=== PATIENT | male | born 1940 | race Caucasian/White ===

== ENCOUNTER 2017-11-28 07:30 | Inpatient (IN) | payer OTHER ==
--- NOTE | 2017-11-28 08:03 | ER ---
Nurse's Notes [facility] Name: Amado Benitez Age: 77 yrs Sex: Male : 1940 Arrival Date: 11/28/2017 Time: 07:33 Bed 13 [facility] MD: Micky Russo C Diagnosis: Other chest pain;Dyspnea;End stage renal disease;Unspecified combined systolic (congestive) and diastolic (congestive) heart failure;Hyperkalemia Presentation: 11/28 07:36 Presenting complaint: Patient states: Sudden severe chest pain 04/26 and SOB that hb started during HD, relieved by nitro x 1. Transition of care: patient was not received from another setting of care. Onset of symptoms was November 28, 2017. Initial Sepsis Screen: Does the patient meet any 2 criteria? No. Patient's initial sepsis screen is negative. Does the patient have a suspected source of infection? No. Patient's initial sepsis screen is negative. Care prior to arrival: None. 07:36 Method Of Arrival: Wheelchair hb 07:36 Acuity: KIMMY 3 hb Historical: - Allergies: 07:37 No Known Allergies; hb - Home Meds: 07:37 Aleve 220 mg Oral tab 1 tab every 12 hours [Active]; amlodipine 10 mg tab 1 tab once hb daily [Active]; aspirin 81 mg Oral TbEC 1 tab once daily [Active]; CALCIUM ACETATE 667 MG 2 tab daily [Active]; metoprolol tartrate 25 mg Oral tab 1 tab once daily [Active]; prednisone 5 mg Oral tab once daily [Active]; - PMHx: 07:38 COPD; Dialysis; ESRD; Hypertension; TIA; hb - PSHx: 07:38 Cholecystectomy; dialysis shunt; Hernia repair; hb - Immunization history:: Adult Immunizations up to date. - Social history:: Smoking status: Patient/guardian denies using tobacco. - Family history:: not pertinent. Screenin:43 Abuse screen: Denies threats or abuse. Denies injuries from another. Nutritional ph screening: No deficits noted. Tuberculosis screening: No symptoms or risk factors identified. Fall Risk No fall in past 12 months (0 pts). No secondary diagnosis (0 pts). IV access (20 points). Ambulatory Aid- None/Bed Rest/Nurse Assist (0 pts). Gait- Weak (10 pts.). Mental Status- Oriented to own ability (0 pts). Total Srivastava Fall Scale indicates Low Risk Score (25-44 pts). Fall prevention measures have been instituted. Side Rails Up X 2 Placed close to Nursing Station Family Present and informed to notify staff if they need to leave bedside As available Patient and Family Educated on Fall Prevention Program and strategies. Assessment: 08:09 General: Appears in no apparent distress. comfortable, slender, well groomed, Behavior ph is calm, cooperative, appropriate for age. Pain: Denies pain. Complains of pain in chest reports that pain radiated to vikram thigh area, denies pain at this time Pain began suddenly. Neuro: Level of Consciousness is awake, alert, obeys commands, Oriented to person, place, time, situation. Cardiovascular: Reports chest pain, shortness of breath, Denies nausea, palpitations, Capillary refill < 3 seconds Patient's skin is warm and dry. Dialysis shunt: in the dorsal aspect of left forearm, with palpable thrill, with auscultated bruit, with no erythema, with no edema, no bleeding noted. Respiratory: Airway is patent Respiratory effort is even, unlabored, Respiratory pattern is regular, symmetrical. GI: No signs and/or symptoms were reported involving the gastrointestinal system. Derm: Skin is intact, is fragile, is thin, Skin is pink, warm \T\ dry. Musculoskeletal: Circulation, motion, and sensation intact. Range of motion: intact in all extremities. 09:00 Reassessment: Patient appears in no apparent distress at this time. Patient and/or ph family updated on plan of care and expected duration. Pain level reassessed. Patient is alert, oriented x 3, equal unlabored respirations, skin warm/dry/pink. Pt c/o SOB and nausea, Spo2 98% RA, placed on 2L NC for comfort and ERP notifed, see SEP. 10:00 Reassessment: Patient appears in no apparent distress at this time. Patient and/or ph family updated on plan of care and expected duration. Pain level reassessed. Patient is alert, oriented x 3, equal unlabored respirations, skin warm/dry/pink. Pt reports that nausea and SOB have improved, VSS, awaiting lab results. 11:10 Reassessment: Patient appears in no apparent distress at this time. Patient and/or ph family updated on plan of care and expected duration. Pain level reassessed. Patient is alert, oriented x 3, equal unlabored respirations, skin warm/dry/pink. Pt resting quietly, denies pain, SOB, or nausea at this time, VSS, awaiting room assignment, SO at bedside. 12:30 Reassessment: Patient appears in no apparent distress at this time. Patient and/or ph family updated on plan of care and expected duration. Pain level reassessed. Patient is alert, oriented x 3, equal unlabored respirations, skin warm/dry/pink. Patient denies pain at this time. 13:30 Reassessment: Patient appears in no apparent distress at this time. No changes from ph previously documented assessment. Patient and/or family updated on plan of care and expected duration. Pain level reassessed. Patient is alert, oriented x 3, equal unlabored respirations, skin warm/dry/pink. Pt resting quietly, waiting to be taken ti=o ICU. Vital Signs: 07:38 BP 189 / 70; Pulse 49; Resp 16; Temp 98; Pulse Ox 96% on R/A; Pain 0/10; hb 08:13 BP 178 / 66; Pulse 44; Resp 18; Pulse Ox 97% on R/A; ph 09:30 BP 163 / 68; Pulse 45; Resp 18; Pulse Ox 99% on R/A; ph 10:30 BP 142 / 52; Pulse 54; Resp 18; Pulse Ox 99% on R/A; ph 11:16 BP 147 / 57; Pulse 68; Resp 18; Pulse Ox 99% on R/A; ph 12:18 BP 138 / 58; Pulse 54; Resp 18; Temp 97.8; Pulse Ox 98% on R/A; Pain 0/10; ph 13:30 BP 137 / 52; Pulse 52; Resp 18; Temp 97.8; Pulse Ox 99% on R/A; Pain 0/10; ph ED Course: 07:33 Patient arrived in ED. mr 07:33 Micky Russo MD is Private Physician. mr 07:37 Triage completed. hb 07:38 Arm band placed on right wrist. hb 07:41 Florence Ospina, JOVANI is Primary Nurse. ph 07:44 Patient has correct armband on for positive identification. Placed in gown. Bed in low ph position. Call light in reach. Side rails up X 1. youth nutritional monitor on. Pulse ox on. NIBP on. 07:45 Patient maintains SpO2 saturation greater than 95% on room air. ph 07:46 Nitin Hoyos MD is Attending Physician. [facility] 08:00 Initial lab(s) drawn, by me, sent to lab. Inserted saline lock: 20 gauge in right ph forearm, using aseptic technique. Blood collected. 08:02 Micky Russo MD is Hospitalizing Provider. [facility] 08:18 X-ray completed. Portable x-ray completed in exam room. Patient tolerated procedure jb2 well. 08:19 XRAY Chest (1 view) In Process Unspecified. EDND 13:55 No provider procedures requiring assistance completed. Patient admitted, IV remains in ph place. Administered Medications: 08:45 Drug: Nitro-Bid Ointment 2 % 1 inches Route: Transdermal; Site: anterior chest wall; ph 08:45 Drug: Aspirin 162 mg Route: PO; ph 08:46 Drug: Zofran 4 mg Route: IVP; Site: right forearm; ph 10:21 Drug: Calcium Gluconate 1 grams Route: IVPB; Infused Over: 20 mins; Site: right forearm;ph 10:21 Drug: Lovenox 40 mg Route: Sub-Q; Site: right lower abdomen; ph 10:21 Drug: Sodium Bicarbonate 0.5 amp Route: IVP; Site: right forearm; ph 10:24 Drug: Albuterol - atroVENT (3:1) (2.5 mg - 0.5 mg) 3 ml Route: Nebulizer; ph 10:24 Drug: Lasix 100 mg Route: IVP; Site: right forearm; ph Outcome: 08:02 Decision to Hospitalize by Provider. [facility] 13:55 Patient left the ED. aa5 13:55 Admitted to ICU accompanied by nurse, family with patient, via wheelchair, room 8, on ph monitor, with chart, Report called to JOVANI Dove 13:55 Condition: stable 13:55 Instructed on the need for admit. Signatures: Dispatcher [employer] EDND Nitin Hoyos MD MD cha Rivera, Maria Morgilbert Jaime jb2 Kerrie Cao RN RN aa5 Florence Ospina RN RN Carley Petersen RN RN
--- NOTE | 2017-11-28 08:03 | EDPHYS ---
Physician Documentation [facility] Name: Amado Benitez Age: 77 yrs Sex: Male : 1940 Arrival Date: 11/28/2017 Time: 07:33 Bed 13 Private MD: Micky Russo C ED Physician Nitin Hoyos HPI: 11/28 07:57 This 77 yrs old Male presents to ER via Wheelchair with complaints of Chest lyndsey Pain. 07:57 The patient or guardian reports chest pain that is located primarily in the substernal lyndsey area. Onset: just prior to arrival. The pain does not radiate. Associated signs and symptoms: Pertinent positives: shortness of breath. The chest pain is described as a pressure, sharp. Modifying factors: The symptoms are alleviated by nothing. the symptoms are aggravated by nothing. Severity of pain: At its worst the pain was moderate in the emergency department the pain is unchanged. Historical: - Allergies: 07:37 No Known Allergies; hb - Home Meds: 07:37 Aleve 220 mg Oral tab 1 tab every 12 hours [Active]; amlodipine 10 mg tab 1 tab once hb daily [Active]; aspirin 81 mg Oral TbEC 1 tab once daily [Active]; CALCIUM ACETATE 667 MG 2 tab daily [Active]; metoprolol tartrate 25 mg Oral tab 1 tab once daily [Active]; prednisone 5 mg Oral tab once daily [Active]; - PMHx: 07:38 COPD; Dialysis; ESRD; Hypertension; TIA; hb - PSHx: 07:38 Cholecystectomy; dialysis shunt; Hernia repair; hb - Immunization history:: Adult Immunizations up to date. - Social history:: Smoking status: Patient/guardian denies using tobacco. - Family history:: not pertinent. ROS: 07:57 Constitutional: Negative for fever, chills, and weight loss, Eyes: Negative for injury, lyndsey pain, redness, and discharge, ENT: Negative for injury, pain, and discharge, Neck: Negative for injury, pain, and swelling, Respiratory: Negative for shortness of breath, cough, wheezing, and pleuritic chest pain, Abdomen/GI: Negative for abdominal pain, nausea, vomiting, diarrhea, and constipation, Back: Negative for injury and pain, : Negative for injury, bleeding, discharge, and swelling, MS/Extremity: Negative for injury and deformity, Skin: Negative for injury, rash, and discoloration, Neuro: Negative for headache, weakness, numbness, tingling, and seizure, Psych: Negative for depression, anxiety, suicide ideation, homicidal ideation, and hallucinations, Allergy/Immunology: Negative for hives, rash, and allergies, Endocrine: Negative for neck swelling, polydipsia, polyuria, polyphagia, and marked weight changes. 07:57 Cardiovascular: Positive for chest pain. Exam: 07:57 Constitutional: This is a well developed, well nourished patient who is awake, alert, lyndsey and in no acute distress. Head/Face: Normocephalic, atraumatic. Eyes: Pupils equal round and reactive to light, extra-ocular motions intact. Lids and lashes normal. Conjunctiva and sclera are non-icteric and not injected. Cornea within normal limits. Periorbital areas with no swelling, redness, or edema. ENT: Nares patent. No nasal discharge, no septal abnormalities noted. Tympanic membranes are normal and external auditory canals are clear. Oropharynx with no redness, swelling, or masses, exudates, or evidence of obstruction, uvula midline. Mucous membranes moist. Neck: Trachea midline, no thyromegaly or masses palpated, and no cervical lymphadenopathy. Supple, full range of motion without nuchal rigidity, or vertebral point tenderness. No Meningismus. Chest/axilla: Normal chest wall appearance and motion. Nontender with no deformity. No lesions are appreciated. Respiratory: Lungs have equal breath sounds bilaterally, clear to auscultation and percussion. No rales, rhonchi or wheezes noted. No increased work of breathing, no retractions or nasal flaring. Abdomen/GI: Soft, non-tender, with normal bowel sounds. No distension or tympany. No guarding or rebound. No evidence of tenderness throughout. Back: No spinal tenderness. No costovertebral tenderness. Full range of motion. Male : Normal genitalia with no discharge or lesions. Skin: Warm, dry with normal turgor. Normal color with no rashes, no lesions, and no evidence of cellulitis. MS/ Extremity: Pulses equal, no cyanosis. Neurovascular intact. Full, normal range of motion. Neuro: Awake and alert, GCS 15, oriented to person, place, time, and situation. Cranial nerves II-XII grossly intact. Motor strength 5/5 in all extremities. Sensory grossly intact. Cerebellar exam normal. Normal gait. Psych: Awake, alert, with orientation to person, place and time. Behavior, mood, and affect are within normal limits. 07:57 Cardiovascular: Rate: normal, Rhythm: regular, Heart sounds: normal, Edema: is not appreciated, JVD: is not appreciated. 08:01 Musculoskeletal/extremity: DVT Exam: No signs of deep vein thrombosis. no pain, no lyndsey swelling, no tenderness, negative Homans' sign noted on exam, no appreciated bluish discoloration, no erythema, no increased warmth. Vital Signs: 07:38 BP 189 / 70; Pulse 49; Resp 16; Temp 98; Pulse Ox 96% on R/A; Pain 0/10; hb 08:13 BP 178 / 66; Pulse 44; Resp 18; Pulse Ox 97% on R/A; ph 09:30 BP 163 / 68; Pulse 45; Resp 18; Pulse Ox 99% on R/A; ph 10:30 BP 142 / 52; Pulse 54; Resp 18; Pulse Ox 99% on R/A; ph 11:16 BP 147 / 57; Pulse 68; Resp 18; Pulse Ox 99% on R/A; ph 12:18 BP 138 / 58; Pulse 54; Resp 18; Temp 97.8; Pulse Ox 98% on R/A; Pain 0/10; ph 13:30 BP 137 / 52; Pulse 52; Resp 18; Temp 97.8; Pulse Ox 99% on R/A; Pain 0/10; ph MDM: 07:46 Patient medically screened. [facility] 07:57 Data reviewed: vital signs, nurses notes, lab test result(s), EKG, radiologic studies, lyndsey plain films. 11/28 07:57 Order name: Basic Metabolic Panel; Complete Time: 09:27 [facility] 11/28 07:57 Order name: BNP; Complete Time: 09:27 [facility] 11/28 07:57 Order name: CBC with Diff; Complete Time: 09:27 [facility] 11/28 07:57 Order name: Ckmb; Complete Time: 09:27 [facility] 11/28 07:57 Order name: CPK; Complete Time: 09:27 [facility] 11/28 07:57 Order name: LFT's; Complete Time: 09:27 [facility] 11/28 07:57 Order name: Magnesium; Complete Time: 09:27 [facility] 11/28 07:57 Order name: PT-INR; Complete Time: 08:55 [facility] 11/28 07:57 Order name: Ptt, Activated; Complete Time: 08:55 [facility] 11/28 07:57 Order name: Troponin (emerg Dept Use Only); Complete Time: 09:27 [facility] 11/28 07:57 Order name: Lipase; Complete Time: 09:27 [facility] 11/28 08:15 Order name: Troponin I EDMS 11/28 08:15 Order name: Troponin I EDMS 11/28 09:11 Order name: CBC Smear Scan; Complete Time: 09:27 EDMS 11/28 07:57 Order name: XRAY Chest (1 view); Complete Time: 11:04 [facility] 11/28 07:57 Order name: EKG; Complete Time: 07:57 [facility] 11/28 08:15 Order name: CONS Physician Consult EDMS 11/28 08:15 Order name: CONS Physician Consult EDMS 11/28 08:15 Order name: CONS Physician Consult EDMS 11/28 08:15 Order name: Consistent Carb (ADA) [address] EDMS 11/28 08:15 Order name: EKG Electrocardiogram EDMS 11/28 08:15 Order name: EKG Electrocardiogram EDMS 11/28 07:57 Order name: Cardiac monitoring; Complete Time: 08:08 [facility] 11/28 07:57 Order name: EKG - Nurse/Tech; Complete Time: 08:19 [facility] 11/28 07:57 Order name: IV Saline Lock; Complete Time: 08:08 [facility] 11/28 07:57 Order name: Labs collected and sent; Complete Time: 08:08 [facility] 11/28 07:57 Order name: O2 Per Protocol; Complete Time: 08:08 [facility] 11/28 07:57 Order name: O2 Sat Monitoring; Complete Time: 08:08 [facility] 11/28 08:15 Order name: EKG Electrocardiogram EDMS 11/28 08:15 Order name: EKG Electrocardiogram EDMS Administered Medications: 08:45 Drug: Nitro-Bid Ointment 2 % 1 inches Route: Transdermal; Site: anterior chest wall; ph 08:45 Drug: Aspirin 162 mg Route: PO; ph 08:46 Drug: Zofran 4 mg Route: IVP; Site: right forearm; ph 10:21 Drug: Calcium Gluconate 1 grams Route: IVPB; Infused Over: 20 mins; Site: right forearm;ph 10:21 Drug: Lovenox 40 mg Route: Sub-Q; Site: right lower abdomen; ph 10:21 Drug: Sodium Bicarbonate 0.5 amp Route: IVP; Site: right forearm; ph 10:24 Drug: Albuterol - atroVENT (3:1) (2.5 mg - 0.5 mg) 3 ml Route: Nebulizer; ph 10:24 Drug: Lasix 100 mg Route: IVP; Site: right forearm; ph Disposition: 11/28/17 08:02 Hospitalization ordered by Micky Russo for Inpatient Admission. Preliminary diagnosis are Other chest pain, Dyspnea, End stage renal disease, Unspecified combined systolic (congestive) and diastolic (congestive) heart failure, Hyperkalemia. - Bed requested for Intensive Care Unit. - Status is Inpatient Admission. aa5 - Condition is Stable. - Problem is new. - Symptoms have improved. UTI on Admission? No Signatures: Dispatcher [employer] EDMS Caitlin Sun Corey, MD MD cha Calderon, Audri, RN RN aa5 Florence Ospina RN RN Carley Petersen RN RN Corrections: (The following items were deleted from the chart) 09:42 08:02 Hospitalization Ordered by A Karan COHEN for Observation. Preliminary diagnosis is lyndsey Other chest pain; Dyspnea; End stage renal disease. Bed requested for Telemetry/MedSurg (observation). Status is Observation. Condition is Stable. Problem is new. Symptoms have improved. UTI on Admission? No. lyndsey 11:05 09:42 11/28/2017 08:02 Hospitalization Ordered by A Karan COHEN for Inpatient Admission. lyndsey Preliminary diagnosis is Other chest pain; Dyspnea; End stage renal disease; Unspecified combined systolic (congestive) and diastolic (congestive) heart failure; Hyperkalemia. Bed requested for Telemetry/MedSurg (Inpatient). Status is Inpatient Admission. Condition is Stable. Problem is new. Symptoms have improved. UTI on Admission? No. lyndsey 12:17 11:05 11/28/2017 08:02 Hospitalization Ordered by A Karan COHEN for Inpatient Admission. lencho Preliminary diagnosis is Other chest pain; Dyspnea; End stage renal disease; Unspecified combined systolic (congestive) and diastolic (congestive) heart failure; Hyperkalemia. Bed requested for Intensive Care Unit. Status is Inpatient Admission. Condition is Stable. Problem is new. Symptoms have improved. UTI on Admission? No. lyndsey 13:55 12:17 11/28/2017 08:02 Hospitalization Ordered by A Karan COHEN for Inpatient Admission. aa5 Preliminary diagnosis is Other chest pain; Dyspnea; End stage renal disease; Unspecified combined systolic (congestive) and diastolic (congestive) heart failure; Hyperkalemia. Bed requested for Intensive Care Unit. Status is Inpatient Admission. Condition is Stable. Problem is new. Symptoms have improved. UTI on Admission? No.
[2017-11-28] MEDS ORDERED: Morphine 2 MG/2 ML SYR IV PRN (08:11)
[2017-11-28] MEDS ORDERED: ACETAMINOPHEN 500 MG TAB PO PRN (08:11)
[2017-11-28] MEDS ORDERED: ONDANSETRON 4 MG/2 ML VIAL IV PRN (08:11)
[2017-11-28 08:17] LABS: Absolute Lymphocytes (CBC) 0.9 K/uL (0.7-4.9); Absolute Monocytes 0.7 K/uL (0.1-1.3); Absolute Neutrophil 13.9 K/uL (1.8-8.0); Basophils % 0.4 % (0-1.3); Eosinophils % 1.5 % (0-4.4); Hematocrit 34.9 % (39.6-49.0); Lymphocytes % 5.4 % (15.3-44.8); MCH 29.9 pg (27.0-35.0); MCV 94.1 fL (80-100); MPV 8.3 fL (7.6-11.3); Monocytes % 4.4 % (3.3-12.3); RBC Red Blood Cell Count 3.71 M/uL (4.33-5.43)
[2017-11-28 08:27] LABS: Protime INR 1.06
[2017-11-28] MEDS ORDERED: ASPIRIN 81 MG CHEWABLE TABLET ONE (08:27)
[2017-11-28] MEDS ORDERED: ONDANSETRON 4 MG/2 ML VIAL ONE (08:36)
[2017-11-28 08:49] LABS: CKMB Creatine Kinase MB 3.8 ng/ml (0.3-4.0)
[2017-11-28 08:59] LABS: Albumin 3.2 g/dL (3.2-5.5); Bilirubin Direct 0.1 mg/dL (0-0.2); Bilirubin Total 1.2 mg/dL (0.3-1.2); Magnesium 2.2 mg/dL (1.8-2.5); Protein, Total 7.1 g/dL (6.0-8.3)
[2017-11-28] MEDS ORDERED: predniSONE 5 MG TAB PO SCH (09:00)
[2017-11-28] MEDS: ASPIRIN EC 81 MG TAB PO SCH (09:00)
[2017-11-28] MEDS: AMLODIPINE 10 MG TAB PO SCH (09:00)
[2017-11-28] MEDS: FAMOTIDINE 20 MG TAB PO SCH (09:00)
[2017-11-28 09:11] LABS: Blood Morphology Comment NOT SEEN (NOT SEEN); Platelet Estimate ADEQ; Urine White Blood Cell Casts OK
[2017-11-28 09:12] LABS: Potassium 6.6 mEq/L (3.6-5.0)
--- NOTE | 2017-11-28 09:33 | RAD REPORT ---
EXAM DESCRIPTION: RAD - Chest Single View - 11/28/2017 8:18 am CLINICAL HISTORY: Chest pain, shortness of breath. COMPARISON: 09/07/2017 FINDINGS: Portable technique limits examination quality. 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 No focal infiltrate is identified. Heart is mildl y enlarged in size. No displaced fractures.
[2017-11-28] MEDS ORDERED: FUROSEMIDE 100 MG/10 ML VIAL IV ONE (09:38)
[2017-11-28] MEDS ORDERED: ENOXAPARIN 40 MG/0.4 ML SQ ONE (09:39)
[2017-11-28] MEDS ORDERED: IPRATROPIUM BROM 0.5MG/2.5ML ONE (09:58)
[2017-11-28] MEDS ORDERED: ALBUTEROL 2.5 MG/3 ML NEB SOL ONE (09:58)
[2017-11-28] MEDS ORDERED: CALCIUM GLUCONATE 1gm/100 ML NS (4.65 mEq/100mL) IV ONE ×2 (10:00)
[2017-11-28] MEDS ORDERED: NITROGLYCERIN 1 GM PKT TD SCH (12:00)
[2017-11-28] MEDS ORDERED: SOD POLYSTYREN SUL 15 GM/60 ML UCUP PO ONE ×2 (12:10→15:00)
--- NOTE | 2017-11-28 14:43 | EKG ---
Test Date: 2017-11-28 Test Time: 08:16:07 French Binding Folder: PRAVIN MEASUREMENT RESULTS: Intervals: Rate: 45 VT: 248 QRSD: 122 QT: 496 QTc: 429 [place]: P: 34 VT: 248 QRS: -28 T: 40 INTERPRETIVE STATEMENTS: Sinus bradycardia with 1st degree AV block Left ventricular hypertrophy with QRS widening Abnormal ECG Compared to ECG 09/07/2017 06:29:26 no significant change from previous ECG Electronically Signed On 11-28-17 14:43:19 CDT by Estevan Sewell
[2017-11-28 14:55] LABS: Potassium 7.1 mEq/L (3.6-5.0)
[2017-11-28] MEDS ORDERED: SOD POLYSTYREN SUL 15 GM/60 ML UCUP ONE (14:55)
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
[2017-11-28] MEDS: METOPROLOL TAR 25 MG TAB PO SCH (18:08)
[2017-11-28] MEDS ORDERED: POLYETHYLENE GLYCOL PO PRN (18:56)
[2017-11-28 20:05] LABS: Potassium 4.3 mEq/L (3.6-5.0)
[2017-11-28] MEDS ORDERED: DIFLUPREDNATE OPHTHALMIC 5 ML BOT LEFT EYE SCH (21:00)
[2017-11-28] MEDS: AMIODARONE HCL 200 MG TAB PO SCH (21:00)
[2017-11-28] MEDS ORDERED: BRIMONIDINE TARTRATE 0.15% 5 ML OPTH SCH (21:00)
[2017-11-28] MEDS: NEPAFENAC LEFT EYE SCH (21:00)
[2017-11-28] MEDS: HEPARIN 5000 UNIT/ML 1 ML VIAL SQ SCH (21:28)
--- NOTE | 2017-11-29 02:01 | CON ---
Date of Consultation: 11/28/2017 Chief Complaint: End-stage renal disease. History Of Present Illness: The patient presented to the hospital and was referred from [facility] because of severe chest pain, substernal associated with shortness of breath. The patient was found to have severe hyperkalemia, is admitted to ICU, was treated with IV calcium gluconate, and received Kayexalate as well as urgent dialysis was scheduled to control hyperkalemia and provide metabolic clearance and ultrafiltration. The patient was found to have fluid overload and was short of breath. The BNP was elevated. The patient has history of hypertensive heart disease and history of atrial fibrillation. Previously, he was admitted to the hospital for paroxysmal atrial fibrillation. The patient was getting dialysis in outpatient center when he developed substernal chest pain. Dialysis was stopped, and the patient was referred to emergency room , EMS was called and he was given nitroglycerin. Subsequently, in the emergency room, troponin level was 0.09, but potassium was up to 6.6, and creatinine was 7.1. The patient is scheduled to have dialysis for metabolic clearance. Review of Systems: Constitutional: Denies fever or chills. Eyes: Denies vision changes. Ears, Nose, Mouth, and Throat: Denies sore throat or earache. Respiratory: Has some dyspnea. Cardiovascular: Had chest pain. Denies syncope. Gastrointestinal: Denies nausea or vomiting. Genitourinary: Denies dysuria or hematuria. Musculoskeletal: Denies muscle aches or joint swelling. All other systems reviewed and all are negative. Past Medical History: Hypertensive heart and kidney disease, atrial fibrillation, history of Mycobacterium avium, history of hypertension, peripheral vascular disease, end-stage renal disease, anemia, CKD, renal osteodystrophy, and lower extremity wound. Social History: Denies tobacco, alcohol, or illicit drugs. Family History: No kidney disease in the family. Physical Examination: General: Not in acute distress Eyes: Anicteric sclerae. EOMI. Ears, Nose, Mouth, and Throat: Oral mucosa is moist. No pallor. Neck: Supple. No JVD. No bruits. Lungs: Crackles bilaterally present, no wheezing Heart: S1, S2. No pericardial friction rub. Abdomen: Soft, benign, nontender. Extremities: Some edema present in both legs. Neurological: Moving extremities. Cranial nerves intact. Psychiatric: Alert and oriented x3. Normal affect. Chest x-ray showed fibro-emphysematous changes bilaterally. No focal infiltrate. Heart is mildly enlarged. Laboratory Work: Sodium 148, potassium 6.6, chloride 102, CO2 of 25, BUN 62, creatinine 7.96, calcium 9.1, and magnesium 2.2. Troponin 0.09. BNP 4514. Impression And Plan: 1. End-stage renal disease, fluid overload, and severe hyperkalemia. The patient was medicated with Kayexalate, received calcium gluconate, and emergent dialysis will be done in ICU for metabolic clearance to treat hyperkalemia and to provide ultrafiltration to treat fluid overload and to control congestive heart failure. Dialysis parameters adjusted to treat severe hyperkalemia. Re- evaluate potassium level after dialysis . 2. Hypertension. Continue blood pressure medication. 3. Hypertensive heart disease and dyspnea with fluid overload, ultrafiltration will be done with dialysis to control dyspnea, patient will be admitted to ICU to control atrial fibrillation. Monitor the patient in ICU. Cardiology consultation was obtained for elevated troponin to rule out acute myocardial infarction. 4. Anemia and chronic kidney disease. Monitor hemoglobin level and adjust JANI. 5. Renal osteodystrophy. Continue renal diet and binders. EB/MODL Voice ID: [id number] Report ID: [id number] RUPESH
[2017-11-29 05:07] LABS: Absolute Lymphocytes (CBC) 0.7 K/uL (0.7-4.9); Absolute Monocytes 0.5 K/uL (0.1-1.3); Absolute Neutrophil 6.6 K/uL (1.8-8.0); Basophils % 0.6 % (0-1.3); Eosinophils % 2.3 % (0-4.4); Hematocrit 31.8 % (39.6-49.0); Lymphocytes % 8.9 % (15.3-44.8); MCH 30.9 pg (27.0-35.0); MCV 92.1 fL (80-100); Monocytes % 6.1 % (3.3-12.3); RBC Red Blood Cell Count 3.46 M/uL (4.33-5.43)
[2017-11-29 05:41] LABS: Potassium 5.1 mEq/L (3.6-5.0)
[2017-11-29] MEDS: METOPROLOL TAR 25 MG TAB PO SCH ×2 (06:00→18:40)
--- NOTE | 2017-11-29 06:22 | HP ---
Date of Admission: 11/28/2017 Chief Complaint: Chest pain and shortness of breath. History Of Present Illness: This is a 77-year-old male patient, who has end-stage renal disease, on hemodialysis, went to dialysis clinic for his dialysis session today and within few minutes after his dialysis was started he started to have severe chest pain in the center of his chest associated with shortness of breath. He was sent to emergency room. After he was evaluated in the ER, he was admit danny to the hospital to intensive care unit. The patient was given nitroglycerin 1 tablet and that ac tually did help to resolve his pain. Denies any fever or chills. No expectoration. When I saw him in ICU, he was getting his dialysis and Cardiology evaluation was done by linter saw sharpener prior to my ar rival. The patient has growth on the right lateral distal wrist area and he informs me that over a p eriod of time this is increasing in size. Denies any pain in or around this growth and no tingling n umbness of the right hand. Allergies: NO KNOWN ALLERGIES. Medications: List reviewed. Review of Systems: Cardiovascular: As mentioned above. Musculoskeletal: As mentioned above. All other systems reviewed and negative. Social History: Prior history of smoking, not at present time. Use of alcohol, negative. Family History: Coronary artery disease, breast cancer. Past Surgical History: Cholecystectomy, hernia repair. 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 Physical Examination: Vital Signs: When he first came into the emergency room, temperature 98, pulse 49, respiratory rate 16, blood pressure 189/70, oxygen saturation 96%. Height 6 feet. Weight 164 pounds. General: Awake, alert, oriented, not in distress. HEENT: Head atraumatic, normocephalic. Conjunctivae nonerythematous. Sclerae white. Mouth, no thr ush or edema noted. Ears/Nose, no mass, lesion, discharge noted. Neck: Supple. No JVD, lymph nodes, bruit, thyromegaly noted. Lungs: Bilateral good equal air entry. Clear to auscultation. No rhonchi. No rales. Heart: Normal heart sounds, no murmur or gallop. Abdomen: Soft, bowel sounds normal. No guarding, rigidity, tenderness, mass, hepatosplenomegaly, dis tention, or bruit noted. Extremities: No leg edema. No calf tenderness. The patient has dressing present over the right heel and left leg due to his chronic wound which mey ent's reports that his wounds are actually improving very well with wound care management. His right upper extremity right wrist area shows approximately 2 cm firm mass which moves with the palpat ing finger and it is superficial to the tendon and does not move along with the movement of the finge r or thumb. It is nontender. Skin: No rash, ulcer, cellulitis. Lymphatics: No lymph node enlargement in neck, supraclavicular, infraclavicular region. Neuro: No focal neurological deficit. Chest: Unremarkable. External Genitalia: Deferred. Rectal: Deferred. Laboratory Data: White count 15.8, hemoglobin 11.1, platelets 258. Initial sodium 138, potassium 6. 6, chloride 102, bicarb 25, BUN 62, creatinine 7.96, glucose 113. Liver function tests unremarkable. Troponin 0.09 on the first set, second set 0.07. BNP 4514. Lipase 34. Repeat sodium 160, potassi um 7.1, chloride 113, bicarb 30, BUN 69, creatinine 9. Chest x-ray; fibroemphysematous changes bilat erally, no focal infiltrate. EKG; sinus bradycardia with first-degree AV block, left ventricular hyp ertrophy. Impression: 1.Chest pain. 2.Hyperkalemia. 3.End-stage renal disease, on hemodialysis. 4.Anemia, due to chronic kidney disease. 5.Hypertension. 6.Right upper extremity mass, rule out lipoma. 7.Chronic steroid therapy. 8.Paroxysmal atrial fibrillation. 9.Hypertension. 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 Plan: Admit the patient to hospital for further evaluation and management of this problem. The [facility] ent is appropriate for inpatient and is expected to spend 2 midnights in the hospital. We will go ah ead and continue his home medications per order. Lead Informatica Developer has been consulted and the patient michelle l have further testing done tomorrow which will be stress test, and depending on stress test results we will decide further plan of intervention for him. DVT prophylaxis will be given using Lovenox. W e will continue aspirin, antihypertensive medication, and his steroid therapy per order. Consult nep hrologist and dialysis support will be provided per pulp mill operator. PAULA/WILFREDO Voice ID: [id number]
[2017-11-29] MEDS ORDERED: POLYETHYL GLY 3350 17 GM/DOSE PO PRN (07:03)
--- NOTE | 2017-11-29 07:03 | RAD REPORT ---
EXAM DESCRIPTION: RAD - Chest Single View - 11/29/2017 6:32 am CLINICAL HISTORY: Chest pain COMPARISON: November 28, September 07 TECHNIQUE: AP portable chest image was obtained 0614 hours . FINDINGS: Lung volumes are similar to comparison. Extensive fibro emphysematous lung changes are aga in noted. Slightly less opacification seen in the left midlung field. Overall there has been mild imp rovement to the lung parenchyma. Mild cardiomegaly is present similar to comparison. Vasculature is similar or slightly less pronounc ed. No measurable pleural effusion and no pneumothorax. No gross bony abnormality seen. No acute aort ic findings suspected. IMPRESSION: Extensive fibro emphysematous change with slight decrease in the prominence of the inter stitial markings. No new or progressive finding.
[2017-11-29] MEDS: OFLOXACIN LEFT EYE SCH (07:21)
[2017-11-29] MEDS: CA ACETATE 667 MG CAP PO SCH ×3 (07:30→16:30)
[2017-11-29] MEDS ORDERED: REGADENOSON 0.4 MG/5 ML SYR IV ONE (07:33)
[2017-11-29] MEDS: predniSONE 10 MG TAB PO SCH (08:13)
[2017-11-29] MEDS: AMLODIPINE 10 MG TAB PO SCH (08:13)
[2017-11-29] MEDS: COLLAGENASE 30 GM OINTMENT TOP SCH (08:47)
[2017-11-29] MEDS: ASPIRIN EC 81 MG TAB PO SCH (09:00)
[2017-11-29] MEDS: HEPARIN 5000 UNIT/ML 1 ML VIAL SQ SCH ×2 (10:57→21:12)
[2017-11-29] MEDS: FAMOTIDINE 20 MG TAB PO SCH (11:04)
--- NOTE | 2017-11-29 13:41 | RAD REPORT ---
EXAM DESCRIPTION: NM - Rest Stress Cardiac Imaging - 11/29/2017 1:33 pm CLINICAL HISTORY: Chest pain. COMPARISON: None. TECHNIQUE: The patient was administered approximately 10mCi of Tc 99m Sestamibi prior to resting SPE CT imaging of the heart. The patient was then administered approximately 30 mCi of Tc 99m Sestamibi f ollowing exercise or pharmacologic stress. Multiplanar SPECT images were reviewed. FINDINGS: No stress induced ischemic defect is seen to suggest stress induced ischemia. Diminished r adiopharmaceutical accumulation along the inferior wall appears less prominent with stress. The end diastolic volume is 194 ml, the end systolic volume is 120 ml, and the ejection fraction is 3 8 %. IMPRESSION: No stress induced ischemia.
[2017-11-29] MEDS ORDERED: HYDRALAZINE HCL 20 MG/ML VIAL IV ONE (14:00)
--- NOTE | 2017-11-29 15:32 | TREADPHA ---
DX: CHEST PAIN Date of Study: 11/29/17 Ht: 6 0 Wt: 164 lb 1 oz Consulting Physician: LUIS M MEDICATIONS: TYLENOL, CORDARONE, NOVASC, ASPIRIN, PHOSLO, HEPARIN HISTORY: 77 YEAR OLD MALE WITH ATYPICAL CHEST PAIN, HYPERTENSION AND ATRIAL FIBRILLATION PHYSICIAL EXAMINATION: RESTING B.P.: 218/82 RESTING H.R.: 47 RESTING EKG: SINUS BRADYCARDIA, PREMATURE ATRIAL COMLEXES, INTRA VENTRICULAR CONDUCTION DELAY. PROTOCOL: LEXISCAN EXERCISE TIME: 3:30 B.P. AT PEAK STRESS: 179/78 IMPRESSION: LEXISCAN STRESS TEST PERFORMED. CARDIOLITE INJECTED PER PROTOCOL. NO SUPRA VENTRICULAR TACHYCARDIA OR VENTRICULAR TACHYCARDIA NOTED. LOW BLOOD PRESSURE NOTED TO NORMAL LIMITS FOR PATIENT. SEE NUCLEAR MEDICINE REPORT.
[2017-11-29] MEDS ORDERED: DIPHENHYDRAMINE 50 MG/ML VIAL IV ONE (17:00)
[2017-11-29 18:20] VITALS: O2SAT 99
[2017-11-29] MEDS: AMIODARONE HCL 200 MG TAB PO SCH (21:00)
[2017-11-29] MEDS: NEPAFENAC LEFT EYE SCH (21:00)
--- NOTE | 2017-11-29 23:37 | PN ---
Date of Progress Note: 11/29/2017 Subjective: Mr. Benitez was admitted with acute renal failure, hyperkalemia, elevated BNP of 4514, an d troponin of 0.07. Lexiscan was ordered by Dr. Sewell for today. The Lexiscan was normal without a n evidence ischemia. NB/MODL Voice ID: [id number] Report ID: [id number]
--- NOTE | 2017-11-30 00:58 | PN ---
Date of Progress Note: 11/29/2017 Subjective: The patient was seen this morning for followup. He was lying in bed, not in distress. His was present with him at bedside. He had dialysis done yesterday evening. No chest pain overnight. No shortness of breath. Physical Examination: Vital Signs: Reviewed. HEENT: Examination unremarkable. Lungs: Clear to auscultation. Heart: Heart sounds normal. Abdomen: Soft, bowel sounds normal. No guarding, rigidity, tenderness, or distention. Extremities: No leg edema. Laboratory Data: White count 8, hemoglobin 10.7, platelets 203. Sodium 141, potassium 5.1, chloride 99, bicarb 32, BUN 33, creatinine 5.53, glucose 93. Stress test was reported as negative for any stress-induced ischemia. Impression: 1. Hyperkalemia. 2. End-stage renal disease, on hemodialysis. 3. Hypertension. 4. Chest pain. 5. Anemia due to chronic kidney disease. 6. Lipoma, right wrist. Plan: The patient went down for a Lexiscan stress test and after Lexiscan was injected, he actually had some problem where he had shortness of breath plus he was brought back to ICU. Blood pressure was elevated initially and patient got Hydralazine as per order from Dr. Smith and I did order Benadryl 25 mg IV x1 dose. We will continue antihypertensive medication per order. Continue to follow with crop puller and furnace attendant. MRI of the right wrist was ordered without contrast, but it was not done today because of this problem he had after stress test, so we will try to do that MRI tomorrow. I will see him tomorrow for followup. PAULA/MODL Voice ID: [id number] Report ID: [id number] RUPESH
--- NOTE | 2017-11-30 04:14 | PN ---
Subjective: The patient still has some shortness of breath, but better than yesterday. Blood pressu re still fluctuating. Physical Examination: Vital Signs: When I saw the patient, blood pressure of 134/58, pulse of 68. Chest: Crackles bilateral base. Heart: S1, S2. Systolic murmur. Abdomen: Soft, nontender. Extremities: No edema. Laboratory Data: WBC 8. H and H 10.7/31.8. Platelet 203. Sodium 141, potassium 5.1, bicarb 32, BU N 33, creatinine 5.5, calcium 8.1. Medications: Current medications the patient is on include, 1.vitamin. 2.Aspirin. 3.Heparin. 4.Amiodarone. 5.Norvasc. 6.Metoprolol 25 b.i.d. 7.PhosLo. 8.Pepcid. Assessment And Plan: 1.End-stage renal disease. Currently better volume control. I am going to arrange for dialysis dionte orrow and we will follow up the patient. 2.Hypertension, controlled. We will add losartan and we will follow up. 3.Hyperkalemia. Going to be dialyzed on low K bath. 4.Hypertension. I am going to go ahead and add losartan. We will give single dose of hydralazine. 5.Coronary artery disease. Acute coronary syndrome has been ruled out. TOSIN Voice ID: [id number] Report ID: [id number]
[2017-11-30] MEDS: predniSONE 10 MG TAB PO SCH (09:00)
[2017-11-30] MEDS: COLLAGENASE 30 GM OINTMENT TOP SCH (09:00)
[2017-11-30] MEDS ORDERED: HYDRALAZINE HCL 10 MG TABLET PO SCH (09:00)
[2017-11-30] MEDS: OFLOXACIN LEFT EYE SCH (09:00)
[2017-11-30] MEDS: ASPIRIN EC 81 MG TAB PO SCH (09:00)
[2017-11-30] MEDS ORDERED: LOSARTAN POTASSIUM 50 MG TABLET PO SCH (09:00)
[2017-11-30] MEDS: AMLODIPINE 10 MG TAB PO SCH (09:00)
[2017-11-30] MEDS: METOPROLOL TAR 25 MG TAB PO SCH (09:50)
[2017-11-30] MEDS: FAMOTIDINE 20 MG TAB PO SCH (09:51)
[2017-11-30] MEDS: CA ACETATE 667 MG CAP PO SCH ×2 (09:51→12:54)
[2017-11-30] MEDS: HEPARIN 5000 UNIT/ML 1 ML VIAL SQ SCH (09:52)
[2017-11-30 10:08] VITALS: BMI 22.3
--- NOTE | 2017-11-30 10:50 | RAD REPORT ---
EXAM DESCRIPTION: MRI - Wrist Right Wo Cont - 11/30/2017 9:14 am CLINICAL HISTORY: Wrist pain, wrist mass COMPARISON: None. TECHNIQUE: Multiplanar imaging of the right wrist performed using T1 weighted, T2 medic, T2 fat satu ration and T2 stir sequencing. FINDINGS: No occult fracture, bone bruise or marrow replacing process. Patient has advanced degenera tive changes involving the articular surface of the radius with the scaphoid. The joint space is narr owed and the articular margins are irregular. Edema signal is present in the scaphoid and there are s ome arthritic erosive changes along the articular surface of the radial styloid and distal scaphoid. Edematous soft tissue is seen in the joint space. Overall radiocarpal space is narrowed. Numerous degenerative cystic changes are present in the second carpal row and triquetrum. No patholog ic bone process. In the lateral margin of the wrist near the radial styloid there is a 3 cm mass comp lizett. This is seen as a dominant 18 millimeter mass with several adjacent smaller masses showing simil ar characteristics. These clustered masses are hypointense on T1 and very hyperintense on T2 sequenci ng. No significant or defined abnormality in the tendons passing through the carpal tunnel. Median nerve is not abnormal weight hyperintense in signal. No tendon thickening or signal abnormality. There is f luid in the tendon sheath of the flexor carpi radialis. IMPRESSION: Cluster of multiple ganglion cysts, collectively 3 cm in size, along the lateral and tierra tral margin of the radius. This is the correlate for the clinically palpable mass. Very advanced degenerative changes involving the scaphoid radius articulation. Less extensive degener ative change elsewhere in the carpal bones.
[2017-11-30 14:04] LABS: HBsAG Nonreactive (Nonreactive)
--- NOTE | 2017-11-30 14:11 | PN ---
Mr. Benitez has gone through 2 dialysis treatments now without a recurrence of the chest pain. I am n ot sure what causes chest pain. I do not think it was unstable angina or an infarction and I think, he is ready to be discharged at this point, but I would have to be curious and raise the possibility it could have been some contamination involved with dialysis, its timing of starting 10 minutes after dialysis, stopping once dialysis was stopped. We have to entertain that possibility, but at this po int, I do not think we have any way of finding out what it might have been. KALANI/WILFREDO Voice ID: [id number] Report ID: [id number]
[2017-11-30 15:12] VITALS: BP 150/67; TEMP 97.8
--- NOTE | 2017-12-01 10:47 | DS ---
Date of Discharge: 11/30/2017 Disposition: Discharged to go home. Physical Examination: HEENT: Unremarkable. Lungs: Clear to auscultation. Heart: Sounds normal. Abdomen: Soft, bowel sounds normal. No guarding, rigidity, tenderness, or distention. Extremities: No leg edema. Laboratory Data: Initial white count when he came in was 15.8, hemoglobin 11.1 , platelets 258. Yesterday, white count was 8, hemoglobin 10.7, platelets 203. His highest potassium was 7.1 with sodium of 160 when he came in. Yesterday, last potassium was 5.1, sodium 141, BUN 33, creatinine of 5.53. Troponin 0.07. Liver function tests unremarkable. Stress test came back negative for stress-induced ischemia. MRI of the right wrist shows cluster of multiple ganglion cysts collectively 3 cm in size along lateral and ventral margin of the radius, advanced degenerative changes present. Hospital Course: This 77-year-old male patient with hypertension, end-stage renal disease, on hemodialysis, came into emergency room with complaints of chest pain and shortness of breath. Please see dictated H and P for more information. The patient takes his medications regularly. says that his blood pressure at home is usually around 160 and it does go high during dialysis lot of times. Today, he came into the hospital, emergency room. He actually went for his dialysis, within few minutes after he started dialysis he started to complain of chest pain and shortness of breath. With that, nitroglycerin tablet was given, dialysis was discontinued and he was sent to emergency room. After he arrived into emergency room he was admitted to intensive care unit. His potassium was elevated. The patient had hemodialysis on the day of admission. Waiter/Waitress Room Service was consulted. We also consulted furnace combustion analyst. Troponin remained flat at 0.07. Stress test was done yesterday which came back unremarkable. After Lexiscan stress test was done his face was flushed feeling and blood pressure had gone up. The patient received a dose of hydralazine and 1 dose of Benadryl was ordered. This morning, he was feeling fine, back to his normal self and MRI of the wrist was done which shows cluster of ganglion cyst and we will discuss on the outpatient basis what to do for the ganglion cyst at appropriate time. Waiter/Waitress Room Service had started losartan 25 mg daily as of yesterday, but in view of his severe hyperkalemia problem I do not feel comfortable him continuing on outpatient basis. We will make adjustment on his antihypertensive medication as per discharge order on outpatient basis. We will continue to monitor and make further adjustment as it becomes necessary. Today, he was feeling fine, had no complaints. Physical Examination: HEENT: Unremarkable. Lungs: Clear to auscultation. Heart: Sounds normal. Abdomen: Soft, bowel sounds normal. No guarding, rigidity, tenderness, or distention. Extremities: No leg edema. Final Diagnoses: 1. Hyperkalemia. 2. End-stage renal disease, on hemodialysis. 3. Chest pain. 4. Hypertension, uncontrolled. 5. Ganglion cyst, right wrist. 6. Anemia due to chronic kidney disease. 7. Chronic steroid therapy. 8. Paroxysmal atrial fibrillation. 9. ANCA positive vasculitis. Discharge Medications And Instruction: 1. Continue all prior home medication. 2. Take amlodipine 10 mg p.o. daily and hydralazine 10 mg p.o. b.i.d. 3. Follow up at my office in 2-3 weeks. PAULA/WILFREDO Voice ID: [id number] Report ID: [id number] RUPESH
== END 2017-11-30 14:25 | disposition home or self-care (01) | DRG 640 ==
LOC: ER 07:30 → ERHOLD 08:04 → 3RD-ICU 13:35 → OBSVTOIN 16:57
PROVIDERS: ADMIT Internal Medicine; ATTEND Internal Medicine
PROC: 5A1D70Z Performance of Urinary Filtration, Intermittent, Less than 6 Hours Per Day (ICD-10-PCS; principal; 2017-11-28)
PROC: 5A1D70Z Performance of Urinary Filtration, Intermittent, Less than 6 Hours Per Day (ICD-10-PCS; 2017-11-30)
DX: E87.5 Hyperkalemia (principal); N18.6 End stage renal disease; I12.0 Hypertensive chronic kidney disease with stage 5 chronic kidney disease or end stage renal disease; R07.9 Chest pain, unspecified; D63.1 Anemia in chronic kidney disease; Z79.52 Long term (current) use of systemic steroids; I48.0 Paroxysmal atrial fibrillation; I77.6 Arteritis, unspecified; M67.431 Ganglion, right wrist; I25.10 Atherosclerotic heart disease of native coronary artery without angina pectoris
CPT/HCPCS: 36415; 71045; 78452; 80048; 80076; 82550; 82553; 83690; 83735; 83880; 84484; 85025; 85610; 85730; 86704; 86706; 86803; 87340; 90935; 93005; 93017; 94640; 96372; 96374; 96375; 99285; A9500; J0360; J0610; J1644; J1650; J2405; J2785; J7512

== ENCOUNTER 2018-03-14 10:02 | Emergency (ER) | payer OTHER ==
[2018-03-14 10:58] LABS: Absolute Lymphocytes (CBC) 1.7 K/uL (0.7-4.9); Absolute Monocytes 0.8 K/uL (0.1-1.3); Absolute Neutrophil 5.9 K/uL (1.8-8.0); Basophils % 0.6 % (0-1.3); Eosinophils % 3.1 % (0-4.4); Hematocrit 36.6 % (39.6-49.0); MCH 31.8 pg (27.0-35.0); MCV 96.3 fL (80-100); MPV 8.5 fL (7.6-11.3); Monocytes % 9.2 % (3.3-12.3)
[2018-03-14 11:01] LABS: Protime INR 0.97
--- NOTE | 2018-03-14 11:28 | RAD REPORT ---
EXAM DESCRIPTION: RAD - Chest Single View - 03/14/2018 11:21 am CLINICAL HISTORY: surgical Chest pain. COMPARISON: Chest Single View dated 11/29/2017; Chest Single View dated 11/28/2017; Chest Single View dated 09/07/2017; Chest Pa And Lat (2 Views) dated 07/05/2017 FINDINGS: Portable technique limits examination quality. Mild interstitial pulmonary edema suspected. The heart is moderately enlarged in size. No displaced f ractures. IMPRESSION: Mild CHF versus volume overload pattern.
--- NOTE | 2018-03-14 11:29 | RAD REPORT ---
EXAM DESCRIPTION: RAD - Tib Fib Left - 03/14/2018 11:21 am CLINICAL HISTORY: PAIN COMPARISON: Tib Fib Left dated 07/30/2017 FINDINGS: Prominent soft tissue wound is seen the pretibial soft tissues of the left leg inferiorly. No gas is seen in the subcutaneous tissues. Vascular calcifications are noted. No underlying osteomy elitis seen.
[2018-03-14 11:51] LABS: Albumin 3.3 g/dL (3.4-5.0); Bilirubin Direct 0.1 mg/dL (0-0.2); Bilirubin Total 0.6 mg/dL (0.2-1.0); CKMB Creatine Kinase MB 2.6 ng/mL (0.3-3.6); Magnesium 2.3 mg/dL (1.8-2.4); Potassium 4.7 mmol/L (3.5-5.1); Protein, Total 7.9 g/dL (6.4-8.2)
--- NOTE | 2018-03-14 12:25 | EKG ---
Test Date: 2018-03-14 Test Time: 10:48:08 Music Researcher: JACQUIE MEASUREMENT RESULTS: Intervals: Rate: 49 RI: 216 QRSD: 130 QT: 494 QTc: 446 [place]: P: 58 RI: 216 QRS: -25 T: 42 INTERPRETIVE STATEMENTS: Marked sinus bradycardia with 1st degree AV block Left ventricular hypertrophy with QRS widening Abnormal ECG Compared to ECG 11/28/2017 08:16:07 No significant changes Electronically Signed On 03-14-18 12:24:11 CDT by Leonardo Dooley
--- NOTE | 2018-03-14 12:27 | EDPHYS ---
Physician Documentation [facility] Name: Amado Benitez Age: 78 yrs Sex: Male : 1940 Arrival Date: 03/14/2018 Time: 10:05 Bed 26 Private MD: Micky Russo C ED Physician Nitin Hoyos HPI: 03/14 11:16 This 78 yrs old Male presents to ER via Wheelchair with complaints of Wound lyndsey Infection. Historical: - Allergies: 10:14 No Known Allergies; ch - Home Meds: 10:14 acetaminophen-codeine 300-30 mg Oral tab 1 tab as needed [Active]; amiodarone 200 mg ch Oral tab 1 tab 2 times per day [Active]; amlodipine 10 mg tab 1 tab once daily [Active]; calazimine skin protectant daily [Active]; Combigan 0.2-0.5 % ophthalmic drop 1 drop every 12 hours [Active]; Epogen 3,000 unit/mL injection soln 3 times per wk for dialysis [Active]; hydralazine 10 mg Oral tab 1 tab 2 times per day [Active]; metoprolol tartrate 12.5mg Oral tab 1 tab 2 times per day [Active]; muprocin [Active]; aspirin 81 mg Oral chew 1 tab once daily [Active]; losartan 50 mg oral tab 2 times per day [Active]; prednisone 10 mg Oral tab once daily [Active]; Aleve 500 mg Oral tab 1 tab every 8 hours [Active]; Centrum Silver 400-250 mcg oral chew [Active]; Ibuprofen Oral as needed [Active]; Santyl 250 unit/gram Topical oint once daily [Active]; - PMHx: 10:14 COPD; Dialysis; ESRD; Hypertension; TIA; OPEN WOUND LL LEG; Atrial Fib; HYPERKALEMIA; ch CHRONIC PAIN; Glaucoma; - PSHx: 10:14 Cholecystectomy; dialysis shunt; Hernia repair; ch - Immunization history:: Adult Immunizations up to date, Pneumococcal vaccine is up to date, Flu vaccine is up to date. - Social history:: Smoking status: Patient/guardian denies using tobacco, Patient/guardian denies using alcohol, street drugs. - Ebola Screening: : Patient negative for fever greater than or equal to 101.5 degrees Fahrenheit, and additional compatible Ebola Virus Disease symptoms Patient denies exposure to infectious person Patient denies travel to an Ebola-affected area in the 21 days before illness onset No symptoms or risks identified at this time. ROS: 11:18 Constitutional: Negative for fever, chills, and weight loss, Eyes: Negative for injury, lyndsey pain, redness, and discharge, ENT: Negative for injury, pain, and discharge, Neck: Negative for injury, pain, and swelling, Cardiovascular: Negative for chest pain, palpitations, and edema, Respiratory: Negative for shortness of breath, cough, wheezing, and pleuritic chest pain, Abdomen/GI: Negative for abdominal pain, nausea, vomiting, diarrhea, and constipation, Back: Negative for injury and pain, : Negative for injury, bleeding, discharge, and swelling, MS/Extremity: Negative for injury and deformity, Neuro: Negative for headache, weakness, numbness, tingling, and seizure, Psych: Negative for depression, anxiety, suicide ideation, homicidal ideation, and hallucinations, Allergy/Immunology: Negative for hives, rash, and allergies, Endocrine: Negative for neck swelling, polydipsia, polyuria, polyphagia, and marked weight changes, Hematologic/Lymphatic: Negative for swollen nodes, abnormal bleeding, and unusual bruising. 11:18 Skin: Positive for erythema, swelling, of the left prakash. Exam: 11:18 Constitutional: This is a well developed, well nourished patient who is awake, alert, lyndsey and in no acute distress. Head/Face: Normocephalic, atraumatic. Eyes: Pupils equal round and reactive to light, extra-ocular motions intact. Lids and lashes normal. Conjunctiva and sclera are non-icteric and not injected. Cornea within normal limits. Periorbital areas with no swelling, redness, or edema. ENT: Nares patent. No nasal discharge, no septal abnormalities noted. Tympanic membranes are normal and external auditory canals are clear. Oropharynx with no redness, swelling, or masses, exudates, or evidence of obstruction, uvula midline. Mucous membranes moist. Neck: Trachea midline, no thyromegaly or masses palpated, and no cervical lymphadenopathy. Supple, full range of motion without nuchal rigidity, or vertebral point tenderness. No Meningismus. Chest/axilla: Normal chest wall appearance and motion. Nontender with no deformity. No lesions are appreciated. Cardiovascular: Regular rate and rhythm with a normal S1 and S2. No gallops, murmurs, or rubs. Normal PMI, no JVD. No pulse deficits. Respiratory: Lungs have equal breath sounds bilaterally, clear to auscultation and percussion. No rales, rhonchi or wheezes noted. No increased work of breathing, no retractions or nasal flaring. Abdomen/GI: Soft, non-tender, with normal bowel sounds. No distension or tympany. No guarding or rebound. No evidence of tenderness throughout. Back: No spinal tenderness. No costovertebral tenderness. Full range of motion. Male : Normal genitalia with no discharge or lesions. Skin: Warm, dry with normal turgor. Normal color with no rashes, no lesions, and no evidence of cellulitis. Neuro: Awake and alert, GCS 15, oriented to person, place, time, and situation. Cranial nerves II-XII grossly intact. Motor strength 5/5 in all extremities. Sensory grossly intact. Cerebellar exam normal. Normal gait. Psych: Awake, alert, with orientation to person, place and time. Behavior, mood, and affect are within normal limits. 11:18 Musculoskeletal/extremity: Extremities: erythema, pain, swelling, tenderness, exposed tendon, DVT Exam: no pain, no swelling, negative Homans' sign noted on exam, no appreciated bluish discoloration, no increased warmth, tenderness, erythema, that is mild, of the left leg, of the left prakash. Vital Signs: 10:14 BP 159 / 57; Pulse 49; Resp 18; Temp 98.2; Pulse Ox 98% on R/A; Pain 3/10; ch 11:14 BP 170 / 74; Pulse 57; Resp 16; Pulse Ox 99% on R/A; aj 11:32 BP 166 / 69; Pulse 50; Resp 17; Pulse Ox 100% on R/A; aj 13:41 BP 176 / 69; Pulse 58; Resp 16; Pulse Ox 100% on R/A; aj 14:20 BP 161 / 79; Pulse 57; Resp 16; Pulse Ox 98% on R/A; aj MDM: 10:19 Patient medically screened. [facility] 11:19 Data reviewed: vital signs, nurses notes, lab test result(s), EKG, radiologic studies, lyndsey plain films. 03/14 10:41 Order name: Basic Metabolic Panel; Complete Time: 12:08 aj 03/14 10:41 Order name: CBC with Diff; Complete Time: 12: 03/14 10:41 Order name: Ckmb; Complete Time: 12: 03/14 10:41 Order name: CPK; Complete Time: 12: 03/14 10:41 Order name: LFT's; Complete Time: 12: 03/14 10:41 Order name: Magnesium; Complete Time: 12: 03/14 10:41 Order name: NT PRO-BNP; Complete Time: 12: 03/14 10:41 Order name: PT-INR; Complete Time: 12: 03/14 10:41 Order name: Ptt, Activated; Complete Time: 12: 03/14 10:41 Order name: Troponin (emerg Dept Use Only); Complete Time: 12: 03/14 10:41 Order name: XRAY Chest (1 view); Complete Time: 12: 03/14 10:42 Order name: Sed Rate; Complete Time: 12: 03/14 10:43 Order name: Tib Fib Left XRAY; Complete Time: 12:08 [facility] 03/14 10:41 Order name: EKG; Complete Time: 10:41 03/14 10:41 Order name: Cardiac monitoring; Complete Time: 11: 03/14 10:41 Order name: EKG - Nurse/Tech; Complete Time: 11: 03/14 10:41 Order name: IV Saline Lock; Complete Time: 11: 03/14 10:41 Order name: Labs collected and sent; Complete Time: 11: 03/14 10:41 Order name: O2 Per Protocol; Complete Time: 11: 03/14 10:41 Order name: O2 Sat Monitoring; Complete Time: 11: 03/14 10:43 Order name: Wound dressing; Complete Time: 13:10 [facility] 03/14 13:10 Order name: Diet Renal; Complete Time: 13:11 Administered Medications: 10:43 CANCELLED (Duplicate Order): NS 0.9% 1000 ml IV at 125 ml/hr continuous lyndsey 12:55 Drug: Tetanus-Diphtheria Toxoid Adult 0.5 ml {Marketing Automation Manager: [employer]. Exp: aj 04/06/2019. Lot #: [id number]. } Route: IM; Site: right deltoid; 13:42 Follow up: Response: No adverse reaction aj 13:09 Drug: Zosyn 2.25 grams Route: IVPB; Infused Over: 60 mins; Site: right forearm; aj 13:42 Follow up: Response: No adverse reaction; IV Status: Completed infusion; IV Intake: aj 100ml 15:54 Drug: Santyl 250 unit/g 1 application {Note: left leg.} Route: Topical; Site: affected mg2 area; Disposition: 03/14/18 15:20 Patient has left against medical advice. - Patients states they are going to Home. - Condition is Fair. Follow up: Micky Russo MD; When: Upon discharge from the Emergency Department; Reason: Recheck today's complaints, Continuance of care, Re-evaluation by your physician. Follow up: Bernardo Davis MD; When: Upon discharge from the Emergency Department; Reason: Recheck today's complaints, Continuance of care, Re-evaluation by your physician. Follow up: Alyson Smith MD; When: Upon discharge from the Emergency Department; Reason: Recheck today's complaints, Continuance of care, Re-evaluation by your physician. - Problem is an ongoing problem. - Symptoms are unchanged. Signatures: Dispatcher [employer] EDMS Meri Mtz RN RN ch Myers, Amanda, RN RN aj Anderson, Corey, MD MD cha Williams, Irene, RN RN iw Gardose, Michele, RN RN mg2 Corrections: (The following items were deleted from the chart) 10:43 10:43 NS 0.9% 1000 ml IV at 125 ml/hr continuous ordered. [facility] 14:55 12:26 03/14/2018 12:26 Transfer ordered to [facility]. Diagnosis is aj Cellulitis and acute lymphangitis of other parts of limb - with tendon exposure; Unspecified combined systolic (congestive) and diastolic (congestive) heart failure - volume overload , mild; End stage renal disease. Reason for transfer: Higher level of care. Accepting physician is to [facility], plastics needed. Condition is Stable. Problem is new. Symptoms have improved. lyndsey 15:19 14:55 03/14/2018 12:26 Transfer ordered to [facility]. Diagnosis is lyndsey Cellulitis and acute lymphangitis of other parts of limb - with tendon exposure; Unspecified combined systolic (congestive) and diastolic (congestive) heart failure - volume overload , mild; End stage renal disease. Reason for transfer: Higher level of care. Accepting physician is to [facility], plastics needed. Condition is Stable. Problem is new. Symptoms have improved. aj 16:12 15:20 03/14/2018 15:20 Patients has left against medical advice. Patient states they iw are going to Home. Condition is Fair. Follow up: Micky Russo; When: Upon discharge from the Emergency Department; Reason: Recheck today's complaints, Continuance of care, Re-evaluation by your physician. Follow up: Bernardo Davis; When: Upon discharge from the Emergency Department; Reason: Recheck today's complaints, Continuance of care, Re-evaluation by your physician. Follow up: Alyson Smith; When: Upon discharge from the Emergency Department; Reason: Recheck today's complaints, Continuance of care, Re-evaluation by your physician. Problem is an ongoing problem. Symptoms are unchanged. lyndsey
--- NOTE | 2018-03-14 12:27 | ER ---
Nurse's Notes [facility] Name: Amado Benitez Age: 78 yrs Sex: Male : 1940 Arrival Date: 03/14/2018 Time: 10:05 Bed 26 Private MD: Micky Russo C Diagnosis: Presentation: 03/14 10:08 Note Home Health patient seen in wound healing today and sent over by Dr. Colbert to iw be admitted and seen by Dr. Leonard. Spoke with Laura from home health who will be faxing over their information to go in the chart and includes information on wound measurements. 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 DR. COLBERT IS WOUND CARE DOC, AND MARI IS PCP. Transition of care: patient was not received from another setting of care. Onset of symptoms was March 03, 2018. Risk Assessment: Do you want to hurt yourself or someone else? Patient reports no desire to harm self or others. Initial Sepsis Screen: Does the patient meet any 2 criteria? No. Patient's initial sepsis screen is negative. Does the patient have a suspected source of infection? No. Patient's initial sepsis screen is negative. Care prior to arrival: None. 10:15 Method Of Arrival: Wheelchair ch 10:15 Acuity: KIMMY 3 ch 10:26 Note pt has wallet in his possession. I offered to have security secure the wallet and dm5 the patient refused. He states that he would feel better holding the wallet himself. Pt is trying to get in touch with his at this time. Triage Assessment: 10:14 General: Appears in no apparent distress. comfortable, Behavior is calm, cooperative, ch appropriate for age. Pain: Complains of pain in left leg. Historical: - Allergies: 10:14 No Known Allergies; ch - Home Meds: 10:14 acetaminophen-codeine 300-30 mg Oral tab 1 tab as needed [Active]; amiodarone 200 mg ch Oral tab 1 tab 2 times per day [Active]; amlodipine 10 mg tab 1 tab once daily [Active]; calazimine skin protectant daily [Active]; Combigan 0.2-0.5 % ophthalmic drop 1 drop every 12 hours [Active]; Epogen 3,000 unit/mL injection soln 3 times per wk for dialysis [Active]; hydralazine 10 mg Oral tab 1 tab 2 times per day [Active]; metoprolol tartrate 12.5mg Oral tab 1 tab 2 times per day [Active]; muprocin [Active]; aspirin 81 mg Oral chew 1 tab once daily [Active]; losartan 50 mg oral tab 2 times per day [Active]; prednisone 10 mg Oral tab once daily [Active]; Aleve 500 mg Oral tab 1 tab every 8 hours [Active]; Centrum Silver 400-250 mcg oral chew [Active]; Ibuprofen Oral as needed [Active]; Santyl 250 unit/gram Topical oint once daily [Active]; - PMHx: 10:14 COPD; Dialysis; ESRD; Hypertension; TIA; OPEN WOUND LL LEG; Atrial Fib; HYPERKALEMIA; ch CHRONIC PAIN; Glaucoma; - PSHx: 10:14 Cholecystectomy; dialysis shunt; Hernia repair; ch - Immunization history:: Adult Immunizations up to date, Pneumococcal vaccine is up to date, Flu vaccine is up to date. - Social history:: Smoking status: Patient/guardian denies using tobacco, Patient/guardian denies using alcohol, street drugs. - Ebola Screening: : Patient negative for fever greater than or equal to 101.5 degrees Fahrenheit, and additional compatible Ebola Virus Disease symptoms Patient denies exposure to infectious person Patient denies travel to an Ebola-affected area in the 21 days before illness onset No symptoms or risks identified at this time. Screenin:37 Abuse screen: Denies threats or abuse. Denies injuries from another. Nutritional aj screening: No deficits noted. Tuberculosis screening: No symptoms or risk factors identified. Fall Risk None identified. Assessment: 10:36 General: Appears in no apparent distress. comfortable, Behavior is calm, cooperative, aj appropriate for age. Pain: Complains of pain in left leg. Neuro: Level of Consciousness is awake, alert, obeys commands, Oriented to person, place, time, situation, Appropriate for age. Respiratory: Airway is patent Respiratory effort is even, unlabored, Respiratory pattern is regular, symmetrical. Derm: Skin is intact, is thin, Skin is pink, warm \T\ dry. normal, Wound noted left prakash Wound is Full thickness with tendon exposure. No odor noted. 13:41 Reassessment: Provided patient with lunch tray. Waiting on provider to inform patient aj of transfer. 16:12 Reassessment: patient refused to be transferred and admission in this hospital ama form mg2 signed by him. dressing done to the left lower leg. Vital Signs: 10:14 BP 159 / 57; Pulse 49; Resp 18; Temp 98.2; Pulse Ox 98% on R/A; Pain 3/10; ch 11:14 BP 170 / 74; Pulse 57; Resp 16; Pulse Ox 99% on R/A; aj 11:32 BP 166 / 69; Pulse 50; Resp 17; Pulse Ox 100% on R/A; aj 13:41 BP 176 / 69; Pulse 58; Resp 16; Pulse Ox 100% on R/A; aj 14:20 BP 161 / 79; Pulse 57; Resp 16; Pulse Ox 98% on R/A; aj ED Course: 10:05 Patient arrived in ED. mr 10:05 Micky Russo MD is Private Physician. mr 10:14 Arm band placed on right wrist. Patient placed in an exam room, on a stretcher. ch 10:16 Triage completed. ch 10:19 Nitin Hoyos MD is Attending Physician. lyndsey 10:36 Alicja Choi, RN is Primary Nurse. aj 10:37 Patient has correct armband on for positive identification. Placed in gown. Bed in low aj position. Call light in reach. Side rails up X 1. Pulse ox on. NIBP on. 10:37 Inserted saline lock: 20 gauge in right forearm, using aseptic technique. Blood aj collected. 10:57 EKG done, by certified composites technician. reviewed by Nitin Hoyos MD. at1 11:21 XRAY Chest (1 view) In Process Unspecified. EDMS 11:21 Tib Fib Left XRAY In Process Unspecified. EDMS 14:30 Report given to Beni HAHN. aj 14:30 No provider procedures requiring assistance completed. aj 14:54 Patient transferred, IV remains in place. intact. aj 14:59 Primary Nurse role handed off by Alicja Choi, RN aj 14:59 Alicja Choi, RN is Primary Nurse. aj 15:19 Laci Vasquez, RN is Primary Nurse. mg2 15:19 Micky Russo MD is Referral Physician. lyndsey 15:19 Bernardo Colbert MD is Referral Physician. lyndsey 15:19 Alyson Smith MD is Referral Physician. lyndsey Administered Medications: 10:43 CANCELLED (Duplicate Order): NS 0.9% 1000 ml IV at 125 ml/hr continuous lyndsey 12:55 Drug: Tetanus-Diphtheria Toxoid Adult 0.5 ml {Pre Planning Advisor: [employer]. Exp: aj 04/06/2019. Lot #: [id number]. } Route: IM; Site: right deltoid; 13:42 Follow up: Response: No adverse reaction aj 13:09 Drug: Zosyn 2.25 grams Route: IVPB; Infused Over: 60 mins; Site: right forearm; aj 13:42 Follow up: Response: No adverse reaction; IV Status: Completed infusion; IV Intake: aj 100ml 15:54 Drug: Santyl 250 unit/g 1 application {Note: left leg.} Route: Topical; Site: affected mg2 area; Intake: 13:42 IV: 100ml; Total: 100ml. Outcome: 12:26 ER care complete, transfer ordered by . [facility] 14:54 Condition: good aj 16:12 Patient left the ED. 16:12 AMA AMA form signed mg2 16:12 Discharge instructions given to patient, Instructed on discharge instructions, Demonstrated understanding of instructions. Signatures: Dispatcher [employer] EDMS Meri Mtz, RN Irma Burrell ch, RN RN Alicja Mcghee, RN Nitin Celis MD MD cha Rivera, Maria mr Williams, Irene, RN Alicja Tam, service station attendant EKG Tat1 Laci Vasquez RN RN mg2 Corrections: (The following items were deleted from the chart) 16:49 14:54 Transferred by ground EMS to [facility], Transfer form mg2 completed. X-rays sent w/ patient. aj 16:49 14:54 Instructed on the need for transfer, aj mg2 16:49 14:55 Patient left the ED. aj mg2
[2018-03-14] MEDS ORDERED: TETANUS & DIPHTHERIA TOX,ADULT 0.5 ML VIAL ONE (12:44)
[2018-03-14] MEDS ORDERED: PIPER/TAZO/NS 2.25gm 2.25 GM/50 ML BAG IVPB ONE (12:45)
[2018-03-14 15:00] VITALS: TEMP 98.2
[2018-03-14 15:05] VITALS: BP 161/79; O2SAT 98
[2018-03-14] MEDS ORDERED: COLLAGENASE 30 GM OINTMENT TOP ONE (15:45)
== END 2018-03-14 16:12 | disposition left against medical advice (07) ==
LOC: ER 10:02
DX: S81.802A Unspecified open wound, left lower leg, initial encounter (principal); I12.0 Hypertensive chronic kidney disease with stage 5 chronic kidney disease or end stage renal disease; N18.6 End stage renal disease; Z99.2 Dependence on renal dialysis; Z79.82 Long term (current) use of aspirin; Z23 Encounter for immunization; I48.91 Unspecified atrial fibrillation; E87.5 Hyperkalemia; J44.9 Chronic obstructive pulmonary disease, unspecified
CPT/HCPCS: 36415; 71045; 80048; 80076; 82550; 82553; 83735; 83880; 84484; 85025; 85610; 85652; 85730; 90714; 93005; 96365; 99284; J3590

== ENCOUNTER 2018-05-19 23:52 | Inpatient (IN) | payer OTHER ==
--- OUTSIDE RECORDS SUMMARY | 2018-05-19 23:54 | XMS REPORT | Clinical Summary ---
:1940 Author Organization [facility] Address [address] [place] [address] Care Team Providers Name Role Phone Jose Carlos Russo MD Primary Care Provider Allergies Not on File Medications Not on file Active Problems Not on file Social History Tobacco Use Types Packs/Day Years Used Date Never Assessed Sex Assigned at Date Recorded Not on file Job Start Date Occupation Industry Not on file Not on file Not on file Travel History Travel Start Travel End No recent travel history available. Last Filed Vital Signs Not on file Plan of Treatment Not on file Results Not on fileafter 05/18/2017 Insurance Payer Benefit Plan / Subscriber ID Type Phone Address Group MEDICARE MEDICARE A B xxxxxxxxxx Medicare UNITED HEALTHCARE - UHC MCR SECURE xxxxxxxxxx Maps Contracted MEDICARE MGD CARE [employer]
[2018-05-20] MEDS ORDERED: SILVER NITRATE 1 APPL TOP ONE (00:27)
[2018-05-20 01:19] LABS: Absolute Monocytes 0.6 K/uL (0.1-1.3); Absolute Neutrophil 11.8 K/uL (1.8-8.0); Basophils % 0.5 % (0-1.3); Eosinophils % 1.7 % (0-4.4); Lymphocytes % 7.2 % (15.3-44.8); MCH 32.5 pg (27.0-35.0); MCV 98.3 fL (80-100); MPV 8.6 fL (7.6-11.3); Monocytes % 4.6 % (3.3-12.3); RBC Red Blood Cell Count 3.05 M/uL (4.33-5.43)
[2018-05-20 01:34] LABS: Albumin 2.8 g/dL (3.4-5.0); Bilirubin Direct 0.2 mg/dL (0-0.2); Bilirubin Total 0.6 mg/dL (0.2-1.0); Magnesium 2.3 mg/dL (1.8-2.4); Potassium 5.4 mmol/L (3.5-5.1); Protein, Total 6.8 g/dL (6.4-8.2); Troponin (Emerg Dept Use Only) 0.02 ng/mL (0.0-0.045)
[2018-05-20 01:35] LABS: Protime INR 1.07
--- NOTE | 2018-05-20 02:01 | EDPHYS ---
Physician Documentation [facility] Name: Amado Benitez Age: 78 yrs Sex: Male : 1940 Arrival Date: 05/19/2018 Time: 23:53 Bed 26 Private MD: ED Physician Michael Woodall HPI: 05/20 00:35 This 78 yrs old Male presents to ER via EMS with unknown complaint. pkl 00:35 Details of fall: The patient fell from an upright position, getting out of truck. pkl Onset: The symptoms/episode began/occurred 2 day(s) ago. Associated injuries: The patient sustained left elbow, abrasion, bleeding, left wrist and hand, painful injury, left hip, painful injury. was changing dressing to abrasion left wrist tonight, wound left wrist started bleeding actively. Historical: - Allergies: 00:10 No Known Allergies; wh - Home Meds: 00:28 acetaminophen-codeine 300-30 mg Oral tab 1 tab as needed [Active]; Aleve 500 mg Oral wh tab 1 tab every 8 hours [Active]; amiodarone 200 mg Oral tab 1 tab 2 times per day [Active]; amlodipine 10 mg tab 1 tab once daily [Active]; aspirin 81 mg Oral chew 1 tab once daily [Active]; calazimine skin protectant daily [Active]; Centrum Silver 400-250 mcg Oral chew [Active]; Combigan 0.2-0.5 % ophthalmic drop 1 drop every 12 hours [Active]; Epogen 3,000 unit/mL injection soln 3 times per wk for Dialysis [Active]; hydralazine 10 mg Oral tab 1 tab 2 times per day [Active]; Ibuprofen Oral as needed [Active]; losartan 50 mg Oral tab 2 times per day [Active]; metoprolol tartrate 12.5MG Oral tab 1 tab 2 times per day [Active]; muprocin [Active]; prednisone 10 mg Oral tab once daily [Active]; Santyl 250 unit/gram Topical oint once daily [Active]; - PMHx: 00:10 Atrial Fib; Chronic pain; COPD; Dialysis; ESRD; Glaucoma; hyperkalemia; Hypertension; wh OPEN WOUND LL LEG; TIA; - Immunization history:: Last tetanus immunization: up to date Flu vaccine is up to date. - Social history:: Smoking status: Patient/guardian denies using tobacco, Patient/guardian denies using alcohol, street drugs, IV drugs. - Immunization history: Last tetanus immunization: - up to date. - Ebola Screening: : No symptoms or risks identified at this time. ROS: 00:35 Eyes: Negative for injury, pain, redness, and discharge, ENT: Negative for injury, pkl pain, and discharge, Neck: Negative for injury, pain, and swelling, Cardiovascular: Negative for chest pain, palpitations, and edema, Respiratory: Negative for shortness of breath, cough, wheezing, and pleuritic chest pain, Abdomen/GI: Negative for abdominal pain, nausea, vomiting, diarrhea, and constipation, Back: Negative for injury and pain, : Negative for injury, bleeding, discharge, and swelling, Neuro: Negative for headache, weakness, numbness, tingling, and seizure. 00:35 MS/extremity: Positive for of the wound left elbow bleeding actively. Exam: 00:35 Head/Face: Normocephalic, atraumatic. Eyes: Pupils equal round and reactive to light, pkl extra-ocular motions intact. Lids and lashes normal. Conjunctiva and sclera are non-icteric and not injected. Cornea within normal limits. Periorbital areas with no swelling, redness, or edema. ENT: Nares patent. No nasal discharge, no septal abnormalities noted. Tympanic membranes are normal and external auditory canals are clear. Oropharynx with no redness, swelling, or masses, exudates, or evidence of obstruction, uvula midline. Mucous membranes moist. Neck: Trachea midline, no thyromegaly or masses palpated, and no cervical lymphadenopathy. Supple, full range of motion without nuchal rigidity, or vertebral point tenderness. No Meningismus. Chest/axilla: Normal chest wall appearance and motion. Nontender with no deformity. No lesions are appreciated. Cardiovascular: Regular rate and rhythm with a normal S1 and S2. No gallops, murmurs, or rubs. Normal PMI, no JVD. No pulse deficits. Respiratory: Lungs have equal breath sounds bilaterally, clear to auscultation and percussion. No rales, rhonchi or wheezes noted. No increased work of breathing, no retractions or nasal flaring. Abdomen/GI: Soft, non-tender, with normal bowel sounds. No distension or tympany. No guarding or rebound. No evidence of tenderness throughout. Back: No spinal tenderness. No costovertebral tenderness. Full range of motion. 00:35 Musculoskeletal/extremity: Extremities: grossly normal except: noted in the left hand and wrist: pain, swelling, tenderness, noted in the left hip: pain. 00:35 Skin: wound left elbow bleeding actively. 00:35 Neuro: Orientation: appropriate for stated age, Mentation: appropriate for stated age, Cranial nerves: grossly normal, Motor: is normal. Vital Signs: 00:10 BP 126 / 56; Pulse 52; Resp 18; Temp 98; Pulse Ox 94% on R/A; Weight 73.5 kg; Height 6 wh ft. 0 in. (182.88 cm); Pain 5/10; 01:06 BP 148 / 56; Pulse 53; Resp 18; Pulse Ox 92% on R/A; mg2 02:04 BP 140 / 58; Pulse 53; Resp 18; Pulse Ox 93% on R/A; mg2 00:10 Body Mass Index 21.98 (73.50 kg, 182.88 cm) wh 01:06 patient is sleeping mg2 02:04 patient sleeping mg2 [place] Coma Score: 00:36 Eye Response: spontaneous(4). Verbal Response: oriented(5). Motor Response: obeys mg2 commands(6). Total: 15. Trauma Score (Adult): 00:36 Eye Response: spontaneous(1); Verbal Response: oriented(1); Motor Response: obeys mg2 commands(2); Systolic BP: > 89 mm Hg(4); Respiratory Rate: 10 to 29 per min(4); [place] Score: 15; Trauma Score: 12 Procedures: 02:00 Bleeding from wound left elbow stopped with silver nitrate sticks and surgicel. pkl MDM: 05/19 23:53 Patient medically screened. pkl 05/20 01:52 Data reviewed: vital signs, nurses notes, lab test result(s), EKG, radiologic studies, pkl plain films. ED course: Left message in Dr. Sarkar answering machine regarding admisssion for observation. Attempt to reach Dr. Schultz or Dr. Gómez for dialysis consult in the morning unsucessful.. 05/20 00:10 Order name: Basic Metabolic Panel; Complete Time: 03:09 pkl 05/20 00:10 Order name: CBC with Diff; Complete Time: 03:09 pkl 05/20 00:10 Order name: LFT's; Complete Time: 03:09 pkl 05/20 00:10 Order name: Magnesium; Complete Time: 03:09 pkl 05/20 00:10 Order name: NT PRO-BNP; Complete Time: 03:09 pkl 05/20 00:10 Order name: PT-INR; Complete Time: 01:36 pkl 05/20 00:10 Order name: Troponin (emerg Dept Use Only); Complete Time: 03:09 pkl 05/20 00:10 Order name: XRAY Chest (1 view); Complete Time: 19:42 pkl 05/20 00:58 Order name: Elbow Left 3 View; Complete Time: 19:42 EDMS 05/20 01:21 Order name: Manual Differential; Complete Time: 03:09 EDMS 05/20 00:10 Order name: EKG; Complete Time: 00:11 pkl 05/20 00:10 Order name: Cardiac monitoring; Complete Time: 00:29 pkl 05/20 00:10 Order name: EKG - Nurse/Tech; Complete Time: 00:29 pkl 05/20 00:10 Order name: IV Saline Lock; Complete Time: 00:15 pkl 05/20 00:10 Order name: Labs collected and sent; Complete Time: 00:15 pkl 05/20 00:10 Order name: O2 Per Protocol; Complete Time: 00:15 pkl 05/20 00:10 Order name: O2 Sat Monitoring; Complete Time: 00:15 pkl 05/20 00:58 Order name: Hand Left 3 View; Complete Time: 19:42 EDMS 05/20 00:59 Order name: Hip Left 2 View; Complete Time: 19:42 EDMS 05/20 01:17 Order name: Wrist Left 3 View; Complete Time: 19:42 EDMS Administered Medications: No medications were administered Disposition: 05/20/18 02:00 Hospitalization ordered by Micky Russo for Observation. Preliminary diagnosis is Contosions left elbow, wrist and hand, left hip. S/P Fall. Unable to ambulate. Bleeding from wound left elbow. Chronic renal disease. Missed dialysis today. - Bed requested for Telemetry/MedSurg (observation). - Status is Observation. wh - Condition is Stable. - Problem is new. - Symptoms are unchanged. UTI on Admission? No Signatures: Dispatcher [employer] [facility] Eunice Jordan RN RN kl Lam, Pin, MD MD pkl [place]alo, Winsy Laci Vasquez RN RN mg2 Corrections: (The following items were deleted from the chart) 00:58 00:11 Elbow Right 3 View+RAD.RAD.BRZ ordered. EDCT EDMS 00:58 00:13 Hand Right 3 View+RAD.RAD.BRZ ordered. EDCT EDCT 00:59 00:12 Hip Right 2 View+RAD.RAD.BRZ ordered. EDCT EDMS 01:17 00:13 Wrist Right 3 View+RAD.RAD.BRZ ordered. [facility] EDCT 02:16 02:00 Hospitalization Ordered by A Karan COHEN for Observation. Preliminary diagnosis is kl Contosions left elbow, wrist and hand, left hip. S/P Fall. Unable to ambulate. Bleeding from wound left elbow. Chronic renal disease. Missed dialysis today. Bed requested for Telemetry/MedSurg (observation). Status is Observation. Condition is Stable. Problem is new. Symptoms are unchanged. UTI on Admission? No. pkl 03:03 02:16 05/20/2018 02:00 Hospitalization Ordered by A Karan COHEN for Observation. Preliminary diagnosis is Contosions left elbow, wrist and hand, left hip. S/P Fall. Unable to ambulate. Bleeding from wound left elbow. Chronic renal disease. Missed dialysis today. Bed requested for Telemetry/MedSurg (observation). Status is Observation. Condition is Stable. Problem is new. Symptoms are unchanged. UTI on Admission? No. kl
--- NOTE | 2018-05-20 02:01 | ER ---
Nurse's Notes [facility] Name: Amado Benitez Age: 78 yrs Sex: Male : 1940 Arrival Date: 05/19/2018 Time: 23:53 Bed 26 Private MD: Diagnosis: Contosions left elbow, wrist and hand, left hip. S/P Fall. Unable to ambulate. Bleeding from wound left elbow. Chronic renal disease. Missed dialysis today Presentation: 05/20 00:06 Presenting complaint: EMS states: he fell last Tuesday while getting out of the truck from his dialysis session. sustained injury to his left elbow and left hip. denies any head trauma. came in today because of left hip pain and profuse bleeding to his left elbow after the did the dressing. Transition of care: patient was not received from another setting of care. Onset of symptoms was May 19, 2018. Risk Assessment: Do you want to hurt yourself or someone else? Patient reports no desire to harm self or others. Initial Sepsis Screen: Does the patient meet any 2 criteria? No. Patient's initial sepsis screen is negative. Does the patient have a suspected source of infection? No. Patient's initial sepsis screen is negative. Care prior to arrival: Medication(s) given: fentanyl 50 mcg \T\ 2340 and NS 500 ml. 00:06 Method Of Arrival: EMS 00:06 Acuity: KIMMY 3 00:36 Mechanism of Injury: Fall car into the ground. Trauma event details: Injury occurred in [address], Injury occurred: at home. Injury occurred: May 17, 2018. Trauma Activation: Alert Physician: ED Physician; Name: dr shay; Notified At: ; Arrived At: Physician: General Surgeon; Name: ; Notified At: ; Arrived At: Physician: Radiology; Name: ; Notified At: ; Arrived At: Physician: Respiratory; Name: ; Notified At: ; Arrived At: Physician: Lab; Name: ; Notified At: ; Arrived At: Historical: - Allergies: 00:10 No Known Allergies; wh - Home Meds: 00:28 acetaminophen-codeine 300-30 mg Oral tab 1 tab as needed [Active]; Aleve 500 mg Oral wh tab 1 tab every 8 hours [Active]; amiodarone 200 mg Oral tab 1 tab 2 times per day [Active]; amlodipine 10 mg tab 1 tab once daily [Active]; aspirin 81 mg Oral chew 1 tab once daily [Active]; calazimine skin protectant daily [Active]; Centrum Silver 400-250 mcg Oral chew [Active]; Combigan 0.2-0.5 % ophthalmic drop 1 drop every 12 hours [Active]; Epogen 3,000 unit/mL injection soln 3 times per wk for Dialysis [Active]; hydralazine 10 mg Oral tab 1 tab 2 times per day [Active]; Ibuprofen Oral as needed [Active]; losartan 50 mg Oral tab 2 times per day [Active]; metoprolol tartrate 12.5MG Oral tab 1 tab 2 times per day [Active]; muprocin [Active]; prednisone 10 mg Oral tab once daily [Active]; Santyl 250 unit/gram Topical oint once daily [Active]; - PMHx: 00:10 Atrial Fib; Chronic pain; COPD; Dialysis; ESRD; Glaucoma; hyperkalemia; Hypertension; wh OPEN WOUND LL LEG; TIA; - Immunization history:: Last tetanus immunization: up to date Flu vaccine is up to date. - Social history:: Smoking status: Patient/guardian denies using tobacco, Patient/guardian denies using alcohol, street drugs, IV drugs. - Immunization history: Last tetanus immunization: - up to date. - Ebola Screening: : No symptoms or risks identified at this time. Screenin:11 Abuse screen: Denies threats or abuse. Denies injuries from another. Nutritional wh screening: No deficits noted. Tuberculosis screening: No symptoms or risk factors identified. Fall Risk Fall in past 12 months (25 points). IV access (20 points). Primary Survey: 00:32 A: Airway: patent. Breathing/Chest: Respiratory pattern: regular, Respiratory effort: mg2 spontaneous, unlabored. Circulation: Skin color: pink. Disability Alert. 00:39 Reassessment Breathing/Chest. mg2 Secondary Survey: 00:33 HEENT: No deficits noted. Gastrointestinal: No deficits noted. : No deficits noted. mg2 Musculoskeletal: Circulation, motion, and sensation intact. Capillary refill < 3 seconds. Injury Description: Skin tears sustained to left elbow. Assessment: 00:13 General: Appears in no apparent distress. comfortable, Behavior is calm, cooperative. wh Pain: Complains of pain in left hip Pain does not radiate. Pain currently is 5 out of 10 on a pain scale. Quality of pain is described as aching, Pain began gradually, 2-3 days ago. Is intermittent. Neuro: Level of Consciousness is awake, alert, obeys commands, Oriented to person, place, time, situation. Cardiovascular: Capillary refill < 3 seconds Patient's skin is warm and dry. Respiratory: Airway is patent Respiratory effort is even, unlabored, Respiratory pattern is regular, symmetrical. GI: No signs and/or symptoms were reported involving the gastrointestinal system. : No signs and/or symptoms were reported regarding the genitourinary system. EENT: No signs and/or symptoms were reported regarding the EENT system. Derm: Skin is intact, is healthy with good turgor, Skin is pink, warm \T\ dry. normal, Wound noted left elbow and left lower leg Wound is left elbow is bleeding, and left lower leg is dressed. Musculoskeletal: Circulation, motion, and sensation intact. Capillary refill < 3 seconds. Injury Description: skin tear in the left elbow. 02:05 Reassessment: Patient appears in no apparent distress at this time. Patient and/or mg2 family updated on plan of care and expected duration. Pain level reassessed. Patient is alert, oriented x 3, equal unlabored respirations, skin warm/dry/pink. Vital Signs: 00:10 BP 126 / 56; Pulse 52; Resp 18; Temp 98; Pulse Ox 94% on R/A; Weight 73.5 kg; Height 6 wh ft. 0 in. (182.88 cm); Pain 5/10; 01:06 BP 148 / 56; Pulse 53; Resp 18; Pulse Ox 92% on R/A; mg2 02:04 BP 140 / 58; Pulse 53; Resp 18; Pulse Ox 93% on R/A; mg2 00:10 Body Mass Index 21.98 (73.50 kg, 182.88 cm) wh 01:06 patient is sleeping mg2 02:04 patient sleeping mg2 [place] Coma Score: 00:36 Eye Response: spontaneous(4). Verbal Response: oriented(5). Motor Response: obeys mg2 commands(6). Total: 15. Trauma Score (Adult): 00:36 Eye Response: spontaneous(1); Verbal Response: oriented(1); Motor Response: obeys mg2 commands(2); Systolic BP: > 89 mm Hg(4); Respiratory Rate: 10 to 29 per min(4); [place] Score: 15; Trauma Score: 12 ED Course: 05/19 23:53 Patient arrived in ED. al2 23:53 Michael Shay MD is Attending Physician. pk 05/20 00:05 Carter Jackson is Primary Nurse. 00:09 Triage completed. 00:11 Arm band placed on. 00:12 No provider procedures requiring assistance completed. Maintain EMS IV. Dressing wh intact. Good blood return noted. Site clean \T\ dry. Gauge \T\ site: 20 \T\ RAC. IV. Wound care: to abrasion, located on leftr arm was cleaned with with peroxide, irrigated with dressed with 4X4s, Patient tolerated. 00:38 Patient has correct armband on for positive identification. Pulse ox on. NIBP on. Door mg2 closed. Warm blanket given. 00:38 Patient maintains SpO2 saturation greater than 95% on room air. Thermoregulation: warm mg2 blanket given to patient. 01:17 XRAY Chest (1 view) In Process Unspecified. EDMS 01:17 Elbow Left 3 View In Process Unspecified. EDMS 01:17 Hand Left 3 View In Process Unspecified. EDMS 01:17 Hip Left 2 View In Process Unspecified. EDMS 01:17 Wrist Left 3 View In Process Unspecified. EDMS 01:56 Micky Russo MD is Hospitalizing Provider. pkl 02:34 Patient admitted, IV remains in place. Administered Medications: No medications were administered Intake: 00:36 PO: 0ml; Total: 0ml. mg2 Outcome: 02:00 Decision to Hospitalize by Provider. pkl 02:33 Admitted to Med/surg accompanied by arleth, via stretcher, room 211, with chart, Report called to JOVANI Miranda 02:33 Condition: stable 02:33 Patient's length of stay in the Emergency Department was greater than 2 hours. waiting for bed in the floor. Patient's length of stay extended due to 03:03 Patient left the ED. Signatures: Dispatcher [employer] EDMS Michael Shay MD MD pkCarter Cunningham Jessica Deborah al2 Laci Vasquez RN RN mg2
[2018-05-20 02:19] LABS: Blood Morphology Comment NOT SEEN (NOT SEEN); Platelet Estimate ADEQ
--- NOTE | 2018-05-20 08:25 | EKG ---
Test Date: 2018-05-20 Test Time: 00:57:31 [employer]: SABRINA MEASUREMENT RESULTS: Intervals: Rate: 53 SC: 228 QRSD: 126 QT: 488 QTc: 457 [place]: P: 77 SC: 228 QRS: -20 T: 43 INTERPRETIVE STATEMENTS: Sinus bradycardia with 1st degree AV block Nonspecific intraventricular block Abnormal ECG Compared to ECG 03/14/2018 10:48:08 Left ventricular hypertrophy no longer present Electronically Signed On 05-20-18 08:24:36 CDT by Estevan Sewell
--- NOTE | 2018-05-20 08:56 | RAD REPORT ---
EXAM DESCRIPTION: RAD - Elbow Left 3 View - 05/20/2018 1:17 am CLINICAL HISTORY: Left elbow pain status post trauma FINDINGS: No fracture or dislocation is seen. A 7 millimeter radiopaque foreign body is present with in the anterior soft tissues of the upper elbow
--- NOTE | 2018-05-20 08:57 | RAD REPORT ---
EXAM DESCRIPTION: RAD - Wrist Left 3 View - 05/20/2018 1:17 am CLINICAL HISTORY: Left wrist pain status post injury FINDINGS: No fracture or dislocation is seen. The bones are osteoporotic If the patient continues to have symptoms to suggest an occult fracture then a followup plain film se candace in 7 days would be recommended
--- NOTE | 2018-05-20 08:58 | RAD REPORT ---
EXAM DESCRIPTION: RAD -Hand Left 3 View - 05/20/2018 1:17 am CLINICAL HISTORY: Left hand pain status post injury FINDINGS: No fracture or dislocation is seen. The bones are osteoporotic
--- NOTE | 2018-05-20 09:08 | RAD REPORT ---
EXAM DESCRIPTION: RAD - Hip Left 2 View - 05/20/2018 1:17 am CLINICAL HISTORY: Left hip pain status post injury FINDINGS: There is an equivocal subcapital left femoral fracture. No dislocation is seen. The bones are osteoporotic. If the patient has clinical symptoms to suggest this then a CT scan would be recommended for further evaluation
--- NOTE | 2018-05-20 09:08 | RAD REPORT ---
EXAM DESCRIPTION: Karissa Single View05/20/2018 1:17 am CLINICAL HISTORY: Chest pain COMPARISON: February 2018 FINDINGS: Mild bilateral pulmonary opacities are seen. The heart is mildly enlarged IMPRESSION: Mild interstitial pulmonary edema
[2018-05-20] MEDS ORDERED: POLYETHYLENE GLYCOL PO PRN (10:27)
[2018-05-20] MEDS ORDERED: POLYETHYL GLY 3350 17 GM/DOSE PO PRN (11:01)
--- NOTE | 2018-05-20 11:52 | RAD REPORT ---
EXAM DESCRIPTION: CT - Hip Left Wo Con - 05/20/2018 11:15 am CLINICAL HISTORY: Left hip pain COMPARISON: May 20, 2018 x-ray TECHNIQUE: Computed axial tomography of the left hip was obtained with coronal and sagittal reconstr uction All CT scans are performed using dose optimization technique as appropriate and may include automated exposure control or mA/KV adjustment according to patient size. FINDINGS: An impacted mildly to moderately displaced subcapital fracture involves the left femur. Fr acture extends into the femoral neck. No dislocation is seen IMPRESSION: Impacted mildly to moderately displaced subcapital fracture involving the left femur
[2018-05-20] MEDS ORDERED: CEFEPIME 1 GM/VIAL IV SCH (13:00)
[2018-05-20] MEDS: CA ACETATE 667 MG CAP PO SCH ×2 (14:00→20:23)
[2018-05-20] MEDS: MORPHINE 2 MG/ML SYR IV PRN (15:02)
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
[2018-05-20] MEDS: CEFEPIME 0.5 GM in NA CHLORIDE 0.9% 50 ML IV SCH (16:25)
[2018-05-20] MEDS: VANCOMYCIN 500 MG in NA CHLORIDE 0.9% 100 ML IVPB SCH (16:25)
[2018-05-20] MEDS: ACETAMINOPHEN 500 MG TAB PO PRN (20:18)
[2018-05-20] MEDS: Vit C/E/Zn/Coppr/Lutein/Zeaxan [Preservision Areds 2 Softgel] PO SCH (20:23)
[2018-05-20] MEDS: TIMOLOL EACH EYE SCH (20:24)
[2018-05-20] MEDS: HYDRALAZINE HCL 10 MG TABLET PO SCH (20:24)
[2018-05-20] MEDS: BRIMONIDINE EACH EYE SCH (20:24)
[2018-05-20] MEDS ORDERED: METOPROLOL XL 50 MG TAB PO SCH (21:00)
[2018-05-20] MEDS ORDERED: predniSONE 5 MG TAB PO SCH (21:00)
[2018-05-20] MEDS ORDERED: AMIODARONE HCL 200 MG TAB PO SCH (21:00)
--- NOTE | 2018-05-21 02:23 | CON ---
Date of Consultation: 05/20/2018 Reason For Consultation: Elevated BUN and creatinine, hyperkalemia, end-stage renal disease. History Of Present Illness: This is a pleasant 78-year-old male with significant past medical histor y of COPD, mycobacterium infection, hyperlipidemia, end-stage renal disease, on hemodialysis, Tuesday, Tuesday, Tuesday through left arm AV fistula at [facility]. Apparently, the patien t was in his regular state of health, fell Tuesday on his right side, hit his arm and apparently fr actured his hip. Since then, complaining of pain, difficulty ambulating. For that reason, missed di alysis yesterday, came to the hospital, found to have cellulitis on his left arm and hip fracture. T he patient is scheduled for hip surgery, Tuesday. The patient's lab showed hyperkalemia. For that re ason, we have been consulted. We took the patient to dialysis. We dialyzed him on low potassium bat h. The patient denied any nausea, any vomiting. Past Medical History: 1.COPD. 2.Mycobacterium infection. 3.End-stage renal disease, on hemodialysis Tuesday, Tuesday, Tuesday through left arm AV fistula at [facility]. 4.Hyperlipidemia. Allergies: NO KNOWN DRUG ALLERGIES. Past Surgical History: AV fistula creation, cholecystectomy, hernia repair. Social History: Denies smoking. Denies drinking. Denies drugs abuse. Family History: Positive for hypertension and coronary artery disease. Review of Systems: Head and Neck: No red eye. No ear pain. GI: No nausea. No vomiting. : No polyuria. No dysuria. No hematuria. SUPERINTENDENT LAUNDRY: Not applicable. Respiratory: Has shortness breath. Cardiovascular: Has leg swelling. Endocrine: No polydipsia. Skin: No rash. Neuro: Has a recurrent fall. Musculoskeletal: Has arm pain. Physical Examination: Vital Signs: When I saw the patient, blood pressure of 143/65, pulse of 65, afebrile. Chest: Faint crackles bilateral base. Heart: S1, S2. Systolic murmur. Abdomen: Soft, nontender. Extremities: Erythema with multiple pus collection on the left hand and arm dressing on the left elb ow. Neuro: Alert and oriented. Nonfocal. Laboratory Data: WBC 13.7, H and H 9.9/30.9, platelets of 258. Sodium 134, potassium 5.4, bicarb 22 , BUN 68, creatinine 8.3, calcium 8.2, magnesium 2.3. Medications: The patient's current medications in the hospital include: 1.Tylenol. 2.Amiodarone. 3.Norvasc. 4.Cefepime. 5.PhosLo. 6.Metoprolol 50 b.i.d. 7.Hydralazine 10 b.i.d. 8.Prednisone. 9.Vancomycin. Home medications include prednisone, amlodipine, amiodarone, and PhosLo. Assessment And Plan: 1.End-stage renal disease with hyperkalemia. We will arrange for dialysis today with low potassium bath, and we will follow up. We will challenge the patient as the patient misses dialysis yesterday. 2.Congestive heart failure, over volume. We will challenge the patient today. 3.Hypertension, controlled, optimal. Continue current medication. 4.Hyperkalemia secondary to renal failure. The patient is going to be dialyzed on low-potassium bat h. 5.Chronic obstructive pulmonary disease, stable. 6.Cellulitis of the arm. Continue current antibiotic. 7.Hip fracture. Plan for surgery Tuesday. We will dialyze the patient before dialysis, and we will follow up. Thank you Dr. Russo for allowing us to participate in the care of your patient. TOSIN Voice ID: [id number] Report ID: [id number]
[2018-05-21] MEDS: MORPHINE 2 MG/ML SYR IV PRN ×2 (04:26→13:12)
[2018-05-21 05:03] LABS: MCH 33.3 pg (27.0-35.0); MCV 97.7 fL (80-100); RBC Red Blood Cell Count 3.18 M/uL (4.33-5.43)
[2018-05-21 05:04] LABS: Absolute Monocytes 0.5 K/uL (0.1-1.3); Absolute Neutrophil 7.5 K/uL (1.8-8.0); Basophils % 0.3 % (0-1.3); Eosinophils % 1.7 % (0-4.4); Lymphocytes % 10.6 % (15.3-44.8); MPV 8.7 fL (7.6-11.3); Monocytes % 5.2 % (3.3-12.3)
[2018-05-21 05:36] LABS: Potassium 4.6 mmol/L (3.5-5.1)
[2018-05-21] MEDS: CA ACETATE 667 MG CAP PO SCH ×2 (08:19→11:44)
[2018-05-21] MEDS: CEFEPIME 0.5 GM in NA CHLORIDE 0.9% 50 ML IV SCH (08:19)
[2018-05-21] MEDS: BRIMONIDINE EACH EYE SCH ×2 (08:31→20:52)
[2018-05-21] MEDS: TIMOLOL EACH EYE SCH ×2 (08:31→20:52)
[2018-05-21] MEDS: Vit C/E/Zn/Coppr/Lutein/Zeaxan [Preservision Areds 2 Softgel] PO SCH ×2 (08:31→20:54)
[2018-05-21] MEDS ORDERED: AMLODIPINE 10 MG TAB PO SCH (09:00)
[2018-05-21] MEDS: HYDRALAZINE HCL 10 MG TABLET PO SCH (09:02)
[2018-05-21] MEDS: HEPARIN 5000 UNIT/ML 1 ML VIAL SQ SCH ×2 (09:31→20:52)
--- NOTE | 2018-05-21 14:52 | PN ---
Date of Progress Note: 05/21/2018 Subjective: The patient was seen this morning for followup. No new complaints or problems reported by patient. Lying in bed, not in distress. Overall, his pain is under good control today. His left wrist and forearm swelling and pain has improved significantly. There is no swelling noted today an d his range of motion is much better today as noted. Objective: Vital Signs: Reviewed. HEENT: Unremarkable. Lungs: Clear to auscultation. Heart: Sounds normal. Abdomen: Soft. Bowel sounds normal. No guarding, rigidity, tenderness, distention. Extremities: No leg edema. Left forearm and wrist area of cellulitis looks better today than yester day. Two areas of pustules remains unchanged from yesterday. There is no swelling of the wrist or f orearm. Laboratory Data: White count 9.2, hemoglobin 10.6, platelets 243. Sodium 135, potassium 4.6, chlori de 100, bicarb 26, BUN 42, creatinine 6.2, glucose 77. Impression: 1.Left hip subcapital fracture. 2.End-stage renal disease, on hemodialysis. 3.Anemia due to chronic kidney disease. 4.Hypertension. 5.Paroxysmal atrial fibrillation. 6.Cellulitis, left upper extremity. Plan: We will go ahead and continue current medications. We will continue current antibiotics. I d id discuss details with Dr. Mullins yesterday. He is planning to do surgery tomorrow sometime around no on time and in the morning prior to the surgery, patient should have his hemodialysis. We will ayanna nue current antibiotics. The patient's family is requesting to use his home medication supply and order was written for that and I will see him tomorrow for followup. PAULA/MODL Voice ID: [id number] Report ID: [id number]
--- NOTE | 2018-05-21 16:59 | CON ---
Reason For Consult: Assess his cardiac condition before he goes through hip surgery. History Of Present Illness: The patient fell. He has a left hip fracture. Apparently, the fall was several days before coming in. He has a history of chronic atrial fibrillation, history of mycobact erium avium intracellulare, end-stage renal disease on dialysis, and a history of hypertension. Abou t 5 months ago, he did a stress test because of atypical chest pain and was found not to have ischemi c heart disease. The patient denies shortness of breath or chest pain. Physical Examination: Vital Signs: 6 feet tall, 154 pounds. HEENT: Normal. Lungs: No crackles. Heart: Regular rate and rhythm. S4 gallop. Abdomen: Soft. Extremities: Unremarkable. He has some ulcerated lesions on his shins that look like venous stasis ulcers. They appear to be slowly healing. It is the same prakash that he needs surgery on the hip, muc h higher up. There were no wounds close to the proposed operative site. His left arm has a lot of l acerations, excoriations and appear to possibly be infected, but superficially he has being treated w [facility] triple antibiotic ointment for that. His electrocardiogram shows sinus Mario Alberto, first-degree AV block, nonspecific IVCD. His pharmacologic stress test was from November 29, 2017. Recommendation: I recommend we do an echo. I consider him a low-risk patient for going through the surgery. The echocardiogram, I am not doing it to possibly change my opinion. I think he is a low-r isk candidate, but it could potentially offer helpful information for us managing his condition in the postop period. Again, I consider him a low-risk patient for undergoing hip nailing procedure. YULIANA Voice ID: [id number] Report ID: [id number]
[2018-05-21] MEDS: SUCCINATE PO SCH (20:53)
[2018-05-21] MEDS: HYDRALAZINE 10 MG TABLET PO SCH (20:53)
[2018-05-21] MEDS: METOPROLOL PO SCH (20:53)
[2018-05-21] MEDS ORDERED: AMIODARONE HCL 200 MG TAB PO SCH (21:00)
--- NOTE | 2018-05-21 21:11 | PN ---
Date of Progress Note: 05/21/2018 Subjective: The patient doing well. No nausea. No vomiting. The patient is status post dialysis y , tolerated dialysis very well. Physical Examination: Vital Signs: Blood pressure 167/72, pulse of 88, afebrile. Chest: Clear to auscultation. Heart: S1, S2. Systolic murmur. Abdomen: Soft, nontender. Extremity: No edema. Laboratory Data: H and H are 10.6/31. Sodium 135, potassium 4.6, bicarb 26, BUN 42, creatinine 6.2, calcium 8.7. Current Medications: Include; 1.Amiodarone. 2.Norvasc. 3.Heparin. 4.Cefepime. 5.Zofran. 6.Vancomycin. Assessment And Plan: 1.End-stage renal disease. Normal volume. We will continue the patient on dialysis. We will arran ge for dialysis tomorrow; Tuesday, Tuesday, and Tuesday. 2.Secondary hyperparathyroid, stable. 3.Anemia of chronic kidney disease. Continue JANI. 4.Right arm cellulitis. Continue current antibiotic. 5.Fall with hip fracture. Plan for surgery tomorrow. The patient cleared from the renal standpoint for surgery as per blood pressure systolic below 165. Diastolic be low 90. RAKAN/WILFREDO Voice ID: [id number] Report ID: [id number]
[2018-05-22] MEDS: MORPHINE 2 MG/ML SYR IV PRN ×3 (04:45→20:56)
[2018-05-22] MEDS: CA ACETATE 667 MG CAP PO SCH ×3 (08:00→17:00)
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
[2018-05-22] MEDS: Vit C/E/Zn/Coppr/Lutein/Zeaxan [Preservision Areds 2 Softgel] PO SCH ×2 (09:00→20:25)
[2018-05-22] MEDS ORDERED: AMLODIPINE 10 MG TAB PO SCH (09:00)
[2018-05-22] MEDS: AMIODARONE 200 MG PO SCH ×2 (09:00→17:07)
[2018-05-22] MEDS ORDERED: predniSONE 10 MG TAB PO SCH (09:00)
[2018-05-22] MEDS: HYDRALAZINE 10 MG TABLET PO SCH ×2 (09:00→20:23)
[2018-05-22] MEDS: CEFEPIME 0.5 GM in NA CHLORIDE 0.9% 50 ML IV SCH (10:30)
[2018-05-22] MEDS ORDERED: NA CHLORIDE 0.9% 50 ML ONE (10:33)
[2018-05-22] MEDS: BRIMONIDINE EACH EYE SCH ×2 (10:34→20:22)
[2018-05-22] MEDS: TIMOLOL EACH EYE SCH ×2 (10:34→20:22)
[2018-05-22] MEDS ORDERED: NA CHLORIDE 0.9% 1,000 ML ONE (11:27)
[2018-05-22] MEDS: VANCOMYCIN 500 MG in NA CHLORIDE 0.9% 100 ML IVPB SCH (11:56)
[2018-05-22] MEDS ORDERED: LIDOCAINE 1% MPF 5 ML VIAL ONE (11:57)
[2018-05-22] MEDS ORDERED: PROPOFOL 200 MG/20 ML VIAL IV ONE (11:57)
[2018-05-22] MEDS ORDERED: ROCURONIUM 50 MG/5 ML VIAL IV ONE (11:57)
[2018-05-22] MEDS ORDERED: FENTANYL CITR 250 MCG/5 ML ONE (11:57)
[2018-05-22] MEDS ORDERED: Phenylephrine HCl 10 MG/ML 1 ML VIAL ONE (12:21)
[2018-05-22] MEDS ORDERED: TRANEXAMIC ACID 1,000 MG in NA CHLORIDE 0.9% 50 ML IV SCH (12:30)
[2018-05-22] MEDS ORDERED: GLYCOPYRROLATE 0.2 MG/ML SYR ONE (14:10)
[2018-05-22] MEDS ORDERED: NEOSTIGMINE 1 MG/ML -5 ML SYRINGE ONE (14:10)
[2018-05-22] MEDS ORDERED: ONDANSETRON HCL 40 MG/20 ML VIAL ONE (14:11)
--- NOTE | 2018-05-22 14:38 | P.BOP ---
Preoperative diagnosis: left femoral neck fracture Postoperative diagnosis: same Primary procedure: left hip hemiarthroplasty Secondary procedure: none Plastic Sewer: NONE,NONE Estimated blood loss: 75 cc Specimen: left femoral head Findings: see dictation Anesthesia: General Complications: None Implants: 14 mm Biomet pressfit stem, 54 bipolar shell, 28mm + 6 head Fluids & blood products: per anesthesia record Transferred to: Recovery Room Condition: Good
[2018-05-22] MEDS: MEPERIDINE HCL 50 MG/ML AMP ONE ×2 (14:41→14:46)
[2018-05-22] MEDS: HYDROMORPHONE HCL 1 MG/ML INJ ONE ×2 (15:02→15:12)
[2018-05-22] MEDS ORDERED: ALBUTEROL 2.5 MG/3 ML NEB SOL ONE (15:28)
[2018-05-22 15:43] LABS: Hematocrit 28.2 % (39.6-49.0)
--- NOTE | 2018-05-22 15:53 | RAD REPORT ---
EXAM DESCRIPTION: RAD - Pelvis - 05/22/2018 3:47 pm CLINICAL HISTORY: post op Hip fracture COMPARISON: Hip Left 2 View dated 05/22/2018; Hip Left Wo Con dated 05/20/2018; Hip Left 2 View dated 05/20/2018 FINDINGS: AP pelvis and left hip-multiple projections are submitted Left total hip arthroplasty is present. Hardware is in expected position and alignment. Skin larry are noted laterally. The bones are diffusely osteopenic. No unexpected finding.
--- NOTE | 2018-05-22 16:02 | ECHO ---
HEIGHT: 6 ft 0 in WEIGHT: 155 lb 11.2 oz DATE OF STUDY: 05/22/[address]: Estevan Sewell MD 2-DIMENSIONAL: YES M.MODE: YES DOPPLER: YES COLOR FLOW: YES TDS: NO PORTABLE: NO DEFINITY: NO BUBBLE STUDY: NO DIAGNOSIS: PRE OP CARDIAC HISTORY: CATHERIZATION: NO SURGERY: NO PROSTHETIC VALVE: NO PACEMAKER: NO MEASUREMENTS (cm) DIASTOLIC (NORMALS) SYSTOLIC (NORMALS) IVSd 1.3 (0.6-1.2) LA Diam 4.5 (1.9-4.0) LVEF 57% LVIDd 4.8 (3.5-5.7) LVIDs 3.3 (2.0-3.5) %FS 30% LVPWd 1.4 (0.6-1.2) Ao Diam 3.6 (2.0-3.7) 2 DIMENSIONAL ASSESSMENT: RIGHT ATRIUM: NORMAL LEFT ATRIUM: DILATED RIGHT VENTRICLE: NORMAL LEFT VENTRICLE: LEFT VENTRICULAR HYPERTROPHY TRICUSPID VALVE: NORMAL MITRAL VALVE: MITRAL ANNULAR CALCIFICATION PULMONIC VALVE: NORMAL AORTIC VALVE: STENOSIS PERICARDIAL EFFUSION: NONE AORTIC ROOT: NORMAL LEFT VENTRICULAR WALL MOTION: NORMAL. DOPPLER/COLOR FLOW: MILD AORTIC, MITRAL AND TRICUSPID REGURGITATION. ESTIMATED RIGHT VENTRICULAR SYSOTLIC PRESSURE 40mmHg (MILD PULMONARY HYPERTENSION). MILD AORTIC STENOSIS PEAK/MEAN GRADIENT 35/18, ESTIMATED AORTIC VALVE AREA 1.8 CENTIMETERS SQUARED. COMMENTS: NORMAL LEFT VENTRICULAR EJECTION FRACTION. LEFT VENTRICULAR HYPERTROPHY. DILATED LEFT ATRIUM. MITRAL ANNULAR CALCIFICATION. MILD AORTIC STENOSIS. MILD AORTIC, MITRAL AND TRICUSPID REGURGITATION. MILD PULMONARY HYPERTENSION. TECHNOLOGIST: SUE [facility]
[2018-05-22 16:47] LABS: Absolute Lymphocytes (CBC) 1.4 K/uL (0.7-4.9); Absolute Monocytes 0.9 K/uL (0.1-1.3); Absolute Neutrophil 8.2 K/uL (1.8-8.0); Basophils % 0.7 % (0-1.3); Eosinophils % 4.2 % (0-4.4); Hematocrit 30.8 % (39.6-49.0); Lymphocytes % 12.8 % (15.3-44.8); MCH 32.4 pg (27.0-35.0); MCV 98.4 fL (80-100); MPV 8.2 fL (7.6-11.3); Monocytes % 7.9 % (3.3-12.3); RBC Red Blood Cell Count 3.13 M/uL (4.33-5.43)
[2018-05-22 16:52] LABS: Albumin 2.7 g/dL (3.4-5.0); Bilirubin Total 0.5 mg/dL (0.2-1.0); Potassium 3.9 mmol/L (3.5-5.1)
[2018-05-22] MEDS: HYDROCODONE/APAP 7.5/325 MG TAB PO PRN (18:54)
[2018-05-22] MEDS: METOPROLOL PO SCH (20:24)
[2018-05-22] MEDS: SUCCINATE PO SCH (20:24)
--- NOTE | 2018-05-22 21:51 | PN ---
Date of Progress Note: 05/22/2018 Subjective: The patient was seen this morning for followup. No new complaints or problems reported by him. He was getting dialysis when I saw him. His pain is well controlled. Objective: Vital Signs: Reviewed. HEENT: Unremarkable. Lungs: Clear to auscultation. Heart: Sounds normal. Abdomen: Soft. Bowel sounds normal. No guarding, rigidity, tenderness, distention. Extremities: No leg edema. Left forearm, 2 area of pustules unchanged from yesterday. Area of cell ulitis has significantly improved. There is no swelling or tenderness of the left wrist or forearm a penelope. Impression: 1.Left hip subcapital fracture. 2.Cellulitis, left arm. 3.End-stage renal disease, on hemodialysis. 4.Paroxysmal atrial fibrillation. 5.Anemia due to chronic kidney disease. Plan: Continue current medications, antibiotics per order. The patient will have surgery today with Dr. Mullins. I have discontinued his heparin that he was getting for DVT prophylaxis as of this kathya g, and we will restart it tomorrow, and we will continue current antibiotics. Continue to follow [facility] for dialysis needs. PAULA/MODL Voice ID: [id number] Report ID: [id number]
[2018-05-23] MEDS: HYDROCODONE/APAP 7.5/325 MG TAB PO PRN (01:14)
--- NOTE | 2018-05-23 02:04 | OP ---
Date of Procedure: 05/22/2018 Surgeon: Javier Mullins MD Preoperative Diagnosis: Left femoral neck fracture. Postoperative Diagnosis: Left femoral neck fracture. Procedure Performed: Left hip hemiarthroplasty. Anesthesia: General endotracheal. Fluids: Per Anesthesia record. Estimated Blood Loss: 75 cc. Complication: None. Implants: 1. A size 14 Biomet press-fit stem. 2. A 52 bipolar shell. 3. A 28 mm +6 head. Indication For Procedure: Amado is an 78-year-old male who presented to the ER with left hip pain and inability to bear weight after a fall on his left side. X-rays and CAT scan demonstrated a displaced left femoral neck fracture. I discussed with the patient and his at length risks, benefits associated with operative and nonoperative treatment. He expressed understanding and elected to proceed with operative treatment. The patient also was undergoing treatment for a wound on his left tibia. I discussed with the patient and his the increased risk for infection given his ongoing wounds and wound care. They expressed understanding. Description Of Procedure: After informed consent was obtained, the patient was identified in the preoperative holding area. The left lower extremity was marked. The patient was then brought back to the operative room and transferred to the operating table in a supine fashion and placed under general endotracheal anesthesia. He was then placed in the right lateral decubitus position with axillary roll placed and his extremities well-padded. The left lower extremity was then prepped and draped in usual sterile fashion. After the lower extremity was draped, the wound over the left tibia was then wrapped and his hip was then again prepped with ChloraPrep. A time-out was then initiated. Correct patient and procedure were confirmed and identified. The patient did receive his preoperative prophylactic antibiotics. He has been getting vancomycin while on the floor. Approximately a 15 cm curvilinear incision was centered over the greater trochanter in posterior approach to the hip. Dissection was taken down to the tensor fascia meño which was divided and preserved. Charnley retractor was then placed. The blunt dissection was taken down the short external rotators, which were tagged with a #5 Ethibond and released off the greater trochanter. A T-shaped capsulotomy was then performed. The capsule edges were then tagged with a #5 Ethibond. The fractured hematoma was then evacuated and a corkscrew was then used to remove the femoral head. Size 54 femoral head was selected. It was then trialed. There was good overall fit. The trial was in the acetabulum. Next, attention was taken to the proximal femur. Cookie cutter was placed followed by canal finder and a lateralizer. The proximal femur was then reamed sequentially in 1 mm increments from a size 7 mm reamer up to a size 14 mm reamer followed by broaching the proximal femur from a size 7 mm broach to size 14 mm broach. The calcar planer was then used to clean up the fracture site as well as using rongeurs. The trials were then used and a 54 mm shell and a +6 head were selected with overall good stability of the left hip and good leg length. Trialed implants were then removed. The wound was then irrigated thoroughly with normal saline using pulse lavage. Size 40 mm 4 stem was then placed with good overall fit. It was then again trialed and a +6 mm head with a 54 mm shell was selected and there were good overall leg length and stability. Final implants were then placed using a 54 mm shell and a 28 mm +6 head. The final implant was then reduced. There was good overall stability of the left hip and good overall leg length. The wound was then irrigated thoroughly with normal saline using pulse lavage. The capsule was then approximated using a #5 Ethibond. External rotators were then tagged back to the greater trochanter using drill and suture passer and tensor fascia meño was approximated using a 0 Vicryl. Subcutaneous tissue was approximated using 2-0 Vicryl. Skin was approximated using larry. Sterile dressings were applied. The patient's left lower extremity wound was then dressed with a wet-to-dry dressing as per Dr. Davis's orders. He was awakened and transferred to PACU in stable condition. Postoperative Plan: He will be weightbearing as tolerated. He will be in the ICU overnight. Dr. Russo will continue to manage the patient medically and Physical Therapy will be consulted to aid in mobilization. WILLIAM/WILFREDO Voice ID: [id number] Report ID: [id number] RUPESH
[2018-05-23 03:27] LABS: HBsAG Nonreactive (Nonreactive)
[2018-05-23 04:49] LABS: Absolute Lymphocytes (CBC) 1.5 K/uL (0.7-4.9); Absolute Neutrophil 6.6 K/uL (1.8-8.0); Basophils % 0.9 % (0-1.3); Eosinophils % 4.8 % (0-4.4); Lymphocytes % 15.3 % (15.3-44.8); MCH 33.2 pg (27.0-35.0); MCV 98.7 fL (80-100); MPV 8.4 fL (7.6-11.3); Monocytes % 10.2 % (3.3-12.3); RBC Red Blood Cell Count 2.94 M/uL (4.33-5.43)
[2018-05-23 05:20] LABS: Potassium 4.1 mmol/L (3.5-5.1)
[2018-05-23] MEDS: MORPHINE 2 MG/ML SYR IV PRN (06:00)
[2018-05-23] MEDS: ONDANSETRON 4 MG/2 ML VIAL IV PRN ×2 (06:12→14:03)
[2018-05-23] MEDS ORDERED: D50W 25 GM/50 ML SYRINGE IV ONE ×2 (07:28→07:35)
[2018-05-23] MEDS: CA ACETATE 667 MG CAP PO SCH ×3 (08:00→16:19)
[2018-05-23] MEDS: HYDRALAZINE 10 MG TABLET PO SCH ×2 (08:02→20:54)
[2018-05-23] MEDS: Vit C/E/Zn/Coppr/Lutein/Zeaxan [Preservision Areds 2 Softgel] PO SCH ×2 (08:14→20:59)
[2018-05-23] MEDS: TIMOLOL EACH EYE SCH ×2 (08:25→20:54)
[2018-05-23] MEDS: BRIMONIDINE EACH EYE SCH ×2 (08:25→20:54)
--- NOTE | 2018-05-23 08:37 | RAD REPORT ---
EXAM DESCRIPTION: RAD - Hip Left 2 View - 05/22/2018 3:46 pm CLINICAL HISTORY: Post op Hip fracture COMPARISON: Hip Left 2 View dated 05/22/2018; Hip Left Wo Con dated 05/20/2018; Hip Left 2 View dated 05/20/2018 FINDINGS: AP pelvis and left hip-multiple projections are submitted Left total hip arthroplasty is present. Hardware is in expected position and alignment. Skin larry are noted laterally. The bones are diffusely osteopenic. No unexpected finding.
[2018-05-23] MEDS ORDERED: NA CHLORIDE 0.9% 250 ML IV ONE (09:10)
[2018-05-23] MEDS ORDERED: NA CHLORIDE 0.9% 250 ML ONE (09:15)
[2018-05-23] MEDS ORDERED: GLUCAGON 1 MG/VIAL IV STA (10:16)
[2018-05-23] MEDS: HEPARIN 5000 UNIT/ML 1 ML VIAL SQ SCH ×2 (10:25→20:54)
[2018-05-23] MEDS ORDERED: NA CHLORIDE 0.9% IV ONE (10:45)
[2018-05-23] MEDS ORDERED: GLUCAGON IV ONE (10:45)
--- NOTE | 2018-05-23 12:43 | PN ---
Date of Progress Note: 05/23/2018 History: The patient underwent hip replacement. Tolerated well. Apparently, the patient had low bl ood pressure today. The patient received beta-alex yesterday, extended release. Also patient had low blood sugar. Physical Examination: Vital Signs: Blood pressure 110/47, pulse of 62, dropped down to 89/40, pulse of 59. Chest: Clear to auscultation. Heart: S1, S2. Systolic murmur. Abdomen: Soft. Nontender. Extremity: Trace edema. Dressing on the left arm. Laboratory Data: Sodium 139, potassium 4.1, bicarb 27, BUN 37, creatinine 5.9, glucose down to 45, c alcium 8.4. Medications: Current medications the patient on its include: 1.Cefepime. 2.Vancomycin. 3.Zofran. 4.The patient received 250 of normal saline bolus. Assessment And Plan: 1.End-stage renal disease. Normal volume. I am going to go ahead and arrange for dialysis tomorrow . The patient is going to be dialyzed on low-potassium bath. I am going to use sodium module to est ablish better blood pressure control given the low blood pressure, and we will monitor. The patient will avoid using heparin given that the patient just underwent surgery. 2.Hypertension, possible secondary to anesthesia/beta-alex. I am going to start the patient on a glucagon drip. The patient is going to get the dialysis tomorrow, it is going to be hopefully washo dc. We will monitor. 3.Cellulitis. Continue vancomycin and cefepime for the time being. 4.Hyperkalemia, resolved. 5.Secondary hyperparathyroidism, stable. 6.Anemia of chronic kidney disease. Continue Epogen. 7.Fall with hip fracture. Continue PT/OT. The patient may need an inpatient rehab. Will follow up with primary. RAKAN/WILFREDO Voice ID: [id number] Report ID: [id number]
--- NOTE | 2018-05-23 13:06 | P.PN ---
Subjective Date of Service: 05/23/18 Chief Complaint: s/p left hip von some hypotension and hypoglycemia this AM; Physical Examination - Vital Signs Temperature: 99.9 F Blood Pressure: 89/40 Pulse: 59 Respirations: 13 Pulse Ox (%): 100 - Physical Exam General: Alert, In no apparent distress Musculoskeletal: Other (LLE: dressing c/d/i; +EHL/FHL/GSC/TA; sensation grossly intact distally) Assessment And Plan - Plan Amado is an 78 yo male s/p L hip hemiarthroplasty POD#1 -H/H stable -will continue to be monitored in ICU with hypotension and hypoglycemia -PT to mobilize when stable -heparin for DVT prophylaxis
--- NOTE | 2018-05-23 13:16 | PN ---
Date of Progress Note: 05/23/2018 Mr. Benitez was admitted on 05/20/[address] Russo's service, was seen by Dr. Sewell on 05/21/2018 for hypertension, end-stage renal disease, chronic atrial fibrillation. The patient is in sinus rhythm now on amiodarone. Echocardiogram showed mild aortic stenosis. Left ventricular hypertrophy with mi ld pulmonary hypertension. Ejection fraction of 57%. The patient just underwent hip surgery after c ardiac clearance and has done well. Remains in sinus rhythm. We will continue his present regimen. He should probably eventually be on Eliquis for anticoagulation. I will leave that up to Dr. Russo. ZOHRA/WILFREDO Voice ID: [id number] Report ID: [id number]
[2018-05-23] MEDS ORDERED: DEXTROSE 10%-WATER 500 ML IV SCH (15:45)
[2018-05-23] MEDS ORDERED: MIDODRINE HCL 5 MG TABLET PO ONE (16:00)
[2018-05-23] MEDS: AMLODIPINE 10 MG TAB PO SCH (16:19)
[2018-05-23] MEDS ORDERED: HYDROCORTISONE SUC 100 MG INJ ONE (16:47)
[2018-05-23] MEDS ORDERED: HYDROCORTISONE SUC 100 MG INJ IV SCH (17:00)
[2018-05-23] MEDS ORDERED: predniSONE 10 MG TAB PO SCH (17:00)
[2018-05-23] MEDS: HYDROCORTISONE SUC 100 MG INJ IV SCH (17:18)
[2018-05-23] MEDS: NOREPINEPHRINE 4 MG in D5W 250 ML IV PRN (18:43)
[2018-05-23 18:44] LABS: Blood Gas Oxyhemoglobin 95.1 % (94-97); Blood O2 Saturation 96.4 % (92-98.5)
[2018-05-23] MEDS: AMIODARONE 200 MG PO SCH (18:46)
[2018-05-23 19:03] LABS: Absolute Monocytes 0.6 K/uL (0.1-1.3); Absolute Neutrophil 7.9 K/uL (1.8-8.0); Basophils % 0.7 % (0-1.3); Eosinophils % 2.5 % (0-4.4); Hematocrit 25.3 % (39.6-49.0); Lymphocytes % 10.1 % (15.3-44.8); MCH 32.9 pg (27.0-35.0); MCV 100.2 fL (80-100); MPV 8.8 fL (7.6-11.3); Monocytes % 6.6 % (3.3-12.3); RBC Red Blood Cell Count 2.53 M/uL (4.33-5.43)
[2018-05-23 20:01] LABS: CKMB Creatine Kinase MB 1.9 ng/mL (0.3-3.6); Troponin I 0.07 ng/mL (0.0-0.045)
[2018-05-23] MEDS: METOPROLOL PO SCH (20:54)
[2018-05-23] MEDS: SUCCINATE PO SCH (20:54)
[2018-05-23] MEDS: DEXTROSE 10%-WATER 500 ML IV SCH (21:00)
--- NOTE | 2018-05-23 21:54 | EKG ---
Test Date: 2018-05-23 Test Time: 18:36:24 Hot Dip Plater: NICHELLE MEASUREMENT RESULTS: Intervals: Rate: 54 MD: 228 QRSD: 122 QT: 478 QTc: 453 [place]: P: 43 MD: 228 QRS: -26 T: 18 INTERPRETIVE STATEMENTS: Sinus bradycardia with 1st degree AV block Left ventricular hypertrophy with QRS widening Abnormal ECG Compared to ECG 05/20/2018 00:57:31 Left ventricular hypertrophy now present Electronically Signed On 05-23-18 21:53:33 MARRIAGE AND FAMILY COUNSELOR by Estevan Sewell
--- NOTE | 2018-05-23 23:13 | PN ---
Date of Progress Note: 05/23/2018 Subjective: The patient was seen this morning for followup. He was in ICU, not in distress. His bl ood sugar was low this morning when I saw him and no other problems or complaints reported by nursing staff throughout the course of day today. He also had low blood pressure along with low blood sugar . IV D50 was given this morning, and then IV fluid with D10W was started and the patient was given I V steroid, Solu-Cortef 100 mg every 6 hours. This morning when his blood pressure was low, he was gi tierra 1 dose of IV fluid bolus, and this evening, he was started on Levophed drip per fire extinguisher repairer inspector. He denies any complaints of any pain anywhere except his left arm pain. I saw him this morning as well as this evening. He appears weaker than normal, but when I saw him, he had his eyes closed, and ope rosalind his eyes, able to recognize me and answer questions. was at bedside. Objective: HEENT: Examination unremarkable. Lungs: Clear to auscultation. Heart: Sounds normal. Abdomen: Soft. Bowel sounds normal. No guarding, rigidity, tenderness, or distention. Extremities: No leg edema. Laboratory Data: Labs reviewed. Impression: 1.Left hip fracture, subcapital, status post surgery. 2.Left arm cellulitis. 3.End-stage renal disease, on hemodialysis. 4.Chronic steroid therapy. Plan: We will continue current medication and IV steroid per order. The patient may have related ad renal insufficiency problem and IV steroid should help. We will continue IV fluid with IV D10W. Ugo p him in ICU. I will see him tomorrow morning for followup. He has some nausea problem off and on t hroughout the day. Nausea medication is being given per order and I will see him tomorrow for follow up. I am expecting his condition to be stabilized and better by tomorrow. I did talk to him and his t his evening. PAULA/MODL Voice ID: [id number] Report ID: [id number]
[2018-05-24] MEDS: HYDROCORTISONE SUC 100 MG INJ IV SCH ×5 (00:13→23:41)
[2018-05-24 04:33] LABS: Absolute Lymphocytes (CBC) 0.8 K/uL (0.7-4.9); Absolute Monocytes 0.3 K/uL (0.1-1.3); Absolute Neutrophil 11.1 K/uL (1.8-8.0); Basophils % 0.2 % (0-1.3); Hematocrit 26.9 % (39.6-49.0); Lymphocytes % 6.7 % (15.3-44.8); MCH 33.2 pg (27.0-35.0); MPV 8.4 fL (7.6-11.3); Monocytes % 2.1 % (3.3-12.3); RBC Red Blood Cell Count 2.74 M/uL (4.33-5.43)
[2018-05-24] MEDS: NOREPINEPHRINE 4 MG in D5W 250 ML IV PRN (04:44)
[2018-05-24 05:03] LABS: Albumin 2.3 g/dL (3.4-5.0); CKMB Creatine Kinase MB 1.8 ng/mL (0.3-3.6); Phosphorus 8.4 mg/dL (2.5-4.9); Potassium 5.1 mmol/L (3.5-5.1); Troponin I 0.05 ng/mL (0.0-0.045)
[2018-05-24 05:29] LABS: Blood Morphology Comment NOTED (NOT SEEN); Ovalocytes 2+; Platelet Estimate ADEQ
[2018-05-24] MEDS: ONDANSETRON 4 MG/2 ML VIAL IV PRN ×3 (05:38→16:17)
[2018-05-24] MEDS: DEXTROSE 10%-WATER 500 ML IV SCH ×2 (05:55→19:00)
[2018-05-24] MEDS ORDERED: METHYLPREDNISOLONE 125 MG INJ IV ONE (07:22)
--- NOTE | 2018-05-24 07:31 | P.PN ---
Subjective Date of Service: 05/24/18 Chief Complaint: s/p left hip von Subjective: Working w/ PT BP stabilized; on levophed now; Physical Examination - Vital Signs Temperature: 98.4 F Blood Pressure: 107/46 Pulse: 60 Respirations: 12 Pulse Ox (%): 96 - Physical Exam General: Alert, In no apparent distress Musculoskeletal: Other (LLE: dressing c/d/i; ttp over hip and thigh; +EHL/FHL/ GSC/TA; NVI distally) Assessment And Plan - Plan Amado is an 78 yo male s/p L hip hemiarthroplasty POD#2 -H/H stable -will continue to be monitored in ICU with hypotension and hypoglycemia -PT to mobilize when stable -heparin for DVT prophylaxis
[2018-05-24] MEDS: CA ACETATE 667 MG CAP PO SCH ×3 (07:43→16:15)
[2018-05-24] MEDS: Vit C/E/Zn/Coppr/Lutein/Zeaxan [Preservision Areds 2 Softgel] PO SCH ×2 (07:44→20:19)
[2018-05-24] MEDS: HYDRALAZINE 10 MG TABLET PO SCH ×2 (07:44→20:17)
[2018-05-24] MEDS ORDERED: NOREPINEPHRINE 4 MG in D5W 250 ML IV PRN (09:14)
[2018-05-24] MEDS: HEPARIN 5000 UNIT/ML 1 ML VIAL SQ SCH ×2 (09:52→20:16)
[2018-05-24] MEDS: TIMOLOL EACH EYE SCH ×2 (09:54→20:17)
[2018-05-24] MEDS: BRIMONIDINE EACH EYE SCH ×2 (09:54→20:17)
[2018-05-24 10:15] LABS: CKMB Creatine Kinase MB 1.7 ng/mL (0.3-3.6); Troponin I 0.04 ng/mL (0.0-0.045)
[2018-05-24] MEDS ORDERED: DEXTROSE 10%-WATER 500 ML IV SCH (12:00)
[2018-05-24] MEDS: EPOETIN ALFA 10,000 UNIT/ML VIAL IV SCH (13:10)
[2018-05-24] MEDS: CEFEPIME 0.5 GM in NA CHLORIDE 0.9% 50 ML IV SCH (14:56)
[2018-05-24] MEDS: VANCOMYCIN 500 MG in NA CHLORIDE 0.9% 100 ML IVPB SCH (14:57)
[2018-05-24] MEDS: AMLODIPINE 10 MG TAB PO SCH (16:15)
--- NOTE | 2018-05-24 16:26 | PN ---
Date of Progress Note: 05/24/2018 Subjective: The patient undergoes hip replacement. Yesterday, the patient developed hypotension, na usea and vomiting with hypoglycemia. Over the night, the patient received couple of boluses. His bl ood pressure is still low. For that reason patient was started on Levophed, nausea and vomiting pers ists. Physical Examination: Vital Signs: When I saw the patient blood pressure of 98/77, pulse of 57. The patient on dialysis. Chest: Clear to auscultation. Heart: S1 and S2. Regular. Abdomen: Soft, nontender. Extremities: No edema. Has a dressing on the right arm. Laboratory Data: WBC 12.2, H and H 9.1/25.6, platelet 264. Sodium 135, potassium 5.1, bicarb 21, BU N 53, creatinine 7.6, calcium 8.5, phosphorus 8.4. Cortisol level was elevated. Cardiac enzyme 2 se t was negative. EKG, no major changes. Current Medications: The patient on cefepime, vancomycin. The patient on Levophed, Epogen, Zofran, and Solu-Medrol with D10 at 40 per hour. Assessment And Plan: 1.End-stage renal disease, looked to me normal volume. We will decreased blood flow to 250. We michelle l stop ultrafiltration. The patient is going to continue on low temperature and sodium module and we will follow up the patient. 2.Hypertension, currently hypotension on Levophed. Cardiac insult has been ruled out. The patient has cellulitis in the arm. I am going to go ahead and order for a procalcitonin. We will follow up the patient. 3.Secondary hyperparathyroidism. The patient has poor intake. I am not going to start the patient on any binder for the time being. 4.Hypoglycemia, starting improve. We will decrease D10 to 30, and we will continue to monitor the p atient till stabilize. 5.Anemia of chronic kidney disease. Continue Epogen. 6.Hip fracture, fall. We will follow up with Ortho and primary. RAKAN/WILFREDO Voice ID: [id number] Report ID: [id number]
[2018-05-24] MEDS ORDERED: PANTOPRAZOLE 40 MG INJ IVP ONE (17:06)
[2018-05-24] MEDS: SODIUM CHLORIDE 0.9% 10ML INJ IV PRN ×2 (17:26→23:41)
[2018-05-24] MEDS: PROMETHAZINE 25 MG/ML VIAL IV PRN (17:27)
[2018-05-24] MEDS: AMIODARONE 200 MG PO SCH ×2 (17:38→20:04)
[2018-05-24] MEDS: METOPROLOL PO SCH (20:17)
[2018-05-24] MEDS: SUCCINATE PO SCH (20:17)
[2018-05-24] MEDS: ACETAMINOPHEN 500 MG TAB PO PRN (22:39)
--- NOTE | 2018-05-24 23:01 | PN ---
Date of Progress Note: 05/24/2018 Subjective: The patient was seen this morning for followup. He was lying in bed, not in distress, w altagracia was at bedside. He was on Levophed drip, and his systolic blood pressure when I saw him this mor ursula was 109. Vital signs reviewed. He still continues to have nausea, has very poor appetite becau se of this nausea. No abdominal pain. No shortness of breath. Objective: Vital Signs: Reviewed. HEENT: Unremarkable. Lungs: Clear to auscultation. No rhonchi or rales. Heart: Sounds normal. Abdomen: Soft. Bowel sounds normal. No guarding, rigidity, tenderness, or distention. Extremities: No leg edema. Laboratory Data: White count 12.2, hemoglobin 9.1, platelets 264. Sodium 135, potassium 5.1, chlori de 100, bicarb 21, BUN 53, creatinine 7.60, glucose 161, procalcitonin 46. Troponin 0.05. Fingersti ck blood sugar readings reviewed. Impression: 1.Cellulitis, left upper extremity. 2.Left hip fracture, status post surgery. 3.End-stage renal disease, on hemodialysis. 4.Chronic steroid therapy. 5.Hypoglycemia. 6.Hypotension. Plan: The patient's blood pressure was stable this morning. Fingerstick blood sugar was stable. I did inform nursing staff to reduce the IV fluid D10W he was on at 40 cc/hour, and I advised to drop i t down to 30 cc/hour this morning and then every 4 hours reduce rate by 5 cc/hour as long as his fing erstick blood sugar remains higher than 100. One dose of 60 mg Solu-Medrol IV x1 dose was ordered th morning. He continues to remain on Solu-Cortef and IV cefepime and vancomycin. We will continue to follow up with tobacco classer for dialysis need and continue to follow with Dr. Mullins. As of this ev ening, I have added promethazine for nausea as he continues to have nausea in spite of using Zofran. He has not required any pain medication throughout today. He also will be given Protonix IV per ord er. His IV fluid rate D10W was at 20 cc/hour this evening, and I have advised the nurse not to reduc e dose anymore because the patient really has not had anything to eat or drink today, so we will cont inue IV fluid D10W at 20 cc/hour. Continue fingerstick blood sugar hourly check and continue DVT pro phylaxis and antibiotics per order. His blood pressure is much better. I will continue current medi cations. I will see him tomorrow for followup. The patient will continue to require his ICU stay at this point because he is not stable for transfer. PAULA/MODL Voice ID: [id number] Report ID: [id number]
[2018-05-25] MEDS: DEXTROSE 10%-WATER 500 ML IV SCH (03:43)
[2018-05-25 05:19] LABS: Albumin 2.1 g/dL (3.4-5.0); Phosphorus 5.8 mg/dL (2.5-4.9); Potassium 3.8 mmol/L (3.5-5.1)
[2018-05-25] MEDS: HYDROCORTISONE SUC 100 MG INJ IV SCH ×4 (06:17→23:05)
[2018-05-25] MEDS: ACETAMINOPHEN 500 MG TAB PO PRN (07:53)
[2018-05-25] MEDS: CA ACETATE 667 MG CAP PO SCH ×3 (08:00→19:05)
[2018-05-25] MEDS: BRIMONIDINE EACH EYE SCH ×2 (08:52→20:54)
[2018-05-25] MEDS: HEPARIN 5000 UNIT/ML 1 ML VIAL SQ SCH ×2 (08:52→20:54)
[2018-05-25] MEDS: TIMOLOL EACH EYE SCH ×2 (08:52→20:54)
[2018-05-25] MEDS: PROMETHAZINE 25 MG/ML VIAL IV PRN (08:52)
[2018-05-25] MEDS: HYDRALAZINE 10 MG TABLET PO SCH ×2 (08:53→20:54)
[2018-05-25] MEDS: Vit C/E/Zn/Coppr/Lutein/Zeaxan [Preservision Areds 2 Softgel] PO SCH ×2 (08:53→20:55)
[2018-05-25] MEDS: PANTOPRAZOLE 40 MG INJ IVP SCH (08:56)
[2018-05-25] MEDS: CEFEPIME 0.5 GM in NA CHLORIDE 0.9% 50 ML IV SCH (09:52)
[2018-05-25] MEDS: ACETAMINOPHEN 160 MG/5 ML UCUP PO PRN (15:05)
[2018-05-25 16:25] LABS: Absolute Lymphocytes (CBC) 0.4 K/uL (0.7-4.9); Absolute Monocytes 0.5 K/uL (0.1-1.3); Absolute Neutrophil 3.9 K/uL (1.8-8.0); Basophils % 0.1 % (0-1.3); Hematocrit 23.5 % (39.6-49.0); Lymphocytes % 7.8 % (15.3-44.8); MCH 32.2 pg (27.0-35.0); MCV 96.8 fL (80-100); MPV 8.8 fL (7.6-11.3); Monocytes % 9.7 % (3.3-12.3); RBC Red Blood Cell Count 2.42 M/uL (4.33-5.43)
[2018-05-25] MEDS: AMLODIPINE 10 MG TAB PO SCH (17:00)
[2018-05-25] MEDS: VANCOMYCIN ORAL SOLN 250 MG/5 ML OSYR PO SCH (18:55)
[2018-05-25] MEDS: WATER FOR INJ,STERILE 10 ML IV SCH ×2 (18:55→23:05)
[2018-05-25] MEDS: AMIODARONE 200 MG PO SCH (19:05)
[2018-05-25] MEDS: SUCCINATE PO SCH (20:55)
[2018-05-25] MEDS: METOPROLOL PO SCH (20:55)
--- NOTE | 2018-05-25 23:21 | PN ---
Date of Progress Note: 05/25/2018 Subjective: The patient was seen this morning for followup. No new complaints or problems reported by the patient. Lying in bed, not in distress. His nausea is better with Phenergan. This morning, he feels better. He feels like he might be able to eat something as his appetite is coming back. No vomiting overnight. He is no longer on Levophed drip. Overall, the patient is doing much better. Objective: Vital Signs: Reviewed. Systolic blood pressure is in the range of 140. HEENT: Unremarkable. Lungs: Clear to auscultation. Heart: Sounds normal. Abdomen: Soft. Bowel sounds normal. No guarding, rigidity, tenderness, or distention. Extremities: No leg edema. Laboratory Data: Sodium 137, potassium 3.8, chloride 101, bicarb 24, BUN 43, creatinine 4.80, and gl ucose 168. The patient had a diarrhea today after I saw him and his stool C. diff came positive. Impression: 1.Left hip fracture. 2.Left arm cellulitis, resolved. 3.Clostridium difficile colitis. 4.Chronic steroid therapy. 5.End-stage renal disease, on hemodialysis. 6.Anemia due to acute blood loss. His last hemoglobin was 7.8. after stool test came ba ck. His left arm cellulitis has resolved. So at this point, no need for any such antibiotic. We wi ll continue IV vancomycin, add vancomycin 250 mg p.o. 3 times a day for C. diff colitis and we may di scontinue IV vancomycin tomorrow after his 1 dose after the dialysis. He is no longer on vasopressor medication and he is tolerating diet very well. His IV fluid with D10W at 20 cc/hour will be discon tinued this evening and we will continue to monitor his blood sugar. Today, he has not had any hypoglycemia. PAULA/MODL Voice ID: [id number] Report ID: [id number]
[2018-05-26] MEDS: VANCOMYCIN ORAL SOLN 250 MG/5 ML OSYR PO SCH ×3 (01:07→16:29)
--- NOTE | 2018-05-26 02:16 | PN ---
Date of Progress Note: 05/25/2018 Subjective: The patient was admitted with fall, hip fracture, status post surgery, had hypoglycemia, hypotension. Physical Examination: Vital Signs: Blood pressure 133/63, pulse of 66. Chest: Faint crackles bilateral base. Heart: S1, S2 regular. Abdomen: Soft, nontender. Extremities: No edema. Dressing on the arm. Laboratory Data: WBC 4.7, H and H 11.8/23.5, platelets 246. Sodium 137, potassium 3.4, bicarb 24, B UN 43, creatinine 4.8, calcium 8.1, phosphorus 5.8. Current Medications: The patient on its include: 1.Vancomycin. 2.Promethazine. 3.Neupogen. 4.Tylenol. 5.Zofran. 6.Pantoprazole. 7.Morphine. 8.D10 at 20%. Assessment And Plan: 1.End-stage renal disease. Normal volume. We will continue dialysis. The patient is scheduled for dialysis tomorrow. The patient is going to be dialyzed on 2 potassium bath. 2.Hypertension, controlled, optimal. Continue holding all blood pressure medications given the low blood pressure. 3.Anemia of chronic kidney disease, on the lower side. I am going to go ahead and get to continue o n Epogen. The patient will arrange for blood transfusion tomorrow with the dialysis and we will foll ow up the patient. 4.Cellulitis. Continue current antibiotic. 5.Hip fracture, status post surgery. Will follow up with Ortho. 6.Hypotension, hypoglycemia. Discontinue D10. We will follow up with primary. TOSIN Voice ID: [id number] Report ID: [id number]
[2018-05-26] MEDS: WATER FOR INJ,STERILE 10 ML IV SCH (05:49)
[2018-05-26] MEDS: HYDROCORTISONE SUC 100 MG INJ IV SCH ×3 (05:50→18:38)
[2018-05-26] MEDS: ACETAMINOPHEN 160 MG/5 ML UCUP PO PRN (05:52)
[2018-05-26 05:57] LABS: Absolute Lymphocytes (CBC) 0.3 K/uL (0.7-4.9); Absolute Monocytes 0.4 K/uL (0.1-1.3); Absolute Neutrophil 3.1 K/uL (1.8-8.0); Lymphocytes % 9.1 % (15.3-44.8); MCH 33.4 pg (27.0-35.0); MCV 96.4 fL (80-100); MPV 8.6 fL (7.6-11.3); Monocytes % 9.8 % (3.3-12.3); RBC Red Blood Cell Count 2.49 M/uL (4.33-5.43)
[2018-05-26 06:10] LABS: Phosphorus 4.8 mg/dL (2.5-4.9); Potassium 3.8 mmol/L (3.5-5.1)
[2018-05-26] MEDS: MORPHINE 2 MG/ML SYR IV PRN (07:02)
[2018-05-26 07:04] VITALS: BMI 22.1
[2018-05-26] MEDS: CA ACETATE 667 MG CAP PO SCH ×3 (08:00→16:28)
[2018-05-26] MEDS: HYDRALAZINE 10 MG TABLET PO SCH ×2 (08:38→20:47)
[2018-05-26] MEDS: TIMOLOL EACH EYE SCH ×2 (08:49→20:46)
[2018-05-26] MEDS: BRIMONIDINE EACH EYE SCH ×2 (08:49→20:46)
[2018-05-26] MEDS: HEPARIN 5000 UNIT/ML 1 ML VIAL SQ SCH ×2 (08:50→20:47)
[2018-05-26] MEDS: PANTOPRAZOLE 40 MG INJ IVP SCH (08:50)
[2018-05-26] MEDS: Vit C/E/Zn/Coppr/Lutein/Zeaxan [Preservision Areds 2 Softgel] PO SCH ×2 (09:00→20:47)
[2018-05-26] MEDS: EPOETIN ALFA 10,000 UNIT/ML VIAL IV SCH (10:10)
--- NOTE | 2018-05-26 13:28 | PN ---
Date of Progress Note: 05/26/2018 Subjective: The patient was seen this morning for followup. He was lying in bed in ICU, not in any distress. Vital signs reviewed. He is no longer on vasopressor medication. Vital signs stable. Ye sterday, he ate a little bit which is better than last 2 to 3 days. He had some nausea, which was be tter than previous 2-3 days. No vomiting yesterday, but he started having some diarrhea yesterday, a nd stool test came back positive for C. diff. This morning when I saw him, he was getting his hemodi alysis. Objective: Vital Signs: Reviewed. HEENT: Unremarkable. Lungs: Clear to auscultation. Heart: Sounds normal. Abdomen: Soft, bowel sounds normal. No guarding, rigidity, tenderness, or distention. Extremities: No leg edema. Laboratory Data: White count 3.8, hemoglobin 8.3, platelets 246. Sodium 136, potassium 3.8, chlorid e 102, bicarb 22, BUN 69, creatinine 6.2, glucose 129. Impression: 1.Clostridium difficile colitis. 2.Cellulitis, left upper extremity. 3.Left hip fracture. 4.End-stage renal disease, on hemodialysis. 5.Chronic steroid therapy. 6.Anemia due to chronic kidney disease. Plan: We will continue current medications. The patient's hypotension and hypoglycemia problem has resolved, and I believe that it was due to adrenal insufficiency as the patient is on chronic steroid therapy, and once IV steroid was initiated, his condition has stabilized and improved. I do not bel ieve that it was due to septic shock or any kind of infectious etiology. Possible transfer to floor today depending on his condition. We will continue vancomycin per order. PAULA/MODL Voice ID: [id number] Report ID: [id number]
--- NOTE | 2018-05-26 13:46 | P.PN ---
Subjective Date of Service: 05/26/18 Chief Complaint: s/p left hip von feels wesk VS stable Hd today VS no BM today monitor Vanco level on HD days before HD and dose as per level to be given after HD Physical Examination - Vital Signs Temperature: 98.1 F Blood Pressure: 122/69 Pulse: 80 Respirations: 17 Pulse Ox (%): 100 - Physical Exam General: Alert Neck: Supple Respiratory: Clear to auscultation bilaterally Cardiovascular: No edema Assessment And Plan - Current Problems (Diagnosis) (1) Hypertensive disorder, systemic arterial Current Visit: No Status: Chronic (2) Hemodialysis status Onset Date: 09/08/17 Current Visit: No Status: Chronic (3) Hyperkalemia Onset Date: 09/08/17 Current Visit: No Status: Acute (4) Paroxysmal atrial fibrillation Onset Date: 09/08/17 Current Visit: No Status: Chronic (5) ESRD (end stage renal disease) Onset Date: 09/08/17 Current Visit: No Status: Chronic - Plan ESRD Via Lt AVF Cont HD MWF Renal diet Renal dose all meds C.Diff On Po Vanco Anemia On JANI Hypertension, controlled, optimal. Continue holding all blood pressure medications given the low blood pressure. Cellulitis. Continue current antibiotic. Hip fracture, status post surgery. Will follow up with Ortho. Hypoglycemia resolved C.diff PO vanco
--- NOTE | 2018-05-26 14:09 | P.PN ---
Subjective Date of Service: 05/26/18 Chief Complaint: s/p left hip von Subjective: Improving, Working w/ PT BP stabilized; nausea improving; pain controlled Physical Examination - Vital Signs Temperature: 98.1 F Blood Pressure: 122/69 Pulse: 80 Respirations: 17 Pulse Ox (%): 100 - Physical Exam General: Alert, In no apparent distress Musculoskeletal: Other (LLE: dressing c/d/i; no surrounding erythema or swelling ; NVI distally) Assessment And Plan - Plan Amado is an 78 yo male s/p L hip hemiarthroplasty POD#4 -H/H stable -BP stabilized; likely transfer to floor today -PT to mobilize; WBAT LLE; posterior hip precautions -heparin for DVT prophylaxis -I will be out for the next week. Dr. Mott will be covering for me. Please call him with any questions or concerns.
[2018-05-26] MEDS: AMLODIPINE 10 MG TAB PO SCH (16:27)
[2018-05-26] MEDS: VANCOMYCIN 500 MG in NA CHLORIDE 0.9% 100 ML IVPB SCH (16:45)
[2018-05-26] MEDS: AMIODARONE 200 MG PO SCH (17:01)
[2018-05-26] MEDS: SUCCINATE PO SCH (20:47)
[2018-05-26] MEDS: METOPROLOL PO SCH (20:47)
[2018-05-27] MEDS: VANCOMYCIN ORAL SOLN 250 MG/5 ML OSYR PO SCH ×3 (00:09→16:44)
[2018-05-27] MEDS: HYDROCORTISONE SUC 100 MG INJ IV SCH ×4 (00:09→17:52)
[2018-05-27 05:08] LABS: Absolute Lymphocytes (CBC) 0.4 K/uL (0.7-4.9); Absolute Monocytes 0.3 K/uL (0.1-1.3); Absolute Neutrophil 3.7 K/uL (1.8-8.0); Basophils % 0.1 % (0-1.3); Eosinophils % 0.1 % (0-4.4); Hematocrit 24.7 % (39.6-49.0); Lymphocytes % 9.3 % (15.3-44.8); MCH 33.4 pg (27.0-35.0); MPV 8.2 fL (7.6-11.3); Monocytes % 6.4 % (3.3-12.3); RBC Red Blood Cell Count 2.52 M/uL (4.33-5.43)
[2018-05-27 05:20] LABS: Phosphorus 3.1 mg/dL (2.5-4.9); Potassium 3.6 mmol/L (3.5-5.1)
[2018-05-27] MEDS: Vit C/E/Zn/Coppr/Lutein/Zeaxan [Preservision Areds 2 Softgel] PO SCH ×2 (10:29→21:00)
[2018-05-27] MEDS: CA ACETATE 667 MG CAP PO SCH ×3 (10:31→17:50)
[2018-05-27] MEDS: BRIMONIDINE EACH EYE SCH ×2 (10:32→20:40)
[2018-05-27] MEDS: TIMOLOL EACH EYE SCH ×2 (10:32→20:40)
[2018-05-27] MEDS: PANTOPRAZOLE 40 MG INJ IVP SCH (10:35)
[2018-05-27] MEDS: HEPARIN 5000 UNIT/ML 1 ML VIAL SQ SCH ×2 (10:35→20:40)
[2018-05-27] MEDS: HYDRALAZINE 10 MG TABLET PO SCH ×2 (10:36→20:41)
[2018-05-27] MEDS: AMLODIPINE 10 MG TAB PO SCH (16:27)
[2018-05-27] MEDS: AMIODARONE 200 MG PO SCH (16:28)
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
[2018-05-27] MEDS: CLOTRIMAZOLE 10 MG TROCHE PO SCH (20:40)
[2018-05-27] MEDS: SUCCINATE PO SCH (20:41)
[2018-05-27] MEDS: METOPROLOL PO SCH (20:41)
--- NOTE | 2018-05-27 23:25 | P.PN ---
Subjective Date of Service: 05/27/18 Chief Complaint: s/p left hip von No new complaints participating in PT VS stable Hd MWF monitor Vanco level on HD days before HD and dose as per level to be given after HD Physical Examination - Vital Signs Temperature: 97 F Blood Pressure: 142/71 Pulse: 71 Respirations: 18 Pulse Ox (%): 100 - Physical Exam General: Alert HEENT: Atraumatic Neck: Supple, Without JVD or thyroid abnormality Respiratory: Clear to auscultation bilaterally, Normal air movement Cardiovascular: No edema, Regular rate/rhythm, Normal S1 S2 Gastrointestinal: Normal bowel sounds Assessment And Plan - Current Problems (Diagnosis) (1) Hypertensive disorder, systemic arterial Current Visit: No Status: Chronic (2) Hemodialysis status Onset Date: 09/08/17 Current Visit: No Status: Chronic (3) Hyperkalemia Onset Date: 09/08/17 Current Visit: No Status: Acute (4) Paroxysmal atrial fibrillation Onset Date: 09/08/17 Current Visit: No Status: Chronic (5) ESRD (end stage renal disease) Onset Date: 09/08/17 Current Visit: No Status: Chronic - Plan ESRD Via Lt AVF Cont HD MWF Renal diet Renal dose all meds C.Diff On Po Vanco Anemia On JANI Hypertension, controlled, optimal. Continue holding all blood pressure medications given the low blood pressure. Cellulitis. Continue current antibiotic. Hip fracture, status post surgery. Will follow up with Ortho. Hypoglycemia resolved C.diff PO vanco
[2018-05-28] MEDS: HYDROCORTISONE SUC 100 MG INJ IV SCH ×3 (00:23→21:00)
[2018-05-28] MEDS: VANCOMYCIN ORAL SOLN 250 MG/5 ML OSYR PO SCH ×3 (00:23→16:46)
--- NOTE | 2018-05-28 02:59 | PN ---
Date of Progress Note: 05/27/2018 Subjective: The patient was seen this evening for followup. He is feeling much better than last cou ple of days. His appetite is still fair to poor, but better than yesterday. No nausea, no vomiting. Has some hiccups. No diarrhea. The patient reported that he has pain at the time of swallowing fo od. Objective: Vital Signs: Reviewed. HEENT: Normal except mouth examination shows the patient has extensive oral candidiasis problem in t he posterior pharyngeal area. Lungs: Clear to auscultation. Heart: Sounds normal. Abdomen: Soft. Bowel sounds normal. No guarding, rigidity, tenderness, or distention. Extremities: No leg edema. Laboratory Data: White count 4.4, hemoglobin 8.4, platelets 249. Sodium 143, potassium 3.6, chlorid e 105, bicarb 30, BUN 43, creatinine 4.2, glucose 131. Impression: 1.Clostridium difficile colitis. 2.Left hip fracture. 3.Oral and probable esophageal candidiasis. 4.Dysphagia secondary to above. 5.End-stage renal disease, on hemodialysis. 6.Chronic steroid therapy. 7.Anemia due to chronic kidney disease. Plan: We will continue vancomycin per order. Reduce dose of Solu-Cortef from 100 mg every 6 hours t o 50 mg every 6 hours. The patient has significant problem with oral candidiasis and I suspect that he probably has candidal esophagitis causing odynophagia type of problem. In this kind of situation, ideally I would like to use fluconazole, but considering patient is on amiodarone, there is a signif icant interaction between amiodarone and fluconazole, so we will avoid using fluconazole and instead of that try to use clotrimazole as prescribed. The patient was instructed about how to use this medication. I will see him tomorrow for followup. PAULA/MODL Voice ID: [id number] Report ID: [id number]
[2018-05-28 06:31] LABS: Albumin 2.1 g/dL (3.4-5.0); Phosphorus 2.6 mg/dL (2.5-4.9); Potassium 3.9 mmol/L (3.5-5.1)
[2018-05-28] MEDS: TIMOLOL EACH EYE SCH ×2 (09:00→21:03)
[2018-05-28] MEDS: BRIMONIDINE EACH EYE SCH ×2 (09:00→21:03)
[2018-05-28] MEDS: PANTOPRAZOLE 40 MG INJ IVP SCH (09:00)
[2018-05-28] MEDS: HEPARIN 5000 UNIT/ML 1 ML VIAL SQ SCH ×2 (09:00→21:00)
[2018-05-28] MEDS: CLOTRIMAZOLE 10 MG TROCHE PO SCH ×4 (10:41→21:01)
[2018-05-28] MEDS: Vit C/E/Zn/Coppr/Lutein/Zeaxan [Preservision Areds 2 Softgel] PO SCH ×2 (10:46→21:00)
[2018-05-28] MEDS: HYDRALAZINE 10 MG TABLET PO SCH ×2 (10:46→21:03)
[2018-05-28] MEDS: CA ACETATE 667 MG CAP PO SCH ×3 (10:47→16:46)
--- NOTE | 2018-05-28 11:56 | P.PN ---
Subjective Date of Service: 05/28/18 Chief Complaint: s/p left hip von ESRD Pt admitted for hip dislocation , had c.diiff, BP dropped on hydrcortisone No new complaints participating in PT VS stable Hd MWF Physical Examination - Vital Signs Temperature: 98.5 F Blood Pressure: 108/60 Pulse: 65 Respirations: 16 Pulse Ox (%): 100 - Physical Exam General: Oriented x3 HEENT: Atraumatic Neck: Supple, JVD not distended, Without JVD or thyroid abnormality Respiratory: Clear to auscultation bilaterally, Normal air movement Cardiovascular: No edema, Normal pulses, Regular rate/rhythm, Normal S1 S2 Assessment And Plan - Current Problems (Diagnosis) (1) Hypertensive disorder, systemic arterial Current Visit: No Status: Chronic (2) Hemodialysis status Onset Date: 09/08/17 Current Visit: No Status: Chronic (3) Hyperkalemia Onset Date: 09/08/17 Current Visit: No Status: Acute (4) Paroxysmal atrial fibrillation Onset Date: 09/08/17 Current Visit: No Status: Chronic (5) ESRD (end stage renal disease) Onset Date: 09/08/17 Current Visit: No Status: Chronic - Plan ESRD Via Lt AVF Cont HD MWF Renal diet Renal dose all meds C.Diff On Po Vanco Anemia On JANI Hypertension, controlled, optimal. Continue holding all blood pressure medications given the low blood pressure. on Hydrocortisone now Cellulitis. Continue current antibiotic. Hip fracture, status post surgery. Will follow up with Ortho. Hypoglycemia resolved C.diff PO vanco
--- NOTE | 2018-05-28 14:51 | PN ---
Date of Progress Note: 05/28/2018 Subjective: The patient was seen this morning for followup. No new complaints or problems reported by patient. He is feeling much better today than yesterday. He says that some of what he describes as skin. He was able to pull it off from inside of his mouth was noted yesterday and he immedia tely started to feel better. He was started on clotrimazole yesterday, which he has tolerated very w ell. His odynophagia has improved and his appetite has improved quite a bit today. He feels much be tter, looks lot better. No nausea, no vomiting. Hiccups are better. Objective: Vital Signs: Reviewed. HEENT: Examination unremarkable and mouth examination shows almost 90% improvement in his mouth comp ared to yesterday with what the patient describes as he was able to remove some of the skin, whi ch I believe was a combination of probably some dry secretions plus some area of oral candidiasis and all that shows significant improvement compared to yesterday. Lungs: Clear to auscultation. Heart: Sounds normal. Abdomen: Soft. Bowel sounds normal. No guarding, rigidity, tenderness, or distention. Extremities: No leg edema. Laboratory Data: Sodium 142, potassium 3.9, chloride 102, bicarb 30, BUN 65, creatinine 5.7, glucose 124. Impression: 1.Oral candidiasis. 2.Chronic steroid therapy. 3.Left hip fracture. 4.Clostridium difficile colitis. 5.End-stage renal disease, on hemodialysis. 6.Anemia due to chronic kidney disease. 7.Hypertension. Plan: We will go ahead and reduce IV Solu-Cortef 50 mg every 12 hours from every 6 hours. Continue other current medications including oral vancomycin and we will go ahead and continue clotrimazole. Continue heparin for DVT prophylaxis. I will see him tomorrow for followup. Consultation was reques danny today for inpatient rehab. PAULA/MODL Voice ID: [id number] Report ID: [id number]
[2018-05-28] MEDS: AMIODARONE 200 MG PO SCH (16:46)
[2018-05-28] MEDS: AMLODIPINE 10 MG TAB PO SCH (16:46)
[2018-05-28] MEDS: MORPHINE 2 MG/ML SYR IV PRN (17:43)
[2018-05-28] MEDS: SUCCINATE PO SCH (21:03)
[2018-05-28] MEDS: METOPROLOL PO SCH (21:03)
[2018-05-28] MEDS: SODIUM CHLORIDE 0.9% 10ML INJ IV PRN (21:04)
[2018-05-29] MEDS: VANCOMYCIN ORAL SOLN 250 MG/5 ML OSYR PO SCH ×3 (00:52→16:24)
[2018-05-29] MEDS: CA ACETATE 667 MG CAP PO SCH ×3 (08:00→15:28)
[2018-05-29] MEDS: BRIMONIDINE EACH EYE SCH ×2 (08:17→21:00)
[2018-05-29] MEDS: TIMOLOL EACH EYE SCH ×2 (08:17→21:00)
[2018-05-29] MEDS: PANTOPRAZOLE 40 MG INJ IVP SCH (08:17)
[2018-05-29] MEDS: HEPARIN 5000 UNIT/ML 1 ML VIAL SQ SCH ×2 (08:17→21:00)
[2018-05-29] MEDS: CLOTRIMAZOLE 10 MG TROCHE PO SCH ×4 (08:18→23:19)
[2018-05-29] MEDS: Vit C/E/Zn/Coppr/Lutein/Zeaxan [Preservision Areds 2 Softgel] PO SCH ×2 (08:19→21:00)
[2018-05-29] MEDS: HYDROCORTISONE SUC 100 MG INJ IV SCH ×2 (08:19→21:00)
[2018-05-29] MEDS: HYDRALAZINE 10 MG TABLET PO SCH ×2 (09:00→23:20)
--- NOTE | 2018-05-29 13:56 | P.PN ---
Date of Service: 05/29/18 (POD#7) S: PATIENT MAINLY CONCERNED ABOUT PAIN WITH SWALLOWING, HAS TO WAIT FOR JELLO TO EMULSIFY BEFORE ABLE TO SWALLOW. DENIES PAIN WITH LEFT HIP. WENT 45' WITH RW THIS AM, UNABLE TO CONTINUE DUE TO FATIGUE. O: AFEBRILE, VSS, INCISION C/D/I. TAO'S SIGN NEGATIVE, NV EXAM INTACT. A: MAKING SOME PROGRESS. ACCEPTED TO INPATIENT REHAB. 5TH FLOOR. AWAITING EVAL. OF DYSPHAGIA. P: CONTINUE MOBILIZATION TOLERATED.
[2018-05-29] MEDS: AMLODIPINE 10 MG TAB PO SCH (16:24)
[2018-05-29] MEDS: AMIODARONE 200 MG PO SCH (16:24)
[2018-05-29] MEDS ORDERED: ALBUMIN HUMAN 25% 200 ML IV ONE (19:26)
[2018-05-29] MEDS: METOPROLOL PO SCH (23:20)
[2018-05-29] MEDS: SUCCINATE PO SCH (23:20)
--- NOTE | 2018-05-29 23:37 | PN ---
Date of Progress Note: 05/29/2018 Subjective: The patient was seen this morning for followup. No new complaints, problems reported by the patient except was present at bedside. The patient and both reported that he is havin g pain at the time of swallowing as well as difficulty swallowing. He describes as food and liquid b oth causes pain with swallowing and food gets stuck in the esophagus and he has difficulty getting it down. Objective: Vital Signs: Reviewed. HEENT: Unremarkable. Lungs: Clear to auscultation. Heart: Sounds normal. Abdomen: Soft, bowel sounds normal. No guarding, rigidity, tenderness, distention. Extremities: No leg edema. Impression: 1.Odynophagia. 2.Dysphagia. 3.Oral candidiasis. 4.End-stage renal disease, on hemodialysis. 5.Anemia due to chronic kidney disease. 6.Left hip fracture. 7.Clostridium difficile colitis. Plan: We will go ahead and consult special tax auditor, Dr. Fowler. The patient will have EGD julio cesar rr. Rehab was consulted. The patient was accepted to rehab, but we will plan to transfer him to [facility] after EGD is done. We are concerned about possibility of candidal esophagitis. We will see what EGD shows and then we will decide further plan of treatment after that . PAULA/MODL Voice ID: [id number] Report ID: [id number]
[2018-05-30] MEDS: VANCOMYCIN ORAL SOLN 250 MG/5 ML OSYR PO SCH ×3 (00:43→17:00)
--- NOTE | 2018-05-30 03:02 | PN ---
Date of Progress Note: 05/29/2018 Chief Complaint: End-stage renal disease, on dialysis. Subjective: The patient has multiple medical problems. He underwent hip surgery. He is recovering after the surgery. Review of Systems: Respiratory: Denies PND or orthopnea. Cardiovascular: Denies chest pain or palpitation. Physical Examination: Lungs: Clear to auscultation bilaterally. Heart: S1, S2. Abdomen: Soft, benign, nontender. Extremities: No edema. Impression And Plan: 1.The patient had surgery of the hip. Plan is to control with pain medications. The patient will h ave evaluation by primary team as needed. The patient is going to rehab. 2.Anemia in chronic kidney disease. Monitor hemoglobin level. 3.Renal osteodystrophy. Continue renal diet and binders. 4.Hypertension, controlled. 5.Clostridium difficile, continue p.o. vancomycin. ROBERT/WILFREDO Voice ID: [id number] Report ID: [id number]
[2018-05-30] MEDS: CA ACETATE 667 MG CAP PO SCH ×3 (08:00→17:00)
[2018-05-30 08:28] LABS: Potassium 3.5 mmol/L (3.5-5.1)
[2018-05-30] MEDS: HYDRALAZINE 10 MG TABLET PO SCH ×2 (09:00→21:00)
[2018-05-30] MEDS: Vit C/E/Zn/Coppr/Lutein/Zeaxan [Preservision Areds 2 Softgel] PO SCH ×2 (09:00→21:00)
[2018-05-30] MEDS: CLOTRIMAZOLE 10 MG TROCHE PO SCH ×4 (09:00→22:06)
[2018-05-30] MEDS: HEPARIN 5000 UNIT/ML 1 ML VIAL SQ SCH ×2 (09:00→22:11)
[2018-05-30] MEDS: TIMOLOL EACH EYE SCH ×2 (09:00→21:00)
[2018-05-30] MEDS: BRIMONIDINE EACH EYE SCH ×2 (09:00→21:00)
[2018-05-30] MEDS: WATER FOR INJ,STERILE 10 ML IV SCH (11:00)
[2018-05-30] MEDS: HYDROCORTISONE SUC 100 MG INJ IV SCH ×2 (11:00→22:09)
[2018-05-30] MEDS: PANTOPRAZOLE 40 MG INJ IVP SCH (11:01)
[2018-05-30] MEDS ORDERED: NA CHLORIDE 0.9% 500 ML ONE (14:31)
[2018-05-30] MEDS ORDERED: Phenylephrine HCl 10 MG/ML 1 ML VIAL ONE (14:57)
[2018-05-30] MEDS ORDERED: NS 0.9% VIAL 0 ML ONE (14:58)
[2018-05-30] MEDS ORDERED: PROPOFOL 200 MG/20 ML VIAL IV ONE (15:10)
[2018-05-30] MEDS ORDERED: LIDOCAINE 1% MPF 5 ML VIAL ONE (15:10)
--- NOTE | 2018-05-30 16:31 | PN ---
Date of Progress Note: 05/30/2018 Subjective: The patient is status post hip replacement complicated with C diff and shock recovering. The patient today participating very well with physical therapy. He walk almost 200 feet with the nurses. Physical Examination: Vital Signs: When I saw the patient blood pressure was 138/76, pulse of 70, afebrile. Chest: Clear to auscultation. Heart: S1 and S2. Regular. Systolic murmur. Abdomen: Soft, nontender. Extremities: No edema. Only slight edema on the upper extremity especially on the right upper arm. Laboratory Data: WBC 4.4, H and H 8.4/24.7, platelets 249. Sodium 145, potassium 3.5, bicarb 31, BU N 42, creatinine 4.5, calcium 8.2. Current Medications: The patient on its include vancomycin oral 250 q.8, promethazine, Epogen, Tylen ol, pantoprazole, and hydrocortisone 50 b.i.d. Assessment And Plan: 1.End-stage renal disease, looked to me normal volume. I am going to continue the patient on dialys is Tuesday, Tuesday, and Tuesday. The patient is going to be schedule for dialysis tomorrow. 2.Hypertension. Blood pressure has been controlled. The patient off all blood pressure medication. As I mentioned the patient normal volume, we will continue to monitor. 3.Anemia of chronic kidney disease, stable. 4.Clostridium difficile colitis. Continue current vancomycin. Follow up with primary. 5.Hip replacement. Continue PT/OT. We will follow up with Surgery. RAKAN/WILFREDO Voice ID: [id number] Report ID: [id number]
[2018-05-30] MEDS: SUCRALFATE 1GM/10ML UCUP PO SCH ×2 (16:46→21:00)
[2018-05-30] MEDS: PANTOPRAZOLE INJ 80 MG in NA CHLORIDE 0.9% 250 ML IV SCH (17:39)
[2018-05-30] MEDS: AMIODARONE 200 MG PO SCH (17:42)
[2018-05-30] MEDS: AMLODIPINE 10 MG TAB PO SCH (17:43)
--- NOTE | 2018-05-30 20:04 | PN ---
Date of Progress Note: 05/30/2018 Subjective: The patient was seen this morning for followup. No new complaints or problems reported by him. Objective: Vital Signs: Reviewed. HEENT: Unremarkable. Lungs: Clear to auscultation. Heart: Sounds normal. Abdomen: Soft. Bowel sounds normal. No guarding, rigidity, tenderness, or distention. Extremities: No leg edema. Impression: 1.Dysphagia. 2.Odynophagia. 3.Gastroesophageal reflux disease. 4.Clostridium difficile colitis. 5.End-stage renal disease, on hemodialysis. 6.Anemia due to chronic kidney disease. 7.Left hip fracture. Plan: We will continue vancomycin for Clostridium difficile colitis. Continue hemodialysis support per extermination supervisor. We will continue proton pump inhibitor for his gastroesophageal reflux disease. T trey, the patient had EGD done with Dr. Fowler and he did call me to inform results. He has taken appropriate biopsies and once we get the biopsy results back, we will decide about definite plan of t reatment with Dr. Fowler's recommendation. Meanwhile, the patient is stable for discharge to go to rehab and hopefully we can transfer him to rehab tomorrow. I will see him tomorrow morning for foll annamarie. PAULA/MODL Voice ID: [id number] Report ID: [id number]
[2018-05-30] MEDS: SUCCINATE PO SCH (21:00)
[2018-05-30] MEDS: METOPROLOL PO SCH (21:00)
[2018-05-31] MEDS: VANCOMYCIN ORAL SOLN 250 MG/5 ML OSYR PO SCH ×2 (00:33→09:26)
[2018-05-31] MEDS: PANTOPRAZOLE INJ 80 MG in NA CHLORIDE 0.9% 250 ML IV SCH ×3 (00:34→12:00)
[2018-05-31] MEDS ORDERED: POLYETHYL GLY 3350 17 GM/DOSE PO SCH (09:00)
[2018-05-31] MEDS: BRIMONIDINE EACH EYE SCH (09:00)
[2018-05-31] MEDS: CA ACETATE 667 MG CAP PO SCH (09:00)
[2018-05-31] MEDS: TIMOLOL EACH EYE SCH (09:00)
[2018-05-31] MEDS: Vit C/E/Zn/Coppr/Lutein/Zeaxan [Preservision Areds 2 Softgel] PO SCH (09:22)
[2018-05-31] MEDS: HYDRALAZINE 10 MG TABLET PO SCH (09:23)
[2018-05-31] MEDS: CLOTRIMAZOLE 10 MG TROCHE PO SCH (09:24)
[2018-05-31] MEDS: HYDROCORTISONE SUC 100 MG INJ IV SCH (09:24)
[2018-05-31] MEDS: SUCRALFATE 1GM/10ML UCUP PO SCH (09:25)
[2018-05-31] MEDS: HEPARIN 5000 UNIT/ML 1 ML VIAL SQ SCH (09:25)
[2018-05-31 10:07] VITALS: O2SAT 98
[2018-05-31 14:15] VITALS: BP 126/60; TEMP 97.6
--- NOTE | 2018-05-31 14:29 | PN ---
Date of Progress Note: 05/31/2018 Diagnoses: Left lower extremity nonhealing wound. The patient is doing well. No complaint. Recove ring from his hip surgery. Review of Systems: Ten points otherwise unremarkable. Physical Examination: Lungs: Bilateral breath sounds. Abdomen: Soft and depressible. Extremities: The left lower extremity, the patient has a nonhealing wound. Muscle and tendon expose d, but there is no evidence of cellulitis. No cyanosis. Plan: We are going to continue with the same dressing changes with collagen applied to that area unt il he can discharge and then will [facility]. We may be able to resume h is skin graft. It is not too late by the insurance standpoint. In the meantime, he is okay to ambul ate. No restrictions from our standpoint. PALAK/WILFREDO Voice ID: [id number] Report ID: [id number]
[2018-05-31] MEDS ORDERED: predniSONE 5 MG TAB PO SCH (20:00)
--- NOTE | 2018-06-01 00:33 | OP ---
Surgeon: Ricardo Fowler MD Procedure To Be Performed: Esophagogastroduodenoscopy. Performing Physician: Ricardo Fowler M.D. Indication For Procedure: Odynophagia and dysphagia. Plan For Anesthesia: Monitored anesthesia care. Complexity: High due to the patient's comorbid condition. Technique: After obtaining informed consent from the patient, explaining risks and complications whi ch include but not limited to bleeding, infection, perforation, and anesthesia complication, the mey ent was placed in the left lateral position and sedation was given. From then on, the scope was adva nced through the mouth and carefully guided up to the second portion of the duodenum. After the comp letion of examination, the scope and equipment were withdrawn and procedure was terminated in a safe manner. Findings: Esophagus: From the proximal to mid esophagus, there was evidence of esophageal candidias is. However, at the same time, there were also multiple deep ulcers that were visualized, which may or may not be related to the Tanja. Also differential in these cases includes CMV and HSV. Carefu lly biopsies were taken. Stomach: Mild patchy erythema was seen in the body and antrum. Biopsies w ere taken. Duodenum: The bulb and second portion appeared normal. Complications: None. Tolerance To Anesthesia: Excellent. Postoperative Diagnoses: Esophageal ulcers, Tanja esophagitis, rule out HSV and CMV. Plan: We will await pathology results before starting medication. Continue current management for n ow. I will also put the patient on high-dose PPI IV for 1 day and then switch to oral from tomorrow, oral Carafate 4 times a day. Follow up results on biopsy and manage accordingly. US/MODL Voice ID: [id number] Report ID: [id number]
--- NOTE | 2018-06-01 02:48 | PN ---
Date of Progress Note: 05/31/2018 Subjective: The patient is doing better, started ambulating. Physical Examination: Vital Signs: Blood pressure 126/60, pulse of 68. Chest: Clear to auscultation. Heart: S1, S2. Regular. Abdomen: Soft, nontender. Extremities: Edema on the upper extremity. No edema on the lower. Laboratory Data: H and H 8.4/27.4. Sodium 145, potassium 4.5, bicarb 31, BUN 40, creatinine 4.5, ca lcium 8.2. Medications: Current medications of the patient include: 1.Hydrocortisone. 2.Clotrimazole. 3.Hydrocodone. 4.Morphine. 5.Promethazine. 6.Carafate and vancomycin p.o. Assessment And Plan: 1.End-stage renal disease. Normal volume. We will continue the patient's dialysis; Tuesday, ay, Tuesday. Scheduled for dialysis today. 2.Hypertension, controlled, optimal. Continue current medication. 3.Steroid-dependent adrenal insufficiency. We will discontinue hydrocortisone and place the patient back on oral 10 in the morning, 5 at night with plan to taper back to his outpatient regimen which i s 10 mg daily. 4.Clostridium difficile colitis. Continue vancomycin. We will follow up with the primary. 5.Hip fracture, status post repair. Continue PT/OT. RAKAN/WILFREDO Voice ID: [id number] Report ID: [id number]
[2018-06-01] MEDS ORDERED: predniSONE 10 MG TAB PO SCH (08:00)
--- NOTE | 2018-06-02 06:22 | DS ---
Date of Discharge: 05/31/2018 Disposition: Discharged to go to rehab floor. Physical Examination: HEENT: Unremarkable. Lungs: Clear to auscultation. Heart: Sounds normal. Abdomen: Soft. Bowel sounds normal. No guarding, rigidity, tenderness, or distention. Extremities: No leg edema. Hospital Course: An 78-year-old male patient who was admitted to the hospital after he fell down and was not able to walk. Please see dictated H and P for more information. The patient had an abrasio n over his elbow, which was bleeding and it was cauterized in the emergency room and his hip x-ray ra ised possibility of left femur subcapital fracture, so CAT scan of the hip was done and that did conf irm presence of fracture. Orthopedic surgeon was consulted and the patient had surgery done for this hip fracture. Postoperatively, the patient was admitted to intensive care unit and day after surger y, the patient had problem with hypoglycemia and hypotension. He required IV fluid bolus and IV ster oid was given. The patient is on chronic steroid therapy for his vasculitis. Vasopressor medication was also given. Within 24 to 48 hours, his condition was stabilized and he did require IV administr ation of D50 solution and IV fluid containing D10W. As his hypoglycemia and hypotension problem reso lved, we discontinued his IV fluid with a dextrose solution and vasopressin medication was discontinu ed. Subsequently, once his condition was stable in ICU, he was transferred to medical floor. Initia lly after surgery, his appetite was poor, but subsequently he slowly showed improvement in his appeti te and 1 day he reported having painful swallowing and difficulty swallowing. That particular day, o n examination, he was noted to have significant amount of thrush in his mouth. The patient is on ami odarone for his atrial fibrillation problem, and I was concerned about possibility of candidal esopha gitis with presence of thrush, but because of drug interaction with amiodarone and use of fluconazole , we did not initiate any therapy with fluconazole and instead of that we started him on Mycelex. Th e very next day, he was feeling much better. Two-three days later on, he reported that he was still have and some pain with swallowing, but it was better compared to before. GI consultation was requested from Dr. Fowler and he did EGD and he was found to have presence of esophagitis as w ell as some esophageal ulcers that he has obtained appropriate biopsy. Depending on the biopsy resul t, Dr. Fowler will provide further recommendation on any change of therapy. He participated well w [facility] physical therapy and heparin 5000 unit every 8 hours was given to him for DVT prophylaxis. The p atient was transferred to rehab floor for further rehab therapy in stable condition. He had some dickson rrhea while he was in ICU. Stool was sent for C diff, which came back positive for C diff. At that time, he was started on oral vancomycin and his IV cefepime was discontinued, which was started at th e time of admission for cellulitis of left upper extremity. He was also getting IV vancomycin which was discontinued. His cellulitis from left upper extremity has resolved. Final Diagnoses: 1.Left femur subcapital fracture, status post surgery. 2.Cellulitis, left arm. 3.Clostridium difficile colitis. 4.Adrenal insufficiency. 5.Chronic steroid therapy. 6.End-stage renal disease, on hemodialysis. 7.Hyperkalemia. 8.Hypertension. 9.Anemia due to chronic kidney disease. 10.Paroxysmal atrial fibrillation. 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 12.Oral candidiasis. 13.Gastroesophageal reflux disease. PAULA/MODL Voice ID: [id number] Report ID: [id number]
== END 2018-05-31 11:50 | DRG 469 ==
LOC: ER 23:52 → ERHOLD 05-20 02:03 → 2ND 05-20 02:33 → OBSVTOIN 05-20 14:00 → 3RD-ICU 05-22 14:55 → 2ND 05-26 18:00
PROVIDERS: ADMIT Internal Medicine; ATTEND Internal Medicine
PROC: 0JQH0ZZ Repair Left Lower Arm Subcutaneous Tissue and Fascia, Open Approach (ICD-10-PCS; 2018-05-20)
PROC: 5A1D70Z Performance of Urinary Filtration, Intermittent, Less than 6 Hours Per Day (ICD-10-PCS; 2018-05-20)
PROC: 5A1D70Z Performance of Urinary Filtration, Intermittent, Less than 6 Hours Per Day (ICD-10-PCS; 2018-05-22)
PROC: 0SRS0JZ Replacement of Left Hip Joint, Femoral Surface with Synthetic Substitute, Open Approach (ICD-10-PCS; principal; 2018-05-22 12:00)
PROC: 5A1D70Z Performance of Urinary Filtration, Intermittent, Less than 6 Hours Per Day (ICD-10-PCS; 2018-05-24)
PROC: 5A1D70Z Performance of Urinary Filtration, Intermittent, Less than 6 Hours Per Day (ICD-10-PCS; 2018-05-26)
PROC: 5A1D70Z Performance of Urinary Filtration, Intermittent, Less than 6 Hours Per Day (ICD-10-PCS; 2018-05-29)
PROC: 0DB28ZX Excision of Middle Esophagus, Via Natural or Artificial Opening Endoscopic, Diagnostic (ICD-10-PCS; 2018-05-31)
PROC: 0DB78ZX Excision of Stomach, Pylorus, Via Natural or Artificial Opening Endoscopic, Diagnostic (ICD-10-PCS; 2018-05-31)
PROC: 0DB68ZX Excision of Stomach, Via Natural or Artificial Opening Endoscopic, Diagnostic (ICD-10-PCS; 2018-05-31)
PROC: 0DB18ZX Excision of Upper Esophagus, Via Natural or Artificial Opening Endoscopic, Diagnostic (ICD-10-PCS; 2018-05-31)
DX: S72.012A Unspecified intracapsular fracture of left femur, initial encounter for closed fracture (principal); N18.6 End stage renal disease; I12.0 Hypertensive chronic kidney disease with stage 5 chronic kidney disease or end stage renal disease; L03.114 Cellulitis of left upper limb; N25.81 Secondary hyperparathyroidism of renal origin; A04.72 Enterocolitis due to Clostridium difficile, not specified as recurrent; D62 Acute posthemorrhagic anemia; B37.0 Candidal stomatitis; K22.10 Ulcer of esophagus without bleeding; E27.49 Other adrenocortical insufficiency; S50.312A Abrasion of left elbow, initial encounter; V58.4XXA Person boarding or alighting a pick-up truck or van injured in noncollision transport accident, initial encounter; Y93.89 Activity, other specified; Y92.014 Private driveway to single-family (private) house as the place of occurrence of the external cause; Z99.2 Dependence on renal dialysis; I48.0 Paroxysmal atrial fibrillation; Z79.01 Long term (current) use of anticoagulants; D63.1 Anemia in chronic kidney disease; Z79.52 Long term (current) use of systemic steroids; E87.5 Hyperkalemia; I77.6 Arteritis, unspecified; E78.5 Hyperlipidemia, unspecified; J44.9 Chronic obstructive pulmonary disease, unspecified; I95.9 Hypotension, unspecified; E16.2 Hypoglycemia, unspecified; R13.10 Dysphagia, unspecified; R13.12 Dysphagia, oropharyngeal phase; N25.0 Renal osteodystrophy; K21.9 Gastro-esophageal reflux disease without esophagitis
CPT/HCPCS: 36415; 71045; 72170; 73700; 80048; 80053; 80069; 80076; 80202; 82533; 82550; 82553; 82805; 82962; 83735; 83880; 84145; 84484; 85014; 85018; 85025; 85610; 86317; 86706; 87340; 87493; 88304; 88305; 88311; 88312; 90935; 93005; 93306; 97163; 99285; C9113; J0692; J1170; J1610; J1644; J1720; J2175; J2270; J2370; J2405; J2550; J2704; J2710; J2930; J3010; J7030; J7060; J7512; P9047; Q4081

== ENCOUNTER 2018-05-29 09:09 | Inpatient (IN) | payer OTHER ==
--- NOTE | 2018-05-29 12:03 | R.PREADM ---
SCREENING DATE AND TIME 05/29/2018 10:28 (SALESPERSON SHEET MUSIC) ANTICIPATED REHAB ADMISSION DATE 05/31/2018 REFERRING FACILITY [facility] REFERRAL DATE AND TIME 05/29/2018 10:30 (SALESPERSON SHEET MUSIC) REFERRAL ROOM# 210 ACUTE ADMIT DATE 05/20/2018 Previous Rehabilitation(s): No. REFERRING PHYSICIAN Oscar Horne REHAB FACILITY [facility] CLINICAL LIAISON Monico Phillips PHYSICIAN REVIEWER Dr. Saulo Johnson M.D. MR# [id number] NAME KRIS BENITEZ ADDRESS [address] [place] [address] PHONE [facility] [id number] DATE OF 1940 AGE 78 SSN# [id number] GENDER male MARITAL STATUS RACE white ADMIT FROM 02 - [facility] PRE-HOSPITAL LIVING SETTING 01 - Home (private home/apt. board/care, assisted living, care home, transitional living) HOME TYPE AND DETAILS Type of home: single family house # of levels in the residence: 1 # of steps within the residence: 0 # of steps to enter the residence: 4 PRE-HOSPITAL LIVING WITH Family/Relatives FAMILY SUPPORT Yes PRIMARY FAMILY CONTACT NAME BHAVNA BENITEZ PRIMARY FAMILY CONTACT PHONE PRIMARY FAMILY CONTACT RELATIONSHIP PHONE PRIMARY FAMILY CONTACT ON ADM.? no IS PRIMARY FAMILY CONTACT AUTH. REP.? no 1ST EMERGENCY CONTACT BHAVNA BENITEZ 1ST CONTACT PHONE 1ST CONTACT RELATIONSHIP PHONE 1ST CONTACT ON ADM. no IS 1ST CONTACT AUTH. REP.? no PHONE 2ND CONTACT ON ADM.? no PATIENT EMPLOYMENT STATUS Retired (for age) PATIENT EMPLOYER No Employer PAYOR INFORMATION: 1ST PAYOR NAME MEDICARE 1ST PAYOR PHONE [phone] 1ST PAYOR INJURY/ILLNESS DUE TO ACCIDENT? No ANOTHER GREEN PARTY RESPONSIBLE? No PRIMARY REHAB/ACUTE DIAGNOSIS: LEFT HIP FRACTURE ONSET DATE 05/20/2018 REHAB IMPAIRMENT CATEGORY (JENN): 07 Fracture of LE (FracLE) MEETS 60% rule AFFECTED EXTREMITIES: LLE PRIMARY DIAGNOSIS-RELATED SURGERIES: LEFT HIP HEMIARTHROPLASTY 05/22/2018 COMORBID REHAB/ACUTE DIAGNOSES: - Tier 1 Dependence on renal dialysis (Z99.2) - N/A ESRD HYPERTENSION CHRONIC STEROID THERAPY PAROXYSMAL ATRIAL FIBRILLATION ANEMIA DUE TO CHRONIC KIDNEY DISEASE ALVARO INFECTION OF LUNGS ANCA POSTIVE VASCULITIS HYPERKALEMIA INTERVENTIONS: - Hypertension Fluid management Medications VS RISK FOR COMPLICATIONS: - Hypertension CVA Hypotension AR TIA SUMMARY OF ACUTE HOSPITALIZATION: Pt. is a 78 yo Right-handed white male. His impairment category is Orthopaedic Disorders 08 - Unilateral Hip Fracture (02.25). Pre-morbidly, Pt. was independent/mod-I in Transfers Control, Communication, Social Cognition, Self-C are, Locomotion, and Sphincter Control; and he had good Sphincter Control. Currently, he has deficits of Transfers Control, Balance, Locomotion, Endurance, Safety Awareness, an d Self-Care. Pt. is now referred to [facility] for acute in-patient rehabilitation in order to maximize patient's functional independence in activities of daily living, strength, ROM, and mobi lity. Patient has realistic goal of being discharged at assistance level 6-Chuck to reside at Home with Fam sabina/Relatives. Mr. Kris Benitez is an 78 yrs old male that lives in 1 reid home with 4 steps to enter. He still drives to dialysis center and goes to grocery store several times a week. On 05/20/2018, Mr. Benitez lost his balance and fell down on the ground and was admitted to [facility] and treated. He is now medically stable but in need of 24-hour nursing, doctor supervision and oversite while receiving participate in 3hours of therapy a day/15 hours per week and receive care with an intensive interdisciplinary approach. PAST MEDICAL HISTORY ANCA POSTIVE VASCULITIS ANEMIA DUE TO CHRONIC KIDNEY DISEASE CHRONIC STEROID THERAPY Dependence on renal dialysis (Z99.2) ESRD HYPERKALEMIA HYPERTENSION ALVARO INFECTION OF LUNGS PAROXYSMAL ATRIAL FIBRILLATION PAST SURGICAL HISTORY: Cholecystectomy HERNIA REPAIR MEDICATION ALLERGIES: No Known Drug Allergies (NKDA) ENVIRONMENTAL ALLERGIES: None Known - Substance Allergies None Known - Other Allergies None Known CODE STATUS: Full code WEIGHT/HEIGHT/BMI: WEIGHT 163 lbs HEIGHT 6' BMI 22.1 DIET: - Diet Type Regular - Diet - Solid Texture Regular - Diet - Liquid Texture Regular - Tube Feed N/A SKIN DIAGRAM: Incision on Left hip; extent - small; stage - NS(Not Stageable). Treatment - Per Physician's Orders. REVIEW OF SYSTEMS: - Gen Alert and awake Lying in bed No apparent distress Oriented to: person, time, and place - Vital Signs Temperature: 97.4 F SBP/DBP: 109/61 Pulse: 62 Resp: 18 Vital signs stable, afebrile - CVS RRR VITAL SIGNS Temperature: 97.4 F SBP/DBP: 109/61 Pulse: 62 Resp: 18 Vital signs stable, afebrile CURRENT SPHINCTER CONTROL: Pre-hospital bladder status: continent # of bladder accidents in the last 7 days prior to screenin Pre-hospital bowel status: continent # of bowel accidents in the last 7 days prior to screenin Last Bowel Movement Date: 05/26/2018 DETAILED CURRENT FUNCTIONAL STATUS: - Bladder accident frequency: Ind - No accidents in the past 7 days - Bowel accident frequency: Ind - No accidents in the past 7 days - Walking score based on distance walked: 1(<=50ft) - Wheelchair score based on distance traveled: 0(N/A) FUNCTIONAL STATUS: - Self-Care A. Eating Ind Ind B. Grooming Ind sup C. Bathing Ind sup D. Dressing - Upper Ind sup E. Dressing - Lower Ind Rita F. Toileting Ind sup - Sphincter Control G: Bladder control Ind Ind H: Bowel control Ind Ind - Transfers Control I. Bed/Chair/Wheelchair Ind Rita J. Toilet Ind Rita K. Tub/Shower Ind ADNO - Locomotion L. Walk/Wheelchair (C) Ind Rita L. Walk/Wheelchair (W) Ind Rita M. Stairs Ind ADNO - Communication N. Comprehension (B) Ind Ind O. Expression (B) Ind Ind - Social Cognition P. Social Interaction Ind Ind Q. Problem Solving Ind Ind R. Memory Ind Ind - Endurance Fair - Balance Fair - Safety Awareness Fair CURRENT FUNC. DEFICITS: Transfers Control, Balance, Locomotion, Endurance, Safety Awareness, and Self-Care THERAPY NOTES FROM ACUTE CARE: Attached. SPECIAL NEEDS: - Safety Concerns Skin breakdown precautions needed due to skin breakdown risk PRECAUTIONS: - Posterior Hip Precaution No adduction across midline No external rotation No hip flexion >90 degrees No internal rotation No wheel chair propulsion - Weight Bearing Precaution WBAT left LE PATIENT NEEDS ACTIVE AND ONGOING THERAPEUTIC INTERVENTION OF MULTIPLE THERAPY DISCIPLINES, INCLUDING: - Occupational Therapy Evaluate and Treat. - Physical Therapy Evaluate and Treat. PATIENT NEEDS CLOSE MEDICAL SUPERVISION BY A REHABILITATION PHYSICIAN FOR: Bowel and Bladder Management Coordination of Treatment Team Medical and Co-Morbidity Management Wound Care DVT Management Pain Management PATIENT REQUIRES 24X7 REHAB NURSING FOR MEDICAL AND FUNCTIONAL MGT. OF THE FOLLOWING DEFICITS: ADL's Ambulation Bowel and Bladder Management Cognition Communication Disease Management Medication Management Patient/Family Education Providing Safe Environment Skin Integrity Transfers Pain Management PATIENT REQUIRES INTENSIVE, COORDINATED INTERDISCIPLINARY APPROACH TO REHAB: Arranging Home Equipment/Services Discharge Planning Family Intervention/Training Test Pilot/Case Management PATIENT REHAB POTENTIAL: Expected level of measurable improvement will be of a practical value to patient's functional capacit y or adaptations to impairments Has a viable Discharge Plan Medically appropriate; condition is sufficiently stable to participate in intensive rehab program Patient is able and expected to receive 3 hours of individualized therapy daily on at least 5 of ever y 7 days Patient's prognosis for significant practical improvement within a reasonable period of time appears Good DISCHARGE PLAN: - Estimated Length of Stay (days) 14. - Consensus on plan Discharge plan has been discussed with primary caregiver. Patient/Family is in agreement with the aide n. Primary caregiver is in agreement with the plan. - Patient/Family Goals Return home with assistance. - Planned Living Setting Upon Discharge Home, to live with Family/Relatives. RECOMMENDED CARE LEVEL: IRF RECOMMENDATION DETAILS: Recommended Admission to Comprehensive Rehabilitation Program to Increase Functional Casey SCREENER'S COMPLETENESS CONFIRMATION: - Screening Confirmation The patient data collection on this preadmission screening form is finished - Mr. Benitez has multiple active medical problems which require close medical observation, supervision and management as provided by our inpatient rehabilitation unit. Furthermore, he requires acute medic al management following hip surgery to manage the wound site, minimize his risk of deep vein thrombos is and address his pain while performing aggressive daily inpatient physical and occupational therapy . Admission to the acute inpatient rehabilitation unit is necessary and appropriate. PHYSICIANS REVIEW AND ADMISSION DETERMINATION Admit - Based on my review of the Pre-Admission Screening results, in my medical judgment and experie nce, I concur with the findings and recommend admission to [facility], as this patient requires an IRF level of care. SIGNATURE PANEL: Clinical Liaison - [electronically] signed by Monico Phillips on 05/29/2018 at 11:23 (SALESPERSON SHEET MUSIC) Physician Reviewer - [electronically] signed by Dr. Saulo Johnson M.D. on 05/29/2018 at 12:02 (SALESPERSON SHEET MUSIC )
[2018-05-30] MEDS ORDERED: LIDOCAINE 1% MPF 5 ML VIAL ONE (14:55)
[2018-05-30] MEDS ORDERED: PROPOFOL 200 MG/20 ML VIAL IV ONE (14:55)
--- OUTSIDE RECORDS SUMMARY | 2018-05-31 12:15 | XMS REPORT | Clinical Summary ---
:1940 Author Organization [facility] Address [address] [place] [address] Care Team Providers Name Role Phone Jose [...] Not on file Results Not on fileafter 05/30/2017 Insurance Payer Benefit Plan / Subscriber ID Type Phone Address Group MEDICARE MEDICARE A B xxxxxxxxxx Medicare [employer] - UHC MCR SECURE xxxxxxxxxx Maps Contracted MEDICARE [employer]
[2018-05-31] MEDS: CLOTRIMAZOLE 10 MG TROCHE PO SCH ×2 (13:00→17:11)
[2018-05-31] MEDS ORDERED: HOME MED 1 EA UNK PO SCH (14:00)
[2018-05-31] MEDS: SUCRALFATE 1GM/10ML UCUP PO SCH ×2 (14:00→17:00)
[2018-05-31] MEDS: VANCOMYCIN ORAL SOLN 250 MG/5 ML OSYR PO SCH (17:11)
[2018-05-31] MEDS: CALCIUM ACETATE 667 MG PO SCH (17:12)
--- NOTE | 2018-05-31 17:22 | PAPE ---
PATIENT: [facility] MR# [id number] REFERRING DOCTOR sin Horne EVALUATION DATE AND TIME 05/31/2018 17:21 (SPRAY I PAINTER) NAME KRIS MARQUEZ DATE OF 1940 AGE 78 PHONE N# [id number] GENDER male EVALUATING PHYSICIAN Dr. Saulo Johnson M.D. 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 PATIENT NEEDS CLOSE MEDICAL SUPERVISION BY A REHABILITATION PHYSICIAN FOR: Bowel and Bladder Management Coordination of Treatment Team Medical and Co-Morbidity Management Wound Care DVT Management Pain Management PATIENT REQUIRES 24X7 REHAB NURSING FOR MEDICAL AND FUNCTIONAL MGT. OF THE FOLLOWING DEFICITS: ADL's Ambulation Bowel and Bladder Management Cognition Communication Disease Management Medication Management Patient/Family Education Providing Safe Environment Skin Integrity Transfers Pain Management PATIENT REQUIRES INTENSIVE, COORDINATED INTERDISCIPLINARY APPROACH TO REHAB: Arranging Home Equipment/Services Discharge Planning Family Intervention/Training Banding Machine Operator/Case Management LIST OF IDENTIFIED AND POTENTIAL PROBLEMS: Alteration in leisure activities Bladder, Incontinence Blood Pressure, Hypertension/hypotension Issues Bowel, Incontinence Infection, Actual or Potential Mobility Impaired Pain, Alteration in Comfort Self Care Deficit Skin Integrity, Actual or Potential Urinary Tract Infection (UTI), Actual or Potential RISK FOR COMPLICATIONS - Hypertension CVA. Hypotension. UT. TIA. INTERVENTIONS - Hypertension PATIENT COULD BE AT RISK FOR COMPLICATIONS FROM ADVERSE MEDICAL CONDITIONS DUE TO HIS/HER COMORBIDITI ES AND THE RIGORS OF THE INTENSIVE REHABILLITATION PROGRAM. METHODS OR INTERVENTIONS TO AVOID COMPLIC ATIONS INCLUDE: - Deep Vein Thrombosis (DVT) Prophylaxis therapy for prevention . Sequential Compression Device (SCD). TE D Hose. - Bleeding Assess lab values and manage abnormalities. Nursing to teach precautions for anti-coagulation therapy . Wound to be assessed every shift. - Infection Clinical staff to assess and manage the signs and symptoms of infection including fever, redness, war mth, etc. - Urinary Tract Infection - Falls Patient will be evaluated for Fall Precautions and will be placed on Fall Precautions as indicated pe r protocol. - Skin Breakdown Nursing will assess skin daily using assessment tool and will place on Skin Breakdown Precautions as indicated per protocol. - Pain Clinical staff may employ non-medication methods such as massage, distraction, decrease stimulus, etc . as needed. Clinical staff will assess patient's pain level every shift per protocol to assess and e nsure pain management effectiveness. Medications will be given and the pain level re-assessed. PRELIMINARY PLAN OF CARE: - Physical Therapy Patient needs Physical Therapy for a daily minimum of 1.5 hours at least 5 out of 7 days, to improve: Mobility, Strengthening, Transfers, Stretching, ROM, Endurance, Ability to manage stairs, Gait, and Balance. - Rehabilitation Nursing Patient requires 24x7 Rehabilitation Nursing for: Pain Issues, Identifying and preventing risk factor s, Monitoring and reporting current medical conditions, Assisting with ambulation and transfer, Barney ting with all ADL-s, Teaching patients about disease process and medications, Family teaching, Provid ing safe environment, Bowel and Bladder Issues, Skin Integrity, and Medication Management. Patient needs Banding Machine Operator and/or Case Management for: Discharge Planning, Arranging Home Equipmen t or Services, and Family Interventions. - Dietary and Nutrition Services Patient needs Dietary and Nutrition Services for: Adequate Nutrition, Nutritional Supplements, and Nu tritional Education. - Occupational Therapy Patient needs Occupational Therapy for a daily minimum of 1.5 hours at least 5 out of 7 days, to impr ove Activities of Daily Living, including: Eating, Grooming, Bathing, Dressing, Toileting, Toilet Tra nsfers, Community Reintegration, Higher functional activities, Adaptive Equipment, Splinting, Househo ld Tasks, and Other activities as determined. POTENTIAL FUNCTIONAL GOALS FOR PATIENT TO ACHIEVE BY DISCHARGE: - Safety Precaution Patient will remain free from falls or injury at time of discharge. - Bed Mobility Patient will perform bed mobility at 4-Rita level of assistance. - Transfers Patient will complete transfers from bed to chair at 4-Rita level of assistance. - Mobility Patient will ambulate 150 ft with 4-Rita level of assistance with RW. PATIENT REHAB POTENTIAL Expected level of measurable improvement will be of a practical value to patient's functional capacit y or adaptations to impairments Has a viable Discharge Plan Medically appropriate; condition is sufficiently stable to participate in intensive rehab program Patient is able and expected to receive 3 hours of individualized therapy daily on at least 5 of ever y 7 days Patient's prognosis for significant practical improvement within a reasonable period of time appears Good DISCHARGE PLAN: - Estimated Length of Stay (days) 14. - Consensus on plan Discharge plan has been discussed with primary caregiver. Patient/Family is in agreement with the aide n. Primary caregiver is in agreement with the plan. - Patient/Family Goals Return home with assistance. - Planned Living Setting Upon Discharge Home, to live with Family/Relatives. CONCLUSION ON REHABILITATION NECESSITY: I have evaluated patient's pre-admission functional status and, comparing it to the patient's post-ad mission functional status now, I conclude that the pre-admission assessment was accurate. Patient's c ondition on admission supports the medical necessity of admission to IRF. It is safe to proceed with patient's therapy program. SIGNATURE PANEL: (SPRAY I PAINTER)
--- NOTE | 2018-05-31 17:22 | R.HP ---
FACILITY: [facility] ENCOUNTER DATE AND TIME: 05/31/2018 17:14 (EXTENDER) MR#: [id number] NAME KRIS MARQUEZ ADDRESS: [address] [place] [address] CITY: [place]IP [address] PHONE: DATE OF : 1940 AGE: 78 SSN# [id number] GENDER: Male DEXTERITY Right-handed MARITAL STATUS RACE White PRE-HOSPITAL LIVING SETTING 01 - Home (private home/apt. board/care, assisted living, usp, transitional living) PRE-HOSPITAL LIVING WITH Family/Relatives ENCOUNTER PHYSICIAN: Dr. Saulo Johnson M.D. 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 is a 78 yo Right-handed white male. His impairment category is Orthopaedic Disorders 08 - Unilateral Hip Fracture (08.11). Pre-morbidly, Pt. was independent/mod-I in Transfers Control, Communication, Social Cognition, Self-C are, Locomotion, and Sphincter Control; and he had good Sphincter Control. Currently, he has deficits of Transfers Control, Balance, Locomotion, Endurance, Safety Awareness, an d Self-Care. Pt. is now referred to [facility] for acute in-patient rehabilitation in order to maximize patient's functional independence in activities of daily living, strength, ROM, and mobi lity. Patient has realistic goal of being discharged at assistance level 6-Chuck to reside at Home with Fam sabina/Relatives. Mr. Kris Marquez is an 78 yrs old male that lives in 1 reid home with 4 steps to enter. He still drives to dialysis center and goes to grocery store several times a week. On 05/20/2018, Mr. Marquez lost his balance and fell down on the ground and was admitted to [facility] and treated. He is now medically stable but in need of 24-hour nursing, doctor supervision and oversite while receiving participate in 3hours of therapy a day/15 hours per week and receive care with an intensive interdisciplinary approach. 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 SOCIAL HISTORY: - Home Living Family/Relatives REVIEW OF SYSTEMS: - Gen No Chills Fatigue No Fever - Eyes No Double Vision No itchiness - ENMT No Difficulty Swallowing - CVS No Chest Discomfort No Chest Pain Fatigue No Weight Gain - Resp No Cough No Shortness of Breath - GI Continent No Abdominal Pain No Constipation No Diarrhea - Continent No Kidney Pain No Painful Urination No Urinary Urgency - MSK Joint Pain Muscle Cramps Stiffness - Skin No Itching No Rash No Suspicious Lesions - Neuro No Coordination Difficulty No Difficulty with Concentration No Memory Loss No Seizures Weakness - Psych No Anxiety No Depression No HIV Exposure No Persistent Infections No Seasonal Allergies - Endo No Cold/Heat Intolerance No Excessive Hunger No Excessive Thirst No Excessive Urination PHYSICAL EXAM - Gen Alert and awake Lying in bed No apparent distress Oriented to: person, time, and place - Skin No skin breakdown. No abnormalities - Eyes No abnormalities - ENMT No abnormalities - Neck No abnormalities - CVS RRR - Chest No abnormalities - Abd +bowel sounds - GI Soft Deferred - No abnormalities - Ext Left hip surgical site has good hemostasis. - MSK 4+/5 weakness in left lower extremity - Neuro 4/5 strength left lower extremity. - Psych No abnormalities VITAL SIGNS Temperature: 97.4 F SBP/DBP: 109/61 Pulse: 62 Resp: 18 NURSING: - Shower allowing shower - Skin care per protocol PRECAUTIONS: - Posterior Hip Precaution No adduction across midline No external rotation No hip flexion >90 degrees No internal rotation No wheel chair propulsion - Weight Bearing Precaution WBAT left LE ACTIVITIES OOB only with supervision FUNCTIONAL STATUS: - Self-Care A. Eating Ind Ind B. Grooming Ind sup C. Bathing Ind sup D. Dressing - Upper Ind sup E. Dressing - Lower Ind Rita F. Toileting Ind sup - Sphincter Control G: Bladder control Ind Ind H: Bowel control Ind Ind - Transfers Control I. Bed/Chair/Wheelchair Ind Rita J. Toilet Ind Rita K. Tub/Shower Ind ADNO - Locomotion L. Walk/Wheelchair (C) Ind Rita L. Walk/Wheelchair (W) Ind Rita M. Stairs Ind ADNO - Communication N. Comprehension (B) Ind Ind O. Expression (B) Ind Ind - Social Cognition P. Social Interaction Ind Ind Q. Problem Solving Ind Ind R. Memory Ind Ind - Endurance Fair - Balance Fair - Safety Awareness Fair CURRENT FUNC. DEFICITS: Transfers Control, Balance, Locomotion, Endurance, Safety Awareness, and Self-Care ASSESSMENT: Pt. is a 78 yo Right-handed white male.His impairment category is Orthopaedic Disorders 08 - Unilate ral Hip Fracture (02.25).Pre-morbidly, Pt. was independent/mod-I in Transfers Control, Communication, Social Cognition, Self-Care, Locomotion, and Sphincter Control; and he had good Sphincter Control.Cu rrently, he has deficits of Transfers Control, Balance, Locomotion, Endurance, Safety Awareness, and Self-Care.Pt. is now referred to [facility] for acute in-patient rehabilitatio n in order to maximize patient's functional independence in activities of daily living, strength, ROM , and mobility.- Rehab Goal Patient has realistic goal of being discharged at assistance level 6-Chuck to reside at Home with Fam sabina/Relatives. Mr. Kris Marquez is an 78 yrs old male that lives in 1 reid home with 4 steps to enter. He still drives to dialysis center and goes to grocery store several times a week. On 05/20/2018, Mr. Marquez lost his balance and fell down on the ground and was admitted to [facility] and treated. He is now medically stable but in need of 24-hour nursing, doctor supervision and oversite while receiving participate in 3hours of therapy a day/15 hours per week and receive care with an intensive interdisciplinary approach.REHAB PLAN: - Physical Therapy Decreased range of motion - to improve, our physical therapists will perform initial evaluation of pt 's status upon admission and devise an individualized program for increasing patient's Range of Motio n. Gait dysfunction - to improve, our physical therapists will perform initial evaluation of pt's status upon admission and devise an individualized program for Gait Training, and Wheel Chair mobility Inability to transfer - to improve, our physical therapists will perform initial evaluation of pt's s tatus upon admission and devise an individualized program for Bed mobility Need for home safety evaluation - to improve, our physical therapists will perform initial evaluation of pt's status upon admission and devise an individualized program for Home Evaluation Need in caregiver upon discharge - to improve, our physical therapists will perform initial evaluatio n of pt's status upon admission and devise an individualized program for Caregiver Training New precaution - to improve, our physical therapists will perform initial evaluation of pt's status u joan admission and devise an individualized program for Patient precaution education Poor balance - to improve, our physical therapists will perform initial evaluation of pt's status upo n admission and devise an individualized program for Balance Training Poor endurance - to improve, our physical therapists will perform initial evaluation of pt's status u joan admission and devise an individualized program for Endurance Training Weakness - to improve, our physical therapists will perform initial evaluation of pt's status upon ad mission and devise an individualized program for Aquatic Therapy, Neuromuscular Reeducation, and Stre ngthening Achieving independence - to improve, our physical therapists will perform initial evaluation of pt's status upon admission and devise an individualized program for Community Reintegration Activities - Occupational Therapy ADL deficits - to improve, our occupation therapists will perform initial evaluation of pt's status u joan admission and devise an individualized program for Bathing, Bed mobility, Community Reintegration , Cooking, Dressing, Eating, Fine Motor Skills, Grooming, Homemaking, Kitchen Mobility, Laundry, Chikis ent Education, Safety Awareness, Splinting - Positioning, Transfers(Toilet, Tub, Shower), and Wheel C hair Management Need for senior care provider - to improve, our occupation therapists will perform initial evaluation of pt's s tatus upon admission and devise an individualized program for Caregiver Training Weakness - to improve, our occupation therapists will perform initial evaluation of pt's status upon admission and devise an individualized program for Aquatic Therapy, Balance, Endurance, UE ROM, and U E strengthening MEDICAL PLAN: - Anterior Hip Precaution No abduction No active extension No adduction across midline No external rotation No hip flexion >90 degrees No internal rotation - Diet - Liquid Texture Start Regular - Tube Feed Start N/A - Diet Type Start Regular - Posterior Hip Precaution No adduction across midline No external rotation No hip flexion >90 degrees No internal rotation No wheel chair propulsion - Weight Bearing Precaution WBAT left LE - Skin care per protocol - Diet - Solid Texture Regular - Shower shower DISCHARGE PLAN: - Estimated Length of Stay (days) 14. - Consensus on plan Discharge plan has been discussed with primary caregiver. Patient/Family is in agreement with the aide n. Primary caregiver is in agreement with the plan. - Patient/Family Goals Return home with assistance. - Planned Living Setting Upon Discharge Home, to live with Family/Relatives. SIGNATURE PANEL: (EXTENDER)
--- NOTE | 2018-05-31 17:29 | FAST ---
ENCOUNTER DATE AND TIME: 05/31/2018 08:00 (VEHICLE MODIFICATION TECHNICIAN) NAME KRIS MARQUEZ DATE OF : 1940 DATE OF ADMISSION: 05/31/2018 17:15 (VEHICLE MODIFICATION TECHNICIAN) PHONE: AGE: 78 N# [id number] GENDER: Male ENCOUNTER PHYSICIAN: Dr. Saulo Johnson M.D. ADMISSION DIAGNOSIS: - Orthopaedic Disorders 08 - Unilateral Hip Fracture (08.11) LEFT HIP FRACTURE. EATING: Activity did not occur on this shift EATING - SCORE: 0-UNK GROOMING: Activity did not occur on this shift GROOMING - SCORE: 0-UNK BATHING: Activity did not occur on this shift BATHING - SCORE: 0-UNK DRESSING - UPPER BODY: Activity did not occur on this shift Patient is not dressing in public clothing ARTICLES SCORE Total number of steps: 0 DRESSING - UPPER BODY - SCORE: 0-UNK DRESSING - LOWER BODY: Activity did not occur on this shift Patient is not dressing in public clothing ARTICLES SCORE Total number of steps: 0 DRESSING - LOWER BODY - SCORE: 0-UNK TOILETING: Activity did not occur on this shift TOILETING - SCORE: 0-UNK BLADDER MANAGEMENT: Activity did not occur on this shift BLADDER MANAGEMENT - SCORE: 7-IND BOWEL MANAGEMENT: Activity did not occur on this shift BOWEL MANAGEMENT - SCORE: 7-IND TRANSFERS: BED, CHAIR, WHEELCHAIR: TRANSFERS: BED, CHAIR, WHEELCHAIR - STEP 1: Does the patient require assitance of a person or device, or need extra time with bed, chair, or whee lchair transfers? Yes. TRANSFERS: BED, CHAIR, WHEELCHAIR - STEP 2: Does the patient require the assistance of a helper? Yes. TRANSFERS: BED, CHAIR, WHEELCHAIR - STEP 3: How much assistance does the patient require from the helper? Lifting of the patient TRANSFERS: BED, CHAIR, WHEELCHAIR - STEP 4: Does the helper lift the patient ONLY up? ONLY down? Up AND Down? ONLY up. TRANSFERS: BED, CHAIR, WHEELCHAIR - SCORE: 3-MOD TRANSFERS: TOILET: Activity did not occur on this shift TRANSFERS: TOILET - SCORE: 0-UNK TRANSFERS: SHOWER: Activity did not occur on this shift TRANSFERS: SHOWER - SCORE: 0-UNK TRANSFERS: TUB: Activity did not occur on this shift TRANSFERS: TUB - SCORE: 0-UNK LOCOMOTION: WALK: LOCOMOTION: WALK - STEP 1: Does the patient need help from a person or device, or need extra time to walk 150 feet? Yes. LOCOMOTION: WALK - STEP 2: How much assistance does the patient require to walk a minimum of 150 feet? Patient walks less than 1 50 feet - but more than 50 feet - with the assistance of only one helper LOCOMOTION: WALK - SCORE: 2-MAX LOCOMOTION: WHEELCHAIR: Activity did not occur on this shift LOCOMOTION: WHEELCHAIR - SCORE: 0-UNK LOCOMOTION: STAIRS: Activity did not occur on this shift LOCOMOTION: STAIRS - SCORE: 0-UNK COMPREHENSION: COMPREHENSION - SCORE: 0-UNK EXPRESSION EXPRESSION - SCORE: 0-UNK SOCIAL INTERACTION: SOCIAL INTERACTION - SCORE: 0-UNK PROBLEM SOLVING: PROBLEM SOLVING - SCORE: 0-UNK MEMORY: MEMORY - SCORE: 0-UNK SIGNATURE PANEL: The following modified sections: Transfers: Bed, Chair, Wheelchair - Score, Transfers: Toilet - Score , Locomotion: Walk - Score, Locomotion: Wheelchair - Score, Locomotion: Stairs - Score were [electron marie] signed by Darryl Araujo, KARO on TueMay 31 2018 17:28:58 GMT-0600 (Central Standard Time)
[2018-05-31] MEDS ORDERED: predniSONE 5 MG TAB PO SCH (20:00)
[2018-05-31] MEDS: EPOETIN ALFA 10,000 UNIT/ML VIAL IV SCH (20:49)
[2018-05-31] MEDS ORDERED: ALBUMIN HUMAN 25% 50 ML IV SCH (21:00)
[2018-06-01] MEDS: HEPARIN 5000 UNIT/ML 1 ML VIAL SQ SCH ×3 (00:08→21:09)
[2018-06-01] MEDS: AMIODARONE 200 MG PO SCH ×2 (00:50→21:09)
--- NOTE | 2018-06-01 03:15 | FAST ---
SHIFT START DATE/TIME: 05/31/2018 19:00 (TOP LIFT COMPRESSER) SHIFT END DATE/TIME: 06/01/2018 07:00 (TOP LIFT COMPRESSER) NAME KRIS MARQUEZ DATE OF : 1940 DATE OF ADMISSION: 05/31/2018 17:15 (TOP LIFT COMPRESSER) PHONE: AGE: 78 SSN# [id number] GENDER: Male ENCOUNTER PHYSICIAN: Dr. Saulo Johnson M.D. ADMISSION DIAGNOSIS: - Orthopaedic Disorders 08 - Unilateral Hip Fracture (08.11) LEFT HIP FRACTURE. EATING: Activity did not occur on this shift EATING - SCORE: 0-UNK GROOMING: Activity did not occur on this shift GROOMING - SCORE: 0-UNK BATHING: Activity did not occur on this shift BATHING - SCORE: 0-UNK DRESSING - UPPER BODY: Activity did not occur on this shift ARTICLES SCORE Total number of steps: 0 DRESSING - UPPER BODY - SCORE: 0-UNK DRESSING - LOWER BODY: Activity did not occur on this shift ARTICLES SCORE Total number of steps: 0 DRESSING - LOWER BODY - SCORE: 0-UNK TOILETING: TOILETING - STEP 1: Does the patient require the assistance of a person or device, or need extra time with toileting? Yes . TOILETING - STEP 2: Does the patient require the assistance of a helper? Yes. TOILETING - STEP 3: How much assistance does the patient require from the helper? Hands-on assistance from the helper TOILETING - STEP 4: Of the 3 tasks: 1) Adjusting clothing prior to use, 2) Cleansing of perineal area, 3) Adjusting clot la after use; How many tasks does the patient perform WITHOUT assistance of the helper? No tasks; h stanley performs all three tasks TOILETING - SCORE: 1-DEP BLADDER MANAGEMENT: BLADDER MANAGEMENT - STEP 1: Does the patient control the bladder completely and intentionally without equipment or devices or med ications, and is always continent? No. BLADDER MANAGEMENT - STEP 2: Does the patient require the assistance of a helper? No, patient requires and independently uses an a ssistive device, such as a urinal, bedpan, bedside commode, catheter, absorbent pad, or collecting de vice BLADDER MANAGEMENT - SCORE: 6-DAWN BOWEL MANAGEMENT: Activity did not occur on this shift BOWEL MANAGEMENT - SCORE: 7-IND TRANSFERS: BED, CHAIR, WHEELCHAIR: Activity did not occur on this shift TRANSFERS: BED, CHAIR, WHEELCHAIR - SCORE: 0-UNK TRANSFERS: TOILET: Activity did not occur on this shift TRANSFERS: TOILET - SCORE: 0-UNK TRANSFERS: SHOWER: Activity did not occur on this shift TRANSFERS: SHOWER - SCORE: 0-UNK TRANSFERS: TUB: Activity did not occur on this shift TRANSFERS: TUB - SCORE: 0-UNK LOCOMOTION: WALK: Activity did not occur on this shift LOCOMOTION: WALK - SCORE: 0-UNK LOCOMOTION: WHEELCHAIR: Activity did not occur on this shift LOCOMOTION: WHEELCHAIR - SCORE: 0-UNK COMPREHENSION: COMPREHENSION: TYPE: Both COMPREHENSION - STEP 1: Does the patient require help from a person or device, or need extra time to understand complex and a bstract ideas (such as current events, finances, discharge planning, medical issues, relationships, e tc)? Yes. COMPREHENSION - STEP 2: Does the patient require help to understand questions or statements about basic needs or ideas (such as hunger, thirst, sleep, safety, daily schedule, room location, or discomfort) half or more of the t eun? No. COMPREHENSION - STEP 3: How often does the patient need help to understand directions and conversation about basic needs? Les s than 10% of the time COMPREHENSION - SCORE: 5-SUP EXPRESSION EXPRESSION: TYPE: Both EXPRESSION - STEP 1: Does the patient require help from a person or device, or need extra time expressing complex and abst ract ideas (such as current events, finances, discharge planning, medical issues, relationships, etc) ? Yes. EXPRESSION - STEP 2: Does the patient require help to express basic necessities or ideas (such as hunger, thirst, sleep, s afety, daily schedule, room location, or discomfort) half or more of the time? No. EXPRESSION - STEP 3: How often does the patient need help to express directions and conversation about basic needs? Less t maxwell 10% of the time EXPRESSION - SCORE: 5-SUP SOCIAL INTERACTION: SOCIAL INTERACTION - STEP 1: Does the patient require a helper to interact with others in social and therapeutic situations? No. SOCIAL INTERACTION - STEP 2: Does the patient need extra time in social situations, OR does s/he interact with staff, other patien ts, and family members ONLY in structured environments, OR does s/he require medication for social in teraction? Yes, patient needs extra time SOCIAL INTERACTION - SCORE: 6-DAWN PROBLEM SOLVING: PROBLEM SOLVING - STEP 1: Does the patient need help from a person or device, or need extra time to solve complex problems such as managing a checking account or confronting interpersonal problems? No. PROBLEM SOLVING - STEP 2: Does the patient require extra time to make decisions or solve problems, OR does s/he have slight dif ficulty reading, initiating, or self-correcting in unfamiliar situations? No. PROBLEM SOLVING - SCORE: 7-IND MEMORY: MEMORY - STEP 1: Does the patient need help from a person or device, or need extra time to remember frequently encount ered people, daily routines, and executing requests? No. MEMORY - STEP 2: Does the patient have slight difficulty recognizing frequently encountered people, daily routines, or executing requests without the need for repetition or using self-initiated or environmental cues to remember? No. MEMORY - SCORE: 7-IND SIGNATURE PANEL: The following modified sections: Eating - Score, Grooming - Score, Bathing - Score, Dressing - Upper Body - Score, Dressing - Lower Body - Score, Toileting - Score, Bladder Management - Score, Bowel Man agement - Score, Transfers: Bed, Chair, Wheelchair - Score, Transfers: Toilet - Score, Transfers: Meka wer - Score, Transfers: Tub - Score, Locomotion: Walk - Score, Locomotion: Wheelchair - Score, Compre hension - Score, Expression - Score, Social Interaction - Score, Problem Solving - Score, Memory - Sc ore were [electronically] signed by Pau Munson on TueJun 01 2018 03:15:03 GMT-0600 ([place] Time)
[2018-06-01 06:50] LABS: Absolute Lymphocytes (CBC) 1.1 K/uL (0.7-4.9); Absolute Monocytes 0.7 K/uL (0.1-1.3); Absolute Neutrophil 5.3 K/uL (1.8-8.0); Basophils % 0.1 % (0-1.3); Eosinophils % 3.1 % (0-4.4); Hematocrit 24.7 % (39.6-49.0); Lymphocytes % 14.9 % (15.3-44.8); MCH 32.4 pg (27.0-35.0); MPV 8.1 fL (7.6-11.3); RBC Red Blood Cell Count 2.49 M/uL (4.33-5.43)
[2018-06-01] MEDS ORDERED: ACETAMINOPHEN 500 MG TAB PO PRN (06:54)
[2018-06-01] MEDS: ACETAMINOPHEN 160 MG/5 ML UCUP PO PRN (07:00)
[2018-06-01 07:11] LABS: Albumin 1.9 g/dL (3.4-5.0); Potassium 3.6 mmol/L (3.5-5.1); Prealbumin 25.7 mg/dL (20-40)
[2018-06-01] MEDS ORDERED: predniSONE 10 MG TAB PO SCH ×2 (08:00→12:00)
[2018-06-01 08:59] LABS: Blood Morphology Comment NOT SEEN (NOT SEEN); Platelet Estimate ADEQ; Urine White Blood Cell Casts OK
[2018-06-01] MEDS: SUCRALFATE 1GM/10ML UCUP PO SCH ×5 (09:09→21:09)
[2018-06-01] MEDS: CALCIUM ACETATE 667 MG PO SCH ×3 (09:10→16:59)
[2018-06-01] MEDS: AMLODIPINE 10 MG PO SCH (09:10)
[2018-06-01] MEDS: predniSONE 10 MG TAB PO SCH (09:11)
[2018-06-01] MEDS: HYDRALAZINE 10MG TABLET PO SCH ×3 (09:12→21:08)
[2018-06-01] MEDS: [UNRECOGNIZED DRUG - OTHER] PO SCH ×3 (09:12→21:07)
[2018-06-01] MEDS: VANCOMYCIN ORAL SOLN 250 MG/5 ML OSYR PO SCH ×3 (09:13→16:59)
[2018-06-01] MEDS: CLOTRIMAZOLE 10 MG TROCHE PO SCH ×5 (09:13→21:06)
[2018-06-01] MEDS: COMBIGAN OPTH SCH ×3 (09:13→21:08)
[2018-06-01] MEDS: EYE OPTH SCH ×3 (09:13→21:08)
[2018-06-01] MEDS: POLYETHYL GLY 3350 17 GM/DOSE PO SCH (09:14)
--- NOTE | 2018-06-01 11:38 | P.CNS ---
Reason for Consult: ESRD to resume HD and electrolytes mgm Chief Complaint: S/P Hip fracture to [facility] Physical therapy History of Present Illness: This an 78-year-old male with significant past medical history of COPD, mycobacterium infection, hyperlipidemia, end-stage renal disease, on hemodialysis, Tuesday, Tuesday, Tuesday through left arm AV fistula at [facility]. This pt was admitted for Hip fracture S/P surgical intervention, hospital course complicated by C.diff and hypoglycemia now transferred to [facility] PT no pain, headache, chest pain, palpitation Diarrhea resolved no Abd pain Allergies No Known Drug Allergies Allergy (Verified 11/28/14 07:33) Unknown Home Medications: Calcium Acetate [Phoslo] 2 cap PO TID 11/27/14 Polyethylene Glycol 3350 1 packet PO DAILYPRN PRN 04/19/17 Amiodarone HCl [Cordarone*] 200 mg PO BEDTIME 09/07/17 Amlodipine [Norvasc*] 10 mg PO DAILY #30 tab 11/30/17 Hydralazine [Apresoline] 10 mg PO BID 12/21/17 Brimonidine Tartrate/Timolol [Combigan 0.2%-0.5% Eye Drops] 1 gtt EACH EYE BID 05/20/18 Metoprolol Succinate 50 mg PO BEDTIME 05/20/18 Vit C/E/Zn/Coppr/Lutein/Zeaxan [Preservision Areds 2 Softgel] 1 cap PO BID 05/20 predniSONE [Prednisone*] 5 mg PO BEDTIME 05/20/18 - Past Medical/Surgical History Diabetic: No -: ESRD -: MYCOBACTERIUM AVIUM COMPLEX -: RENAL INSUFFICIENCY -: HTN -: PNEUMOTHORAX -: copd -: TIA -: Recurrent hemoptysis ANCA positive -: AZEB -: HERNIA SURGERY -: SHUNT TO LFA - Family History Mother Medical History: Heart disease Father Medical History: Hypertension - Social History Smoking Status: Never smoker Alcohol use: No CD- Drugs: No Caffeine use: Yes Place of Residence: Home Physical Examination Temp Pulse Resp BP Pulse Ox 97 F 75 16 123/66 96 06/01/18 07:36 06/01/18 07:36 06/01/18 07:36 06/01/18 07:36 06/01/18 07:36 General: In no apparent distress, Oriented x3 HEENT: Atraumatic Neck: Supple, Without JVD or thyroid abnormality Respiratory: Clear to auscultation bilaterally, Normal air movement Cardiovascular: No edema, Normal S1 S2, No rubs, Systolic murmur Gastrointestinal: Normal bowel sounds Integumentary: No rashes Laboratory Data (last 24 hrs) 06/01/18 06:28: Sodium 147 H, Potassium 3.6, BUN 26 H, Creatinine 3.70 H, Glucose 83, Magnesium 2.0 06/01/18 06:28: WBC 7.4 D, Hgb 8.1 L, Hct 24.7 L, Plt Count 219 - Problems (1) History of steroid therapy Onset Date: 09/08/17 Current Visit: No Status: Chronic (2) Hypertension Onset Date: 09/08/17 Current Visit: No Status: Chronic (3) Paroxysmal atrial fibrillation Onset Date: 09/08/17 Current Visit: No Status: Chronic Conclusions/Impression: This an 78-year-old male with significant past medical history of COPD, mycobacterium infection, hyperlipidemia, end-stage renal disease, on hemodialysis, Tuesday, Tuesday, Tuesday through left arm AV fistula at [facility]. This pt was admitted for Hip fracture S/P surgical intervention, hospital course complicated by C.diff and hypoglycemia now transferred to Cont PT no pain, headache, chest pain, palpitation Diarrhea resolved no Abd pain 1.End-stage renal disease. will cont HD MWF renal dose all meds 2.Hypertension, controlled, optimal. Continue current medication. 3.Steroid-dependent adrenal insufficiency. We will discontinue hydrocortisone and place the patient back on oral 10 in the morning, 5 at night with plan to taper back to his outpatient regimen which is 10 mg daily. 4.Clostridium difficile colitis. Diarrhea resolved Continue vancomycin. 5.Hip fracture, status post repair. Continue PT/OT.
[2018-06-01] MEDS: FERROUS SULFATE 325 MG TAB PO SCH ×2 (12:42→21:06)
--- NOTE | 2018-06-01 13:56 | FAST ---
SHIFT START DATE/TIME: 06/01/2018 07:00 (SODDER) SHIFT END DATE/TIME: 06/01/2018 19:00 (SODDER) NAME KRIS MARQUEZ DATE OF : 1940 DATE OF ADMISSION: 05/31/2018 17:15 (SODDER) PHONE: AGE: 78 N# [id number] GENDER: Male ENCOUNTER PHYSICIAN: Dr. Saulo Johnson M.D. ADMISSION DIAGNOSIS: - Orthopaedic Disorders 08 - Unilateral Hip Fracture (08.11) LEFT HIP FRACTURE. EATING: EATING - STEP 1: Does the patient require the assistance of a person or device, or need extra time when eating? Yes. EATING - STEP 2: Does the patient require the assistance of a helper? Yes. EATING - STEP 3: Does the patient perform half or more of the eating tasks? Yes. EATING - STEP 4: Does the patient need only supervision, cuing, coaxing OR help to apply an orthosis OR help to cut fo od, open containers, pour liquids, or butter bread? Yes. EATING - SCORE: 5-SUP GROOMING: Activity did not occur on this shift GROOMING - SCORE: 0-UNK BATHING: Activity did not occur on this shift BATHING - SCORE: 0-UNK DRESSING - UPPER BODY: Activity did not occur on this shift ARTICLES SCORE Total number of steps: 0 DRESSING - UPPER BODY - SCORE: 0-UNK DRESSING - LOWER BODY: Activity did not occur on this shift ARTICLES SCORE Total number of steps: 0 DRESSING - LOWER BODY - SCORE: 0-UNK TOILETING: TOILETING - STEP 1: Does the patient require the assistance of a person or device, or need extra time with toileting? Yes . TOILETING - STEP 2: Does the patient require the assistance of a helper? Yes. TOILETING - STEP 3: How much assistance does the patient require from the helper? Hands-on assistance from the helper TOILETING - STEP 4: Of the 3 tasks: 1) Adjusting clothing prior to use, 2) Cleansing of perineal area, 3) Adjusting clot la after use; How many tasks does the patient perform WITHOUT assistance of the helper? No tasks; h elper performs all three tasks TOILETING - SCORE: 1-DEP BLADDER MANAGEMENT: BLADDER MANAGEMENT - STEP 1: Does the patient control the bladder completely and intentionally without equipment or devices or med ications, and is always continent? No. BLADDER MANAGEMENT - STEP 2: Does the patient require the assistance of a helper? No, patient requires and independently uses an a ssistive device, such as a urinal, bedpan, bedside commode, catheter, absorbent pad, or collecting de vice BLADDER MANAGEMENT - SCORE: 6-DAWN BLADDER MANAGEMENT - FREQUENCY OF ACCIDENTS: BLADDER MANAGEMENT(FA) - STEP 1: How many accidents has the patient had during the current shift? 0 BOWEL MANAGEMENT: Activity did not occur on this shift BOWEL MANAGEMENT - SCORE: 7-IND BOWEL MANAGEMENT - FREQUENCY OF ACCIDENTS: BOWEL MANAGEMENT(FA) - STEP 1: How many accidents has the patient had during the current shift? 0 TRANSFERS: BED, CHAIR, WHEELCHAIR: TRANSFERS: BED, CHAIR, WHEELCHAIR - STEP 1: Does the patient require assitance of a person or device, or need extra time with bed, chair, or whee lchair transfers? Yes. TRANSFERS: BED, CHAIR, WHEELCHAIR - STEP 2: Does the patient require the assistance of a helper? Yes. TRANSFERS: BED, CHAIR, WHEELCHAIR - STEP 3: How much assistance does the patient require from the helper? Lifting of the patient TRANSFERS: BED, CHAIR, WHEELCHAIR - STEP 4: Does the helper lift the patient ONLY up? ONLY down? Up AND Down? ONLY up. TRANSFERS: BED, CHAIR, WHEELCHAIR - SCORE: 3-MOD TRANSFERS: TOILET: Activity did not occur on this shift TRANSFERS: TOILET - SCORE: 0-UNK TRANSFERS: SHOWER: Activity did not occur on this shift TRANSFERS: SHOWER - SCORE: 0-UNK TRANSFERS: TUB: Activity did not occur on this shift TRANSFERS: TUB - SCORE: 0-UNK LOCOMOTION: WALK: Activity did not occur on this shift LOCOMOTION: WALK - SCORE: 0-UNK LOCOMOTION: WHEELCHAIR: Activity did not occur on this shift LOCOMOTION: WHEELCHAIR - SCORE: 0-UNK COMPREHENSION: COMPREHENSION: TYPE: Both COMPREHENSION - STEP 1: Does the patient require help from a person or device, or need extra time to understand complex and a bstract ideas (such as current events, finances, discharge planning, medical issues, relationships, e tc)? Yes. COMPREHENSION - STEP 2: Does the patient require help to understand questions or statements about basic needs or ideas (such as hunger, thirst, sleep, safety, daily schedule, room location, or discomfort) half or more of the t eun? No. COMPREHENSION - STEP 3: How often does the patient need help to understand directions and conversation about basic needs? Les s than 10% of the time COMPREHENSION - SCORE: 5-SUP EXPRESSION EXPRESSION: TYPE: Both EXPRESSION - STEP 1: Does the patient require help from a person or device, or need extra time expressing complex and abst ract ideas (such as current events, finances, discharge planning, medical issues, relationships, etc) ? Yes. EXPRESSION - STEP 2: Does the patient require help to express basic necessities or ideas (such as hunger, thirst, sleep, s afety, daily schedule, room location, or discomfort) half or more of the time? No. EXPRESSION - STEP 3: How often does the patient need help to express directions and conversation about basic needs? Less t maxwell 10% of the time EXPRESSION - SCORE: 5-SUP SOCIAL INTERACTION: SOCIAL INTERACTION - STEP 1: Does the patient require a helper to interact with others in social and therapeutic situations? No. SOCIAL INTERACTION - STEP 2: Does the patient need extra time in social situations, OR does s/he interact with staff, other patien ts, and family members ONLY in structured environments, OR does s/he require medication for social in teraction? Yes, patient needs extra time SOCIAL INTERACTION - SCORE: 6-DAWN PROBLEM SOLVING: PROBLEM SOLVING - STEP 1: Does the patient need help from a person or device, or need extra time to solve complex problems such as managing a checking account or confronting interpersonal problems? No. PROBLEM SOLVING - STEP 2: Does the patient require extra time to make decisions or solve problems, OR does s/he have slight dif ficulty reading, initiating, or self-correcting in unfamiliar situations? No. PROBLEM SOLVING - SCORE: 7-IND MEMORY: MEMORY - STEP 1: Does the patient need help from a person or device, or need extra time to remember frequently encount ered people, daily routines, and executing requests? No. MEMORY - STEP 2: Does the patient have slight difficulty recognizing frequently encountered people, daily routines, or executing requests without the need for repetition or using self-initiated or environmental cues to remember? No. MEMORY - SCORE: 7-IND SIGNATURE PANEL: The following modified sections: Eating - Score, Grooming - Score, Bathing - Score, Dressing - Upper Body - Score, Dressing - Lower Body - Score, Toileting - Score, Bladder Management - Score, Bowel Man agement - Score, Transfers: Bed, Chair, Wheelchair - Score, Transfers: Toilet - Score, Transfers: Meka wer - Score, Transfers: Tub - Score, Locomotion: Walk - Score, Locomotion: Wheelchair - Score, Social Interaction - Score, Problem Solving - Score, Memory - Score, Comprehension - Score, Expression - Sc ore were [electronically] signed by Rebecca Khan C.N.A. on TueJun 01 2018 13:55:33 GMT-0600 (Cent[place] Standard Time)
[2018-06-01] MEDS ORDERED: BISACODYL 10 MG RECTAL SUPP PR PRN (14:14)
--- NOTE | 2018-06-01 15:02 | FAST ---
ENCOUNTER DATE AND TIME: 06/01/2018 08:00 (GROUP MANAGER) NAME KRIS MARQUEZ DATE OF : 1940 DATE OF ADMISSION: 05/31/2018 17:15 (GROUP MANAGER) PHONE: AGE: 78 N# [id number] GENDER: Male ENCOUNTER PHYSICIAN: Dr. Saulo Johnson M.D. ADMISSION DIAGNOSIS: - Orthopaedic Disorders 08 - Unilateral Hip Fracture (08.11) LEFT HIP FRACTURE. EATING: Activity did not occur on this shift EATING - SCORE: 0-UNK GROOMING: Activity did not occur on this shift GROOMING - SCORE: 0-UNK BATHING: Activity did not occur on this shift BATHING - SCORE: 0-UNK DRESSING - UPPER BODY: Activity did not occur on this shift Patient is not dressing in public clothing ARTICLES SCORE Total number of steps: 0 DRESSING - UPPER BODY - SCORE: 0-UNK DRESSING - LOWER BODY: Activity did not occur on this shift Patient is not dressing in public clothing ARTICLES SCORE Total number of steps: 0 DRESSING - LOWER BODY - SCORE: 0-UNK TOILETING: Activity did not occur on this shift TOILETING - SCORE: 0-UNK BLADDER MANAGEMENT: Activity did not occur on this shift BLADDER MANAGEMENT - SCORE: 7-IND BOWEL MANAGEMENT: Activity did not occur on this shift BOWEL MANAGEMENT - SCORE: 7-IND TRANSFERS: BED, CHAIR, WHEELCHAIR: TRANSFERS: BED, CHAIR, WHEELCHAIR - STEP 1: Does the patient require assitance of a person or device, or need extra time with bed, chair, or whee lchair transfers? Yes. TRANSFERS: BED, CHAIR, WHEELCHAIR - STEP 2: Does the patient require the assistance of a helper? Yes. TRANSFERS: BED, CHAIR, WHEELCHAIR - STEP 3: How much assistance does the patient require from the helper? Lifting of the patient TRANSFERS: BED, CHAIR, WHEELCHAIR - STEP 4: Does the helper lift the patient ONLY up? ONLY down? Up AND Down? Up AND Down. TRANSFERS: BED, CHAIR, WHEELCHAIR - SCORE: 2-MAX TRANSFERS: TOILET: Activity did not occur on this shift TRANSFERS: TOILET - SCORE: 0-UNK TRANSFERS: SHOWER: Activity did not occur on this shift TRANSFERS: SHOWER - SCORE: 0-UNK TRANSFERS: TUB: Activity did not occur on this shift TRANSFERS: TUB - SCORE: 0-UNK LOCOMOTION: WALK: Activity did not occur on this shift LOCOMOTION: WALK - SCORE: 0-UNK LOCOMOTION: WHEELCHAIR: Activity did not occur on this shift LOCOMOTION: WHEELCHAIR - SCORE: 0-UNK LOCOMOTION: STAIRS: Activity did not occur on this shift LOCOMOTION: STAIRS - SCORE: 0-UNK COMPREHENSION: COMPREHENSION - SCORE: 0-UNK EXPRESSION EXPRESSION - SCORE: 0-UNK SOCIAL INTERACTION: SOCIAL INTERACTION - SCORE: 0-UNK PROBLEM SOLVING: PROBLEM SOLVING - SCORE: 0-UNK MEMORY: MEMORY - SCORE: 0-UNK SIGNATURE PANEL: The following modified sections: Transfers: Bed, Chair, Wheelchair - Score, Transfers: Toilet - Score , Locomotion: Walk - Score, Locomotion: Wheelchair - Score, Locomotion: Stairs - Score were [electron ically] signed by Sandhya Mi PTA on TueJun 01 2018 15:01:49 GMT-0600 (Central Standard Time)
[2018-06-01 18:04] VITALS: BMI 21.3
--- NOTE | 2018-06-01 18:20 | R.PN ---
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 Pt denied any Shortness of Breath. Had low blood pressures today and fatigue limited therapy. Revised and decreased blood pressure medic ation. VITAL SIGNS Temperature: 97.4 F SBP/DBP: 117/67 Pulse: 78 Resp: 16 MEDICATION ALLERGIES: No Known Drug Allergies (NKDA) ENVIRONMENTAL ALLERGIES: None Known - Substance Allergies None Known - Other Allergies None Known NURSING: - Shower allowing shower - Skin care per protocol PRECAUTIONS: - Posterior Hip Precaution No adduction across midline No external rotation No hip flexion >90 degrees No internal rotation No wheel chair propulsion - Weight Bearing Precaution WBAT left LE ACTIVITIES OOB only with supervision THERAPIES: - Occupational Therapy Evaluate and Treat. - Physical Therapy Evaluate and Treat. PHYSICAL EXAM - Gen Alert and awake Lying in bed No apparent distress Oriented to: person, time, and place - Skin No skin breakdown. No abnormalities - Eyes No abnormalities - ENMT No abnormalities - Neck No abnormalities - CVS RRR - Chest No abnormalities - Abd +bowel sounds - GI Soft Deferred - No abnormalities - Ext Left hip surgical site has good hemostasis. - MSK 4+/5 weakness in left lower extremity - Neuro 4/5 strength left lower extremity. - Psych No abnormalities ASSESSMENT: Pt. is a 78 yo Right-handed white male.His impairment category is Orthopaedic Disorders 08 - Unilate ral Hip Fracture (08.11).Pre-morbidly, Pt. was independent/mod-I in Transfers Control, Communication, Social Cognition, Self-Care, Locomotion, and Sphincter Control; and he had good Sphincter Control.Cu rrently, he has deficits of Transfers Control, Balance, Locomotion, Endurance, Safety Awareness, and Self-Care.Pt. is now referred to [facility] for acute in-patient rehabilitatio n in order to maximize patient's functional independence in activities of daily living, strength, ROM , and mobility.- Rehab Goal Patient has realistic goal of being discharged at assistance level 6-Chuck to reside at Home with Fam sabina/Relatives. MDM/PLAN: - Physical Therapy Decreased range of motion - to improve, our physical therapists will perform initial evaluation of p t's status upon admission and devise an individualized program for increasing patient's Range of Jeff on. Gait dysfunction - to improve, our physical therapists will perform initial evaluation of pt's statu s upon admission and devise an individualized program for Gait Training, and Wheel Chair mobility Inability to transfer - to improve, our physical therapists will perform initial evaluation of pt's status upon admission and devise an individualized program for Bed mobility Need for home safety evaluation - to improve, our physical therapists will perform initial evaluatio n of pt's status upon admission and devise an individualized program for Home Evaluation Need in caregiver upon discharge - to improve, our physical therapists will perform initial evaluati on of pt's status upon admission and devise an individualized program for Caregiver Training New precaution - to improve, our physical therapists will perform initial evaluation of pt's status upon admission and devise an individualized program for Patient precaution education Poor balance - to improve, our physical therapists will perform initial evaluation of pt's status up on admission and devise an individualized program for Balance Training Poor endurance - to improve, our physical therapists will perform initial evaluation of pt's status upon admission and devise an individualized program for Endurance Training Weakness - to improve, our physical therapists will perform initial evaluation of pt's status upon a dmission and devise an individualized program for Aquatic Therapy, Neuromuscular Reeducation, and Str engthening Achieving independence - to improve, our physical therapists will perform initial evaluation of pt's status upon admission and devise an individualized program for Community Reintegration Activities - Occupational Therapy ADL deficits - to improve, our occupation therapists will perform initial evaluation of pt's status upon admission and devise an individualized program for Bathing, Bed mobility, Community Reintegratio n, Cooking, Dressing, Eating, Fine Motor Skills, Grooming, Homemaking, Kitchen Mobility, Laundry, Pat ient Education, Safety Awareness, Splinting - Positioning, Transfers(Toilet, Tub, Shower), and Wheel Chair Management Need for childcare aide - to improve, our occupation therapists will perform initial evaluation of pt's status upon admission and devise an individualized program for Caregiver Training Weakness - to improve, our occupation therapists will perform initial evaluation of pt's status upon admission and devise an individualized program for Aquatic Therapy, Balance, Endurance, UE ROM, and UE strengthening - Anterior Hip Precaution No abduction No active extension No adduction across midline No external rotation No hip flexion >90 degrees No internal rotation - Diet - Liquid Texture Continue Regular - Tube Feed Continue N/A - Diet Type Continue Regular - Posterior Hip Precaution No adduction across midline No external rotation No hip flexion >90 degrees No internal rotation No wheel chair propulsion - Weight Bearing Precaution WBAT left LE - Skin care per protocol - Diet - Solid Texture Continue Regular - Shower allowing shower FUNCTIONAL STATUS: UPDATED AT WEEKLY TEAM CONFERENCE - Bladder Same accident frequency: 7-Ind - No accidents in the past 7 days - Bowel Same accident frequency: 7-Ind - No accidents in the past 7 days - Walking Same score based on distance walked: 1(<=50ft) - Wheelchair Same score based on distance traveled: 0(N/A) FUNCTIONAL STATUS: - Self-Care A. Eating Ind B. Grooming sup C. Bathing sup D. Dressing - Upper sup E. Dressing - Lower Rita F. Toileting sup - Sphincter Control G: Bladder control Ind H: Bowel control Ind - Transfers Control I. Bed/Chair/Wheelchair Rita J. Toilet Rita K. Tub/Shower ADNO - Locomotion L. Walk/Wheelchair (C) Rita L. Walk/Wheelchair (W) Rita M. Stairs ADNO - Communication N. Comprehension (B) Ind O. Expression (B) Ind - Social Cognition P. Social Interaction Ind Q. Problem Solving Ind R. Memory Ind - Endurance Fair - Balance Fair - Safety Awareness Fair CURRENT FUNC. 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
[2018-06-01] MEDS: NEPRO SHAKE 237 ML CAN PO SCH (21:08)
[2018-06-01] MEDS: SUCCINATE PO SCH ×2 (21:09)
[2018-06-01] MEDS: PROMOD 30 ML DOSE PO SCH (21:09)
[2018-06-01] MEDS: METOPROLOL PO SCH ×2 (21:09)
--- NOTE | 2018-06-01 23:01 | PN ---
Date of Progress Note: 06/01/2018 Subjective: The patient was seen this morning for followup. No new complaints, problems reported by him except some hiccups. Denies any trouble swallowing. No sore throat. Objective: Vital Signs: Reviewed. HEENT: Unremarkable. Lungs: Clear to auscultation. Heart: Sounds normal. Abdomen: Soft. Bowel sounds normal. No guarding, rigidity, tenderness, distention. Extremities: No leg edema. Laboratory Data: White count 7.4, hemoglobin 8.1, platelets 219. Sodium 147, potassium 3.6, chlorid e 106, bicarb 36, BUN 26, creatinine 3.70, glucose 83. Impression: 1.Left hip fracture. 2.Anemia due to chronic kidney disease. 3.End-stage renal disease, on hemodialysis. 4.Hypertension. 5.Chronic steroid therapy. 6.Clostridium difficile colitis. Plan: We will go ahead and continue to follow with egg producer for dialysis support. physical therapy instructor apy will be provided under guidance of Dr. Johnson. Continue vancomycin, continue steroid therapy, and continue Mycelex. I will see him tomorrow for followup. PAULA/MODL Voice ID: [id number] Report ID: [id number]
[2018-06-02] MEDS: VANCOMYCIN ORAL SOLN 250 MG/5 ML OSYR PO SCH ×2 (00:14→09:39)
--- NOTE | 2018-06-02 01:23 | FAST ---
SHIFT START DATE/TIME: 06/01/2018 19:00 (SPA DIRECTOR/FINANCE) SHIFT END DATE/TIME: 06/02/2018 07:00 (SPA DIRECTOR/FINANCE) NAME KRIS MARQUEZ DATE OF : 1940 DATE OF ADMISSION: 05/31/2018 17:15 (SPA DIRECTOR/FINANCE) PHONE: AGE: 78 SSN# [id number] GENDER: Male ENCOUNTER PHYSICIAN: Dr. Saulo Johnson M.D. ADMISSION DIAGNOSIS: - Orthopaedic Disorders 08 - Unilateral Hip Fracture (08.11) LEFT HIP FRACTURE. EATING: Activity did not occur on this shift EATING - SCORE: 0-UNK GROOMING: Activity did not occur on this shift GROOMING - SCORE: 0-UNK BATHING: Activity did not occur on this shift BATHING - SCORE: 0-UNK DRESSING - UPPER BODY: Patient is not dressing in public clothing ARTICLES SCORE Total number of steps: 0 DRESSING - UPPER BODY - SCORE: 0-UNK DRESSING - LOWER BODY: Patient is not dressing in public clothing ARTICLES SCORE Total number of steps: 0 DRESSING - LOWER BODY - SCORE: 0-UNK TOILETING: Activity did not occur on this shift TOILETING - SCORE: 0-UNK BLADDER MANAGEMENT: Patient is on renal dialysis or peritoneal dialysis and no voiding activity BLADDER MANAGEMENT - SCORE: 7-IND BOWEL MANAGEMENT: Activity did not occur on this shift BOWEL MANAGEMENT - SCORE: 7-IND TRANSFERS: BED, CHAIR, WHEELCHAIR: Activity did not occur on this shift TRANSFERS: BED, CHAIR, WHEELCHAIR - SCORE: 0-UNK TRANSFERS: TOILET: Activity did not occur on this shift TRANSFERS: TOILET - SCORE: 0-UNK TRANSFERS: SHOWER: Activity did not occur on this shift TRANSFERS: SHOWER - SCORE: 0-UNK TRANSFERS: TUB: Activity did not occur on this shift TRANSFERS: TUB - SCORE: 0-UNK LOCOMOTION: WALK: Activity did not occur on this shift LOCOMOTION: WALK - SCORE: 0-UNK LOCOMOTION: WHEELCHAIR: Activity did not occur on this shift LOCOMOTION: WHEELCHAIR - SCORE: 0-UNK COMPREHENSION: COMPREHENSION: TYPE: Both COMPREHENSION - STEP 1: Does the patient require help from a person or device, or need extra time to understand complex and a bstract ideas (such as current events, finances, discharge planning, medical issues, relationships, e tc)? No. COMPREHENSION - STEP 2: Does the patient need extra time, require an assistive device (such as glasses for visual comprehensi on or a hearing aid for auditory comprehension) or does s/he have mild difficulty understanding compl ex and abstract information? Yes. COMPREHENSION - SCORE: 6-DAWN EXPRESSION EXPRESSION: TYPE: Both EXPRESSION - STEP 1: Does the patient require help from a person or device, or need extra time expressing complex and abst ract ideas (such as current events, finances, discharge planning, medical issues, relationships, etc) ? No. EXPRESSION - STEP 2: Does the patient need extra time, require an assistive device (such as augmentive communication syste m or a communication board), OR does s/he have mild difficulty expressing complex and abstract ideas (including mild dysarthria or mild word-find problems)? No. EXPRESSION - SCORE: 7-IND SOCIAL INTERACTION: SOCIAL INTERACTION - STEP 1: Does the patient require a helper to interact with others in social and therapeutic situations? No. SOCIAL INTERACTION - STEP 2: Does the patient need extra time in social situations, OR does s/he interact with staff, other patien ts, and family members ONLY in structured environments, OR does s/he require medication for social in teraction? Yes, patient needs extra time SOCIAL INTERACTION - SCORE: 6-DAWN PROBLEM SOLVING: PROBLEM SOLVING - STEP 1: Does the patient need help from a person or device, or need extra time to solve complex problems such as managing a checking account or confronting interpersonal problems? No. PROBLEM SOLVING - STEP 2: Does the patient require extra time to make decisions or solve problems, OR does s/he have slight dif ficulty reading, initiating, or self-correcting in unfamiliar situations? Yes, patient needs extra ti me. PROBLEM SOLVING - SCORE: 6-DAWN MEMORY: MEMORY - STEP 1: Does the patient need help from a person or device, or need extra time to remember frequently encount ered people, daily routines, and executing requests? No. MEMORY - STEP 2: Does the patient have slight difficulty recognizing frequently encountered people, daily routines, or executing requests without the need for repetition or using self-initiated or environmental cues to remember? Yes. MEMORY - SCORE: 6-DAWN SIGNATURE PANEL: The following modified sections: Eating - Score, Grooming - Score, Dressing - Upper Body - Score, Timbo ssing - Lower Body - Score, Toileting - Score, Bladder Management - Score, Bowel Management - Score, Transfers: Bed, Chair, Wheelchair - Score, Transfers: Toilet - Score, Transfers: Shower - Score, Harris sfers: Tub - Score, Locomotion: Walk - Score, Locomotion: Wheelchair - Score, Comprehension - Score, Expression - Score, Social Interaction - Score, Problem Solving - Score, Memory - Score were [electro nically] signed by Jasmina Pemberton CNA on TueJun 02 2018 01:22:56 GMT-0600 (Central Standard Time)
[2018-06-02] MEDS: AMLODIPINE 10 MG PO SCH (08:00)
[2018-06-02] MEDS: HYDRALAZINE 10MG TABLET PO SCH ×2 (08:00→20:49)
[2018-06-02] MEDS: CLOTRIMAZOLE 10 MG TROCHE PO SCH ×4 (09:00→21:54)
[2018-06-02] MEDS: SUCRALFATE 1GM/10ML UCUP PO SCH ×5 (09:00→20:47)
[2018-06-02] MEDS: FERROUS SULFATE 325 MG TAB PO SCH ×2 (09:27→20:47)
[2018-06-02] MEDS: FE SULF/FA/VIT B COMP & C TAB PO SCH (09:27)
[2018-06-02] MEDS: POLYETHYL GLY 3350 17 GM/DOSE PO SCH (09:27)
[2018-06-02] MEDS: CALCIUM ACETATE 667 MG PO SCH ×3 (09:30→16:31)
[2018-06-02] MEDS: predniSONE 10 MG TAB PO SCH (09:31)
[2018-06-02] MEDS: COMBIGAN OPTH SCH ×2 (09:32→20:00)
[2018-06-02] MEDS: EYE OPTH SCH ×2 (09:32→20:00)
[2018-06-02] MEDS: [UNRECOGNIZED DRUG - OTHER] PO SCH ×2 (09:33→20:51)
[2018-06-02] MEDS: HEPARIN 5000 UNIT/ML 1 ML VIAL SQ SCH ×2 (09:33→20:00)
[2018-06-02] MEDS: PROMOD 30 ML DOSE PO SCH ×2 (09:34→20:53)
[2018-06-02] MEDS: NEPRO SHAKE 237 ML CAN PO SCH ×2 (09:34→20:53)
--- NOTE | 2018-06-02 09:42 | P.RH.PN ---
Estimated Length of Stay: 14 Expected Discharge Date: 06/14/18 Discharge Disposition Plan: Home Family Support: Yes Alf Goal: Mobility, Transfers, Self Care Vital Signs: Last Vital Signs Temp 97.9 F 06/02/18 07:05 Pulse 62 06/02/18 07:05 Resp 18 06/02/18 07:05 BP 134/60 06/02/18 07:05 Pulse Ox 97 06/02/18 07:05 Laboratory: Laboratory Last Values WBC 7.4 K/uL (4.3-10.9) D 06/01/18 06:28 RBC 2.49 M/uL (4.33-5.43) L 06/01/18 06:28 Hgb 8.1 g/dL (13.6-17.9) L 06/01/18 06:28 Hct 24.7 % (39.6-49.0) L 06/01/18 06:28 MCV 99.0 fL (80-100) 06/01/18 06:28 MCH 32.4 pg (27.0-35.0) 06/01/18 06:28 MCHC 32.8 g/dL (32.0-36.0) 06/01/18 06:28 RDW 14.5 % (12.1-15.2) 06/01/18 06:28 Plt Count 219 K/uL (152-406) 06/01/18 06:28 MPV 8.1 fL (7.6-11.3) 06/01/18 06:28 Neutrophils % 71.9 % (41.7-73.7) 06/01/18 06:28 Lymphocytes % 14.9 % (15.3-44.8) L 06/01/18 06:28 Monocytes % 10.0 % (3.3-12.3) 06/01/18 06:28 Eosinophils % 3.1 % (0-4.4) 06/01/18 06:28 Basophils % 0.1 % (0-1.3) 06/01/18 06:28 Absolute Neutrophils 5.3 K/uL (1.8-8.0) 06/01/18 06:28 Absolute Lymphocytes 1.1 K/uL (0.7-4.9) 06/01/18 06:28 Absolute Monocytes 0.7 K/uL (0.1-1.3) 06/01/18 06:28 Absolute Eosinophils 0.2 K/uL (0-0.5) 06/01/18 06:28 Absolute Basophils 0.0 K/uL (0-0.5) 06/01/18 06:28 Morphology Comment Not seen (NOT SEEN) 06/01/18 06:28 Sodium 147 mmol/L (136-145) H 06/01/18 06:28 Potassium 3.6 mmol/L (3.5-5.1) 06/01/18 06:28 Chloride 106 mmol/L (98-107) 06/01/18 06:28 Carbon Dioxide 36 mmol/L (21-32) H 06/01/18 06:28 BUN 26 mg/dL (7-18) H 06/01/18 06:28 Creatinine 3.70 mg/dL (0.55-1.3) H 06/01/18 06:28 Estimated GFR 16 mL/min (=/>90) L 06/01/18 06:28 Glucose 83 mg/dL (74-106) 06/01/18 06:28 Calcium 7.7 mg/dL (8.5-10.1) L 06/01/18 06:28 Magnesium 2.0 mg/dL (1.8-2.4) 06/01/18 06:28 Albumin 1.9 g/dL (3.4-5.0) L 06/01/18 06:28 Prealbumin 25.7 mg/dL (20-40) 06/01/18 06:28 Weight: 157 lb 9 oz Wound Present: Yes Closed Surgical Incision Present: Yes Negative Pressure Wound Therapy Present: No Physician Update: His Hgb is 8.1. He is followed by the renal serviceand will get 1 unit of blood with hemodialysis if the Hgb drops further. He had a good bowel movement after 5 days. His blood pressures today are in the 130 SBP. He requires moderate assistance to stand and he is contact guard to ambulate. Medication Issues: DVT - heaprin 5,000 unit Q12H SQ Pain Issues: [place] 7.5mg/325mg Q4H PRN Summary: Patient's care plan and fpc goals have been reviewed and revised as necessary. Please see the Rehabilitation Signature page for all necessary signatures.
[2018-06-02 10:15] LABS: Absolute Lymphocytes (CBC) 1.5 K/uL (0.7-4.9); Absolute Monocytes 0.9 K/uL (0.1-1.3); Absolute Neutrophil 7.8 K/uL (1.8-8.0); Basophils % 0.3 % (0-1.3); Hematocrit 27.7 % (39.6-49.0); Lymphocytes % 14.4 % (15.3-44.8); MCH 32.9 pg (27.0-35.0); MCV 98.8 fL (80-100); MPV 8.5 fL (7.6-11.3); Monocytes % 8.6 % (3.3-12.3)
--- NOTE | 2018-06-02 10:34 | P.PN ---
Subjective Date of Service: 06/02/18 Chief Complaint: S/P Hip fracture to Cont Physical therapy No new [id number] HD today had asymptomatic orthostatic hypotension Will hold Amlodipine Cont prednsione Physical Examination - Vital Signs Temperature: 97.9 F Blood Pressure: 134/60 Pulse: 62 Respirations: 18 Pulse Ox (%): 97 - Physical Exam General: Oriented x3 HEENT: Atraumatic Neck: Supple Respiratory: Clear to auscultation bilaterally, Normal air movement Cardiovascular: No edema, Normal S1 S2, No rubs, No murmurs - Studies Laboratory Data (last 24 hrs) 06/02/18 09:56: WBC 10.4 D, Hgb 9.2 L, Hct 27.7 L, Plt Count 283 D Assessment And Plan - Current Problems (Diagnosis) (1) History of steroid therapy Onset Date: 09/08/17 Current Visit: No Status: Chronic (2) Hypertension Onset Date: 09/08/17 Current Visit: No Status: Chronic (3) Paroxysmal atrial fibrillation Onset Date: 09/08/17 Current Visit: No Status: Chronic - Plan This an 78-year-old male with significant past medical history of COPD, mycobacterium infection, hyperlipidemia, end-stage renal disease, on hemodialysis, Tuesday, Tuesday, Tuesday through left arm AV fistula at [facility]. This pt was admitted for Hip fracture S/P surgical intervention, hospital course complicated by C.diff and hypoglycemia now transferred to [facility] PT no pain, headache, chest pain, palpitation Diarrhea resolved no Abd pain 1.End-stage renal disease. will cont HD MWF renal dose all meds 2.Hypertension, Pt with asymptomatic orthostatic hyportension Will dc Amlodipine will cont prednsione 3.Steroid-dependent adrenal insufficiency. We will discontinue hydrocortisone and place the patient back on oral 10 in the morning, 5 at night with plan to taper back to his outpatient regimen which is 10 mg daily. 4.Clostridium difficile colitis. Diarrhea resolved Continue vancomycin. 5.Hip fracture, status post repair. Continue PT/OT.
--- NOTE | 2018-06-02 11:22 | FAST ---
ENCOUNTER DATE AND TIME: 06/02/2018 08:00 (COORDINATE MEASURING EQUIPMENT OPERATOR) NAME KRIS MARQUEZ DATE OF : 1940 DATE OF ADMISSION: 05/31/2018 17:15 (COORDINATE MEASURING EQUIPMENT OPERATOR) PHONE: AGE: 78 SSN# [id number] GENDER: Male ENCOUNTER PHYSICIAN: Dr. Saulo Johnson M.D. ADMISSION DIAGNOSIS: - Orthopaedic Disorders 08 - Unilateral Hip Fracture (08.11) LEFT HIP FRACTURE. EATING: Activity did not occur on this shift EATING - SCORE: 0-UNK GROOMING: Activity did not occur on this shift GROOMING - SCORE: 0-UNK BATHING: Abdomen Chest Left arm Left lower leg and foot Left upper leg Perineal area Right arm Right lower leg and foot Right upper leg BATHING - STEP 1: Does the patient require the assistance of a person or device, or need extra time when bathing? Yes. BATHING - STEP 2: Does the patient require the assistance of a helper? Yes. BATHING - STEP 3: How much assistance does the patient require from the helper? Only incidental help such as placement of a wash cloth in his/her hand a few times as s/he bathes OR help to bathe just one or two areas of the body BATHING - SCORE: 4-MIN BATHING - COMMENTS: LH sponge DRESSING - UPPER BODY: T-shirt/pullover shirt (four steps) ARTICLES SCORE Total number of steps: 4 DRESSING - UPPER BODY - STEP 1: Does the patient require help from a person or device, or need extra time when dressing above the [address]? Yes. DRESSING - UPPER BODY - STEP 2: Does the patient require the assistance of a helper? No. Patient only requires an assistive device, s uch as a button hook, velcro, or security and compliance project manager. OR s/he takes more than reasonable time as s/he dresses the upper body. OR there is a concern for safety when s/he dresses the upper body DRESSING - UPPER BODY - SCORE: 6-DAWN DRESSING - LOWER BODY: Elastic waist pants (three steps) Sock - Left foot (one step) Sock - Right foot (one step) Underwear (three steps) ARTICLES SCORE Total number of steps: 8 DRESSING - LOWER BODY - STEP 1: Does the patient require help from a person or device, or need extra time when dressing below the [address]? Yes. DRESSING - LOWER BODY - STEP 2: Does the patient require the assistance of a helper? Yes. DRESSING - LOWER BODY - STEP 3: Does the helper touch the patient while dressing? Yes. DRESSING - LOWER BODY - STEP 4: How many of the total steps does the patient complete on his/her own? 4 DRESSING - LOWER BODY - SCORE: 3-MOD TOILETING: Activity did not occur on this shift TOILETING - SCORE: 0-UNK BLADDER MANAGEMENT: Activity did not occur on this shift BLADDER MANAGEMENT - SCORE: 7-IND BOWEL MANAGEMENT: Activity did not occur on this shift BOWEL MANAGEMENT - SCORE: 7-IND TRANSFERS: BED, CHAIR, WHEELCHAIR: TRANSFERS: BED, CHAIR, WHEELCHAIR - STEP 1: Does the patient require assitance of a person or device, or need extra time with bed, chair, or whee lchair transfers? Yes. TRANSFERS: BED, CHAIR, WHEELCHAIR - STEP 2: Does the patient require the assistance of a helper? Yes. TRANSFERS: BED, CHAIR, WHEELCHAIR - STEP 3: How much assistance does the patient require from the helper? Lifting of the legs TRANSFERS: BED, CHAIR, WHEELCHAIR - STEP 4: How many legs does the patient require the helper to lift? one leg TRANSFERS: BED, CHAIR, WHEELCHAIR - SCORE: 4-MIN TRANSFERS: TOILET: Activity did not occur on this shift TRANSFERS: TOILET - SCORE: 0-UNK TRANSFERS: SHOWER: TRANSFERS: SHOWER - STEP 1: Does the patient require the assistance of a person or device, or need extra time with shower transfe rs? Yes. TRANSFERS: SHOWER - STEP 2: Does the patient require the assistance of a helper? Yes. TRANSFERS: SHOWER - STEP 3: How much assistance does the patient require from the helper? More than incidental help TRANSFERS: SHOWER - STEP 4: How much more help does the patient require from the helper? Lifting the patient either up OR down fr om the wheelchair onto the shower chair TRANSFERS: SHOWER - SCORE: 3-MOD TRANSFERS: TUB: Activity did not occur on this shift TRANSFERS: TUB - SCORE: 0-UNK LOCOMOTION: WALK: Activity did not occur on this shift LOCOMOTION: WALK - SCORE: 0-UNK LOCOMOTION: WHEELCHAIR: Activity did not occur on this shift LOCOMOTION: WHEELCHAIR - SCORE: 0-UNK LOCOMOTION: STAIRS: Activity did not occur on this shift LOCOMOTION: STAIRS - SCORE: 0-UNK COMPREHENSION: COMPREHENSION: TYPE: Both COMPREHENSION - STEP 1: Does the patient require help from a person or device, or need extra time to understand complex and a bstract ideas (such as current events, finances, discharge planning, medical issues, relationships, e tc)? No. COMPREHENSION - STEP 2: Does the patient need extra time, require an assistive device (such as glasses for visual comprehensi on or a hearing aid for auditory comprehension) or does s/he have mild difficulty understanding compl ex and abstract information? No. COMPREHENSION - SCORE: 7-IND EXPRESSION EXPRESSION: TYPE: Both EXPRESSION - STEP 1: Does the patient require help from a person or device, or need extra time expressing complex and abst ract ideas (such as current events, finances, discharge planning, medical issues, relationships, etc) ? No. EXPRESSION - STEP 2: Does the patient need extra time, require an assistive device (such as augmentive communication syste m or a communication board), OR does s/he have mild difficulty expressing complex and abstract ideas (including mild dysarthria or mild word-find problems)? No. EXPRESSION - SCORE: 7-IND SOCIAL INTERACTION: SOCIAL INTERACTION - STEP 1: Does the patient require a helper to interact with others in social and therapeutic situations? No. SOCIAL INTERACTION - STEP 2: Does the patient need extra time in social situations, OR does s/he interact with staff, other patien ts, and family members ONLY in structured environments, OR does s/he require medication for social in teraction? No. SOCIAL INTERACTION - SCORE: 7-IND PROBLEM SOLVING: PROBLEM SOLVING - STEP 1: Does the patient need help from a person or device, or need extra time to solve complex problems such as managing a checking account or confronting interpersonal problems? No. PROBLEM SOLVING - STEP 2: Does the patient require extra time to make decisions or solve problems, OR does s/he have slight dif ficulty reading, initiating, or self-correcting in unfamiliar situations? No. PROBLEM SOLVING - SCORE: 7-IND MEMORY: MEMORY - STEP 1: Does the patient need help from a person or device, or need extra time to remember frequently encount ered people, daily routines, and executing requests? No. MEMORY - STEP 2: Does the patient have slight difficulty recognizing frequently encountered people, daily routines, or executing requests without the need for repetition or using self-initiated or environmental cues to remember? No. MEMORY - SCORE: 7-IND SIGNATURE PANEL: The following modified sections: Eating - Score, Grooming - Score, Bathing - Score, Bathing - Comment s:, Dressing - Upper Body - Score, Dressing - Lower Body - Score, Toileting - Score, Transfers: Bed, Chair, Wheelchair - Score, Transfers: Toilet - Score, Transfers: Shower - Score, Transfers: Tub - Sco re, Comprehension - Score, Expression - Score, Social Interaction - Score, Problem Solving - Score, M elver - Score were [electronically] signed by ANGELA Oleary on TueJun 02 2018 11:20:51 T-060 0 (Central Standard Time)
[2018-06-02 13:04] LABS: Platelet Estimate ADEQ; Urine White Blood Cell Casts OK
[2018-06-02 13:05] LABS: Blood Morphology Comment NOT SEEN (NOT SEEN)
--- NOTE | 2018-06-02 14:00 | FAST ---
SHIFT START DATE/TIME: 06/02/2018 07:00 (WHITE SHOE RAGGER) SHIFT END DATE/TIME: 06/02/2018 19:00 (WHITE SHOE RAGGER) NAME KRIS MARQUEZ DATE OF : 1940 DATE OF ADMISSION: 05/31/2018 17:15 (WHITE SHOE RAGGER) PHONE: AGE: 78 N# [id number] GENDER: Male ENCOUNTER PHYSICIAN: Dr. Saulo Johnson M.D. ADMISSION DIAGNOSIS: - Orthopaedic Disorders 08 - Unilateral Hip Fracture (08.11) LEFT HIP FRACTURE. EATING: EATING - STEP 1: Does the patient require the assistance of a person or device, or need extra time when eating? Yes. EATING - STEP 2: Does the patient require the assistance of a helper? Yes. EATING - STEP 3: Does the patient perform half or more of the eating tasks? Yes. EATING - STEP 4: Does the patient need only supervision, cuing, coaxing OR help to apply an orthosis OR help to cut fo od, open containers, pour liquids, or butter bread? Yes. EATING - SCORE: 5-SUP GROOMING: Activity did not occur on this shift GROOMING - SCORE: 0-UNK BATHING: Activity did not occur on this shift BATHING - SCORE: 0-UNK DRESSING - UPPER BODY: Activity did not occur on this shift ARTICLES SCORE Total number of steps: 0 DRESSING - UPPER BODY - SCORE: 0-UNK DRESSING - LOWER BODY: Activity did not occur on this shift ARTICLES SCORE Total number of steps: 0 DRESSING - LOWER BODY - SCORE: 0-UNK TOILETING: Activity did not occur on this shift TOILETING - SCORE: 0-UNK BLADDER MANAGEMENT: Patient is on renal dialysis or peritoneal dialysis and no voiding activity BLADDER MANAGEMENT - SCORE: 7-IND BLADDER MANAGEMENT - FREQUENCY OF ACCIDENTS: BLADDER MANAGEMENT(FA) - STEP 1: How many accidents has the patient had during the current shift? 0 BOWEL MANAGEMENT: BOWEL MANAGEMENT - STEP 1: Does the patient control bowels completely and intentionally without equipment devices or medications AND is always continent? Yes. BOWEL MANAGEMENT - SCORE: 7-IND BOWEL MANAGEMENT - FREQUENCY OF ACCIDENTS: BOWEL MANAGEMENT(FA) - STEP 1: How many accidents has the patient had during the current shift? 0 TRANSFERS: BED, CHAIR, WHEELCHAIR: Activity did not occur on this shift TRANSFERS: BED, CHAIR, WHEELCHAIR - SCORE: 0-UNK TRANSFERS: TOILET: Activity did not occur on this shift TRANSFERS: TOILET - SCORE: 0-UNK TRANSFERS: SHOWER: Activity did not occur on this shift TRANSFERS: SHOWER - SCORE: 0-UNK TRANSFERS: TUB: Activity did not occur on this shift TRANSFERS: TUB - SCORE: 0-UNK LOCOMOTION: WALK: Activity did not occur on this shift LOCOMOTION: WALK - SCORE: 0-UNK LOCOMOTION: WHEELCHAIR: Activity did not occur on this shift LOCOMOTION: WHEELCHAIR - SCORE: 0-UNK COMPREHENSION: COMPREHENSION - SCORE: 0-UNK EXPRESSION EXPRESSION - SCORE: 0-UNK SOCIAL INTERACTION: SOCIAL INTERACTION - SCORE: 0-UNK PROBLEM SOLVING: PROBLEM SOLVING - SCORE: 0-UNK MEMORY: MEMORY - SCORE: 0-UNK SIGNATURE PANEL: The following modified sections: Eating - Score, Grooming - Score, Bathing - Score, Dressing - Upper Body - Score, Dressing - Lower Body - Score, Toileting - Score, Bladder Management - Score, Bowel Man agement - Score, Transfers: Bed, Chair, Wheelchair - Score, Transfers: Toilet - Score, Transfers: Meka wer - Score, Transfers: Tub - Score, Locomotion: Walk - Score, Locomotion: Wheelchair - Score, Compre hension - Score, Expression - Score, Social Interaction - Score, Problem Solving - Score, Memory - Sc ore were [electronically] signed by April Anaya CNA on TueJun 02 2018 14:00:01 GMT-0600 (Centra l Standard Time)
--- NOTE | 2018-06-02 15:22 | FAST ---
ENCOUNTER DATE AND TIME: 06/02/2018 08:00 (BASKETBALL COMMENTATOR) NAME KRIS MARQUEZ DATE OF : 1940 DATE OF ADMISSION: 05/31/2018 17:15 (BASKETBALL COMMENTATOR) PHONE: AGE: 78 N# [id number] GENDER: Male ENCOUNTER PHYSICIAN: Dr. Saulo Johnson M.D. ADMISSION DIAGNOSIS: - Orthopaedic Disorders 08 - Unilateral Hip Fracture (08.11) LEFT HIP FRACTURE. EATING: Activity did not occur on this shift EATING - SCORE: 0-UNK GROOMING: Activity did not occur on this shift GROOMING - SCORE: 0-UNK BATHING: Activity did not occur on this shift BATHING - SCORE: 0-UNK DRESSING - UPPER BODY: Activity did not occur on this shift Patient is not dressing in public clothing ARTICLES SCORE Total number of steps: 0 DRESSING - UPPER BODY - SCORE: 0-UNK DRESSING - LOWER BODY: Activity did not occur on this shift Patient is not dressing in public clothing ARTICLES SCORE Total number of steps: 0 DRESSING - LOWER BODY - SCORE: 0-UNK TOILETING: Activity did not occur on this shift TOILETING - SCORE: 0-UNK BLADDER MANAGEMENT: Activity did not occur on this shift BLADDER MANAGEMENT - SCORE: 7-IND BOWEL MANAGEMENT: Activity did not occur on this shift BOWEL MANAGEMENT - SCORE: 7-IND TRANSFERS: BED, CHAIR, WHEELCHAIR: TRANSFERS: BED, CHAIR, WHEELCHAIR - STEP 1: Does the patient require assitance of a person or device, or need extra time with bed, chair, or whee lchair transfers? Yes. TRANSFERS: BED, CHAIR, WHEELCHAIR - STEP 2: Does the patient require the assistance of a helper? Yes. TRANSFERS: BED, CHAIR, WHEELCHAIR - STEP 3: How much assistance does the patient require from the helper? Steadying/guiding assistance TRANSFERS: BED, CHAIR, WHEELCHAIR - SCORE: 4-MIN TRANSFERS: TOILET: Activity did not occur on this shift TRANSFERS: TOILET - SCORE: 0-UNK TRANSFERS: SHOWER: Activity did not occur on this shift TRANSFERS: SHOWER - SCORE: 0-UNK TRANSFERS: TUB: Activity did not occur on this shift TRANSFERS: TUB - SCORE: 0-UNK LOCOMOTION: WALK: LOCOMOTION: WALK - STEP 1: Does the patient need help from a person or device, or need extra time to walk 150 feet? Yes. LOCOMOTION: WALK - STEP 2: How much assistance does the patient require to walk a minimum of 150 feet? Only incidental help such as contact guarding or steadying LOCOMOTION: WALK - SCORE: 4-MIN LOCOMOTION: WHEELCHAIR: Activity did not occur on this shift LOCOMOTION: WHEELCHAIR - SCORE: 0-UNK LOCOMOTION: STAIRS: Activity did not occur on this shift LOCOMOTION: STAIRS - SCORE: 0-UNK COMPREHENSION: COMPREHENSION - SCORE: 0-UNK EXPRESSION EXPRESSION - SCORE: 0-UNK SOCIAL INTERACTION: SOCIAL INTERACTION - SCORE: 0-UNK PROBLEM SOLVING: PROBLEM SOLVING - SCORE: 0-UNK MEMORY: MEMORY - SCORE: 0-UNK SIGNATURE PANEL: The following modified sections: Transfers: Bed, Chair, Wheelchair - Score, Transfers: Toilet - Score , Locomotion: Walk - Score, Locomotion: Wheelchair - Score, Locomotion: Stairs - Score were [electron [email or web address]] signed by Poli Onofre PTA on TueJun 02 2018 15:20:35 GMT-0600 (Central Standard Time)
--- NOTE | 2018-06-02 20:35 | PN ---
Date of Progress Note: 06/02/2018 Subjective: The patient was seen this morning for followup. No new complaints or problems reported. He is feeling much better this morning compared to last few days, and he is looking a lot better al so. Denies any nausea or vomiting. Had a bowel movement since I saw him yesterday. Objective: Vital Signs: Reviewed. HEENT: Unremarkable. Lungs: Clear to auscultation. Heart: Sounds normal. Abdomen: Soft. Bowel sounds normal. No guarding, rigidity, tenderness, or distention. Extremities: No leg edema. Laboratory Data: White count 10.4, hemoglobin 9.2, platelets 283. Impression: 1.Clostridium difficile colitis. 2.Left hip fracture. 3.Anemia due to chronic kidney disease. 4.End-stage renal disease, on hemodialysis. 5.Chronic steroid therapy. 6.Oral candidiasis. 7.Candidal esophagitis. 8.Hypertension. Plan: We will go ahead and continue current medications. The patient is on full liquid diet. We wi ll advance it to renal diet. Continue his steroid therapy, and I will see him tomorrow for followup. Continue heparin for DVT prophylaxis. PAULA/MODL Voice ID: [id number] Report ID: [id number]
[2018-06-02] MEDS: AMIODARONE 200 MG PO SCH (20:50)
[2018-06-02] MEDS: SUCCINATE PO SCH (20:51)
[2018-06-02] MEDS: METOPROLOL PO SCH (20:51)
[2018-06-02] MEDS: predniSONE 5 MG TAB PO SCH (21:10)
[2018-06-02] MEDS ORDERED: CLOTRIMAZOLE 10 MG TROCHE ONE (21:37)
--- NOTE | 2018-06-03 02:13 | FAST ---
SHIFT START DATE/TIME: 06/02/2018 19:00 (STREET LIGHT REPAIRER) SHIFT END DATE/TIME: 06/03/2018 07:00 (STREET LIGHT REPAIRER) NAME KRIS MARQUEZ DATE OF : 1940 DATE OF ADMISSION: 05/31/2018 17:15 (STREET LIGHT REPAIRER) PHONE: AGE: 78 SSN# [id number] GENDER: Male ENCOUNTER PHYSICIAN: Dr. Saulo Johnson M.D. ADMISSION DIAGNOSIS: - Orthopaedic Disorders 08 - Unilateral Hip Fracture (08.11) LEFT HIP FRACTURE. EATING: Activity did not occur on this shift EATING - SCORE: 0-UNK GROOMING: Activity did not occur on this shift GROOMING - SCORE: 0-UNK BATHING: Activity did not occur on this shift BATHING - SCORE: 0-UNK DRESSING - UPPER BODY: Patient is not dressing in public clothing ARTICLES SCORE Total number of steps: 0 DRESSING - UPPER BODY - SCORE: 0-UNK DRESSING - LOWER BODY: Patient is not dressing in public clothing ARTICLES SCORE Total number of steps: 0 DRESSING - LOWER BODY - SCORE: 0-UNK TOILETING: Activity did not occur on this shift TOILETING - SCORE: 0-UNK BLADDER MANAGEMENT: Patient is on renal dialysis or peritoneal dialysis and no voiding activity BLADDER MANAGEMENT - SCORE: 7-IND BOWEL MANAGEMENT: Activity did not occur on this shift BOWEL MANAGEMENT - SCORE: 7-IND TRANSFERS: BED, CHAIR, WHEELCHAIR: Activity did not occur on this shift TRANSFERS: BED, CHAIR, WHEELCHAIR - SCORE: 0-UNK TRANSFERS: TOILET: Activity did not occur on this shift TRANSFERS: TOILET - SCORE: 0-UNK TRANSFERS: SHOWER: Activity did not occur on this shift TRANSFERS: SHOWER - SCORE: 0-UNK TRANSFERS: TUB: Activity did not occur on this shift TRANSFERS: TUB - SCORE: 0-UNK LOCOMOTION: WALK: Activity did not occur on this shift LOCOMOTION: WALK - SCORE: 0-UNK LOCOMOTION: WHEELCHAIR: Activity did not occur on this shift LOCOMOTION: WHEELCHAIR - SCORE: 0-UNK COMPREHENSION: COMPREHENSION: TYPE: Both COMPREHENSION - STEP 1: Does the patient require help from a person or device, or need extra time to understand complex and a bstract ideas (such as current events, finances, discharge planning, medical issues, relationships, e tc)? No. COMPREHENSION - STEP 2: Does the patient need extra time, require an assistive device (such as glasses for visual comprehensi on or a hearing aid for auditory comprehension) or does s/he have mild difficulty understanding compl ex and abstract information? Yes. COMPREHENSION - SCORE: 6-DAWN EXPRESSION EXPRESSION: TYPE: Both EXPRESSION - STEP 1: Does the patient require help from a person or device, or need extra time expressing complex and abst ract ideas (such as current events, finances, discharge planning, medical issues, relationships, etc) ? No. EXPRESSION - STEP 2: Does the patient need extra time, require an assistive device (such as augmentive communication syste m or a communication board), OR does s/he have mild difficulty expressing complex and abstract ideas (including mild dysarthria or mild word-find problems)? No. EXPRESSION - SCORE: 7-IND SOCIAL INTERACTION: SOCIAL INTERACTION - STEP 1: Does the patient require a helper to interact with others in social and therapeutic situations? No. SOCIAL INTERACTION - STEP 2: Does the patient need extra time in social situations, OR does s/he interact with staff, other patien ts, and family members ONLY in structured environments, OR does s/he require medication for social in teraction? Yes, patient needs extra time SOCIAL INTERACTION - SCORE: 6-DAWN PROBLEM SOLVING: PROBLEM SOLVING - STEP 1: Does the patient need help from a person or device, or need extra time to solve complex problems such as managing a checking account or confronting interpersonal problems? No. PROBLEM SOLVING - STEP 2: Does the patient require extra time to make decisions or solve problems, OR does s/he have slight dif ficulty reading, initiating, or self-correcting in unfamiliar situations? Yes, patient needs extra ti me. PROBLEM SOLVING - SCORE: 6-DAWN MEMORY: MEMORY - STEP 1: Does the patient need help from a person or device, or need extra time to remember frequently encount ered people, daily routines, and executing requests? No. MEMORY - STEP 2: Does the patient have slight difficulty recognizing frequently encountered people, daily routines, or executing requests without the need for repetition or using self-initiated or environmental cues to remember? Yes. MEMORY - SCORE: 6-DAWN
[2018-06-03] MEDS: HEPARIN 5000 UNIT/ML 1 ML VIAL SQ SCH ×2 (06:27→19:37)
[2018-06-03] MEDS: CALCIUM ACETATE 667 MG PO SCH ×3 (08:00→17:06)
[2018-06-03] MEDS: AMLODIPINE 10 MG PO SCH (08:00)
[2018-06-03] MEDS: HYDRALAZINE 10MG TABLET PO SCH ×2 (08:00→19:38)
[2018-06-03] MEDS: COMBIGAN OPTH SCH ×2 (08:33→19:38)
[2018-06-03] MEDS: FERROUS SULFATE 325 MG TAB PO SCH ×2 (08:33→19:37)
[2018-06-03] MEDS: FE SULF/FA/VIT B COMP & C TAB PO SCH (08:33)
[2018-06-03] MEDS: EYE OPTH SCH ×2 (08:33→19:38)
[2018-06-03] MEDS: predniSONE 10 MG TAB PO SCH (08:34)
[2018-06-03] MEDS: PROMOD 30 ML DOSE PO SCH ×2 (08:34→19:39)
[2018-06-03] MEDS: NEPRO SHAKE 237 ML CAN PO SCH ×2 (08:35→19:41)
[2018-06-03] MEDS: [UNRECOGNIZED DRUG - OTHER] PO SCH ×2 (08:36→19:38)
--- NOTE | 2018-06-03 08:36 | PN ---
Date of Progress Note: 06/03/2018 Subjective: The patient was seen this morning for followup. No new complaints or problems reported by him. No nausea. No vomiting. Has very minimum hiccups problem from time to time, but much wilmer r than before. Objective: Vital Signs: Reviewed. HEENT: Unremarkable. Lungs: Clear to auscultation. Heart: Sounds normal. Abdomen: Soft. Bowel sounds normal. No guarding, rigidity, tenderness, or distention. Extremities: No leg edema. Impression: 1.Left hip fracture. 2.Anemia due to chronic kidney disease. 3.End-stage renal disease, on hemodialysis. 4.Clostridium difficile colitis. 5.Chronic steroid therapy. 6.Oral candidiasis. 7.Candidal esophagitis. 8.Hypertension. Plan: We will go ahead and continue current medications. The patient is on chronic steroid therapy, prednisone currently 5 mg daily. We will continue that. We will also continue his other home medic ation. Dialysis support will be continued per fence installer foreman. The patient is getting heparin for DVT prophylaxis. We will continue that. PAULA/MODL Voice ID: [id number] Report ID: [id number]
[2018-06-03] MEDS: SUCRALFATE 1GM/10ML UCUP PO SCH ×4 (09:00→21:00)
[2018-06-03] MEDS: CLOTRIMAZOLE 10 MG TROCHE PO SCH ×4 (09:00→21:00)
--- NOTE | 2018-06-03 09:59 | FAST ---
SHIFT START DATE/TIME: 06/03/2018 07:00 (FILM PRODUCER) SHIFT END DATE/TIME: 06/03/2018 19:00 (FILM PRODUCER) NAME KRIS MARQUEZ DATE OF : 1940 DATE OF ADMISSION: 05/31/2018 17:15 (FILM PRODUCER) PHONE: AGE: 78 N# [id number] GENDER: Male ENCOUNTER PHYSICIAN: Dr. Saulo Johnson M.D. ADMISSION DIAGNOSIS: - Orthopaedic Disorders 08 - Unilateral Hip Fracture (08.11) LEFT HIP FRACTURE. EATING: EATING - STEP 1: Does the patient require the assistance of a person or device, or need extra time when eating? Yes. EATING - STEP 2: Does the patient require the assistance of a helper? Yes. EATING - STEP 3: Does the patient perform half or more of the eating tasks? Yes. EATING - STEP 4: Does the patient need only supervision, cuing, coaxing OR help to apply an orthosis OR help to cut fo od, open containers, pour liquids, or butter bread? Yes. EATING - SCORE: 5-SUP GROOMING: Activity did not occur on this shift GROOMING - SCORE: 0-UNK BATHING: Activity did not occur on this shift BATHING - SCORE: 0-UNK DRESSING - UPPER BODY: Activity did not occur on this shift ARTICLES SCORE Total number of steps: 0 DRESSING - UPPER BODY - SCORE: 0-UNK DRESSING - LOWER BODY: Activity did not occur on this shift ARTICLES SCORE Total number of steps: 0 DRESSING - LOWER BODY - SCORE: 0-UNK TOILETING: TOILETING - STEP 1: Does the patient require the assistance of a person or device, or need extra time with toileting? Yes . TOILETING - STEP 2: Does the patient require the assistance of a helper? Yes. TOILETING - STEP 3: How much assistance does the patient require from the helper? Hands-on assistance from the helper TOILETING - STEP 4: Of the 3 tasks: 1) Adjusting clothing prior to use, 2) Cleansing of perineal area, 3) Adjusting clot la after use; How many tasks does the patient perform WITHOUT assistance of the helper? Three tasks with steadying assistance from the helper TOILETING - SCORE: 4-MIN BLADDER MANAGEMENT: BLADDER MANAGEMENT - STEP 1: Does the patient control the bladder completely and intentionally without equipment or devices or med ications, and is always continent? No. BLADDER MANAGEMENT - STEP 2: Does the patient require the assistance of a helper? No, patient requires and independently uses an a ssistive device, such as a urinal, bedpan, bedside commode, catheter, absorbent pad, or collecting de vice BLADDER MANAGEMENT - SCORE: 6-DAWN BOWEL MANAGEMENT: BOWEL MANAGEMENT - STEP 1: Does the patient control bowels completely and intentionally without equipment devices or medications AND is always continent? No. BOWEL MANAGEMENT - STEP 2: Does the patient require the assistance of a helper? No, patient requires medication for control such as stool softeners, suppositories, laxatives, enemas, or OTC medications BOWEL MANAGEMENT - SCORE: 6-DAWN TRANSFERS: BED, CHAIR, WHEELCHAIR: TRANSFERS: BED, CHAIR, WHEELCHAIR - STEP 1: Does the patient require assitance of a person or device, or need extra time with bed, chair, or whee lchair transfers? Yes. TRANSFERS: BED, CHAIR, WHEELCHAIR - STEP 2: Does the patient require the assistance of a helper? Yes. TRANSFERS: BED, CHAIR, WHEELCHAIR - STEP 3: How much assistance does the patient require from the helper? Lifting of the patient TRANSFERS: BED, CHAIR, WHEELCHAIR - STEP 4: Does the helper lift the patient ONLY up? ONLY down? Up AND Down? ONLY up. TRANSFERS: BED, CHAIR, WHEELCHAIR - SCORE: 3-MOD TRANSFERS: TOILET: TRANSFERS: TOILET - STEP 1: Does the patient require the assistance of a person or device, or need extra time with toilet transfe rs? Yes. TRANSFERS: TOILET - STEP 2: Does the patient require the assistance of a helper? Yes. TRANSFERS: TOILET - STEP 3: How much assistance does the patient require from the helper? Patient performs half or more of the tr ansferring tasks TRANSFERS: TOILET - STEP 4: Does the patient need only incidental help such as contact guard or steadying during toilet transfer? Yes. TRANSFERS: TOILET - SCORE: 4-MIN TRANSFERS: SHOWER: Activity did not occur on this shift TRANSFERS: SHOWER - SCORE: 0-UNK TRANSFERS: TUB: Activity did not occur on this shift TRANSFERS: TUB - SCORE: 0-UNK LOCOMOTION: WALK: Activity did not occur on this shift LOCOMOTION: WALK - SCORE: 0-UNK LOCOMOTION: WHEELCHAIR: Activity did not occur on this shift LOCOMOTION: WHEELCHAIR - SCORE: 0-UNK COMPREHENSION: COMPREHENSION: TYPE: Both COMPREHENSION - STEP 1: Does the patient require help from a person or device, or need extra time to understand complex and a bstract ideas (such as current events, finances, discharge planning, medical issues, relationships, e tc)? No. COMPREHENSION - STEP 2: Does the patient need extra time, require an assistive device (such as glasses for visual comprehensi on or a hearing aid for auditory comprehension) or does s/he have mild difficulty understanding compl ex and abstract information? Yes. COMPREHENSION - SCORE: 6-DAWN EXPRESSION EXPRESSION: TYPE: Both EXPRESSION - STEP 1: Does the patient require help from a person or device, or need extra time expressing complex and abst ract ideas (such as current events, finances, discharge planning, medical issues, relationships, etc) ? No. EXPRESSION - STEP 2: Does the patient need extra time, require an assistive device (such as augmentive communication syste m or a communication board), OR does s/he have mild difficulty expressing complex and abstract ideas (including mild dysarthria or mild word-find problems)? Yes. EXPRESSION - SCORE: 6-DAWN SOCIAL INTERACTION: SOCIAL INTERACTION - STEP 1: Does the patient require a helper to interact with others in social and therapeutic situations? No. SOCIAL INTERACTION - STEP 2: Does the patient need extra time in social situations, OR does s/he interact with staff, other patien ts, and family members ONLY in structured environments, OR does s/he require medication for social in teraction? Yes, patient needs extra time SOCIAL INTERACTION - SCORE: 6-DAWN PROBLEM SOLVING: PROBLEM SOLVING - STEP 1: Does the patient need help from a person or device, or need extra time to solve complex problems such as managing a checking account or confronting interpersonal problems? No. PROBLEM SOLVING - STEP 2: Does the patient require extra time to make decisions or solve problems, OR does s/he have slight dif ficulty reading, initiating, or self-correcting in unfamiliar situations? Yes, patient needs extra ti me. PROBLEM SOLVING - SCORE: 6-DAWN MEMORY: MEMORY - STEP 1: Does the patient need help from a person or device, or need extra time to remember frequently encount ered people, daily routines, and executing requests? No. MEMORY - STEP 2: Does the patient have slight difficulty recognizing frequently encountered people, daily routines, or executing requests without the need for repetition or using self-initiated or environmental cues to remember? Yes. MEMORY - SCORE: 6-DAWN SIGNATURE PANEL: The following modified sections: Eating - Score, Grooming - Score, Bathing - Score, Dressing - Upper Body - Score, Dressing - Lower Body - Score, Toileting - Score, Bladder Management - Score, Bowel Man agement - Score, Transfers: Bed, Chair, Wheelchair - Score, Transfers: Toilet - Score, Transfers: Meka wer - Score, Transfers: Tub - Score, Locomotion: Walk - Score, Locomotion: Wheelchair - Score, Compre hension - Score, Expression - Score, Social Interaction - Score, Problem Solving - Score, Memory - Sc ore were [electronically] signed by Ran Bradshaw on Sat Jun 03 2018 09:59:01 GMT-0600 (Central Standard Time)
[2018-06-03] MEDS: predniSONE 5 MG TAB PO SCH (10:09)
[2018-06-03] MEDS: POLYETHYL GLY 3350 17 GM/DOSE PO SCH (10:09)
--- NOTE | 2018-06-03 16:55 | FAST ---
ENCOUNTER DATE AND TIME: 06/03/2018 08:00 (TANK CLEANING SUPERVISOR) NAME KRIS MARQUEZ DATE OF : 1940 DATE OF ADMISSION: 05/31/2018 17:15 (TANK CLEANING SUPERVISOR) PHONE: AGE: 78 SSN# [id number] GENDER: Male ENCOUNTER PHYSICIAN: Dr. Saulo Johnson M.D. ADMISSION DIAGNOSIS: - Orthopaedic Disorders 08 - Unilateral Hip Fracture (08.11) LEFT HIP FRACTURE. EATING: Activity did not occur on this shift EATING - SCORE: 0-UNK GROOMING: Activity did not occur on this shift GROOMING - SCORE: 0-UNK BATHING: Activity did not occur on this shift BATHING - SCORE: 0-UNK DRESSING - UPPER BODY: Activity did not occur on this shift ARTICLES SCORE Total number of steps: 0 DRESSING - UPPER BODY - SCORE: 0-UNK DRESSING - LOWER BODY: Elastic waist pants (three steps) Sock - Left foot (one step) Sock - Right foot (one step) ARTICLES SCORE Total number of steps: 5 DRESSING - LOWER BODY - STEP 1: Does the patient require help from a person or device, or need extra time when dressing below the brandon st? Yes. DRESSING - LOWER BODY - STEP 2: Does the patient require the assistance of a helper? Yes. DRESSING - LOWER BODY - STEP 3: Does the helper touch the patient while dressing? Yes. DRESSING - LOWER BODY - STEP 4: How many of the total steps does the patient complete on his/her own? 3 DRESSING - LOWER BODY - SCORE: 3-MOD TOILETING: Activity did not occur on this shift TOILETING - SCORE: 0-UNK BLADDER MANAGEMENT: Activity did not occur on this shift BLADDER MANAGEMENT - SCORE: 7-IND BOWEL MANAGEMENT: Activity did not occur on this shift BOWEL MANAGEMENT - SCORE: 7-IND TRANSFERS: BED, CHAIR, WHEELCHAIR: Activity did not occur on this shift TRANSFERS: BED, CHAIR, WHEELCHAIR - SCORE: 0-UNK TRANSFERS: TOILET: Activity did not occur on this shift TRANSFERS: TOILET - SCORE: 0-UNK TRANSFERS: SHOWER: Activity did not occur on this shift TRANSFERS: SHOWER - SCORE: 0-UNK TRANSFERS: TUB: Activity did not occur on this shift TRANSFERS: TUB - SCORE: 0-UNK LOCOMOTION: WALK: Activity did not occur on this shift LOCOMOTION: WALK - SCORE: 0-UNK LOCOMOTION: WHEELCHAIR: Activity did not occur on this shift LOCOMOTION: WHEELCHAIR - SCORE: 0-UNK LOCOMOTION: STAIRS: Activity did not occur on this shift LOCOMOTION: STAIRS - SCORE: 0-UNK COMPREHENSION: COMPREHENSION: TYPE: Both COMPREHENSION - STEP 1: Does the patient require help from a person or device, or need extra time to understand complex and a bstract ideas (such as current events, finances, discharge planning, medical issues, relationships, e tc)? No. COMPREHENSION - STEP 2: Does the patient need extra time, require an assistive device (such as glasses for visual comprehensi on or a hearing aid for auditory comprehension) or does s/he have mild difficulty understanding compl ex and abstract information? Yes. COMPREHENSION - SCORE: 6-DAWN EXPRESSION EXPRESSION: TYPE: Vocal EXPRESSION - STEP 1: Does the patient require help from a person or device, or need extra time expressing complex and abst ract ideas (such as current events, finances, discharge planning, medical issues, relationships, etc) ? No. EXPRESSION - STEP 2: Does the patient need extra time, require an assistive device (such as augmentive communication syste m or a communication board), OR does s/he have mild difficulty expressing complex and abstract ideas (including mild dysarthria or mild word-find problems)? No. EXPRESSION - SCORE: 7-IND SOCIAL INTERACTION: SOCIAL INTERACTION - STEP 1: Does the patient require a helper to interact with others in social and therapeutic situations? No. SOCIAL INTERACTION - STEP 2: Does the patient need extra time in social situations, OR does s/he interact with staff, other patien ts, and family members ONLY in structured environments, OR does s/he require medication for social in teraction? No. SOCIAL INTERACTION - SCORE: 7-IND PROBLEM SOLVING: PROBLEM SOLVING - STEP 1: Does the patient need help from a person or device, or need extra time to solve complex problems such as managing a checking account or confronting interpersonal problems? Yes. PROBLEM SOLVING - STEP 2: Does the patient solve basic routine problems half or more of the time? Yes. PROBLEM SOLVING - STEP 3: How often does the patient need help to solve basic routine problems? Less than 10% of the time PROBLEM SOLVING - SCORE: 5-SUP MEMORY: MEMORY - STEP 1: Does the patient need help from a person or device, or need extra time to remember frequently encount ered people, daily routines, and executing requests? No. MEMORY - STEP 2: Does the patient have slight difficulty recognizing frequently encountered people, daily routines, or executing requests without the need for repetition or using self-initiated or environmental cues to remember? Yes. MEMORY - SCORE: 6-DAWN SIGNATURE PANEL: The following modified sections: Eating - Score, Grooming - Score, Bathing - Score, Dressing - Upper Body - Score, Dressing - Lower Body - Score, Toileting - Score, Transfers: Bed, Chair, Wheelchair - S core, Transfers: Toilet - Score, Transfers: Shower - Score, Transfers: Tub - Score, Comprehension - S core, Expression - Score, Social Interaction - Score, Problem Solving - Score, Memory - Score were [e lectronically] signed by Leny Mcdonald OT on Sat Jun 03 2018 16:53:48 GMT-0600 (Central Standard Ti or)
[2018-06-03] MEDS: METOPROLOL PO SCH (19:38)
[2018-06-03] MEDS: SUCCINATE PO SCH (19:38)
[2018-06-03] MEDS: AMIODARONE 200 MG PO SCH (19:38)
--- NOTE | 2018-06-04 01:13 | PN ---
Date of Progress Note: 06/03/2018 Chief Complaint: End-stage renal disease. History Of Present Illness: The patient underwent dialysis yesterday. Today, the patient has episodes of orthostatic hypotension. I discussed case with nurse and plan is to reduce hydralazine dose to prevent orthostatic hypotension. The patient remains hemodynamically stable. Review of Systems: Denies fever, chills. Physical Examination: Lungs: Clear to auscultation bilaterally. Heart: S1, S2. Abdomen: Soft, benign, nontender. Extremities: No edema. Impression And Plan: 1. The patient is undergoing rehab after he sustained left hip fracture, underwent surgery during this admission. 2. Anemia due to chronic kidney disease. Monitor hemoglobin level and adjust JANI. 3. End-stage renal disease. Continue dialysis on Tuesday, Tuesday, Tuesday. The patient will stay on sodium diet and p.o. fluid restriction. 4. HTN. Monitor blood pressure, medication adjusted. Reevaluate blood pressure on current medications. ROBERT/WILFREDO Voice ID: [id number] Report ID: [id number] RUPESH
[2018-06-04] MEDS ORDERED: HOME MED 1 EA UNK PO SCH ×2 (08:00→10:07)
[2018-06-04] MEDS: HEPARIN 5000 UNIT/ML 1 ML VIAL SQ SCH ×2 (08:00→20:04)
[2018-06-04] MEDS: FERROUS SULFATE 325 MG TAB PO SCH ×2 (08:00→20:04)
[2018-06-04] MEDS: FE SULF/FA/VIT B COMP & C TAB PO SCH (08:00)
[2018-06-04] MEDS: POLYETHYL GLY 3350 17 GM/DOSE PO SCH (09:19)
[2018-06-04] MEDS: predniSONE 5 MG TAB PO SCH (09:19)
[2018-06-04] MEDS: EYE OPTH SCH ×2 (09:20→20:01)
[2018-06-04] MEDS: COMBIGAN OPTH SCH ×2 (09:20→20:01)
[2018-06-04] MEDS: CALCIUM ACETATE 667 MG PO SCH ×3 (09:20→16:59)
[2018-06-04] MEDS: predniSONE 10 MG TAB PO SCH (09:21)
[2018-06-04] MEDS: NORVASC 10 MG PO SCH (09:21)
[2018-06-04] MEDS: NEPRO SHAKE 237 ML CAN PO SCH ×2 (09:22→20:02)
[2018-06-04] MEDS: SUCRALFATE 1GM/10ML UCUP PO SCH ×4 (09:22→20:03)
[2018-06-04] MEDS: CLOTRIMAZOLE 10 MG TROCHE PO SCH ×4 (09:22→20:02)
[2018-06-04] MEDS: PROMOD 30 ML DOSE PO SCH ×2 (09:22→20:02)
[2018-06-04] MEDS: [UNRECOGNIZED DRUG - OTHER] PO SCH ×2 (09:22→20:01)
--- NOTE | 2018-06-04 09:31 | FAST ---
SHIFT START DATE/TIME: 06/04/2018 07:00 (DEVELOPMENTAL TRAINING COUNSELOR) SHIFT END DATE/TIME: 06/04/2018 19:00 (DEVELOPMENTAL TRAINING COUNSELOR) NAME KRIS MARQUEZ DATE OF : 1940 DATE OF ADMISSION: 05/31/2018 17:15 (DEVELOPMENTAL TRAINING COUNSELOR) PHONE: AGE: 78 N# [id number] GENDER: Male ENCOUNTER PHYSICIAN: Dr. Saulo Johnson M.D. ADMISSION DIAGNOSIS: - Orthopaedic Disorders 08 - Unilateral Hip Fracture (08.11) LEFT HIP FRACTURE. EATING: EATING - STEP 1: Does the patient require the assistance of a person or device, or need extra time when eating? Yes. EATING - STEP 2: Does the patient require the assistance of a helper? Yes. EATING - STEP 3: Does the patient perform half or more of the eating tasks? Yes. EATING - STEP 4: Does the patient need only supervision, cuing, coaxing OR help to apply an orthosis OR help to cut fo od, open containers, pour liquids, or butter bread? Yes. EATING - SCORE: 5-SUP GROOMING: Activity did not occur on this shift GROOMING - SCORE: 0-UNK BATHING: Activity did not occur on this shift BATHING - SCORE: 0-UNK DRESSING - UPPER BODY: Activity did not occur on this shift ARTICLES SCORE Total number of steps: 0 DRESSING - UPPER BODY - SCORE: 0-UNK DRESSING - LOWER BODY: Activity did not occur on this shift ARTICLES SCORE Total number of steps: 0 DRESSING - LOWER BODY - SCORE: 0-UNK TOILETING: TOILETING - STEP 1: Does the patient require the assistance of a person or device, or need extra time with toileting? Yes . TOILETING - STEP 2: Does the patient require the assistance of a helper? Yes. TOILETING - STEP 3: How much assistance does the patient require from the helper? Hands-on assistance from the helper TOILETING - STEP 4: Of the 3 tasks: 1) Adjusting clothing prior to use, 2) Cleansing of perineal area, 3) Adjusting clot la after use; How many tasks does the patient perform WITHOUT assistance of the helper? Three tasks with steadying assistance from the helper TOILETING - SCORE: 4-MIN BLADDER MANAGEMENT: BLADDER MANAGEMENT - STEP 1: Does the patient control the bladder completely and intentionally without equipment or devices or med ications, and is always continent? Yes. BLADDER MANAGEMENT - SCORE: 7-IND BOWEL MANAGEMENT: Activity did not occur on this shift BOWEL MANAGEMENT - SCORE: 7-IND TRANSFERS: BED, CHAIR, WHEELCHAIR: TRANSFERS: BED, CHAIR, WHEELCHAIR - STEP 1: Does the patient require assitance of a person or device, or need extra time with bed, chair, or whee lchair transfers? Yes. TRANSFERS: BED, CHAIR, WHEELCHAIR - STEP 2: Does the patient require the assistance of a helper? Yes. TRANSFERS: BED, CHAIR, WHEELCHAIR - STEP 3: How much assistance does the patient require from the helper? Steadying/guiding assistance TRANSFERS: BED, CHAIR, WHEELCHAIR - SCORE: 4-MIN TRANSFERS: TOILET: TRANSFERS: TOILET - STEP 1: Does the patient require the assistance of a person or device, or need extra time with toilet transfe rs? Yes. TRANSFERS: TOILET - STEP 2: Does the patient require the assistance of a helper? Yes. TRANSFERS: TOILET - STEP 3: How much assistance does the patient require from the helper? Patient performs half or more of the tr ansferring tasks TRANSFERS: TOILET - STEP 4: Does the patient need only incidental help such as contact guard or steadying during toilet transfer? Yes. TRANSFERS: TOILET - SCORE: 4-MIN TRANSFERS: SHOWER: Activity did not occur on this shift TRANSFERS: SHOWER - SCORE: 0-UNK TRANSFERS: TUB: Activity did not occur on this shift TRANSFERS: TUB - SCORE: 0-UNK LOCOMOTION: WALK: Activity did not occur on this shift LOCOMOTION: WALK - SCORE: 0-UNK LOCOMOTION: WHEELCHAIR: Activity did not occur on this shift LOCOMOTION: WHEELCHAIR - SCORE: 0-UNK COMPREHENSION: COMPREHENSION: TYPE: Both COMPREHENSION - STEP 1: Does the patient require help from a person or device, or need extra time to understand complex and a bstract ideas (such as current events, finances, discharge planning, medical issues, relationships, e tc)? No. COMPREHENSION - STEP 2: Does the patient need extra time, require an assistive device (such as glasses for visual comprehensi on or a hearing aid for auditory comprehension) or does s/he have mild difficulty understanding compl ex and abstract information? Yes. COMPREHENSION - SCORE: 6-DAWN EXPRESSION EXPRESSION: TYPE: Both EXPRESSION - STEP 1: Does the patient require help from a person or device, or need extra time expressing complex and abst ract ideas (such as current events, finances, discharge planning, medical issues, relationships, etc) ? No. EXPRESSION - STEP 2: Does the patient need extra time, require an assistive device (such as augmentive communication syste m or a communication board), OR does s/he have mild difficulty expressing complex and abstract ideas (including mild dysarthria or mild word-find problems)? Yes. EXPRESSION - SCORE: 6-DAWN SOCIAL INTERACTION: SOCIAL INTERACTION - STEP 1: Does the patient require a helper to interact with others in social and therapeutic situations? No. SOCIAL INTERACTION - STEP 2: Does the patient need extra time in social situations, OR does s/he interact with staff, other patien ts, and family members ONLY in structured environments, OR does s/he require medication for social in teraction? No. SOCIAL INTERACTION - SCORE: 7-IND PROBLEM SOLVING: PROBLEM SOLVING - STEP 1: Does the patient need help from a person or device, or need extra time to solve complex problems such as managing a checking account or confronting interpersonal problems? No. PROBLEM SOLVING - STEP 2: Does the patient require extra time to make decisions or solve problems, OR does s/he have slight dif ficulty reading, initiating, or self-correcting in unfamiliar situations? Yes, patient needs extra ti me. PROBLEM SOLVING - SCORE: 6-DAWN MEMORY: MEMORY - STEP 1: Does the patient need help from a person or device, or need extra time to remember frequently encount ered people, daily routines, and executing requests? No. MEMORY - STEP 2: Does the patient have slight difficulty recognizing frequently encountered people, daily routines, or executing requests without the need for repetition or using self-initiated or environmental cues to remember? No. MEMORY - SCORE: 7-IND SIGNATURE PANEL: The following modified sections: Eating - Score, Grooming - Score, Bathing - Score, Dressing - Upper Body - Score, Dressing - Lower Body - Score, Toileting - Score, Bladder Management - Score, Bowel Man agement - Score, Transfers: Bed, Chair, Wheelchair - Score, Transfers: Toilet - Score, Transfers: Meka wer - Score, Transfers: Tub - Score, Locomotion: Walk - Score, Locomotion: Wheelchair - Score, Expres radha - Score, Comprehension - Score, Social Interaction - Score, Problem Solving - Score, Memory - Sc ore were [electronically] signed by Ran Bradshaw on TueJun 04 2018 09:30:04 GMT-0600 (Central Standard Time)
[2018-06-04] MEDS ORDERED: HYDRALAZINE HCL 10 MG TABLET PO SCH (11:00)
--- NOTE | 2018-06-04 12:16 | PN ---
Date of Progress Note: 06/04/2018 Subjective: The patient was seen this morning for followup. No new complaints or problems reported except was complaining of some superficial ulcers inside lower lips. Does not have any trouble swall owing. Now feeling much better. Appetite is much better. He was sitting in the chair. Denied any other complaints. Objective: Vital Signs: Reviewed. HEENT: Unremarkable except 2 small superficial ulcers inside lower lips present. Lungs: Clear to auscultation. Heart: Sounds normal. Abdomen: Soft. Bowel sounds normal. No guarding, rigidity, tenderness, or distention. Extremities: No leg edema. Impression: 1.Aphthous ulcer. 2.End-stage renal disease, on hemodialysis. 3.Anemia due to chronic kidney disease. 4.Left hip fracture. 5.Clostridium difficile colitis. Plan: We will go ahead and have the patient use Orajel and the patient's family to bring it from out side and the patient was advised to use it 2-3 times a day, apply topically to his ulcer inside his l ip area. Continue other current medical management. I will see him tomorrow for followup. PAULA/MODYvan Voice ID: [id number] Report ID: [id number]
[2018-06-04] MEDS: HYDRALAZINE 10MG TABLET PO SCH (12:33)
[2018-06-04] MEDS: METOPROLOL PO SCH (20:01)
[2018-06-04] MEDS: SUCCINATE PO SCH (20:01)
[2018-06-04] MEDS: AMIODARONE 200 MG PO SCH (20:01)
--- NOTE | 2018-06-04 23:46 | PN ---
Date of Progress Note: 06/04/2018 Chief Complaint: End-stage renal disease, on dialysis. The patient is undergoing rehab. Review of Systems: Respiratory: The patient denies PND, orthopnea. Cardiovascular: Denies chest pain, palpitations. GI: Denies nausea, vomiting. Physical Examination: Lungs: Clear to auscultation bilaterally. Heart: S1, S2. Abdomen: Soft, benign. Extremities: No edema. Vital Signs: Blood pressure 136/70. Assessment And Plan: 1.Hypertension. Blood pressure improving and hydralazine dose was adjusted to prevent intradialytic hypertension and orthostatic hypotension. Monitor blood pressure closely. 2.Anemia in chronic kidney disease. Continue to monitor hemoglobin level. Adjust JANI. 3.Renal osteodystrophy. Continue renal diet and binders. EB/MODL Voice ID: [id number] Report ID: [id number]
--- NOTE | 2018-06-05 01:17 | FAST ---
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 Saulo Johnson M.D. ADMISSION DIAGNOSIS: - Orthopaedic Disorders 08 - Unilateral Hip Fracture (08.11) LEFT HIP FRACTURE. EATING: Activity did not occur on this shift EATING - SCORE: 0-UNK GROOMING: Activity did not occur on this shift GROOMING - SCORE: 0-UNK BATHING: Activity did not occur on this shift BATHING - SCORE: 0-UNK DRESSING - UPPER BODY: Patient is not dressing in public clothing ARTICLES SCORE Total number of steps: 0 DRESSING - UPPER BODY - SCORE: 0-UNK DRESSING - LOWER BODY: Patient is not dressing in public clothing ARTICLES SCORE Total number of steps: 0 DRESSING - LOWER BODY - SCORE: 0-UNK TOILETING: Activity did not occur on this shift TOILETING - SCORE: 0-UNK BLADDER MANAGEMENT: Patient is on renal dialysis or peritoneal dialysis and no voiding activity BLADDER MANAGEMENT - SCORE: 7-IND BOWEL MANAGEMENT: Activity did not occur on this shift BOWEL MANAGEMENT - SCORE: 7-IND TRANSFERS: BED, CHAIR, WHEELCHAIR: Activity did not occur on this shift TRANSFERS: BED, CHAIR, WHEELCHAIR - SCORE: 0-UNK TRANSFERS: TOILET: Activity did not occur on this shift TRANSFERS: TOILET - SCORE: 0-UNK TRANSFERS: SHOWER: Activity did not occur on this shift TRANSFERS: SHOWER - SCORE: 0-UNK TRANSFERS: TUB: Activity did not occur on this shift TRANSFERS: TUB - SCORE: 0-UNK LOCOMOTION: WALK: Activity did not occur on this shift LOCOMOTION: WALK - SCORE: 0-UNK LOCOMOTION: WHEELCHAIR: Activity did not occur on this shift LOCOMOTION: WHEELCHAIR - SCORE: 0-UNK COMPREHENSION: COMPREHENSION: TYPE: Both COMPREHENSION - STEP 1: Does the patient require help from a person or device, or need extra time to understand complex and a bstract ideas (such as current events, finances, discharge planning, medical issues, relationships, e tc)? No. COMPREHENSION - STEP 2: Does the patient need extra time, require an assistive device (such as glasses for visual comprehensi on or a hearing aid for auditory comprehension) or does s/he have mild difficulty understanding compl ex and abstract information? Yes. COMPREHENSION - SCORE: 6-DAWN EXPRESSION EXPRESSION: TYPE: Both EXPRESSION - STEP 1: Does the patient require help from a person or device, or need extra time expressing complex and abst ract ideas (such as current events, finances, discharge planning, medical issues, relationships, etc) ? No. EXPRESSION - STEP 2: Does the patient need extra time, require an assistive device (such as augmentive communication syste m or a communication board), OR does s/he have mild difficulty expressing complex and abstract ideas (including mild dysarthria or mild word-find problems)? No. EXPRESSION - SCORE: 7-IND SOCIAL INTERACTION: SOCIAL INTERACTION - STEP 1: Does the patient require a helper to interact with others in social and therapeutic situations? No. SOCIAL INTERACTION - STEP 2: Does the patient need extra time in social situations, OR does s/he interact with staff, other patien ts, and family members ONLY in structured environments, OR does s/he require medication for social in teraction? Yes, patient needs extra time SOCIAL INTERACTION - SCORE: 6-DAWN PROBLEM SOLVING: PROBLEM SOLVING - STEP 1: Does the patient need help from a person or device, or need extra time to solve complex problems such as managing a checking account or confronting interpersonal problems? No. PROBLEM SOLVING - STEP 2: Does the patient require extra time to make decisions or solve problems, OR does s/he have slight dif ficulty reading, initiating, or self-correcting in unfamiliar situations? Yes, patient needs extra ti me. PROBLEM SOLVING - SCORE: 6-DAWN MEMORY: MEMORY - STEP 1: Does the patient need help from a person or device, or need extra time to remember frequently encount ered people, daily routines, and executing requests? No. MEMORY - STEP 2: Does the patient have slight difficulty recognizing frequently encountered people, daily routines, or executing requests without the need for repetition or using self-initiated or environmental cues to remember? Yes. MEMORY - SCORE: 6-DAWN SIGNATURE PANEL: The following modified sections: Eating - Score, Grooming - Score, Dressing - Upper Body - Score, Timbo ssing - Lower Body - Score, Toileting - Score, Bladder Management - Score, Bowel Management - Score, Transfers: Bed, Chair, Wheelchair - Score, Transfers: Toilet - Score, Transfers: Shower - Score, Harris sfers: Tub - Score, Locomotion: Walk - Score, Locomotion: Wheelchair - Score, Comprehension - Score, Expression - Score, Social Interaction - Score, Problem Solving - Score, Memory - Score were [electro nically] signed by Jasmina Pemberton CNA on TueJun 05 2018 01:16:41 GMT-0600 (Central Standard Time)
[2018-06-05] MEDS: CALCIUM ACETATE 667 MG PO SCH ×3 (08:00→17:00)
[2018-06-05] MEDS: predniSONE 10 MG TAB PO SCH (08:00)
[2018-06-05] MEDS: NEPRO SHAKE 237 ML CAN PO SCH ×2 (08:00→21:01)
[2018-06-05] MEDS: PROMOD 30 ML DOSE PO SCH ×2 (08:00→21:01)
[2018-06-05] MEDS: HEPARIN 5000 UNIT/ML 1 ML VIAL SQ SCH ×2 (08:20→20:00)
[2018-06-05] MEDS: FE SULF/FA/VIT B COMP & C TAB PO SCH (08:20)
[2018-06-05] MEDS: FERROUS SULFATE 325 MG TAB PO SCH ×2 (08:21→20:58)
[2018-06-05] MEDS: POLYETHYL GLY 3350 17 GM/DOSE PO SCH (08:21)
[2018-06-05] MEDS: SUCRALFATE 1GM/10ML UCUP PO SCH ×4 (08:22→21:00)
[2018-06-05] MEDS: [UNRECOGNIZED DRUG - OTHER] PO SCH ×2 (08:22→21:00)
[2018-06-05] MEDS: predniSONE 5 MG TAB PO SCH (08:22)
[2018-06-05] MEDS: CLOTRIMAZOLE 10 MG TROCHE PO SCH ×4 (08:22→20:58)
[2018-06-05] MEDS: NORVASC 10 MG PO SCH (08:23)
[2018-06-05] MEDS: EYE OPTH SCH ×2 (08:26→21:00)
[2018-06-05] MEDS: COMBIGAN OPTH SCH ×2 (08:26→21:00)
--- NOTE | 2018-06-05 10:06 | FAST ---
SHIFT START DATE/TIME: 06/05/2018 07:00 (ROOMING HOUSE OPERATOR) SHIFT END DATE/TIME: 06/05/2018 19:00 (ROOMING HOUSE OPERATOR) NAME KRIS MARQUEZ DATE OF : 1940 DATE OF ADMISSION: 05/31/2018 17:15 (ROOMING HOUSE OPERATOR) PHONE: AGE: 78 N# [id number] GENDER: Male ENCOUNTER PHYSICIAN: Dr. Saulo Johnson M.D. ADMISSION DIAGNOSIS: - Orthopaedic Disorders 08 - Unilateral Hip Fracture (08.11) LEFT HIP FRACTURE. EATING: EATING - STEP 1: Does the patient require the assistance of a person or device, or need extra time when eating? Yes. EATING - STEP 2: Does the patient require the assistance of a helper? Yes. EATING - STEP 3: Does the patient perform half or more of the eating tasks? Yes. EATING - STEP 4: Does the patient need only supervision, cuing, coaxing OR help to apply an orthosis OR help to cut fo od, open containers, pour liquids, or butter bread? Yes. EATING - SCORE: 5-SUP GROOMING: Comb/brush hair Oral care GROOMING - STEP 1: Does the patient require the assistance of a person or device, or need extra time when grooming? Yes. GROOMING - STEP 2: Does the patient require the assistance of a helper? No. The patient only requires an assistive devic e, OR takes more than reasonable time to groom, OR there is a concern for safety as the patient groom s GROOMING - SCORE: 6-DAWN BATHING: Activity did not occur on this shift BATHING - SCORE: 0-UNK DRESSING - UPPER BODY: Activity did not occur on this shift ARTICLES SCORE Total number of steps: 0 DRESSING - UPPER BODY - SCORE: 0-UNK DRESSING - LOWER BODY: Activity did not occur on this shift ARTICLES SCORE Total number of steps: 0 DRESSING - LOWER BODY - SCORE: 0-UNK TOILETING: TOILETING - STEP 1: Does the patient require the assistance of a person or device, or need extra time with toileting? Yes . TOILETING - STEP 2: Does the patient require the assistance of a helper? Yes. TOILETING - STEP 3: How much assistance does the patient require from the helper? Hands-on assistance from the helper TOILETING - STEP 4: Of the 3 tasks: 1) Adjusting clothing prior to use, 2) Cleansing of perineal area, 3) Adjusting clot la after use; How many tasks does the patient perform WITHOUT assistance of the helper? Three tasks with steadying assistance from the helper TOILETING - SCORE: 4-MIN BLADDER MANAGEMENT: BLADDER MANAGEMENT - STEP 1: Does the patient control the bladder completely and intentionally without equipment or devices or med ications, and is always continent? No. BLADDER MANAGEMENT - STEP 2: Does the patient require the assistance of a helper? No, patient requires and independently uses an a ssistive device, such as a urinal, bedpan, bedside commode, catheter, absorbent pad, or collecting de vice BLADDER MANAGEMENT - SCORE: 6-DAWN BLADDER MANAGEMENT - FREQUENCY OF ACCIDENTS: BLADDER MANAGEMENT(FA) - STEP 1: How many accidents has the patient had during the current shift? 1 BOWEL MANAGEMENT: Activity did not occur on this shift BOWEL MANAGEMENT - SCORE: 7-IND TRANSFERS: BED, CHAIR, WHEELCHAIR: TRANSFERS: BED, CHAIR, WHEELCHAIR - STEP 1: Does the patient require assitance of a person or device, or need extra time with bed, chair, or whee lchair transfers? Yes. TRANSFERS: BED, CHAIR, WHEELCHAIR - STEP 2: Does the patient require the assistance of a helper? Yes. TRANSFERS: BED, CHAIR, WHEELCHAIR - STEP 3: How much assistance does the patient require from the helper? Steadying/guiding assistance TRANSFERS: BED, CHAIR, WHEELCHAIR - SCORE: 4-MIN TRANSFERS: TOILET: TRANSFERS: TOILET - STEP 1: Does the patient require the assistance of a person or device, or need extra time with toilet transfe rs? Yes. TRANSFERS: TOILET - STEP 2: Does the patient require the assistance of a helper? Yes. TRANSFERS: TOILET - STEP 3: How much assistance does the patient require from the helper? Patient performs half or more of the tr ansferring tasks TRANSFERS: TOILET - STEP 4: Does the patient need only incidental help such as contact guard or steadying during toilet transfer? Yes. TRANSFERS: TOILET - SCORE: 4-MIN TRANSFERS: SHOWER: Activity did not occur on this shift TRANSFERS: SHOWER - SCORE: 0-UNK TRANSFERS: TUB: Activity did not occur on this shift TRANSFERS: TUB - SCORE: 0-UNK LOCOMOTION: WALK: Activity did not occur on this shift LOCOMOTION: WALK - SCORE: 0-UNK LOCOMOTION: WHEELCHAIR: Activity did not occur on this shift LOCOMOTION: WHEELCHAIR - SCORE: 0-UNK COMPREHENSION: COMPREHENSION: TYPE: Both COMPREHENSION - STEP 1: Does the patient require help from a person or device, or need extra time to understand complex and a bstract ideas (such as current events, finances, discharge planning, medical issues, relationships, e tc)? No. COMPREHENSION - STEP 2: Does the patient need extra time, require an assistive device (such as glasses for visual comprehensi on or a hearing aid for auditory comprehension) or does s/he have mild difficulty understanding compl ex and abstract information? Yes. COMPREHENSION - SCORE: 6-DAWN EXPRESSION EXPRESSION: TYPE: Both EXPRESSION - STEP 1: Does the patient require help from a person or device, or need extra time expressing complex and abst ract ideas (such as current events, finances, discharge planning, medical issues, relationships, etc) ? No. EXPRESSION - STEP 2: Does the patient need extra time, require an assistive device (such as augmentive communication syste m or a communication board), OR does s/he have mild difficulty expressing complex and abstract ideas (including mild dysarthria or mild word-find problems)? Yes. EXPRESSION - SCORE: 6-DAWN SOCIAL INTERACTION: SOCIAL INTERACTION - STEP 1: Does the patient require a helper to interact with others in social and therapeutic situations? No. SOCIAL INTERACTION - STEP 2: Does the patient need extra time in social situations, OR does s/he interact with staff, other patien ts, and family members ONLY in structured environments, OR does s/he require medication for social in teraction? No. SOCIAL INTERACTION - SCORE: 7-IND PROBLEM SOLVING: PROBLEM SOLVING - STEP 1: Does the patient need help from a person or device, or need extra time to solve complex problems such as managing a checking account or confronting interpersonal problems? No. PROBLEM SOLVING - STEP 2: Does the patient require extra time to make decisions or solve problems, OR does s/he have slight dif ficulty reading, initiating, or self-correcting in unfamiliar situations? Yes, patient needs extra ti me. PROBLEM SOLVING - SCORE: 6-DAWN MEMORY: MEMORY - STEP 1: Does the patient need help from a person or device, or need extra time to remember frequently encount ered people, daily routines, and executing requests? No. MEMORY - STEP 2: Does the patient have slight difficulty recognizing frequently encountered people, daily routines, or executing requests without the need for repetition or using self-initiated or environmental cues to remember? Yes. MEMORY - SCORE: 6-DAWN SIGNATURE PANEL: The following modified sections: Eating - Score, Grooming - Score, Bathing - Score, Dressing - Upper Body - Score, Dressing - Lower Body - Score, Toileting - Score, Bladder Management - Score, Bowel Man agement - Score, Transfers: Bed, Chair, Wheelchair - Score, Transfers: Toilet - Score, Transfers: Meka wer - Score, Transfers: Tub - Score, Locomotion: Walk - Score, Locomotion: Wheelchair - Score, Compre hension - Score, Expression - Score, Social Interaction - Score, Problem Solving - Score, Memory - Sc ore were [electronically] signed by Ran Bradshaw on TueJun 05 2018 10:05:51 GMT-0600 (Central Standard Time)
[2018-06-05] MEDS: EPOETIN ALFA 10,000 UNIT/ML VIAL IV SCH (16:43)
--- NOTE | 2018-06-05 18:54 | R.PN ---
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 Pt denied any Shortness of Breath. Ambulated 450' with rolling walker and contact guard assistance. Self-propelled wheelchair 300' with standby assistance. VITAL SIGNS Temperature: 97.6 F SBP/DBP: 158/75 Pulse: 74 Resp: 16 MEDICATION ALLERGIES: No Known Drug Allergies (NKDA) ENVIRONMENTAL ALLERGIES: None Known - Substance Allergies None Known - Other Allergies None Known NURSING: - Shower allowing shower - Skin care per protocol PRECAUTIONS: - Posterior Hip Precaution No adduction across midline No external rotation No hip flexion >90 degrees No internal rotation No wheel chair propulsion - Weight Bearing Precaution WBAT left LE ACTIVITIES OOB only with supervision THERAPIES: - Occupational Therapy Evaluate and Treat. - Physical Therapy Evaluate and Treat. PHYSICAL EXAM - Gen Alert and awake Lying in bed No apparent distress Oriented to: person, time, and place - Skin No skin breakdown. No abnormalities - Eyes No abnormalities - ENMT No abnormalities - Neck No abnormalities - CVS RRR - Chest No abnormalities - Abd +bowel sounds - GI Soft Deferred - No abnormalities - Ext Left hip surgical site has good hemostasis. - MSK 4+/5 weakness in left lower extremity - Neuro 4/5 strength left lower extremity. - Psych No abnormalities ASSESSMENT: Pt. is a 78 yo Right-handed white male.His impairment category is Orthopaedic Disorders 08 - Unilate ral Hip Fracture (08.11).Pre-morbidly, Pt. was independent/mod-I in Transfers Control, Communication, Social Cognition, Self-Care, Locomotion, and Sphincter Control; and he had good Sphincter Control.Cu rrently, he has deficits of Transfers Control, Balance, Locomotion, Endurance, Safety Awareness, and Self-Care.Pt. is now referred to [facility] for acute in-patient rehabilitatio n in order to maximize patient's functional independence in activities of daily living, strength, ROM , and mobility.- Rehab Goal Patient has realistic goal of being discharged at assistance level 6-Chuck to reside at Home with Fam sabina/Relatives. MDM/PLAN: - Physical Therapy Decreased range of motion - to improve, our physical therapists will perform initial evaluation of p t's status upon admission and devise an individualized program for increasing patient's Range of Jeff on. Gait dysfunction - to improve, our physical therapists will perform initial evaluation of pt's statu s upon admission and devise an individualized program for Gait Training, and Wheel Chair mobility Inability to transfer - to improve, our physical therapists will perform initial evaluation of pt's status upon admission and devise an individualized program for Bed mobility Need for home safety evaluation - to improve, our physical therapists will perform initial evaluatio n of pt's status upon admission and devise an individualized program for Home Evaluation Need in caregiver upon discharge - to improve, our physical therapists will perform initial evaluati on of pt's status upon admission and devise an individualized program for Caregiver Training New precaution - to improve, our physical therapists will perform initial evaluation of pt's status upon admission and devise an individualized program for Patient precaution education Poor balance - to improve, our physical therapists will perform initial evaluation of pt's status up on admission and devise an individualized program for Balance Training Poor endurance - to improve, our physical therapists will perform initial evaluation of pt's status upon admission and devise an individualized program for Endurance Training Weakness - to improve, our physical therapists will perform initial evaluation of pt's status upon a dmission and devise an individualized program for Aquatic Therapy, Neuromuscular Reeducation, and Str engthening Achieving independence - to improve, our physical therapists will perform initial evaluation of pt's status upon admission and devise an individualized program for Community Reintegration Activities - Occupational Therapy ADL deficits - to improve, our occupation therapists will perform initial evaluation of pt's status upon admission and devise an individualized program for Bathing, Bed mobility, Community Reintegratio n, Cooking, Dressing, Eating, Fine Motor Skills, Grooming, Homemaking, Kitchen Mobility, Laundry, Pat ient Education, Safety Awareness, Splinting - Positioning, Transfers(Toilet, Tub, Shower), and Wheel Chair Management Need for care tech - to improve, our occupation therapists will perform initial evaluation of pt's status upon admission and devise an individualized program for Caregiver Training Weakness - to improve, our occupation therapists will perform initial evaluation of pt's status upon admission and devise an individualized program for Aquatic Therapy, Balance, Endurance, UE ROM, and UE strengthening - Anterior Hip Precaution No abduction No active extension No adduction across midline No external rotation No hip flexion >90 degrees No internal rotation - Diet - Liquid Texture Continue Regular - Tube Feed Continue N/A - Diet Type Continue Regular - Posterior Hip Precaution No adduction across midline No external rotation No hip flexion >90 degrees No internal rotation No wheel chair propulsion - Weight Bearing Precaution WBAT left LE - Skin care per protocol - Diet - Solid Texture Continue Regular - Shower allowing shower FUNCTIONAL STATUS: UPDATED AT WEEKLY TEAM CONFERENCE - Bladder Same accident frequency: 7-Ind - No accidents in the past 7 days - Bowel Same accident frequency: 7-Ind - No accidents in the past 7 days - Walking Same score based on distance walked: 1(<=50ft) - Wheelchair Same score based on distance traveled: 0(N/A) FUNCTIONAL STATUS: - Self-Care A. Eating Ind B. Grooming sup C. Bathing sup D. Dressing - Upper sup E. Dressing - Lower Rita F. Toileting sup - Sphincter Control G: Bladder control Ind H: Bowel control Ind - Transfers Control I. Bed/Chair/Wheelchair Rita J. Toilet Rita K. Tub/Shower ADNO - Locomotion L. Walk/Wheelchair (C) Rita L. Walk/Wheelchair (W) Rita M. Stairs ADNO - Communication N. Comprehension (B) Ind O. Expression (B) Ind - Social Cognition P. Social Interaction Ind Q. Problem Solving Ind R. Memory Ind - Endurance Fair - Balance Fair - Safety Awareness Fair CURRENT FUNC. DEFICITS: Transfers Control, Balance, Locomotion, Endurance, Safety Awareness, and Self-Care SIGNATURE PANEL: (BURIAL VAULT DELIVERER AND INSTALLER)
[2018-06-05] MEDS: AMIODARONE 200 MG PO SCH (21:07)
[2018-06-05] MEDS: METOPROLOL PO SCH (21:07)
[2018-06-05] MEDS: SUCCINATE PO SCH (21:07)
--- NOTE | 2018-06-06 02:05 | FAST ---
SHIFT START DATE/TIME: 06/05/2018 19:00 (GREASE PRESS HELPER) SHIFT END DATE/TIME: 06/06/2018 07:00 (GREASE PRESS HELPER) NAME KRIS MARQUEZ DATE OF : 1940 DATE OF ADMISSION: 05/31/2018 17:15 (GREASE PRESS HELPER) PHONE: AGE: 78 SSN# [id number] GENDER: Male ENCOUNTER PHYSICIAN: Dr. Saulo Johnson M.D. ADMISSION DIAGNOSIS: - Orthopaedic Disorders 08 - Unilateral Hip Fracture (08.11) LEFT HIP FRACTURE. EATING: Activity did not occur on this shift EATING - SCORE: 0-UNK GROOMING: Activity did not occur on this shift GROOMING - SCORE: 0-UNK BATHING: Activity did not occur on this shift BATHING - SCORE: 0-UNK DRESSING - UPPER BODY: Patient is not dressing in public clothing ARTICLES SCORE Total number of steps: 0 DRESSING - UPPER BODY - SCORE: 0-UNK DRESSING - LOWER BODY: Patient is not dressing in public clothing ARTICLES SCORE Total number of steps: 0 DRESSING - LOWER BODY - SCORE: 0-UNK TOILETING: Activity did not occur on this shift TOILETING - SCORE: 0-UNK BLADDER MANAGEMENT: Patient is on renal dialysis or peritoneal dialysis and no voiding activity BLADDER MANAGEMENT - SCORE: 7-IND BOWEL MANAGEMENT: Activity did not occur on this shift BOWEL MANAGEMENT - SCORE: 7-IND TRANSFERS: BED, CHAIR, WHEELCHAIR: Activity did not occur on this shift TRANSFERS: BED, CHAIR, WHEELCHAIR - SCORE: 0-UNK TRANSFERS: TOILET: Activity did not occur on this shift TRANSFERS: TOILET - SCORE: 0-UNK TRANSFERS: SHOWER: Activity did not occur on this shift TRANSFERS: SHOWER - SCORE: 0-UNK TRANSFERS: TUB: Activity did not occur on this shift TRANSFERS: TUB - SCORE: 0-UNK LOCOMOTION: WALK: Activity did not occur on this shift LOCOMOTION: WALK - SCORE: 0-UNK LOCOMOTION: WHEELCHAIR: Activity did not occur on this shift LOCOMOTION: WHEELCHAIR - SCORE: 0-UNK COMPREHENSION: COMPREHENSION: TYPE: Both COMPREHENSION - STEP 1: Does the patient require help from a person or device, or need extra time to understand complex and a bstract ideas (such as current events, finances, discharge planning, medical issues, relationships, e tc)? No. COMPREHENSION - STEP 2: Does the patient need extra time, require an assistive device (such as glasses for visual comprehensi on or a hearing aid for auditory comprehension) or does s/he have mild difficulty understanding compl ex and abstract information? Yes. COMPREHENSION - SCORE: 6-DAWN EXPRESSION EXPRESSION: TYPE: Both EXPRESSION - STEP 1: Does the patient require help from a person or device, or need extra time expressing complex and abst ract ideas (such as current events, finances, discharge planning, medical issues, relationships, etc) ? No. EXPRESSION - STEP 2: Does the patient need extra time, require an assistive device (such as augmentive communication syste m or a communication board), OR does s/he have mild difficulty expressing complex and abstract ideas (including mild dysarthria or mild word-find problems)? No. EXPRESSION - SCORE: 7-IND SOCIAL INTERACTION: SOCIAL INTERACTION - STEP 1: Does the patient require a helper to interact with others in social and therapeutic situations? No. SOCIAL INTERACTION - STEP 2: Does the patient need extra time in social situations, OR does s/he interact with staff, other patien ts, and family members ONLY in structured environments, OR does s/he require medication for social in teraction? Yes, patient needs extra time SOCIAL INTERACTION - SCORE: 6-DAWN PROBLEM SOLVING: PROBLEM SOLVING - STEP 1: Does the patient need help from a person or device, or need extra time to solve complex problems such as managing a checking account or confronting interpersonal problems? No. PROBLEM SOLVING - STEP 2: Does the patient require extra time to make decisions or solve problems, OR does s/he have slight dif ficulty reading, initiating, or self-correcting in unfamiliar situations? Yes, patient needs extra ti me. PROBLEM SOLVING - SCORE: 6-DAWN MEMORY: MEMORY - STEP 1: Does the patient need help from a person or device, or need extra time to remember frequently encount ered people, daily routines, and executing requests? No. MEMORY - STEP 2: Does the patient have slight difficulty recognizing frequently encountered people, daily routines, or executing requests without the need for repetition or using self-initiated or environmental cues to remember? Yes. MEMORY - SCORE: 6-DAWN SIGNATURE PANEL: The following modified sections: Eating - Score, Grooming - Score, Dressing - Upper Body - Score, Timbo ssing - Lower Body - Score, Toileting - Score, Bladder Management - Score, Bowel Management - Score, Transfers: Bed, Chair, Wheelchair - Score, Transfers: Toilet - Score, Transfers: Shower - Score, Harris sfers: Tub - Score, Locomotion: Walk - Score, Locomotion: Wheelchair - Score, Comprehension - Score, Expression - Score, Social Interaction - Score, Problem Solving - Score, Memory - Score were [electro nically] signed by Jasmina Pemberton CNA on TueJun 06 2018 02:04:21 GMT-0600 (Central Standard Time)
--- NOTE | 2018-06-06 02:11 | PN ---
Date of Progress Note: 06/05/2018 Subjective: The patient was seen this morning for followup. No new complaints or problems reported. Lying in bed. Not in distress. Objective: Vital Signs: Reviewed. HEENT: Unremarkable. Lungs: Clear to auscultation. Heart: Sounds normal. Abdomen: Soft. Bowel sounds normal. No guarding, rigidity, tenderness, or distention. Extremities: No leg edema. Impression: 1.Left hip fracture. 2.End-stage renal disease, on hemodialysis. 3.Anemia due to chronic kidney disease. 4.Hypertension. 5.Chronic steroid therapy. Plan: We will go ahead and continue current medication. Continue physical therapy under guidance of Dr. Johnson and dialysis per reproducer. I will see him tomorrow for followup. PAULA/MODL Voice ID: [id number] Report ID: [id number]
--- NOTE | 2018-06-06 04:12 | PN ---
Date of Progress Note: 06/05/2018 Chief Complaint: 1.End-stage renal disease, on dialysis 3 times per week on Mondays, Wednesdays, and Fridays. 2.Hypertension. Blood pressure controlled. 3.Renal osteodystrophy. The patient is taking binders and is on low-sodium diet to provide further improvement. Review of Systems: Denies fever, chills. Physical Examination: Lungs: Clear to auscultation bilaterally. Heart: S1, S2. Abdomen: Soft, benign, nontender. Extremities: No edema. Impression And Plan: 1.End-stage renal disease. Dialysis will be done with ultrafiltration to control fluid overload and provide metabolic clearance. 2.Hypertension. Blood pressure controlled. 3.Renal osteodystrophy. Continue renal diet and binders. 4.History of atrial fibrillation. Cardiology workup was done. ROBERT/WILFREDO Voice ID: [id number] Report ID: [id number]
[2018-06-06] MEDS: HEPARIN 5000 UNIT/ML 1 ML VIAL SQ SCH ×2 (07:33→21:16)
[2018-06-06] MEDS: ACETAMINOPHEN 160 MG/5 ML UCUP PO PRN (07:36)
[2018-06-06] MEDS: EYE OPTH SCH ×2 (07:39→20:44)
[2018-06-06] MEDS: [UNRECOGNIZED DRUG - OTHER] PO SCH ×2 (07:39→20:46)
[2018-06-06] MEDS: COMBIGAN OPTH SCH ×2 (07:39→20:44)
[2018-06-06] MEDS: CALCIUM ACETATE 667 MG PO SCH ×3 (07:39→17:25)
[2018-06-06] MEDS: predniSONE 10 MG TAB PO SCH (07:40)
[2018-06-06] MEDS: NORVASC 10 MG PO SCH (07:41)
[2018-06-06] MEDS: POLYETHYL GLY 3350 17 GM/DOSE PO SCH (07:43)
[2018-06-06] MEDS: FERROUS SULFATE 325 MG TAB PO SCH ×2 (07:43→20:44)
[2018-06-06] MEDS: FE SULF/FA/VIT B COMP & C TAB PO SCH (07:43)
[2018-06-06] MEDS: predniSONE 5 MG TAB PO SCH (07:44)
[2018-06-06] MEDS: NEPRO SHAKE 237 ML CAN PO SCH ×2 (07:44→20:47)
[2018-06-06] MEDS: PROMOD 30 ML DOSE PO SCH ×2 (07:45→20:46)
[2018-06-06] MEDS: SUCRALFATE 1GM/10ML UCUP PO SCH ×4 (08:39→20:45)
[2018-06-06] MEDS: CLOTRIMAZOLE 10 MG TROCHE PO SCH ×4 (08:39→20:45)
--- NOTE | 2018-06-06 11:24 | PN ---
Date of Progress Note: 06/06/2018 Subjective: The patient was seen this morning for followup. No new complaints or problems reported b y him. Lying in bed. Not in any distress. Objective: Vital Signs: Reviewed. HEENT: Unremarkable. Lungs: Clear to auscultation. Heart: Sounds normal. Abdomen: Soft. Bowel sounds normal. No guarding, rigidity, tenderness, or distention. Extremities: No leg edema. Impression: 1.End-stage renal disease, on hemodialysis. 2.Anemia due to chronic kidney disease. 3.Left hip fracture, status post surgery. 4.Hypertension. 5.Chronic steroid therapy. Plan: We will go ahead and continue current medications. The patient is doing well. His dysphagia problem has improved, and he is tolerating diet very well. We will continue current heparin for DVT prophylaxis and continue his current chronic steroid therapy. I will see him tomorrow for followup. PAULA/MODL Voice ID: [id number] Report ID: [id number]
--- NOTE | 2018-06-06 18:21 | R.PN ---
ENCOUNTER DATE AND TIME: 06/06/2018 18:17 (FOUNTAIN CLERK) NAME KRIS MARQUEZ DATE OF : 1940 DATE OF ADMISSION: 05/31/2018 17:15 (FOUNTAIN CLERK) LEFT HIP FRACTURECHIEF COMPLAINT: Left hip fracture SUBJECTIVE: Pt denied any depression. Pt denied any Shortness of Breath. Ambulated 450' with rolling walker and contact guard assistance. Self-propelled wheelchair 100' with standby assistance. VITAL SIGNS Temperature: 97.2 F SBP/DBP: 129/70 Pulse: 80 Resp: 15 MEDICATION ALLERGIES: No Known Drug Allergies (NKDA) ENVIRONMENTAL ALLERGIES: None Known - Substance Allergies None Known - Other Allergies None Known NURSING: - Shower allowing shower - Skin care per protocol PRECAUTIONS: - Posterior Hip Precaution No adduction across midline No external rotation No hip flexion >90 degrees No internal rotation No wheel chair propulsion - Weight Bearing Precaution WBAT left LE ACTIVITIES OOB only with supervision THERAPIES: - Occupational Therapy Evaluate and Treat. - Physical Therapy Evaluate and Treat. PHYSICAL EXAM - Gen Alert and awake Lying in bed No apparent distress Oriented to: person, time, and place - Skin No skin breakdown. No abnormalities - Eyes No abnormalities - ENMT No abnormalities - Neck No abnormalities - CVS RRR - Chest No abnormalities - Abd +bowel sounds - GI Soft Deferred - No abnormalities - Ext Left hip surgical site has good hemostasis. - MSK 4+/5 weakness in left lower extremity - Neuro 4/5 strength left lower extremity. - Psych No abnormalities ASSESSMENT: Pt. is a 78 yo Right-handed white male.His impairment category is Orthopaedic Disorders 08 - Unilate ral Hip Fracture (08.11).Pre-morbidly, Pt. was independent/mod-I in Transfers Control, Communication, Social Cognition, Self-Care, Locomotion, and Sphincter Control; and he had good Sphincter Control.Cu rrently, he has deficits of Transfers Control, Balance, Locomotion, Endurance, Safety Awareness, and Self-Care.Pt. is now referred to [facility] for acute in-patient rehabilitatio n in order to maximize patient's functional independence in activities of daily living, strength, ROM , and mobility.- Rehab Goal Patient has realistic goal of being discharged at assistance level 6-Chuck to reside at Home with Fam sabina/Relatives. MDM/PLAN: - Physical Therapy Decreased range of motion - to improve, our physical therapists will perform initial evaluation of p t's status upon admission and devise an individualized program for increasing patient's Range of Jeff on. Gait dysfunction - to improve, our physical therapists will perform initial evaluation of pt's statu s upon admission and devise an individualized program for Gait Training, and Wheel Chair mobility Inability to transfer - to improve, our physical therapists will perform initial evaluation of pt's status upon admission and devise an individualized program for Bed mobility Need for home safety evaluation - to improve, our physical therapists will perform initial evaluatio n of pt's status upon admission and devise an individualized program for Home Evaluation Need in caregiver upon discharge - to improve, our physical therapists will perform initial evaluati on of pt's status upon admission and devise an individualized program for Caregiver Training New precaution - to improve, our physical therapists will perform initial evaluation of pt's status upon admission and devise an individualized program for Patient precaution education Poor balance - to improve, our physical therapists will perform initial evaluation of pt's status up on admission and devise an individualized program for Balance Training Poor endurance - to improve, our physical therapists will perform initial evaluation of pt's status upon admission and devise an individualized program for Endurance Training Weakness - to improve, our physical therapists will perform initial evaluation of pt's status upon a dmission and devise an individualized program for Aquatic Therapy, Neuromuscular Reeducation, and Str engthening Achieving independence - to improve, our physical therapists will perform initial evaluation of pt's status upon admission and devise an individualized program for Community Reintegration Activities - Occupational Therapy ADL deficits - to improve, our occupation therapists will perform initial evaluation of pt's status upon admission and devise an individualized program for Bathing, Bed mobility, Community Reintegratio n, Cooking, Dressing, Eating, Fine Motor Skills, Grooming, Homemaking, Kitchen Mobility, Laundry, Pat ient Education, Safety Awareness, Splinting - Positioning, Transfers(Toilet, Tub, Shower), and Wheel Chair Management Need for director medicare sales - to improve, our occupation therapists will perform initial evaluation of pt's status upon admission and devise an individualized program for Caregiver Training Weakness - to improve, our occupation therapists will perform initial evaluation of pt's status upon admission and devise an individualized program for Aquatic Therapy, Balance, Endurance, UE ROM, and UE strengthening - Anterior Hip Precaution No abduction No active extension No adduction across midline No external rotation No hip flexion >90 degrees No internal rotation - Diet - Liquid Texture Continue Regular - Tube Feed Continue N/A - Diet Type Continue Regular - Posterior Hip Precaution No adduction across midline No external rotation No hip flexion >90 degrees No internal rotation No wheel chair propulsion - Weight Bearing Precaution WBAT left LE - Skin care per protocol - Diet - Solid Texture Continue Regular - Shower allowing shower FUNCTIONAL STATUS: UPDATED AT WEEKLY TEAM CONFERENCE - Bladder Same accident frequency: 7-Ind - No accidents in the past 7 days - Bowel Same accident frequency: 7-Ind - No accidents in the past 7 days - Walking Same score based on distance walked: 1(<=50ft) - Wheelchair Same score based on distance traveled: 0(N/A) FUNCTIONAL STATUS: - Self-Care A. Eating Ind B. Grooming sup C. Bathing sup D. Dressing - Upper sup E. Dressing - Lower Rita F. Toileting sup - Sphincter Control G: Bladder control Ind H: Bowel control Ind - Transfers Control I. Bed/Chair/Wheelchair Rita J. Toilet Rita K. Tub/Shower ADNO - Locomotion L. Walk/Wheelchair (C) Rita L. Walk/Wheelchair (W) Rita M. Stairs ADNO - Communication N. Comprehension (B) Ind O. Expression (B) Ind - Social Cognition P. Social Interaction Ind Q. Problem Solving Ind R. Memory Ind - Endurance Fair - Balance Fair - Safety Awareness Fair CURRENT FUNC. DEFICITS: Transfers Control, Balance, Locomotion, Endurance, Safety Awareness, and Self-Care SIGNATURE PANEL: (FOUNTAIN CLERK)
[2018-06-06] MEDS: AMIODARONE 200 MG PO SCH ×2 (20:44)
[2018-06-06] MEDS: METOPROLOL PO SCH ×2 (20:44)
[2018-06-06] MEDS: SUCCINATE PO SCH ×2 (20:44)
--- NOTE | 2018-06-06 21:00 | P.PN ---
Subjective Date of Service: 06/06/18 Chief Complaint: S/P Hip fracture to Cont Physical therapy No new [id number] HD tomorrow Cont prednsione will start on JANI Physical Examination - Vital Signs Temperature: 97.6 F Blood Pressure: 117/63 Pulse: 80 Respirations: 18 Pulse Ox (%): 97 - Physical Exam General: Oriented x3 HEENT: Atraumatic Neck: Supple, Without JVD or thyroid abnormality Respiratory: Clear to auscultation bilaterally, Normal air movement Cardiovascular: Regular rate/rhythm, Normal S1 S2, Edema Assessment And Plan - Current Problems (Diagnosis) (1) History of steroid therapy Onset Date: 09/08/17 Current Visit: No Status: Chronic (2) Hypertension Onset Date: 09/08/17 Current Visit: No Status: Chronic (3) Paroxysmal atrial fibrillation Onset Date: 09/08/17 Current Visit: No Status: Chronic - Plan This an 78-year-old male with significant past medical history of COPD, mycobacterium infection, hyperlipidemia, end-stage renal disease, on hemodialysis, Tuesday, Tuesday, Tuesday through left arm AV fistula at [facility]. This pt was admitted for Hip fracture S/P surgical intervention, hospital course complicated by C.diff and hypoglycemia now transferred to Cont PT no pain, headache, chest pain, palpitation Diarrhea resolved no Abd pain 1.End-stage renal disease. will cont HD MWF renal dose all meds 2.Hypertension, Pt with asymptomatic orthostatic hyportension will cont prednsione 3.Steroid-dependent adrenal insufficiency. We will discontinue hydrocortisone and place the patient back on oral 10 in the morning, 5 at night with plan to taper back to his outpatient regimen which is 10 mg daily. 4.Clostridium difficile colitis. Diarrhea resolved Continue vancomycin. 5.Hip fracture, status post repair. Continue PT/OT. 6.Anemia of renal origin Will start JANI
--- NOTE | 2018-06-07 03:19 | FAST ---
SHIFT START DATE/TIME: 06/06/2018 19:00 (FACILITY SERVICE ASSOCIATE) SHIFT END DATE/TIME: 06/07/2018 07:00 (FACILITY SERVICE ASSOCIATE) NAME KRIS MARQUEZ DATE OF : 1940 DATE OF ADMISSION: 05/31/2018 17:15 (FACILITY SERVICE ASSOCIATE) PHONE: AGE: 78 SSN# [id number] GENDER: Male ENCOUNTER PHYSICIAN: Dr. Saulo Johnson M.D. ADMISSION DIAGNOSIS: - Orthopaedic Disorders 08 - Unilateral Hip Fracture (08.11) LEFT HIP FRACTURE. EATING: Activity did not occur on this shift EATING - SCORE: 0-UNK GROOMING: Activity did not occur on this shift GROOMING - SCORE: 0-UNK BATHING: Activity did not occur on this shift BATHING - SCORE: 0-UNK DRESSING - UPPER BODY: Patient is not dressing in public clothing ARTICLES SCORE Total number of steps: 0 DRESSING - UPPER BODY - SCORE: 0-UNK DRESSING - LOWER BODY: Patient is not dressing in public clothing ARTICLES SCORE Total number of steps: 0 DRESSING - LOWER BODY - SCORE: 0-UNK TOILETING: Activity did not occur on this shift TOILETING - SCORE: 0-UNK BLADDER MANAGEMENT: Patient is on renal dialysis or peritoneal dialysis and no voiding activity BLADDER MANAGEMENT - SCORE: 7-IND BOWEL MANAGEMENT: Activity did not occur on this shift BOWEL MANAGEMENT - SCORE: 7-IND TRANSFERS: BED, CHAIR, WHEELCHAIR: Activity did not occur on this shift TRANSFERS: BED, CHAIR, WHEELCHAIR - SCORE: 0-UNK TRANSFERS: TOILET: Activity did not occur on this shift TRANSFERS: TOILET - SCORE: 0-UNK TRANSFERS: SHOWER: Activity did not occur on this shift TRANSFERS: SHOWER - SCORE: 0-UNK TRANSFERS: TUB: Activity did not occur on this shift TRANSFERS: TUB - SCORE: 0-UNK LOCOMOTION: WALK: Activity did not occur on this shift LOCOMOTION: WALK - SCORE: 0-UNK LOCOMOTION: WHEELCHAIR: Activity did not occur on this shift LOCOMOTION: WHEELCHAIR - SCORE: 0-UNK COMPREHENSION: COMPREHENSION: TYPE: Both COMPREHENSION - STEP 1: Does the patient require help from a person or device, or need extra time to understand complex and a bstract ideas (such as current events, finances, discharge planning, medical issues, relationships, e tc)? No. COMPREHENSION - STEP 2: Does the patient need extra time, require an assistive device (such as glasses for visual comprehensi on or a hearing aid for auditory comprehension) or does s/he have mild difficulty understanding compl ex and abstract information? Yes. COMPREHENSION - SCORE: 6-DAWN EXPRESSION EXPRESSION: TYPE: Both EXPRESSION - STEP 1: Does the patient require help from a person or device, or need extra time expressing complex and abst ract ideas (such as current events, finances, discharge planning, medical issues, relationships, etc) ? No. EXPRESSION - STEP 2: Does the patient need extra time, require an assistive device (such as augmentive communication syste m or a communication board), OR does s/he have mild difficulty expressing complex and abstract ideas (including mild dysarthria or mild word-find problems)? No. EXPRESSION - SCORE: 7-IND SOCIAL INTERACTION: SOCIAL INTERACTION - STEP 1: Does the patient require a helper to interact with others in social and therapeutic situations? No. SOCIAL INTERACTION - STEP 2: Does the patient need extra time in social situations, OR does s/he interact with staff, other patien ts, and family members ONLY in structured environments, OR does s/he require medication for social in teraction? Yes, patient needs extra time SOCIAL INTERACTION - SCORE: 6-DAWN PROBLEM SOLVING: PROBLEM SOLVING - STEP 1: Does the patient need help from a person or device, or need extra time to solve complex problems such as managing a checking account or confronting interpersonal problems? No. PROBLEM SOLVING - STEP 2: Does the patient require extra time to make decisions or solve problems, OR does s/he have slight dif ficulty reading, initiating, or self-correcting in unfamiliar situations? Yes, patient needs extra ti me. PROBLEM SOLVING - SCORE: 6-DAWN MEMORY: MEMORY - STEP 1: Does the patient need help from a person or device, or need extra time to remember frequently encount ered people, daily routines, and executing requests? No. MEMORY - STEP 2: Does the patient have slight difficulty recognizing frequently encountered people, daily routines, or executing requests without the need for repetition or using self-initiated or environmental cues to remember? Yes. MEMORY - SCORE: 6-DAWN SIGNATURE PANEL: The following modified sections: Eating - Score, Grooming - Score, Dressing - Upper Body - Score, Timbo ssing - Lower Body - Score, Toileting - Score, Bladder Management - Score, Bowel Management - Score, Transfers: Bed, Chair, Wheelchair - Score, Transfers: Toilet - Score, Transfers: Shower - Score, Harris sfers: Tub - Score, Locomotion: Walk - Score, Locomotion: Wheelchair - Score, Comprehension - Score, Expression - Score, Social Interaction - Score, Problem Solving - Score, Memory - Score were [electro nically] signed by Jasmina Pemberton CNA on TueJun 07 2018 03:19:14 GMT-0600 (Central Standard Time)
[2018-06-07] MEDS: CALCIUM ACETATE 667 MG PO SCH ×3 (07:45→16:53)
[2018-06-07] MEDS: NORVASC 10 MG PO SCH (07:46)
[2018-06-07] MEDS: NEPRO SHAKE 237 ML CAN PO SCH ×3 (07:46→20:54)
[2018-06-07] MEDS: EYE OPTH SCH ×2 (07:46→20:56)
[2018-06-07] MEDS: COMBIGAN OPTH SCH ×2 (07:46→20:56)
[2018-06-07] MEDS: PROMOD 30 ML DOSE PO SCH ×2 (07:46→20:54)
[2018-06-07] MEDS: predniSONE 10 MG TAB PO SCH (07:46)
[2018-06-07] MEDS: [UNRECOGNIZED DRUG - OTHER] PO SCH ×2 (07:46→20:57)
[2018-06-07] MEDS: predniSONE 5 MG TAB PO SCH (07:47)
[2018-06-07] MEDS: POLYETHYL GLY 3350 17 GM/DOSE PO SCH (07:48)
[2018-06-07] MEDS: FE SULF/FA/VIT B COMP & C TAB PO SCH (07:48)
[2018-06-07] MEDS: FERROUS SULFATE 325 MG TAB PO SCH ×2 (07:48→20:55)
[2018-06-07] MEDS: HEPARIN 5000 UNIT/ML 1 ML VIAL SQ SCH ×2 (08:00→18:13)
[2018-06-07] MEDS: SUCRALFATE 1GM/10ML UCUP PO SCH ×4 (08:33→20:55)
[2018-06-07] MEDS: CLOTRIMAZOLE 10 MG TROCHE PO SCH ×4 (08:33→20:57)
[2018-06-07 09:23] LABS: Absolute Lymphocytes (CBC) 1.2 K/uL (0.7-4.9); Absolute Monocytes 0.6 K/uL (0.1-1.3); Absolute Neutrophil 7.4 K/uL (1.8-8.0); Basophils % 0.4 % (0-1.3); Eosinophils % 1.5 % (0-4.4); Hematocrit 28.8 % (39.6-49.0); Lymphocytes % 12.7 % (15.3-44.8); MCH 32.7 pg (27.0-35.0); MPV 8.9 fL (7.6-11.3); Monocytes % 6.3 % (3.3-12.3); RBC Red Blood Cell Count 2.91 M/uL (4.33-5.43)
[2018-06-07 09:32] LABS: Albumin 2.6 g/dL (3.4-5.0); Magnesium 2.6 mg/dL (1.8-2.4); Potassium 4.6 mmol/L (3.5-5.1); Prealbumin 29.1 mg/dL (20-40)
--- NOTE | 2018-06-07 09:39 | P.RH.PN ---
Estimated Length of Stay: 14 Expected Discharge Date: 06/13/18 Discharge Disposition Plan: Home Family Support: Yes Alf Goal: Mobility, Transfers, Self Care Vital Signs: Last Vital Signs Temp 97.2 F 06/07/18 08:00 Pulse 77 06/07/18 08:00 Resp 14 06/07/18 08:00 BP 135/73 06/07/18 08:00 Pulse Ox 97 06/07/18 08:00 Laboratory: Laboratory Last Values WBC 9.4 K/uL (4.3-10.9) 06/07/18 09:00 RBC 2.91 M/uL (4.33-5.43) L 06/07/18 09:00 Hgb 9.5 g/dL (13.6-17.9) L 06/07/18 09:00 Hct 28.8 % (39.6-49.0) L 06/07/18 09:00 MCV 99.0 fL (80-100) 06/07/18 09:00 MCH 32.7 pg (27.0-35.0) 06/07/18 09:00 MCHC 33.0 g/dL (32.0-36.0) 06/07/18 09:00 RDW 15.0 % (12.1-15.2) 06/07/18 09:00 Plt Count 214 K/uL (152-406) D 06/07/18 09:00 MPV 8.9 fL (7.6-11.3) 06/07/18 09:00 Neutrophils % 79.1 % (41.7-73.7) H 06/07/18 09:00 Lymphocytes % 12.7 % (15.3-44.8) L 06/07/18 09:00 Monocytes % 6.3 % (3.3-12.3) 06/07/18 09:00 Eosinophils % 1.5 % (0-4.4) 06/07/18 09:00 Basophils % 0.4 % (0-1.3) 06/07/18 09:00 Absolute Neutrophils 7.4 K/uL (1.8-8.0) 06/07/18 09:00 Absolute Lymphocytes 1.2 K/uL (0.7-4.9) 06/07/18 09:00 Absolute Monocytes 0.6 K/uL (0.1-1.3) 06/07/18 09:00 Absolute Eosinophils 0.1 K/uL (0-0.5) 06/07/18 09:00 Absolute Basophils 0.0 K/uL (0-0.5) 06/07/18 09:00 Morphology Comment Not seen (NOT SEEN) 06/02/18 09:56 Sodium 138 mmol/L (136-145) 06/07/18 09:00 Potassium 4.6 mmol/L (3.5-5.1) 06/07/18 09:00 Chloride 99 mmol/L (98-107) 06/07/18 09:00 Carbon Dioxide 32 mmol/L (21-32) 06/07/18 09:00 BUN 46 mg/dL (7-18) H D 06/07/18 09:00 Creatinine 6.00 mg/dL (0.55-1.3) H* D 06/07/18 09:00 Estimated GFR 9 mL/min (=/>90) L 06/07/18 09:00 Glucose 128 mg/dL (74-106) H 06/07/18 09:00 Calcium 8.7 mg/dL (8.5-10.1) D 06/07/18 09:00 Magnesium 2.6 mg/dL (1.8-2.4) H D 06/07/18 09:00 Albumin 2.6 g/dL (3.4-5.0) L 06/07/18 09:00 Prealbumin 29.1 mg/dL (20-40) 06/07/18 09:00 Weight: 157 lb 9 oz Wound Present: Yes Closed Surgical Incision Present: Yes Negative Pressure Wound Therapy Present: No Physician Update: His labs have been reviewed. 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 His is followed by the renal service. His Hgb is better to 9.5. He is easily fatigued and is at contact guard assistance to mobilize in the wheelchair. Medication Issues: DVT - heaprin 5,000 unit Q12H SQ Pain Issues: Meridian 7.5mg/325mg Q4H PRN Functional Improvement Occupational Therapy: Cont to increase pt's endurance and activity tolerance for UB strength/standing activities for adl tasks. Cont to increase pt's endurance and safety and awareness and energy conservation for adl task for LB dressing and bathing. Cont to increase pt's UB strength and ROM for adl tasks. Cont to educate and train pt on Hip precautions and following hip precautions when completing adl tasks. Cont with the POC and the goals by the supervising OTR. Summary: Patient's care plan and nursing home goals have been reviewed and revised as necessary. Please see the Rehabilitation Signature page for all necessary signatures.
--- NOTE | 2018-06-07 10:01 | FAST ---
SHIFT START DATE/TIME: 06/07/2018 07:00 (BODY SHOP TECHNICIAN) SHIFT END DATE/TIME: 06/07/2018 19:00 (BODY SHOP TECHNICIAN) NAME KRIS MARQUEZ DATE OF : 1940 DATE OF ADMISSION: 05/31/2018 17:15 (BODY SHOP TECHNICIAN) PHONE: AGE: 78 SSN# [id number] GENDER: Male ENCOUNTER PHYSICIAN: Dr. Saulo Johnson M.D. ADMISSION DIAGNOSIS: - Orthopaedic Disorders 08 - Unilateral Hip Fracture (08.11) LEFT HIP FRACTURE. EATING: EATING - STEP 1: Does the patient require the assistance of a person or device, or need extra time when eating? Yes. EATING - STEP 2: Does the patient require the assistance of a helper? No, patient only requires an assistive device, O R s/he takes more than reasonable time to eat, OR there is a safety concern, OR s/he requires modifie d food consistency EATING - SCORE: 6-DAWN GROOMING: Comb/brush hair Oral care GROOMING - STEP 1: Does the patient require the assistance of a person or device, or need extra time when grooming? Yes. GROOMING - STEP 2: Does the patient require the assistance of a helper? No. The patient only requires an assistive devic e, OR takes more than reasonable time to groom, OR there is a concern for safety as the patient groom s GROOMING - SCORE: 6-DAWN BATHING: Activity did not occur on this shift BATHING - SCORE: 0-UNK DRESSING - UPPER BODY: Activity did not occur on this shift ARTICLES SCORE Total number of steps: 0 DRESSING - UPPER BODY - SCORE: 0-UNK DRESSING - LOWER BODY: Activity did not occur on this shift ARTICLES SCORE Total number of steps: 0 DRESSING - LOWER BODY - SCORE: 0-UNK TOILETING: TOILETING - STEP 1: Does the patient require the assistance of a person or device, or need extra time with toileting? Yes . TOILETING - STEP 2: Does the patient require the assistance of a helper? Yes. TOILETING - STEP 3: How much assistance does the patient require from the helper? Only supervision TOILETING - SCORE: 5-SUP BLADDER MANAGEMENT: BLADDER MANAGEMENT - STEP 1: Does the patient control the bladder completely and intentionally without equipment or devices or med ications, and is always continent? No. BLADDER MANAGEMENT - STEP 2: Does the patient require the assistance of a helper? No, patient requires and independently uses an a ssistive device, such as a urinal, bedpan, bedside commode, catheter, absorbent pad, or collecting de vice BLADDER MANAGEMENT - SCORE: 6-DAWN BOWEL MANAGEMENT: Activity did not occur on this shift BOWEL MANAGEMENT - SCORE: 7-IND TRANSFERS: BED, CHAIR, WHEELCHAIR: TRANSFERS: BED, CHAIR, WHEELCHAIR - STEP 1: Does the patient require assitance of a person or device, or need extra time with bed, chair, or whee lchair transfers? Yes. TRANSFERS: BED, CHAIR, WHEELCHAIR - STEP 2: Does the patient require the assistance of a helper? Yes. TRANSFERS: BED, CHAIR, WHEELCHAIR - STEP 3: How much assistance does the patient require from the helper? Steadying/guiding assistance TRANSFERS: BED, CHAIR, WHEELCHAIR - SCORE: 4-MIN TRANSFERS: TOILET: TRANSFERS: TOILET - STEP 1: Does the patient require the assistance of a person or device, or need extra time with toilet transfe rs? Yes. TRANSFERS: TOILET - STEP 2: Does the patient require the assistance of a helper? Yes. TRANSFERS: TOILET - STEP 3: How much assistance does the patient require from the helper? Patient performs half or more of the tr ansferring tasks TRANSFERS: TOILET - STEP 4: Does the patient need only incidental help such as contact guard or steadying during toilet transfer? Yes. TRANSFERS: TOILET - SCORE: 4-MIN TRANSFERS: SHOWER: Activity did not occur on this shift TRANSFERS: SHOWER - SCORE: 0-UNK TRANSFERS: TUB: Activity did not occur on this shift TRANSFERS: TUB - SCORE: 0-UNK LOCOMOTION: WALK: Activity did not occur on this shift LOCOMOTION: WALK - SCORE: 0-UNK LOCOMOTION: WHEELCHAIR: Activity did not occur on this shift LOCOMOTION: WHEELCHAIR - SCORE: 0-UNK COMPREHENSION: COMPREHENSION: TYPE: Both COMPREHENSION - STEP 1: Does the patient require help from a person or device, or need extra time to understand complex and a bstract ideas (such as current events, finances, discharge planning, medical issues, relationships, e tc)? No. COMPREHENSION - STEP 2: Does the patient need extra time, require an assistive device (such as glasses for visual comprehensi on or a hearing aid for auditory comprehension) or does s/he have mild difficulty understanding compl ex and abstract information? Yes. COMPREHENSION - SCORE: 6-DAWN EXPRESSION EXPRESSION: TYPE: Both EXPRESSION - STEP 1: Does the patient require help from a person or device, or need extra time expressing complex and abst ract ideas (such as current events, finances, discharge planning, medical issues, relationships, etc) ? No. EXPRESSION - STEP 2: Does the patient need extra time, require an assistive device (such as augmentive communication syste m or a communication board), OR does s/he have mild difficulty expressing complex and abstract ideas (including mild dysarthria or mild word-find problems)? Yes. EXPRESSION - SCORE: 6-DAWN SOCIAL INTERACTION: SOCIAL INTERACTION - STEP 1: Does the patient require a helper to interact with others in social and therapeutic situations? No. SOCIAL INTERACTION - STEP 2: Does the patient need extra time in social situations, OR does s/he interact with staff, other patien ts, and family members ONLY in structured environments, OR does s/he require medication for social in teraction? Yes, patient needs extra time SOCIAL INTERACTION - SCORE: 6-DAWN PROBLEM SOLVING: PROBLEM SOLVING - STEP 1: Does the patient need help from a person or device, or need extra time to solve complex problems such as managing a checking account or confronting interpersonal problems? No. PROBLEM SOLVING - STEP 2: Does the patient require extra time to make decisions or solve problems, OR does s/he have slight dif ficulty reading, initiating, or self-correcting in unfamiliar situations? Yes, patient needs extra ti me. PROBLEM SOLVING - SCORE: 6-DAWN MEMORY: MEMORY - STEP 1: Does the patient need help from a person or device, or need extra time to remember frequently encount ered people, daily routines, and executing requests? Yes. MEMORY - STEP 2: How often does the patient need help to remember frequently encountered people, daily routines, and e xecuting requests? Less than 10% of the time MEMORY - SCORE: 5-SUP SIGNATURE PANEL: The following modified sections: Eating - Score, Grooming - Score, Bathing - Score, Dressing - Upper Body - Score, Dressing - Lower Body - Score, Toileting - Score, Bladder Management - Score, Bowel Man agement - Score, Transfers: Bed, Chair, Wheelchair - Score, Transfers: Toilet - Score, Transfers: Meka wer - Score, Transfers: Tub - Score, Locomotion: Walk - Score, Locomotion: Wheelchair - Score, Compre hension - Score, Expression - Score, Social Interaction - Score, Problem Solving - Score, Memory - Sc ore were [electronically] signed by Ran Bradshaw on TueJun 07 2018 10:00:37 GMT-0600 (Central Standard Time)
[2018-06-07] MEDS: ACETAMINOPHEN 160 MG/5 ML UCUP PO PRN (15:10)
--- NOTE | 2018-06-07 19:34 | PN ---
Date of Progress Note: 06/07/2018 Subjective: The patient was seen this morning for followup. No new complaints or problems reported by the patient. Sitting in wheelchair. Denied any complaints. Denies any trouble swallowing. Objective: Vital Signs: Reviewed. HEENT: Examination unremarkable. Lungs: Clear to auscultation. Heart: Sounds normal. Abdomen: Soft. Bowel sounds normal. No guarding, rigidity, tenderness, or distention. Extremities: No leg edema. Impression: 1.End-stage renal disease, on hemodialysis. 2.Anemia due to chronic kidney disease. 3.Left hip fracture. 4.Hypertension. 5.Chronic steroid therapy. Plan: We will go ahead and continue current medications including prednisone, heparin for DVT prophy laxis and I will see him tomorrow for followup. The patient's dysphagia has improved. PAULA/MODL Voice ID: [id number] Report ID: [id number]
[2018-06-07] MEDS: EPOETIN ALFA 10,000 UNIT/ML VIAL SQ SCH (22:24)
[2018-06-08] MEDS: AMIODARONE 200 MG PO SCH ×2 (01:08→19:57)
[2018-06-08] MEDS: METOPROLOL PO SCH ×2 (01:09→19:59)
[2018-06-08] MEDS: SUCCINATE PO SCH ×2 (01:09→19:59)
--- NOTE | 2018-06-08 01:44 | PN ---
Date of Progress Note: 06/07/2018 Subjective: The patient doing well, status post hip replacement, participating in physical therapy. Physical Examination: Vital Signs: Blood pressure 143/67, pulse of 69. The patient is status post dialysis. We managed t o remove 600. Chest: Clear to auscultation. Heart: S1, S2. Regular. Systolic murmur. Abdomen: Soft, nontender. Extremities: No edema. Laboratory Data: H and H 9.5/28.8. Sodium 138, potassium 4.6, bicarb 32, BUN 46, creatinine 6, calc ium 8.7. Assessment And Plan: 1.End-stage renal disease. Normal volume. Continue dialysis Tuesday, Tuesday, Tuesday. 2.Secondary hyperparathyroidism, stable. 3.Anemia of chronic kidney disease. Continue Epogen. 4.Hypertension, controlled, optimal. Continue current medication. 5.Gastroesophageal reflux disease. Continue Carafate for the time being and we will follow up. 6.Hip fracture, status post replacement. Continue PT, OT. RAKAN/WILFREDO Voice ID: [id number] Report ID: [id number]
--- NOTE | 2018-06-08 02:48 | FAST ---
SHIFT START DATE/TIME: 06/07/2018 19:00 (FLIGHT MANAGER) SHIFT END DATE/TIME: 06/08/2018 07:00 (FLIGHT MANAGER) NAME KRIS MARQUEZ DATE OF : 1940 DATE OF ADMISSION: 05/31/2018 17:15 (FLIGHT MANAGER) PHONE: AGE: 78 SSN# [id number] GENDER: Male ENCOUNTER PHYSICIAN: Dr. Saulo Johnson M.D. ADMISSION DIAGNOSIS: - Orthopaedic Disorders 08 - Unilateral Hip Fracture (08.11) LEFT HIP FRACTURE. EATING: Activity did not occur on this shift EATING - SCORE: 0-UNK GROOMING: Activity did not occur on this shift GROOMING - SCORE: 0-UNK BATHING: Activity did not occur on this shift BATHING - SCORE: 0-UNK DRESSING - UPPER BODY: Patient is not dressing in public clothing ARTICLES SCORE Total number of steps: 0 DRESSING - UPPER BODY - SCORE: 0-UNK DRESSING - LOWER BODY: Patient is not dressing in public clothing ARTICLES SCORE Total number of steps: 0 DRESSING - LOWER BODY - SCORE: 0-UNK TOILETING: Activity did not occur on this shift TOILETING - SCORE: 0-UNK BLADDER MANAGEMENT: Patient is on renal dialysis or peritoneal dialysis and no voiding activity BLADDER MANAGEMENT - SCORE: 7-IND BOWEL MANAGEMENT: Activity did not occur on this shift BOWEL MANAGEMENT - SCORE: 7-IND TRANSFERS: BED, CHAIR, WHEELCHAIR: Activity did not occur on this shift TRANSFERS: BED, CHAIR, WHEELCHAIR - SCORE: 0-UNK TRANSFERS: TOILET: Activity did not occur on this shift TRANSFERS: TOILET - SCORE: 0-UNK TRANSFERS: SHOWER: Activity did not occur on this shift TRANSFERS: SHOWER - SCORE: 0-UNK TRANSFERS: TUB: Activity did not occur on this shift TRANSFERS: TUB - SCORE: 0-UNK LOCOMOTION: WALK: Activity did not occur on this shift LOCOMOTION: WALK - SCORE: 0-UNK LOCOMOTION: WHEELCHAIR: Activity did not occur on this shift LOCOMOTION: WHEELCHAIR - SCORE: 0-UNK COMPREHENSION: COMPREHENSION: TYPE: Both COMPREHENSION - STEP 1: Does the patient require help from a person or device, or need extra time to understand complex and a bstract ideas (such as current events, finances, discharge planning, medical issues, relationships, e tc)? No. COMPREHENSION - STEP 2: Does the patient need extra time, require an assistive device (such as glasses for visual comprehensi on or a hearing aid for auditory comprehension) or does s/he have mild difficulty understanding compl ex and abstract information? Yes. COMPREHENSION - SCORE: 6-DAWN EXPRESSION EXPRESSION: TYPE: Both EXPRESSION - STEP 1: Does the patient require help from a person or device, or need extra time expressing complex and abst ract ideas (such as current events, finances, discharge planning, medical issues, relationships, etc) ? No. EXPRESSION - STEP 2: Does the patient need extra time, require an assistive device (such as augmentive communication syste m or a communication board), OR does s/he have mild difficulty expressing complex and abstract ideas (including mild dysarthria or mild word-find problems)? Yes. EXPRESSION - SCORE: 6-DAWN SOCIAL INTERACTION: SOCIAL INTERACTION - STEP 1: Does the patient require a helper to interact with others in social and therapeutic situations? No. SOCIAL INTERACTION - STEP 2: Does the patient need extra time in social situations, OR does s/he interact with staff, other patien ts, and family members ONLY in structured environments, OR does s/he require medication for social in teraction? Yes, patient needs extra time SOCIAL INTERACTION - SCORE: 6-DAWN PROBLEM SOLVING: PROBLEM SOLVING - STEP 1: Does the patient need help from a person or device, or need extra time to solve complex problems such as managing a checking account or confronting interpersonal problems? No. PROBLEM SOLVING - STEP 2: Does the patient require extra time to make decisions or solve problems, OR does s/he have slight dif ficulty reading, initiating, or self-correcting in unfamiliar situations? Yes, patient needs extra ti me. PROBLEM SOLVING - SCORE: 6-DAWN MEMORY: MEMORY - STEP 1: Does the patient need help from a person or device, or need extra time to remember frequently encount ered people, daily routines, and executing requests? No. MEMORY - STEP 2: Does the patient have slight difficulty recognizing frequently encountered people, daily routines, or executing requests without the need for repetition or using self-initiated or environmental cues to remember? Yes. MEMORY - SCORE: 6-DAWN
[2018-06-08] MEDS: NEPRO SHAKE 237 ML CAN PO SCH ×2 (08:00→20:01)
[2018-06-08] MEDS: COMBIGAN OPTH SCH ×2 (08:00→19:56)
[2018-06-08] MEDS: EYE OPTH SCH ×2 (08:00→19:56)
[2018-06-08] MEDS: PROMOD 30 ML DOSE PO SCH ×2 (08:56→20:00)
[2018-06-08] MEDS: NORVASC 10 MG PO SCH (08:58)
[2018-06-08] MEDS: predniSONE 10 MG TAB PO SCH (08:59)
[2018-06-08] MEDS: SUCRALFATE 1GM/10ML UCUP PO SCH ×4 (09:00→19:57)
[2018-06-08] MEDS: CLOTRIMAZOLE 10 MG TROCHE PO SCH ×4 (09:00→19:56)
[2018-06-08] MEDS: CALCIUM ACETATE 667 MG PO SCH ×3 (09:00→16:42)
[2018-06-08] MEDS: [UNRECOGNIZED DRUG - OTHER] PO SCH ×2 (09:00→20:00)
[2018-06-08] MEDS: POLYETHYL GLY 3350 17 GM/DOSE PO SCH (09:01)
[2018-06-08] MEDS: FE SULF/FA/VIT B COMP & C TAB PO SCH (09:03)
[2018-06-08] MEDS: FERROUS SULFATE 325 MG TAB PO SCH ×2 (09:03→19:55)
[2018-06-08] MEDS: predniSONE 5 MG TAB PO SCH (09:03)
[2018-06-08] MEDS: HEPARIN 5000 UNIT/ML 1 ML VIAL SQ SCH ×2 (09:04→19:55)
--- NOTE | 2018-06-08 09:29 | FAST ---
SHIFT START DATE/TIME: 06/08/2018 07:00 (DOCKING SAW OPERATOR) SHIFT END DATE/TIME: 06/08/2018 19:00 (DOCKING SAW OPERATOR) NAME KRIS MARQUEZ DATE OF : 1940 DATE OF ADMISSION: 05/31/2018 17:15 (DOCKING SAW OPERATOR) PHONE: AGE: 78 SSN# [id number] GENDER: Male ENCOUNTER PHYSICIAN: Dr. Saulo Johnson M.D. ADMISSION DIAGNOSIS: - Orthopaedic Disorders 08 - Unilateral Hip Fracture (08.11) LEFT HIP FRACTURE. EATING: EATING - STEP 1: Does the patient require the assistance of a person or device, or need extra time when eating? Yes. EATING - STEP 2: Does the patient require the assistance of a helper? No, patient only requires an assistive device, O R s/he takes more than reasonable time to eat, OR there is a safety concern, OR s/he requires modifie d food consistency EATING - SCORE: 6-DAWN GROOMING: Activity did not occur on this shift GROOMING - SCORE: 0-UNK BATHING: Activity did not occur on this shift BATHING - SCORE: 0-UNK DRESSING - UPPER BODY: Activity did not occur on this shift ARTICLES SCORE Total number of steps: 0 DRESSING - UPPER BODY - SCORE: 0-UNK DRESSING - LOWER BODY: Activity did not occur on this shift ARTICLES SCORE Total number of steps: 0 DRESSING - LOWER BODY - SCORE: 0-UNK TOILETING: TOILETING - STEP 1: Does the patient require the assistance of a person or device, or need extra time with toileting? Yes . TOILETING - STEP 2: Does the patient require the assistance of a helper? Yes. TOILETING - STEP 3: How much assistance does the patient require from the helper? Only supervision TOILETING - SCORE: 5-SUP BLADDER MANAGEMENT: BLADDER MANAGEMENT - STEP 1: Does the patient control the bladder completely and intentionally without equipment or devices or med ications, and is always continent? No. BLADDER MANAGEMENT - STEP 2: Does the patient require the assistance of a helper? No, patient requires and independently uses an a ssistive device, such as a urinal, bedpan, bedside commode, catheter, absorbent pad, or collecting de vice BLADDER MANAGEMENT - SCORE: 6-DAWN BOWEL MANAGEMENT: Activity did not occur on this shift BOWEL MANAGEMENT - SCORE: 7-IND TRANSFERS: BED, CHAIR, WHEELCHAIR: TRANSFERS: BED, CHAIR, WHEELCHAIR - STEP 1: Does the patient require assitance of a person or device, or need extra time with bed, chair, or whee lchair transfers? Yes. TRANSFERS: BED, CHAIR, WHEELCHAIR - STEP 2: Does the patient require the assistance of a helper? Yes. TRANSFERS: BED, CHAIR, WHEELCHAIR - STEP 3: How much assistance does the patient require from the helper? Steadying/guiding assistance TRANSFERS: BED, CHAIR, WHEELCHAIR - SCORE: 4-MIN TRANSFERS: TOILET: TRANSFERS: TOILET - STEP 1: Does the patient require the assistance of a person or device, or need extra time with toilet transfe rs? Yes. TRANSFERS: TOILET - STEP 2: Does the patient require the assistance of a helper? Yes. TRANSFERS: TOILET - STEP 3: How much assistance does the patient require from the helper? Patient performs half or more of the tr ansferring tasks TRANSFERS: TOILET - STEP 4: Does the patient need only incidental help such as contact guard or steadying during toilet transfer? Yes. TRANSFERS: TOILET - SCORE: 4-MIN TRANSFERS: SHOWER: Activity did not occur on this shift TRANSFERS: SHOWER - SCORE: 0-UNK TRANSFERS: TUB: Activity did not occur on this shift TRANSFERS: TUB - SCORE: 0-UNK LOCOMOTION: WALK: Activity did not occur on this shift LOCOMOTION: WALK - SCORE: 0-UNK LOCOMOTION: WHEELCHAIR: Activity did not occur on this shift LOCOMOTION: WHEELCHAIR - SCORE: 0-UNK COMPREHENSION: COMPREHENSION: TYPE: Both COMPREHENSION - STEP 1: Does the patient require help from a person or device, or need extra time to understand complex and a bstract ideas (such as current events, finances, discharge planning, medical issues, relationships, e tc)? No. COMPREHENSION - STEP 2: Does the patient need extra time, require an assistive device (such as glasses for visual comprehensi on or a hearing aid for auditory comprehension) or does s/he have mild difficulty understanding compl ex and abstract information? Yes. COMPREHENSION - SCORE: 6-DAWN EXPRESSION EXPRESSION: TYPE: Both EXPRESSION - STEP 1: Does the patient require help from a person or device, or need extra time expressing complex and abst ract ideas (such as current events, finances, discharge planning, medical issues, relationships, etc) ? No. EXPRESSION - STEP 2: Does the patient need extra time, require an assistive device (such as augmentive communication syste m or a communication board), OR does s/he have mild difficulty expressing complex and abstract ideas (including mild dysarthria or mild word-find problems)? Yes. EXPRESSION - SCORE: 6-DAWN SOCIAL INTERACTION: SOCIAL INTERACTION - STEP 1: Does the patient require a helper to interact with others in social and therapeutic situations? No. SOCIAL INTERACTION - STEP 2: Does the patient need extra time in social situations, OR does s/he interact with staff, other patien ts, and family members ONLY in structured environments, OR does s/he require medication for social in teraction? Yes, patient needs extra time SOCIAL INTERACTION - SCORE: 6-DAWN PROBLEM SOLVING: PROBLEM SOLVING - STEP 1: Does the patient need help from a person or device, or need extra time to solve complex problems such as managing a checking account or confronting interpersonal problems? No. PROBLEM SOLVING - STEP 2: Does the patient require extra time to make decisions or solve problems, OR does s/he have slight dif ficulty reading, initiating, or self-correcting in unfamiliar situations? Yes, patient needs extra ti me. PROBLEM SOLVING - SCORE: 6-DAWN MEMORY: MEMORY - STEP 1: Does the patient need help from a person or device, or need extra time to remember frequently encount ered people, daily routines, and executing requests? No. MEMORY - STEP 2: Does the patient have slight difficulty recognizing frequently encountered people, daily routines, or executing requests without the need for repetition or using self-initiated or environmental cues to remember? Yes. MEMORY - SCORE: 6-DAWN SIGNATURE PANEL: The following modified sections: Eating - Score, Grooming - Score, Bathing - Score, Dressing - Upper Body - Score, Dressing - Lower Body - Score, Toileting - Score, Bladder Management - Score, Bowel Man agement - Score, Transfers: Bed, Chair, Wheelchair - Score, Transfers: Toilet - Score, Transfers: Meka wer - Score, Transfers: Tub - Score, Locomotion: Walk - Score, Locomotion: Wheelchair - Score, Compre hension - Score, Expression - Score, Social Interaction - Score, Problem Solving - Score, Memory - Sc ore were [electronically] signed by Ran Bradshaw on TueJun 08 2018 09:27:59 GMT-0600 (Central Standard Time)
--- NOTE | 2018-06-08 11:11 | PN ---
Date of Progress Note: 06/08/2018 Subjective: The patient was seen this morning for followup. No new complaints or problems reported by him. He was sitting in the chair. Denied any complaints. No chest pain or shortness of breath. No constipation. Had a bowel movement yesterday as well as this morning. Objective: Vital Signs: Reviewed. General: He denies any trouble swallowing. HEENT: Unremarkable. Lungs: Clear to auscultation. Heart: Sounds normal. Abdomen: Soft. Bowel sounds normal. No guarding, rigidity, tenderness, or distention. Extremities: No leg edema. Laboratory Data: Yesterday, the patient had blood work done. White count 9.4, hemoglobin 9.5, and p latelets 214. Sodium 138, potassium 4.6, chloride 99, bicarb 32, BUN 46, creatinine 6, and glucose 1 28. The patient's last dialysis was yesterday. Impression: 1.Left hip fracture. 2.Anemia due to chronic kidney disease. 3.End-stage renal disease, on hemodialysis. 4.Chronic steroid therapy. 5.Oral candidiasis, resolved. 6.Dysphagia, improved. 7.Odynophagia, improved. Plan: We will continue current medications. Continue physical therapy under guidance of Dr. Mauricio trinidad and continue to follow with lawyer real estate for dialysis needs. PAULA/MODL Voice ID: [id number] Report ID: [id number]
--- NOTE | 2018-06-08 20:27 | P.PN ---
Subjective Date of Service: 06/08/18 Chief Complaint: S/P Hip fracture to Cont Physical therapy No new [id number] HD tomorrow participating actively in PT/OT Physical Examination - Vital Signs Temperature: 97.8 F Blood Pressure: 138/77 Pulse: 79 Respirations: 16 Pulse Ox (%): 96 - Physical Exam General: Oriented x3 HEENT: Atraumatic Neck: Without JVD or thyroid abnormality Respiratory: Clear to auscultation bilaterally Cardiovascular: Regular rate/rhythm, Normal S1 S2, Abnormal S3, Edema Gastrointestinal: Normal bowel sounds Assessment And Plan - Current Problems (Diagnosis) (1) History of steroid therapy Onset Date: 09/08/17 Current Visit: No Status: Chronic (2) Hypertension Onset Date: 09/08/17 Current Visit: No Status: Chronic (3) Paroxysmal atrial fibrillation Onset Date: 09/08/17 Current Visit: No Status: Chronic - Plan This an 78-year-old male with significant past medical history of COPD, mycobacterium infection, hyperlipidemia, end-stage renal disease, on hemodialysis, Tuesday, Tuesday, Tuesday through left arm AV fistula at [facility]. This pt was admitted for Hip fracture S/P surgical intervention, hospital course complicated by C.diff and hypoglycemia now transferred to [facility] PT no pain, headache, chest pain, palpitation Diarrhea resolved no Abd pain 1.End-stage renal disease. will cont HD MWF renal dose all meds 2.Hypertension, Pt with asymptomatic orthostatic hyportension will cont prednsione 3.Steroid-dependent adrenal insufficiency. We will discontinue hydrocortisone and place the patient back on oral 10 in the morning, 5 at night with plan to taper back to his outpatient regimen which is 10 mg daily. 4.Clostridium difficile colitis. Diarrhea resolved Continue vancomycin. 5.Hip fracture, status post repair. Continue PT/OT. 6.Anemia of renal origin on JANI
[2018-06-09] MEDS: CALCIUM ACETATE 667 MG PO SCH ×3 (08:28→16:27)
[2018-06-09] MEDS: COMBIGAN OPTH SCH ×2 (08:29→19:54)
[2018-06-09] MEDS: EYE OPTH SCH ×2 (08:29→19:54)
[2018-06-09] MEDS: [UNRECOGNIZED DRUG - OTHER] PO SCH ×2 (08:29→19:54)
[2018-06-09] MEDS: SUCRALFATE 1GM/10ML UCUP PO SCH ×4 (08:30→21:10)
[2018-06-09] MEDS: NORVASC 10 MG PO SCH (08:30)
[2018-06-09] MEDS: predniSONE 10 MG TAB PO SCH (08:31)
[2018-06-09] MEDS: CLOTRIMAZOLE 10 MG TROCHE PO SCH ×4 (08:31→21:10)
[2018-06-09] MEDS: FE SULF/FA/VIT B COMP & C TAB PO SCH (08:32)
[2018-06-09] MEDS: FERROUS SULFATE 325 MG TAB PO SCH ×2 (08:32→19:53)
[2018-06-09] MEDS: POLYETHYL GLY 3350 17 GM/DOSE PO SCH (08:33)
[2018-06-09] MEDS: NEPRO SHAKE 237 ML CAN PO SCH ×2 (08:35→20:00)
[2018-06-09] MEDS: PROMOD 30 ML DOSE PO SCH ×2 (08:35→19:52)
[2018-06-09] MEDS: HEPARIN 5000 UNIT/ML 1 ML VIAL SQ SCH ×2 (09:04→20:00)
[2018-06-09] MEDS: predniSONE 5 MG TAB PO SCH (09:09)
--- NOTE | 2018-06-09 11:31 | P.PN ---
Subjective Date of Service: 06/09/18 Chief Complaint: S/P Hip fracture to Cont Physical therapy No new [id number] HD today LE edma BP acceptable participating actively in PT/OT Physical Examination - Vital Signs Temperature: 97.3 F Blood Pressure: 164/81 Pulse: 78 Respirations: 18 Pulse Ox (%): 97 - Physical Exam General: Oriented x3 HEENT: Atraumatic Neck: Supple, Without JVD or thyroid abnormality Respiratory: Clear to auscultation bilaterally Cardiovascular: Regular rate/rhythm, Normal S1 S2, No rubs, No murmurs, Edema Gastrointestinal: Normal bowel sounds Assessment And Plan - Current Problems (Diagnosis) (1) History of steroid therapy Onset Date: 09/08/17 Current Visit: No Status: Chronic (2) Hypertension Onset Date: 09/08/17 Current Visit: No Status: Chronic (3) Paroxysmal atrial fibrillation Onset Date: 09/08/17 Current Visit: No Status: Chronic - Plan This an 78-year-old male with significant past medical history of COPD, mycobacterium infection, hyperlipidemia, end-stage renal disease, on hemodialysis, Tuesday, Tuesday, Tuesday through left arm AV fistula at [facility]. This pt was admitted for Hip fracture S/P surgical intervention, hospital course complicated by C.diff and hypoglycemia now transferred to [facility] PT no pain, headache, chest pain, palpitation Diarrhea resolved no Abd pain 1.End-stage renal disease. will cont HD MWF renal dose all meds 2.Hypertension, Pt with asymptomatic orthostatic hyportension will cont prednsione 3.Steroid-dependent adrenal insufficiency. We will discontinue hydrocortisone and place the patient back on oral 10 in the morning, 5 at night with plan to taper back to his outpatient regimen which is 10 mg daily. 4.Clostridium difficile colitis. Diarrhea resolved Continue vancomycin. 5.Hip fracture, status post repair. Continue PT/OT. 6.Anemia of renal origin on JANI
--- NOTE | 2018-06-09 12:24 | PN ---
Date of Progress Note: 06/09/2018 Subjective: The patient was seen this morning for followup. No new complaints or problems reported by patient. He was sitting in wheelchair. Denied any complaints. He reported day-to-day improvemen t with his physical therapy, ambulating well. Denies any pain, nausea, vomiting. Objective: Vital Signs: Reviewed. HEENT: Unremarkable. Lungs: Clear to auscultation. Heart: Sounds normal. Abdomen: Soft. Bowel sounds normal. No guarding, rigidity, tenderness, or distention. Extremities: No leg edema. Impression: 1.Left hip fracture. 2.End-stage renal disease, on hemodialysis. 3.Anemia due to chronic kidney disease. 4.Chronic steroid therapy. Plan: We will go ahead and continue current medications. Continue physical therapy per web interface developer . I will see him tomorrow for followup. The patient does not have any dysphagia or odynophagia. PAULA/MODL Voice ID: [id number] Report ID: [id number]
--- NOTE | 2018-06-09 12:49 | FAST ---
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 Saulo Johnson M.D. ADMISSION DIAGNOSIS: - Orthopaedic Disorders 08 - Unilateral Hip Fracture (08.11) LEFT HIP FRACTURE. EATING: Activity did not occur on this shift EATING - SCORE: 0-UNK GROOMING: Comb/brush hair Wash, rinse, and dry face GROOMING - STEP 1: Does the patient require the assistance of a person or device, or need extra time when grooming? Yes. GROOMING - STEP 2: Does the patient require the assistance of a helper? No. The patient only requires an assistive devic e, OR takes more than reasonable time to groom, OR there is a concern for safety as the patient groom s GROOMING - SCORE: 6-DAWN BATHING: Abdomen Buttocks Chest Left arm Left lower leg and foot Left upper leg Perineal area Right arm Right lower leg and foot Right upper leg BATHING - STEP 1: Does the patient require the assistance of a person or device, or need extra time when bathing? Yes. BATHING - STEP 2: Does the patient require the assistance of a helper? Yes. BATHING - STEP 3: How much assistance does the patient require from the helper? Only incidental help such as placement of a wash cloth in his/her hand a few times as s/he bathes OR help to bathe just one or two areas of the body BATHING - SCORE: 4-MIN DRESSING - UPPER BODY: T-shirt/pullover shirt (four steps) ARTICLES SCORE Total number of steps: 4 DRESSING - UPPER BODY - STEP 1: Does the patient require help from a person or device, or need extra time when dressing above the [address]? Yes. DRESSING - UPPER BODY - STEP 2: Does the patient require the assistance of a helper? No. Patient only requires an assistive device, s uch as a button hook, velcro, or event executive. OR s/he takes more than reasonable time as s/he dresses the upper body. OR there is a concern for safety when s/he dresses the upper body DRESSING - UPPER BODY - SCORE: 6-DAWN DRESSING - LOWER BODY: Elastic waist pants (three steps) Underwear (three steps) ARTICLES SCORE Total number of steps: 6 DRESSING - LOWER BODY - STEP 1: Does the patient require help from a person or device, or need extra time when dressing below the [address] st? Yes. DRESSING - LOWER BODY - STEP 2: Does the patient require the assistance of a helper? Yes. DRESSING - LOWER BODY - STEP 3: Does the helper touch the patient while dressing? No. DRESSING - LOWER BODY - SCORE: 5-SUP TOILETING: Activity did not occur on this shift TOILETING - SCORE: 0-UNK BLADDER MANAGEMENT: Activity did not occur on this shift BLADDER MANAGEMENT - SCORE: 7-IND BOWEL MANAGEMENT: Activity did not occur on this shift BOWEL MANAGEMENT - SCORE: 7-IND TRANSFERS: BED, CHAIR, WHEELCHAIR: Activity did not occur on this shift TRANSFERS: BED, CHAIR, WHEELCHAIR - SCORE: 0-UNK TRANSFERS: TOILET: Activity did not occur on this shift TRANSFERS: TOILET - SCORE: 0-UNK TRANSFERS: SHOWER: Activity did not occur on this shift TRANSFERS: SHOWER - SCORE: 0-UNK TRANSFERS: TUB: TRANSFERS: TUB - STEP 1: Does the patient require the assistance of a person or device, or need extra time with tub transfers? Yes. TRANSFERS: TUB - STEP 2: Does the patient require the assistance of a helper? Yes. TRANSFERS: TUB - STEP 3: How much assistance does the patient require from the helper? Incidental help such as contact guardin g or steadying, OR help to lift one leg into the tub TRANSFERS: TUB - SCORE: 4-MIN LOCOMOTION: WALK: Activity did not occur on this shift LOCOMOTION: WALK - SCORE: 0-UNK LOCOMOTION: WHEELCHAIR: Activity did not occur on this shift LOCOMOTION: WHEELCHAIR - SCORE: 0-UNK LOCOMOTION: STAIRS: Activity did not occur on this shift LOCOMOTION: STAIRS - SCORE: 0-UNK COMPREHENSION: COMPREHENSION: TYPE: Both COMPREHENSION - STEP 1: Does the patient require help from a person or device, or need extra time to understand complex and a bstract ideas (such as current events, finances, discharge planning, medical issues, relationships, e tc)? No. COMPREHENSION - STEP 2: Does the patient need extra time, require an assistive device (such as glasses for visual comprehensi on or a hearing aid for auditory comprehension) or does s/he have mild difficulty understanding compl ex and abstract information? Yes. COMPREHENSION - SCORE: 6-DAWN COMPREHENSION - COMMENTS: UPPER [place] EXPRESSION EXPRESSION: TYPE: Both EXPRESSION - STEP 1: Does the patient require help from a person or device, or need extra time expressing complex and abst ract ideas (such as current events, finances, discharge planning, medical issues, relationships, etc) ? No. EXPRESSION - STEP 2: Does the patient need extra time, require an assistive device (such as augmentive communication syste m or a communication board), OR does s/he have mild difficulty expressing complex and abstract ideas (including mild dysarthria or mild word-find problems)? No. EXPRESSION - SCORE: 7-IND SOCIAL INTERACTION: SOCIAL INTERACTION - STEP 1: Does the patient require a helper to interact with others in social and therapeutic situations? No. SOCIAL INTERACTION - STEP 2: Does the patient need extra time in social situations, OR does s/he interact with staff, other patien ts, and family members ONLY in structured environments, OR does s/he require medication for social in teraction? No. SOCIAL INTERACTION - SCORE: 7-IND PROBLEM SOLVING: PROBLEM SOLVING - STEP 1: Does the patient need help from a person or device, or need extra time to solve complex problems such as managing a checking account or confronting interpersonal problems? No. PROBLEM SOLVING - STEP 2: Does the patient require extra time to make decisions or solve problems, OR does s/he have slight dif ficulty reading, initiating, or self-correcting in unfamiliar situations? No. PROBLEM SOLVING - SCORE: 7-IND MEMORY: MEMORY - STEP 1: Does the patient need help from a person or device, or need extra time to remember frequently encount ered people, daily routines, and executing requests? No. MEMORY - STEP 2: Does the patient have slight difficulty recognizing frequently encountered people, daily routines, or executing requests without the need for repetition or using self-initiated or environmental cues to remember? No. MEMORY - SCORE: 7-IND SIGNATURE PANEL: The following modified sections: Eating - Score, Grooming - Score, Bathing - Score, Dressing - Upper Body - Score, Dressing - Lower Body - Score, Toileting - Score, Transfers: Bed, Chair, Wheelchair - S core, Transfers: Toilet - Score, Transfers: Shower - Score, Transfers: Tub - Score, Comprehension - S core, Comprehension - Comments:, Expression - Score, Social Interaction - Score, Problem Solving - Sc ore, Memory - Score were [electronically] signed by ANGELA Oleary on TueJun 09 2018 12:49:11 G MT-0600 (Central Standard Time)
--- NOTE | 2018-06-09 13:31 | FAST ---
SHIFT START DATE/TIME: 06/09/2018 07:00 (PRESS CUTTER) SHIFT END DATE/TIME: 06/09/2018 19:00 (PRESS CUTTER) NAME KRIS MARQUEZ DATE OF : 1940 DATE OF ADMISSION: 05/31/2018 17:15 (PRESS CUTTER) PHONE: AGE: 78 N# [id number] GENDER: Male ENCOUNTER PHYSICIAN: Dr. Saulo Johnson M.D. ADMISSION DIAGNOSIS: - Orthopaedic Disorders 08 - Unilateral Hip Fracture (08.11) LEFT HIP FRACTURE. EATING: EATING - STEP 1: Does the patient require the assistance of a person or device, or need extra time when eating? No. EATING - SCORE: 7-IND GROOMING: Wash, rinse, and dry face Wash, rinse, and dry hands GROOMING - STEP 1: Does the patient require the assistance of a person or device, or need extra time when grooming? Yes. GROOMING - STEP 2: Does the patient require the assistance of a helper? No. The patient only requires an assistive devic e, OR takes more than reasonable time to groom, OR there is a concern for safety as the patient groom s GROOMING - SCORE: 6-DAWN BATHING: Activity did not occur on this shift BATHING - SCORE: 0-UNK DRESSING - UPPER BODY: Activity did not occur on this shift ARTICLES SCORE Total number of steps: 0 DRESSING - UPPER BODY - SCORE: 0-UNK DRESSING - LOWER BODY: Activity did not occur on this shift ARTICLES SCORE Total number of steps: 0 DRESSING - LOWER BODY - SCORE: 0-UNK TOILETING: TOILETING - STEP 1: Does the patient require the assistance of a person or device, or need extra time with toileting? Yes . TOILETING - STEP 2: Does the patient require the assistance of a helper? No. TOILETING - SCORE: 6-DAWN BLADDER MANAGEMENT: Patient is on renal dialysis or peritoneal dialysis and no voiding activity BLADDER MANAGEMENT - SCORE: 7-IND BOWEL MANAGEMENT: BOWEL MANAGEMENT - STEP 1: Does the patient control bowels completely and intentionally without equipment devices or medications AND is always continent? Yes. BOWEL MANAGEMENT - SCORE: 7-IND BOWEL MANAGEMENT - FREQUENCY OF ACCIDENTS: BOWEL MANAGEMENT(FA) - STEP 1: How many accidents has the patient had during the current shift? 0 TRANSFERS: BED, CHAIR, WHEELCHAIR: TRANSFERS: BED, CHAIR, WHEELCHAIR - STEP 1: Does the patient require assitance of a person or device, or need extra time with bed, chair, or whee lchair transfers? Yes. TRANSFERS: BED, CHAIR, WHEELCHAIR - STEP 2: Does the patient require the assistance of a helper? Yes. TRANSFERS: BED, CHAIR, WHEELCHAIR - STEP 3: How much assistance does the patient require from the helper? Steadying/guiding assistance TRANSFERS: BED, CHAIR, WHEELCHAIR - SCORE: 4-MIN TRANSFERS: TOILET: TRANSFERS: TOILET - STEP 1: Does the patient require the assistance of a person or device, or need extra time with toilet transfe rs? Yes. TRANSFERS: TOILET - STEP 2: Does the patient require the assistance of a helper? Yes. TRANSFERS: TOILET - STEP 3: How much assistance does the patient require from the helper? Patient performs half or more of the tr ansferring tasks TRANSFERS: TOILET - STEP 4: Does the patient need only incidental help such as contact guard or steadying during toilet transfer? Yes. TRANSFERS: TOILET - SCORE: 4-MIN TRANSFERS: SHOWER: Activity did not occur on this shift TRANSFERS: SHOWER - SCORE: 0-UNK TRANSFERS: TUB: Activity did not occur on this shift TRANSFERS: TUB - SCORE: 0-UNK LOCOMOTION: WALK: Activity did not occur on this shift LOCOMOTION: WALK - SCORE: 0-UNK LOCOMOTION: WHEELCHAIR: Activity did not occur on this shift LOCOMOTION: WHEELCHAIR - SCORE: 0-UNK COMPREHENSION: COMPREHENSION - SCORE: 0-UNK EXPRESSION EXPRESSION - SCORE: 0-UNK SOCIAL INTERACTION: SOCIAL INTERACTION - SCORE: 0-UNK PROBLEM SOLVING: PROBLEM SOLVING - SCORE: 0-UNK MEMORY: MEMORY - SCORE: 0-UNK SIGNATURE PANEL: The following modified sections: Eating - Score, Grooming - Score, Bathing - Score, Dressing - Upper Body - Score, Dressing - Lower Body - Score, Toileting - Score, Bladder Management - Score, Bowel Man agement - Score, Transfers: Bed, Chair, Wheelchair - Score, Transfers: Toilet - Score, Transfers: Meka wer - Score, Transfers: Tub - Score, Locomotion: Walk - Score, Locomotion: Wheelchair - Score, Compre hension - Score, Expression - Score, Social Interaction - Score, Problem Solving - Score, Memory - Sc ore were [electronically] signed by April Anaya CNA on TueJun 09 2018 13:30:02 GMT-0600 (Centra l Standard Time)
--- NOTE | 2018-06-09 14:47 | FAST ---
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 Saulo Johnson M.D. ADMISSION DIAGNOSIS: - Orthopaedic Disorders 08 - Unilateral Hip Fracture (08.11) LEFT HIP FRACTURE. EATING: Activity did not occur on this shift EATING - SCORE: 0-UNK GROOMING: Activity did not occur on this shift GROOMING - SCORE: 0-UNK BATHING: Activity did not occur on this shift BATHING - SCORE: 0-UNK DRESSING - UPPER BODY: Activity did not occur on this shift Patient is not dressing in public clothing ARTICLES SCORE Total number of steps: 0 DRESSING - UPPER BODY - SCORE: 0-UNK DRESSING - LOWER BODY: Activity did not occur on this shift Patient is not dressing in public clothing ARTICLES SCORE Total number of steps: 0 DRESSING - LOWER BODY - SCORE: 0-UNK TOILETING: Activity did not occur on this shift TOILETING - SCORE: 0-UNK BLADDER MANAGEMENT: Activity did not occur on this shift BLADDER MANAGEMENT - SCORE: 7-IND BOWEL MANAGEMENT: Activity did not occur on this shift BOWEL MANAGEMENT - SCORE: 7-IND TRANSFERS: BED, CHAIR, WHEELCHAIR: TRANSFERS: BED, CHAIR, WHEELCHAIR - STEP 1: Does the patient require assitance of a person or device, or need extra time with bed, chair, or whee lchair transfers? Yes. TRANSFERS: BED, CHAIR, WHEELCHAIR - STEP 2: Does the patient require the assistance of a helper? Yes. TRANSFERS: BED, CHAIR, WHEELCHAIR - STEP 3: How much assistance does the patient require from the helper? Only supervision TRANSFERS: BED, CHAIR, WHEELCHAIR - SCORE: 5-SUP TRANSFERS: TOILET: Activity did not occur on this shift TRANSFERS: TOILET - SCORE: 0-UNK TRANSFERS: SHOWER: Activity did not occur on this shift TRANSFERS: SHOWER - SCORE: 0-UNK TRANSFERS: TUB: Activity did not occur on this shift TRANSFERS: TUB - SCORE: 0-UNK LOCOMOTION: WALK: LOCOMOTION: WALK - STEP 1: Does the patient need help from a person or device, or need extra time to walk 150 feet? Yes. LOCOMOTION: WALK - STEP 2: How much assistance does the patient require to walk a minimum of 150 feet? Only supervision, cuing, or coaxing LOCOMOTION: WALK - SCORE: 5-SUP LOCOMOTION: WHEELCHAIR: Activity did not occur on this shift LOCOMOTION: WHEELCHAIR - SCORE: 0-UNK LOCOMOTION: STAIRS: LOCOMOTION: STAIRS - STEP 1: Does the patient need help to go up and down 12 to 14 stairs? Yes. LOCOMOTION: STAIRS - STEP 2: How much assistance does the patient need from the helper to go a minimum of 12 to 14 stairs? Only paz pervision, cuing, or coaxing LOCOMOTION: STAIRS - SCORE: 5-SUP COMPREHENSION: COMPREHENSION - SCORE: 0-UNK EXPRESSION EXPRESSION - SCORE: 0-UNK SOCIAL INTERACTION: SOCIAL INTERACTION - SCORE: 0-UNK PROBLEM SOLVING: PROBLEM SOLVING - SCORE: 0-UNK MEMORY: MEMORY - SCORE: 0-UNK SIGNATURE PANEL: The following modified sections: Transfers: Bed, Chair, Wheelchair - Score, Transfers: Toilet - Score , Locomotion: Walk - Score, Locomotion: Wheelchair - Score, Locomotion: Stairs - Score were [electron marie] signed by Darryl Araujo PT on TueJun 09 2018 14:45:53 GMT-0600 (Central Standard Time)
[2018-06-09] MEDS: EPOETIN ALFA 10,000 UNIT/ML VIAL SQ SCH (18:05)
[2018-06-09] MEDS: AMIODARONE 200 MG PO SCH (21:11)
[2018-06-09] MEDS: METOPROLOL PO SCH (21:11)
[2018-06-09] MEDS: SUCCINATE PO SCH (21:11)
[2018-06-10] MEDS: ACETAMINOPHEN 160 MG/5 ML UCUP PO PRN (01:23)
--- NOTE | 2018-06-10 02:59 | FAST ---
SHIFT START DATE/TIME: 06/09/2018 19:00 (SENIOR SOLUTIONS CONSULTANT) SHIFT END DATE/TIME: 06/10/2018 07:00 (SENIOR SOLUTIONS CONSULTANT) NAME KRIS MARQUEZ DATE OF : 1940 DATE OF ADMISSION: 05/31/2018 17:15 (SENIOR SOLUTIONS CONSULTANT) PHONE: AGE: 78 SSN# [id number] GENDER: Male ENCOUNTER PHYSICIAN: Dr. Saulo Johnson M.D. ADMISSION DIAGNOSIS: - Orthopaedic Disorders 08 - Unilateral Hip Fracture (08.11) LEFT HIP FRACTURE. EATING: Activity did not occur on this shift EATING - SCORE: 0-UNK GROOMING: Activity did not occur on this shift GROOMING - SCORE: 0-UNK BATHING: Activity did not occur on this shift BATHING - SCORE: 0-UNK DRESSING - UPPER BODY: Patient is not dressing in public clothing ARTICLES SCORE Total number of steps: 0 DRESSING - UPPER BODY - SCORE: 0-UNK DRESSING - LOWER BODY: Patient is not dressing in public clothing ARTICLES SCORE Total number of steps: 0 DRESSING - LOWER BODY - SCORE: 0-UNK TOILETING: Activity did not occur on this shift TOILETING - SCORE: 0-UNK BLADDER MANAGEMENT: Patient is on renal dialysis or peritoneal dialysis and no voiding activity BLADDER MANAGEMENT - SCORE: 7-IND BOWEL MANAGEMENT: Activity did not occur on this shift BOWEL MANAGEMENT - SCORE: 7-IND TRANSFERS: BED, CHAIR, WHEELCHAIR: Activity did not occur on this shift TRANSFERS: BED, CHAIR, WHEELCHAIR - SCORE: 0-UNK TRANSFERS: TOILET: Activity did not occur on this shift TRANSFERS: TOILET - SCORE: 0-UNK TRANSFERS: SHOWER: Activity did not occur on this shift TRANSFERS: SHOWER - SCORE: 0-UNK TRANSFERS: TUB: Activity did not occur on this shift TRANSFERS: TUB - SCORE: 0-UNK LOCOMOTION: WALK: Activity did not occur on this shift LOCOMOTION: WALK - SCORE: 0-UNK LOCOMOTION: WHEELCHAIR: Activity did not occur on this shift LOCOMOTION: WHEELCHAIR - SCORE: 0-UNK COMPREHENSION: COMPREHENSION: TYPE: Both COMPREHENSION - STEP 1: Does the patient require help from a person or device, or need extra time to understand complex and a bstract ideas (such as current events, finances, discharge planning, medical issues, relationships, e tc)? No. COMPREHENSION - STEP 2: Does the patient need extra time, require an assistive device (such as glasses for visual comprehensi on or a hearing aid for auditory comprehension) or does s/he have mild difficulty understanding compl ex and abstract information? Yes. COMPREHENSION - SCORE: 6-DAWN EXPRESSION EXPRESSION: TYPE: Both EXPRESSION - STEP 1: Does the patient require help from a person or device, or need extra time expressing complex and abst ract ideas (such as current events, finances, discharge planning, medical issues, relationships, etc) ? No. EXPRESSION - STEP 2: Does the patient need extra time, require an assistive device (such as augmentive communication syste m or a communication board), OR does s/he have mild difficulty expressing complex and abstract ideas (including mild dysarthria or mild word-find problems)? Yes. EXPRESSION - SCORE: 6-DAWN SOCIAL INTERACTION: SOCIAL INTERACTION - STEP 1: Does the patient require a helper to interact with others in social and therapeutic situations? No. SOCIAL INTERACTION - STEP 2: Does the patient need extra time in social situations, OR does s/he interact with staff, other patien ts, and family members ONLY in structured environments, OR does s/he require medication for social in teraction? Yes, patient needs extra time SOCIAL INTERACTION - SCORE: 6-DAWN PROBLEM SOLVING: PROBLEM SOLVING - STEP 1: Does the patient need help from a person or device, or need extra time to solve complex problems such as managing a checking account or confronting interpersonal problems? No. PROBLEM SOLVING - STEP 2: Does the patient require extra time to make decisions or solve problems, OR does s/he have slight dif ficulty reading, initiating, or self-correcting in unfamiliar situations? Yes, patient needs extra ti me. PROBLEM SOLVING - SCORE: 6-DAWN MEMORY: MEMORY - STEP 1: Does the patient need help from a person or device, or need extra time to remember frequently encount ered people, daily routines, and executing requests? No. MEMORY - STEP 2: Does the patient have slight difficulty recognizing frequently encountered people, daily routines, or executing requests without the need for repetition or using self-initiated or environmental cues to remember? Yes. MEMORY - SCORE: 6-DAWN
[2018-06-10] MEDS: HYDROCODONE/APAP 7.5/325 MG TAB PO PRN ×2 (05:12→09:27)
[2018-06-10] MEDS: HEPARIN 5000 UNIT/ML 1 ML VIAL SQ SCH ×3 (06:04→21:05)
[2018-06-10] MEDS: POLYETHYL GLY 3350 17 GM/DOSE PO SCH (08:07)
[2018-06-10] MEDS: predniSONE 5 MG TAB PO SCH (08:08)
[2018-06-10] MEDS: FE SULF/FA/VIT B COMP & C TAB PO SCH (08:09)
[2018-06-10] MEDS: FERROUS SULFATE 325 MG TAB PO SCH ×2 (08:09→20:54)
[2018-06-10] MEDS: NORVASC 10 MG PO SCH (08:10)
[2018-06-10] MEDS: [UNRECOGNIZED DRUG - OTHER] PO SCH ×2 (08:10→20:56)
[2018-06-10] MEDS: SUCRALFATE 1GM/10ML UCUP PO SCH ×4 (08:11→21:01)
[2018-06-10] MEDS: CLOTRIMAZOLE 10 MG TROCHE PO SCH ×4 (08:11→20:59)
[2018-06-10] MEDS: COMBIGAN OPTH SCH ×2 (08:12→20:57)
[2018-06-10] MEDS: EYE OPTH SCH ×2 (08:12→20:57)
[2018-06-10] MEDS: CALCIUM ACETATE 667 MG PO SCH ×3 (08:12→17:18)
[2018-06-10] MEDS: predniSONE 10 MG TAB PO SCH (08:14)
[2018-06-10] MEDS: NEPRO SHAKE 237 ML CAN PO SCH ×2 (08:19→20:00)
[2018-06-10] MEDS: PROMOD 30 ML DOSE PO SCH ×2 (08:19→20:00)
--- NOTE | 2018-06-10 14:24 | P.PN ---
Subjective Date of Service: 06/10/18 Chief Complaint: S/P Hip fracture to Cont Physical therapy No new complaints HD MWF LE edma, improved , will aim for more UF on Tuesday BP slightly elevated, have orthostatic changes before , will keep same meds for now participating actively in PT/OT Plan to discharge next wk Physical Examination - Vital Signs Temperature: 97.7 F Blood Pressure: 150/79 Pulse: 86 Respirations: 16 Pulse Ox (%): 97 - Physical Exam General: Oriented x3 HEENT: Atraumatic Neck: Supple, Without JVD or thyroid abnormality Respiratory: Clear to auscultation bilaterally Cardiovascular: Regular rate/rhythm, Normal S1 S2, No gallops, No murmurs, Edema Assessment And Plan - Current Problems (Diagnosis) (1) History of steroid therapy Onset Date: 09/08/17 Current Visit: No Status: Chronic (2) Hypertension Onset Date: 09/08/17 Current Visit: No Status: Chronic (3) Paroxysmal atrial fibrillation Onset Date: 09/08/17 Current Visit: No Status: Chronic - Plan This an 78-year-old male with significant past medical history of COPD, mycobacterium infection, hyperlipidemia, end-stage renal disease, on hemodialysis, Tuesday, Tuesday, Tuesday through left arm AV fistula at [facility]. This pt was admitted for Hip fracture S/P surgical intervention, hospital course complicated by C.diff and hypoglycemia now transferred to [facility] PT no pain, headache, chest pain, palpitation Diarrhea resolved no Abd pain 1.End-stage renal disease. will cont HD MWF renal dose all meds 2.Hypertension, Pt with asymptomatic orthostatic hyportension will cont prednsione 3.Steroid-dependent adrenal insufficiency. We will discontinue hydrocortisone and place the patient back on oral 10 in the morning, 5 at night with plan to taper back to his outpatient regimen which is 10 mg daily. 4.Clostridium difficile colitis. Diarrhea resolved Continue vancomycin. 5.Hip fracture, status post repair. Continue PT/OT. 6.Anemia of renal origin on JANI
--- NOTE | 2018-06-10 14:40 | FAST ---
SHIFT START DATE/TIME: 06/10/2018 07:00 (RECYCLING MANAGER) SHIFT END DATE/TIME: 06/10/2018 19:00 (RECYCLING MANAGER) NAME KRIS MARQUEZ DATE OF : 1940 DATE OF ADMISSION: 05/31/2018 17:15 (RECYCLING MANAGER) PHONE: AGE: 78 N# [id number] GENDER: Male ENCOUNTER PHYSICIAN: Dr. Saulo Johnson M.D. ADMISSION DIAGNOSIS: - Orthopaedic Disorders 08 - Unilateral Hip Fracture (08.11) LEFT HIP FRACTURE. EATING: EATING - STEP 1: Does the patient require the assistance of a person or device, or need extra time when eating? Yes. EATING - STEP 2: Does the patient require the assistance of a helper? No, patient only requires an assistive device, O R s/he takes more than reasonable time to eat, OR there is a safety concern, OR s/he requires modifie d food consistency EATING - SCORE: 6-DAWN GROOMING: Comb/brush hair Oral care Wash, rinse, and dry face Wash, rinse, and dry hands GROOMING - STEP 1: Does the patient require the assistance of a person or device, or need extra time when grooming? Yes. GROOMING - STEP 2: Does the patient require the assistance of a helper? No. The patient only requires an assistive devic e, OR takes more than reasonable time to groom, OR there is a concern for safety as the patient groom s GROOMING - SCORE: 6-DAWN BATHING: Activity did not occur on this shift BATHING - SCORE: 0-UNK DRESSING - UPPER BODY: Activity did not occur on this shift ARTICLES SCORE Total number of steps: 0 DRESSING - UPPER BODY - SCORE: 0-UNK DRESSING - LOWER BODY: Activity did not occur on this shift ARTICLES SCORE Total number of steps: 0 DRESSING - LOWER BODY - SCORE: 0-UNK TOILETING: TOILETING - STEP 1: Does the patient require the assistance of a person or device, or need extra time with toileting? Yes . TOILETING - STEP 2: Does the patient require the assistance of a helper? Yes. TOILETING - STEP 3: How much assistance does the patient require from the helper? Only supervision TOILETING - SCORE: 5-SUP BLADDER MANAGEMENT: BLADDER MANAGEMENT - STEP 1: Does the patient control the bladder completely and intentionally without equipment or devices or med ications, and is always continent? No. BLADDER MANAGEMENT - STEP 2: Does the patient require the assistance of a helper? No, patient only requires extra time BLADDER MANAGEMENT - SCORE: 6-DAWN BLADDER MANAGEMENT - FREQUENCY OF ACCIDENTS: BLADDER MANAGEMENT(FA) - STEP 1: How many accidents has the patient had during the current shift? 0 BOWEL MANAGEMENT: Activity did not occur on this shift BOWEL MANAGEMENT - SCORE: 7-IND BOWEL MANAGEMENT - FREQUENCY OF ACCIDENTS: BOWEL MANAGEMENT(FA) - STEP 1: How many accidents has the patient had during the current shift? 0 TRANSFERS: BED, CHAIR, WHEELCHAIR: TRANSFERS: BED, CHAIR, WHEELCHAIR - STEP 1: Does the patient require assitance of a person or device, or need extra time with bed, chair, or whee lchair transfers? Yes. TRANSFERS: BED, CHAIR, WHEELCHAIR - STEP 2: Does the patient require the assistance of a helper? Yes. TRANSFERS: BED, CHAIR, WHEELCHAIR - STEP 3: How much assistance does the patient require from the helper? Steadying/guiding assistance TRANSFERS: BED, CHAIR, WHEELCHAIR - SCORE: 4-MIN TRANSFERS: TOILET: TRANSFERS: TOILET - STEP 1: Does the patient require the assistance of a person or device, or need extra time with toilet transfe rs? Yes. TRANSFERS: TOILET - STEP 2: Does the patient require the assistance of a helper? Yes. TRANSFERS: TOILET - STEP 3: How much assistance does the patient require from the helper? Patient performs half or more of the tr ansferring tasks TRANSFERS: TOILET - STEP 4: Does the patient need only incidental help such as contact guard or steadying during toilet transfer? Yes. TRANSFERS: TOILET - SCORE: 4-MIN TRANSFERS: SHOWER: Activity did not occur on this shift TRANSFERS: SHOWER - SCORE: 0-UNK TRANSFERS: TUB: Activity did not occur on this shift TRANSFERS: TUB - SCORE: 0-UNK LOCOMOTION: WALK: Activity did not occur on this shift LOCOMOTION: WALK - SCORE: 0-UNK LOCOMOTION: WHEELCHAIR: Activity did not occur on this shift LOCOMOTION: WHEELCHAIR - SCORE: 0-UNK COMPREHENSION: COMPREHENSION: TYPE: Both COMPREHENSION - STEP 1: Does the patient require help from a person or device, or need extra time to understand complex and a bstract ideas (such as current events, finances, discharge planning, medical issues, relationships, e tc)? No. COMPREHENSION - STEP 2: Does the patient need extra time, require an assistive device (such as glasses for visual comprehensi on or a hearing aid for auditory comprehension) or does s/he have mild difficulty understanding compl ex and abstract information? Yes. COMPREHENSION - SCORE: 6-DAWN EXPRESSION EXPRESSION: TYPE: Both EXPRESSION - STEP 1: Does the patient require help from a person or device, or need extra time expressing complex and abst ract ideas (such as current events, finances, discharge planning, medical issues, relationships, etc) ? No. EXPRESSION - STEP 2: Does the patient need extra time, require an assistive device (such as augmentive communication syste m or a communication board), OR does s/he have mild difficulty expressing complex and abstract ideas (including mild dysarthria or mild word-find problems)? Yes. EXPRESSION - SCORE: 6-DAWN SOCIAL INTERACTION: SOCIAL INTERACTION - STEP 1: Does the patient require a helper to interact with others in social and therapeutic situations? No. SOCIAL INTERACTION - STEP 2: Does the patient need extra time in social situations, OR does s/he interact with staff, other patien ts, and family members ONLY in structured environments, OR does s/he require medication for social in teraction? Yes, patient needs extra time SOCIAL INTERACTION - SCORE: 6-DAWN PROBLEM SOLVING: PROBLEM SOLVING - STEP 1: Does the patient need help from a person or device, or need extra time to solve complex problems such as managing a checking account or confronting interpersonal problems? No. PROBLEM SOLVING - STEP 2: Does the patient require extra time to make decisions or solve problems, OR does s/he have slight dif ficulty reading, initiating, or self-correcting in unfamiliar situations? Yes, patient needs extra ti me. PROBLEM SOLVING - SCORE: 6-DAWN MEMORY: MEMORY - STEP 1: Does the patient need help from a person or device, or need extra time to remember frequently encount ered people, daily routines, and executing requests? No. MEMORY - STEP 2: Does the patient have slight difficulty recognizing frequently encountered people, daily routines, or executing requests without the need for repetition or using self-initiated or environmental cues to remember? Yes. MEMORY - SCORE: 6-DAWN SIGNATURE PANEL: The following modified sections: Eating - Score, Grooming - Score, Bathing - Score, Dressing - Upper Body - Score, Dressing - Lower Body - Score, Toileting - Score, Bladder Management - Score, Bowel Man agement - Score, Transfers: Bed, Chair, Wheelchair - Score, Transfers: Toilet - Score, Transfers: Meka wer - Score, Transfers: Tub - Score, Locomotion: Walk - Score, Locomotion: Wheelchair - Score, Compre hension - Score, Expression - Score, Social Interaction - Score, Problem Solving - Score, Memory - Sc ore were [electronically] signed by Cruz HassanNAleksey on Sat Jun 10 2018 14:39:56 GMT-0600 ([place] Standard Time)
--- NOTE | 2018-06-10 14:43 | PN ---
Date of Progress Note: 06/10/2018 Subjective: The patient was seen this morning for followup. No new complaints or problems reported by patient. Lying in bed, not in distress. Objective: Vital Signs: Reviewed. HEENT: Unremarkable. Lungs: Clear to auscultation. Heart: Sounds normal. Abdomen: Soft. Bowel sounds normal. No guarding, rigidity, tenderness, distention. Extremities: No leg edema. Impression: 1.Left hip fracture. 2.End-stage renal disease, on hemodialysis. 3.Anemia due to chronic kidney disease. 4.Hypertension. 5.Chronic steroid therapy. Plan: We will go ahead and continue current medications. The patient is medically stable at this po int. Continue physical therapy under guidance of Dr. Johnson, continue dialysis support per nephrol ogist. I will see him tomorrow for followup. PAULA/MODL Voice ID: [id number] Report ID: [id number]
[2018-06-10] MEDS: METOPROLOL PO SCH (21:00)
[2018-06-10] MEDS: AMIODARONE 200 MG PO SCH (21:00)
[2018-06-10] MEDS: SUCCINATE PO SCH (21:00)
[2018-06-11] MEDS: HEPARIN 5000 UNIT/ML 1 ML VIAL SQ SCH ×2 (07:12→21:13)
[2018-06-11] MEDS: POLYETHYL GLY 3350 17 GM/DOSE PO SCH (08:37)
[2018-06-11] MEDS: SUCRALFATE 1GM/10ML UCUP PO SCH ×4 (08:37→21:00)
[2018-06-11] MEDS: CLOTRIMAZOLE 10 MG TROCHE PO SCH ×4 (08:37→21:09)
[2018-06-11] MEDS: FERROUS SULFATE 325 MG TAB PO SCH ×2 (08:38→21:06)
[2018-06-11] MEDS: predniSONE 5 MG TAB PO SCH (08:38)
[2018-06-11] MEDS: FE SULF/FA/VIT B COMP & C TAB PO SCH (08:38)
[2018-06-11] MEDS: predniSONE 10 MG TAB PO SCH (08:39)
[2018-06-11] MEDS: CALCIUM ACETATE 667 MG PO SCH ×3 (08:39→17:17)
[2018-06-11] MEDS: [UNRECOGNIZED DRUG - OTHER] PO SCH ×2 (08:40→21:04)
[2018-06-11] MEDS: NORVASC 10 MG PO SCH (08:41)
[2018-06-11] MEDS: NEPRO SHAKE 237 ML CAN PO SCH ×2 (08:47→21:07)
[2018-06-11] MEDS: COMBIGAN OPTH SCH ×2 (08:47→21:06)
[2018-06-11] MEDS: PROMOD 30 ML DOSE PO SCH ×2 (08:47→21:07)
[2018-06-11] MEDS: EYE OPTH SCH ×2 (08:47→21:06)
--- NOTE | 2018-06-11 11:52 | P.PN ---
Subjective Date of Service: 06/11/18 Chief Complaint: S/P Hip fracture to Cont Physical therapy No new complaints HD MWF LE edma, will aim for more UF on Tuesday BP slightly elevated, have orthostatic changes before , will keep same meds for now participating actively in PT/OT Plan to discharge next wk Physical Examination - Vital Signs Temperature: 97.2 F Blood Pressure: 152/90 Pulse: 86 Respirations: 16 Pulse Ox (%): 93 - Physical Exam General: In no apparent distress, Oriented x3 HEENT: Atraumatic Neck: Supple, Without JVD or thyroid abnormality Respiratory: Clear to auscultation bilaterally, Normal air movement Cardiovascular: No edema, Regular rate/rhythm, Normal S1 S2 Gastrointestinal: Normal bowel sounds Assessment And Plan - Current Problems (Diagnosis) (1) History of steroid therapy Onset Date: 09/08/17 Current Visit: No Status: Chronic (2) Hypertension Onset Date: 09/08/17 Current Visit: No Status: Chronic (3) Paroxysmal atrial fibrillation Onset Date: 09/08/17 Current Visit: No Status: Chronic - Plan This an 78-year-old male with significant past medical history of COPD, mycobacterium infection, hyperlipidemia, end-stage renal disease, on hemodialysis, Tuesday, Tuesday, Tuesday through left arm AV fistula at [facility]. This pt was admitted for Hip fracture S/P surgical intervention, hospital course complicated by C.diff and hypoglycemia now transferred to [facility] PT no pain, headache, chest pain, palpitation Diarrhea resolved no Abd pain 1.End-stage renal disease. will cont HD MWF renal dose all meds 2.Hypertension, Pt with asymptomatic orthostatic hyportension will cont prednsione will cont current meds 3.Steroid-dependent adrenal insufficiency. We will discontinue hydrocortisone and place the patient back on oral 10 in the morning, 5 at night with plan to taper back to his outpatient regimen which is 10 mg daily. 4.Clostridium difficile colitis. Diarrhea resolved Continue vancomycin. 5.Hip fracture, status post repair. Continue PT/OT. 6.Anemia of renal origin on JANI
--- NOTE | 2018-06-11 14:11 | FAST ---
SHIFT START DATE/TIME: 06/11/2018 07:00 (FACTORY MAINTENANCE TECHNICIAN) SHIFT END DATE/TIME: 06/11/2018 19:00 (FACTORY MAINTENANCE TECHNICIAN) NAME KRIS MARQUEZ DATE OF : 1940 DATE OF ADMISSION: 05/31/2018 17:15 (FACTORY MAINTENANCE TECHNICIAN) PHONE: AGE: 78 N# [id number] GENDER: Male ENCOUNTER PHYSICIAN: Dr. Saulo Johnson M.D. ADMISSION DIAGNOSIS: - Orthopaedic Disorders 08 - Unilateral Hip Fracture (08.11) LEFT HIP FRACTURE. EATING: EATING - STEP 1: Does the patient require the assistance of a person or device, or need extra time when eating? Yes. EATING - STEP 2: Does the patient require the assistance of a helper? Yes. EATING - STEP 3: Does the patient perform half or more of the eating tasks? Yes. EATING - STEP 4: Does the patient need only supervision, cuing, coaxing OR help to apply an orthosis OR help to cut fo od, open containers, pour liquids, or butter bread? Yes. EATING - SCORE: 5-SUP GROOMING: GROOMING - STEP 1: Does the patient require the assistance of a person or device, or need extra time when grooming? Yes. GROOMING - STEP 2: Does the patient require the assistance of a helper? No. The patient only requires an assistive devic e, OR takes more than reasonable time to groom, OR there is a concern for safety as the patient groom s GROOMING - SCORE: 6-DAWN BATHING: Activity did not occur on this shift BATHING - SCORE: 0-UNK DRESSING - UPPER BODY: Activity did not occur on this shift ARTICLES SCORE Total number of steps: 0 DRESSING - UPPER BODY - SCORE: 0-UNK DRESSING - LOWER BODY: ARTICLES SCORE Total number of steps: 0 DRESSING - LOWER BODY - STEP 1: Does the patient require help from a person or device, or need extra time when dressing below the brandon st? Yes. DRESSING - LOWER BODY - STEP 2: Does the patient require the assistance of a helper? Yes. DRESSING - LOWER BODY - STEP 3: Does the helper touch the patient while dressing? No. DRESSING - LOWER BODY - SCORE: 5-SUP TOILETING: TOILETING - STEP 1: Does the patient require the assistance of a person or device, or need extra time with toileting? Yes . TOILETING - STEP 2: Does the patient require the assistance of a helper? Yes. TOILETING - STEP 3: How much assistance does the patient require from the helper? Only supervision TOILETING - SCORE: 5-SUP BLADDER MANAGEMENT: BLADDER MANAGEMENT - STEP 1: Does the patient control the bladder completely and intentionally without equipment or devices or med ications, and is always continent? No. BLADDER MANAGEMENT - STEP 2: Does the patient require the assistance of a helper? No, patient requires and independently uses an a ssistive device, such as a urinal, bedpan, bedside commode, catheter, absorbent pad, or collecting de vice BLADDER MANAGEMENT - SCORE: 6-DAWN BLADDER MANAGEMENT - FREQUENCY OF ACCIDENTS: BLADDER MANAGEMENT(FA) - STEP 1: How many accidents has the patient had during the current shift? 0 BOWEL MANAGEMENT: Activity did not occur on this shift BOWEL MANAGEMENT - SCORE: 7-IND BOWEL MANAGEMENT - FREQUENCY OF ACCIDENTS: BOWEL MANAGEMENT(FA) - STEP 1: How many accidents has the patient had during the current shift? 0 TRANSFERS: BED, CHAIR, WHEELCHAIR: TRANSFERS: BED, CHAIR, WHEELCHAIR - STEP 1: Does the patient require assitance of a person or device, or need extra time with bed, chair, or whee lchair transfers? Yes. TRANSFERS: BED, CHAIR, WHEELCHAIR - STEP 2: Does the patient require the assistance of a helper? Yes. TRANSFERS: BED, CHAIR, WHEELCHAIR - STEP 3: How much assistance does the patient require from the helper? Steadying/guiding assistance TRANSFERS: BED, CHAIR, WHEELCHAIR - SCORE: 4-MIN TRANSFERS: TOILET: TRANSFERS: TOILET - STEP 1: Does the patient require the assistance of a person or device, or need extra time with toilet transfe rs? Yes. TRANSFERS: TOILET - STEP 2: Does the patient require the assistance of a helper? Yes. TRANSFERS: TOILET - STEP 3: How much assistance does the patient require from the helper? Patient performs half or more of the tr ansferring tasks TRANSFERS: TOILET - STEP 4: Does the patient need only incidental help such as contact guard or steadying during toilet transfer? Yes. TRANSFERS: TOILET - SCORE: 4-MIN TRANSFERS: SHOWER: Activity did not occur on this shift TRANSFERS: SHOWER - SCORE: 0-UNK TRANSFERS: TUB: Activity did not occur on this shift TRANSFERS: TUB - SCORE: 0-UNK LOCOMOTION: WALK: Activity did not occur on this shift LOCOMOTION: WALK - SCORE: 0-UNK LOCOMOTION: WHEELCHAIR: LOCOMOTION: WHEELCHAIR - STEP 1: Does the patient need help to go 150 feet in a wheelchair? Yes. LOCOMOTION: WHEELCHAIR - STEP 2: How much assistance does the patient need from the helper? Only supervision, cuing, or coaxing LOCOMOTION: WHEELCHAIR - SCORE: 5-SUP COMPREHENSION: COMPREHENSION: TYPE: Both COMPREHENSION - STEP 1: Does the patient require help from a person or device, or need extra time to understand complex and a bstract ideas (such as current events, finances, discharge planning, medical issues, relationships, e tc)? No. COMPREHENSION - STEP 2: Does the patient need extra time, require an assistive device (such as glasses for visual comprehensi on or a hearing aid for auditory comprehension) or does s/he have mild difficulty understanding compl ex and abstract information? Yes. COMPREHENSION - SCORE: 6-DAWN EXPRESSION EXPRESSION: TYPE: Both EXPRESSION - STEP 1: Does the patient require help from a person or device, or need extra time expressing complex and abst ract ideas (such as current events, finances, discharge planning, medical issues, relationships, etc) ? No. EXPRESSION - STEP 2: Does the patient need extra time, require an assistive device (such as augmentive communication syste m or a communication board), OR does s/he have mild difficulty expressing complex and abstract ideas (including mild dysarthria or mild word-find problems)? Yes. EXPRESSION - SCORE: 6-DAWN SOCIAL INTERACTION: SOCIAL INTERACTION - STEP 1: Does the patient require a helper to interact with others in social and therapeutic situations? No. SOCIAL INTERACTION - STEP 2: Does the patient need extra time in social situations, OR does s/he interact with staff, other patien ts, and family members ONLY in structured environments, OR does s/he require medication for social in teraction? Yes, patient needs extra time SOCIAL INTERACTION - SCORE: 6-DAWN PROBLEM SOLVING: PROBLEM SOLVING - STEP 1: Does the patient need help from a person or device, or need extra time to solve complex problems such as managing a checking account or confronting interpersonal problems? No. PROBLEM SOLVING - STEP 2: Does the patient require extra time to make decisions or solve problems, OR does s/he have slight dif ficulty reading, initiating, or self-correcting in unfamiliar situations? Yes, patient needs extra ti me. PROBLEM SOLVING - SCORE: 6-DAWN MEMORY: MEMORY - STEP 1: Does the patient need help from a person or device, or need extra time to remember frequently encount ered people, daily routines, and executing requests? No. MEMORY - STEP 2: Does the patient have slight difficulty recognizing frequently encountered people, daily routines, or executing requests without the need for repetition or using self-initiated or environmental cues to remember? Yes. MEMORY - SCORE: 6-DAWN SIGNATURE PANEL: The following modified sections: Eating - Score, Grooming - Score, Bathing - Score, Dressing - Upper Body - Score, Dressing - Lower Body - Score, Toileting - Score, Bladder Management - Score, Bowel Man agement - Score, Transfers: Bed, Chair, Wheelchair - Score, Transfers: Toilet - Score, Transfers: Meka wer - Score, Transfers: Tub - Score, Locomotion: Walk - Score, Locomotion: Wheelchair - Score, Compre hension - Score, Expression - Score, Social Interaction - Score, Problem Solving - Score, Memory - Sc ore were [electronically] signed by Rebecca Khan C.N.A. on TueJun 11 2018 14:09:57 GMT-0600 (Cent[place] Standard Time)
--- NOTE | 2018-06-11 17:10 | PN ---
Date of Progress Note: 06/11/2018 Subjective: The patient was seen this morning for followup. No new complaints or problems reported by the patient. Lying in bed, not in distress. Objective: Vital Signs: Reviewed. HEENT: Examination unremarkable. Lungs: Clear to auscultation. Heart: Sounds normal. Abdomen: Soft. Bowel sounds normal. No guarding, rigidity, tenderness, or distention. Extremities: No leg edema. Impression: 1.Left hip fracture. 2.End-stage renal disease, on hemodialysis. 3.Anemia due to chronic kidney disease. 4.Hypertension. 5.Paroxysmal atrial fibrillation. 6.Chronic steroid therapy. Plan: We will continue current medications. The patient does not have any dysphagia or odynophagia. He is able to swallow food med well without any difficulties at all. No. He feels much better. P yayo is to discharge him to go home day after tomorrow which is on Tuesday from rehab point of view. Medically, he is doing fine and will be ready for discharge by the date. PAULA/MODL Voice ID: [id number] Report ID: [id number]
[2018-06-11] MEDS: AMIODARONE 200 MG PO SCH (21:04)
[2018-06-11] MEDS: SUCCINATE PO SCH (21:04)
[2018-06-11] MEDS: METOPROLOL PO SCH (21:04)
--- NOTE | 2018-06-12 01:35 | FAST ---
SHIFT START DATE/TIME: 06/11/2018 19:00 (ANTENNA SPECIALIST) SHIFT END DATE/TIME: 06/12/2018 07:00 (ANTENNA SPECIALIST) NAME KRIS MARQUEZ DATE OF : 1940 DATE OF ADMISSION: 05/31/2018 17:15 (ANTENNA SPECIALIST) PHONE: AGE: 78 N# [id number] GENDER: Male ENCOUNTER PHYSICIAN: Dr. Saulo Johnson M.D. ADMISSION DIAGNOSIS: - Orthopaedic Disorders 08 - Unilateral Hip Fracture (08.) LEFT HIP FRACTURE. EATING: Activity did not occur on this shift EATING - SCORE: 0-UNK GROOMING: Wash, rinse, and dry hands GROOMING - STEP 1: Does the patient require the assistance of a person or device, or need extra time when grooming? Yes. GROOMING - STEP 2: Does the patient require the assistance of a helper? Yes. GROOMING - STEP 3: How much assistance does the patient require from the helper? Only prior equipment preparation/set up from the helper GROOMING - SCORE: 5-SUP BATHING: Activity did not occur on this shift BATHING - SCORE: 0-UNK DRESSING - UPPER BODY: Patient is not dressing in public clothing ARTICLES SCORE Total number of steps: 0 DRESSING - UPPER BODY - SCORE: 0-UNK DRESSING - LOWER BODY: Patient is not dressing in public clothing ARTICLES SCORE Total number of steps: 0 DRESSING - LOWER BODY - SCORE: 0-UNK TOILETING: TOILETING - STEP 1: Does the patient require the assistance of a person or device, or need extra time with toileting? Yes . TOILETING - STEP 2: Does the patient require the assistance of a helper? Yes. TOILETING - STEP 3: How much assistance does the patient require from the helper? Hands-on assistance from the helper TOILETING - STEP 4: Of the 3 tasks: 1) Adjusting clothing prior to use, 2) Cleansing of perineal area, 3) Adjusting clot la after use; How many tasks does the patient perform WITHOUT assistance of the helper? One task TOILETING - SCORE: 2-MAX BLADDER MANAGEMENT: BLADDER MANAGEMENT - STEP 1: Does the patient control the bladder completely and intentionally without equipment or devices or med ications, and is always continent? No. BLADDER MANAGEMENT - STEP 2: Does the patient require the assistance of a helper? Yes. BLADDER MANAGEMENT - STEP 3: How much assistance does the patient require from the helper? Only supervision, stand-by, cuing, or c oaxing BLADDER MANAGEMENT - SCORE: 5-SUP BOWEL MANAGEMENT: BOWEL MANAGEMENT - STEP 1: Does the patient control bowels completely and intentionally without equipment devices or medications AND is always continent? No. BOWEL MANAGEMENT - STEP 2: Does the patient require the assistance of a helper? No, patient requires medication for control such as stool softeners, suppositories, laxatives, enemas, or OTC medications BOWEL MANAGEMENT - SCORE: 6-DAWN TRANSFERS: BED, CHAIR, WHEELCHAIR: TRANSFERS: BED, CHAIR, WHEELCHAIR - STEP 1: Does the patient require assitance of a person or device, or need extra time with bed, chair, or whee lchair transfers? Yes. TRANSFERS: BED, CHAIR, WHEELCHAIR - STEP 2: Does the patient require the assistance of a helper? Yes. TRANSFERS: BED, CHAIR, WHEELCHAIR - STEP 3: How much assistance does the patient require from the helper? Lifting of the legs TRANSFERS: BED, CHAIR, WHEELCHAIR - STEP 4: How many legs does the patient require the helper to lift? both legs TRANSFERS: BED, CHAIR, WHEELCHAIR - SCORE: 3-MOD TRANSFERS: TOILET: TRANSFERS: TOILET - STEP 1: Does the patient require the assistance of a person or device, or need extra time with toilet transfe rs? Yes. TRANSFERS: TOILET - STEP 2: Does the patient require the assistance of a helper? Yes. TRANSFERS: TOILET - STEP 3: How much assistance does the patient require from the helper? Patient performs half or more of the tr ansferring tasks TRANSFERS: TOILET - STEP 4: Does the patient need only incidental help such as contact guard or steadying during toilet transfer? Yes. TRANSFERS: TOILET - SCORE: 4-MIN TRANSFERS: SHOWER: Activity did not occur on this shift TRANSFERS: SHOWER - SCORE: 0-UNK TRANSFERS: TUB: Activity did not occur on this shift TRANSFERS: TUB - SCORE: 0-UNK LOCOMOTION: WALK: Activity did not occur on this shift LOCOMOTION: WALK - SCORE: 0-UNK LOCOMOTION: WHEELCHAIR: Activity did not occur on this shift LOCOMOTION: WHEELCHAIR - SCORE: 0-UNK COMPREHENSION: COMPREHENSION: TYPE: Both COMPREHENSION - STEP 1: Does the patient require help from a person or device, or need extra time to understand complex and a bstract ideas (such as current events, finances, discharge planning, medical issues, relationships, e tc)? No. COMPREHENSION - STEP 2: Does the patient need extra time, require an assistive device (such as glasses for visual comprehensi on or a hearing aid for auditory comprehension) or does s/he have mild difficulty understanding compl ex and abstract information? Yes. COMPREHENSION - SCORE: 6-DAWN EXPRESSION EXPRESSION: TYPE: Both EXPRESSION - STEP 1: Does the patient require help from a person or device, or need extra time expressing complex and abst ract ideas (such as current events, finances, discharge planning, medical issues, relationships, etc) ? No. EXPRESSION - STEP 2: Does the patient need extra time, require an assistive device (such as augmentive communication syste m or a communication board), OR does s/he have mild difficulty expressing complex and abstract ideas (including mild dysarthria or mild word-find problems)? No. EXPRESSION - SCORE: 7-IND SOCIAL INTERACTION: SOCIAL INTERACTION - STEP 1: Does the patient require a helper to interact with others in social and therapeutic situations? No. SOCIAL INTERACTION - STEP 2: Does the patient need extra time in social situations, OR does s/he interact with staff, other patien ts, and family members ONLY in structured environments, OR does s/he require medication for social in teraction? Yes, patient needs extra time SOCIAL INTERACTION - SCORE: 6-DAWN PROBLEM SOLVING: PROBLEM SOLVING - STEP 1: Does the patient need help from a person or device, or need extra time to solve complex problems such as managing a checking account or confronting interpersonal problems? No. PROBLEM SOLVING - STEP 2: Does the patient require extra time to make decisions or solve problems, OR does s/he have slight dif ficulty reading, initiating, or self-correcting in unfamiliar situations? Yes, patient needs extra ti me. PROBLEM SOLVING - SCORE: 6-DAWN MEMORY: MEMORY - STEP 1: Does the patient need help from a person or device, or need extra time to remember frequently encount ered people, daily routines, and executing requests? No. MEMORY - STEP 2: Does the patient have slight difficulty recognizing frequently encountered people, daily routines, or executing requests without the need for repetition or using self-initiated or environmental cues to remember? No. MEMORY - SCORE: 7-IND SIGNATURE PANEL: The following modified sections: Eating - Score, Grooming - Score, Dressing - Upper Body - Score, Timbo ssing - Lower Body - Score, Toileting - Score, Bladder Management - Score, Bowel Management - Score, Transfers: Bed, Chair, Wheelchair - Score, Transfers: Toilet - Score, Transfers: Shower - Score, Harris sfers: Tub - Score, Locomotion: Walk - Score, Locomotion: Wheelchair - Score, Comprehension - Score, Expression - Score, Social Interaction - Score, Problem Solving - Score, Memory - Score were [electro nically] signed by Jasmina Pemberton CNA on TueJun 12 2018 01:34:02 GMT-0600 (Central Standard Time)
[2018-06-12] MEDS: NEPRO SHAKE 237 ML CAN PO SCH ×2 (08:00→21:54)
[2018-06-12] MEDS: PROMOD 30 ML DOSE PO SCH ×2 (08:00→21:53)
[2018-06-12] MEDS: POLYETHYL GLY 3350 17 GM/DOSE PO SCH (08:00)
[2018-06-12] MEDS: SUCRALFATE 1GM/10ML UCUP PO SCH ×4 (08:46→21:55)
[2018-06-12] MEDS: HEPARIN 5000 UNIT/ML 1 ML VIAL SQ SCH ×2 (08:46→21:50)
[2018-06-12] MEDS: CLOTRIMAZOLE 10 MG TROCHE PO SCH ×4 (08:46→21:54)
[2018-06-12] MEDS: CALCIUM ACETATE 667 MG PO SCH ×3 (08:47→17:00)
[2018-06-12] MEDS: FERROUS SULFATE 325 MG TAB PO SCH ×2 (08:47→21:53)
[2018-06-12] MEDS: predniSONE 5 MG TAB PO SCH (08:47)
[2018-06-12] MEDS: FE SULF/FA/VIT B COMP & C TAB PO SCH (08:47)
[2018-06-12] MEDS: COMBIGAN OPTH SCH ×2 (08:48→21:53)
[2018-06-12] MEDS: EYE OPTH SCH ×2 (08:48→21:53)
[2018-06-12] MEDS: NORVASC 10 MG PO SCH (08:48)
[2018-06-12] MEDS: predniSONE 10 MG TAB PO SCH (08:50)
[2018-06-12] MEDS: [UNRECOGNIZED DRUG - OTHER] PO SCH ×2 (08:50→21:54)
--- NOTE | 2018-06-12 14:55 | FAST ---
ENCOUNTER DATE AND TIME: 06/12/2018 08:00 (CAR BODY DESIGNER) NAME KRIS MARQUEZ DATE OF : 1940 DATE OF ADMISSION: 05/31/2018 17:15 (CAR BODY DESIGNER) PHONE: AGE: 78 N# [id number] GENDER: Male ENCOUNTER PHYSICIAN: Dr. Saulo Johnson M.D. ADMISSION DIAGNOSIS: - Orthopaedic Disorders 08 - Unilateral Hip Fracture (08.11) LEFT HIP FRACTURE. EATING: Activity did not occur on this shift EATING - SCORE: 0-UNK GROOMING: Activity did not occur on this shift GROOMING - SCORE: 0-UNK BATHING: Activity did not occur on this shift BATHING - SCORE: 0-UNK DRESSING - UPPER BODY: Activity did not occur on this shift Patient is not dressing in public clothing ARTICLES SCORE Total number of steps: 0 DRESSING - UPPER BODY - SCORE: 0-UNK DRESSING - LOWER BODY: Activity did not occur on this shift Patient is not dressing in public clothing ARTICLES SCORE Total number of steps: 0 DRESSING - LOWER BODY - SCORE: 0-UNK TOILETING: Activity did not occur on this shift TOILETING - SCORE: 0-UNK BLADDER MANAGEMENT: Activity did not occur on this shift BLADDER MANAGEMENT - SCORE: 7-IND BOWEL MANAGEMENT: Activity did not occur on this shift BOWEL MANAGEMENT - SCORE: 7-IND TRANSFERS: BED, CHAIR, WHEELCHAIR: TRANSFERS: BED, CHAIR, WHEELCHAIR - STEP 1: Does the patient require assitance of a person or device, or need extra time with bed, chair, or whee lchair transfers? Yes. TRANSFERS: BED, CHAIR, WHEELCHAIR - STEP 2: Does the patient require the assistance of a helper? Yes. TRANSFERS: BED, CHAIR, WHEELCHAIR - STEP 3: How much assistance does the patient require from the helper? Only supervision TRANSFERS: BED, CHAIR, WHEELCHAIR - SCORE: 5-SUP TRANSFERS: TOILET: Activity did not occur on this shift TRANSFERS: TOILET - SCORE: 0-UNK TRANSFERS: SHOWER: Activity did not occur on this shift TRANSFERS: SHOWER - SCORE: 0-UNK TRANSFERS: TUB: Activity did not occur on this shift TRANSFERS: TUB - SCORE: 0-UNK LOCOMOTION: WALK: LOCOMOTION: WALK - STEP 1: Does the patient need help from a person or device, or need extra time to walk 150 feet? No. LOCOMOTION: WALK - STEP 2: Does the patient need an assistive device (such as an orthosis, prosthesis, crutches, or walker) to g o 150 feet, OR does s/he take more than reasonable time, OR is there a concern for safety? Yes, the p atient needs an assistive device LOCOMOTION: WALK - SCORE: 6-DAWN LOCOMOTION: WHEELCHAIR: Activity did not occur on this shift LOCOMOTION: WHEELCHAIR - SCORE: 0-UNK LOCOMOTION: STAIRS: Activity did not occur on this shift LOCOMOTION: STAIRS - SCORE: 0-UNK COMPREHENSION: COMPREHENSION - SCORE: 0-UNK EXPRESSION EXPRESSION - SCORE: 0-UNK SOCIAL INTERACTION: SOCIAL INTERACTION - SCORE: 0-UNK PROBLEM SOLVING: PROBLEM SOLVING - SCORE: 0-UNK MEMORY: MEMORY - SCORE: 0-UNK SIGNATURE PANEL: The following modified sections: Transfers: Bed, Chair, Wheelchair - Score, Transfers: Toilet - Score , Locomotion: Walk - Score, Locomotion: Wheelchair - Score, Locomotion: Stairs - Score were [electron marie] signed by Darryl Araujo PT on TueJun 12 2018 14:54:10 GMT-0600 (Central Standard Time)
--- NOTE | 2018-06-12 15:48 | R.PN ---
ENCOUNTER DATE AND TIME: 06/12/2018 15:40 (TREE THINNER) NAME KRIS MARQUEZ DATE OF : 1940 DATE OF ADMISSION: 05/31/2018 17:15 (TREE THINNER) LEFT HIP FRACTURECHIEF COMPLAINT: Left hip fracture SUBJECTIVE: Pt denied any depression. Pt denied any Shortness of Breath. Ambulated 750' with rolling walker and standby assistance to modified independence. Posterior propell ed wheelchair 250' with physical therapist in tow. VITAL SIGNS Temperature: 97.6 F SBP/DBP: 138-187/69-96 Pulse: 74 Resp: 16 MEDICATION ALLERGIES: No Known Drug Allergies (NKDA) ENVIRONMENTAL ALLERGIES: None Known - Substance Allergies None Known - Other Allergies None Known NURSING: - Shower allowing shower - Skin care per protocol PRECAUTIONS: - Posterior Hip Precaution No adduction across midline No external rotation No hip flexion >90 degrees No internal rotation No wheel chair propulsion - Weight Bearing Precaution WBAT left LE ACTIVITIES OOB only with supervision THERAPIES: - Occupational Therapy Evaluate and Treat. - Physical Therapy Evaluate and Treat. PHYSICAL EXAM - Gen Alert and awake Lying in bed No apparent distress Oriented to: person, time, and place - Skin No skin breakdown. No abnormalities - Eyes No abnormalities - ENMT No abnormalities - Neck No abnormalities - CVS RRR - Chest No abnormalities - Abd +bowel sounds - GI Soft Deferred - No abnormalities - Ext Left hip surgical site has good hemostasis. - MSK 4+/5 weakness in left lower extremity - Neuro 4/5 strength left lower extremity. - Psych No abnormalities ASSESSMENT: Pt. is a 78 yo Right-handed white male.His impairment category is Orthopaedic Disorders 08 - Unilate ral Hip Fracture (08.11).Pre-morbidly, Pt. was independent/mod-I in Transfers Control, Communication, Social Cognition, Self-Care, Locomotion, and Sphincter Control; and he had good Sphincter Control.Cu rrently, he has deficits of Transfers Control, Balance, Locomotion, Endurance, Safety Awareness, and Self-Care.Pt. is now referred to [facility] for acute in-patient rehabilitatio n in order to maximize patient's functional independence in activities of daily living, strength, ROM , and mobility.- Rehab Goal Patient has realistic goal of being discharged at assistance level 6-Chuck to reside at Home with Fam sabina/Relatives. MDM/PLAN: - Physical Therapy Decreased range of motion - to improve, our physical therapists will perform initial evaluation of p t's status upon admission and devise an individualized program for increasing patient's Range of Jeff on. Gait dysfunction - to improve, our physical therapists will perform initial evaluation of pt's statu s upon admission and devise an individualized program for Gait Training, and Wheel Chair mobility Inability to transfer - to improve, our physical therapists will perform initial evaluation of pt's status upon admission and devise an individualized program for Bed mobility Need for home safety evaluation - to improve, our physical therapists will perform initial evaluatio n of pt's status upon admission and devise an individualized program for Home Evaluation Need in caregiver upon discharge - to improve, our physical therapists will perform initial evaluati on of pt's status upon admission and devise an individualized program for Caregiver Training New precaution - to improve, our physical therapists will perform initial evaluation of pt's status upon admission and devise an individualized program for Patient precaution education Poor balance - to improve, our physical therapists will perform initial evaluation of pt's status up on admission and devise an individualized program for Balance Training Poor endurance - to improve, our physical therapists will perform initial evaluation of pt's status upon admission and devise an individualized program for Endurance Training Weakness - to improve, our physical therapists will perform initial evaluation of pt's status upon a dmission and devise an individualized program for Aquatic Therapy, Neuromuscular Reeducation, and Str engthening Achieving independence - to improve, our physical therapists will perform initial evaluation of pt's status upon admission and devise an individualized program for Community Reintegration Activities - Occupational Therapy ADL deficits - to improve, our occupation therapists will perform initial evaluation of pt's status upon admission and devise an individualized program for Bathing, Bed mobility, Community Reintegratio n, Cooking, Dressing, Eating, Fine Motor Skills, Grooming, Homemaking, Kitchen Mobility, Laundry, Pat ient Education, Safety Awareness, Splinting - Positioning, Transfers(Toilet, Tub, Shower), and Wheel Chair Management Need for rn homecare - to improve, our occupation therapists will perform initial evaluation of pt's status upon admission and devise an individualized program for Caregiver Training Weakness - to improve, our occupation therapists will perform initial evaluation of pt's status upon admission and devise an individualized program for Aquatic Therapy, Balance, Endurance, UE ROM, and UE strengthening - Anterior Hip Precaution No abduction No active extension No adduction across midline No external rotation No hip flexion >90 degrees No internal rotation - Diet - Liquid Texture Continue Regular - Tube Feed Continue N/A - Diet Type Continue Regular - Posterior Hip Precaution No adduction across midline No external rotation No hip flexion >90 degrees No internal rotation No wheel chair propulsion - Weight Bearing Precaution WBAT left LE - Skin care per protocol - Diet - Solid Texture Continue Regular - Shower allowing shower FUNCTIONAL STATUS: UPDATED AT WEEKLY TEAM CONFERENCE - Bladder Same accident frequency: 7-Ind - No accidents in the past 7 days - Bowel Same accident frequency: 7-Ind - No accidents in the past 7 days - Walking Same score based on distance walked: 1(<=50ft) - Wheelchair Same score based on distance traveled: 0(N/A) FUNCTIONAL STATUS: - Self-Care A. Eating Ind B. Grooming sup C. Bathing sup D. Dressing - Upper sup E. Dressing - Lower Rita F. Toileting sup - Sphincter Control G: Bladder control Ind H: Bowel control Ind - Transfers Control I. Bed/Chair/Wheelchair Rita J. Toilet Rita K. Tub/Shower ADNO - Locomotion L. Walk/Wheelchair (C) Rita L. Walk/Wheelchair (W) Rita M. Stairs ADNO - Communication N. Comprehension (B) Ind O. Expression (B) Ind - Social Cognition P. Social Interaction Ind Q. Problem Solving Ind R. Memory Ind - Endurance Fair - Balance Fair - Safety Awareness Fair CURRENT [facility]. DEFICITS: Transfers Control, Balance, Locomotion, Endurance, Safety Awareness, and Self-Care SIGNATURE PANEL: (TREE THINNER)
--- NOTE | 2018-06-12 15:52 | FAST ---
SHIFT START DATE/TIME: 06/12/2018 07:00 (STATION MANAGER) SHIFT END DATE/TIME: 06/12/2018 19:00 (STATION MANAGER) NAME KRIS MARQUEZ DATE OF : 1940 DATE OF ADMISSION: 05/31/2018 17:15 (STATION MANAGER) PHONE: AGE: 78 N# [id number] GENDER: Male ENCOUNTER PHYSICIAN: Dr. Saulo Johnson M.D. ADMISSION DIAGNOSIS: - Orthopaedic Disorders 08 - Unilateral Hip Fracture (08.11) LEFT HIP FRACTURE. EATING: EATING - STEP 1: Does the patient require the assistance of a person or device, or need extra time when eating? Yes. EATING - STEP 2: Does the patient require the assistance of a helper? No, patient only requires an assistive device, O R s/he takes more than reasonable time to eat, OR there is a safety concern, OR s/he requires modifie d food consistency EATING - SCORE: 6-DAWN GROOMING: Comb/brush hair Oral care GROOMING - STEP 1: Does the patient require the assistance of a person or device, or need extra time when grooming? No. GROOMING - SCORE: 7-IND BATHING: Activity did not occur on this shift BATHING - SCORE: 0-UNK DRESSING - UPPER BODY: Activity did not occur on this shift ARTICLES SCORE Total number of steps: 0 DRESSING - UPPER BODY - SCORE: 0-UNK DRESSING - LOWER BODY: Activity did not occur on this shift ARTICLES SCORE Total number of steps: 0 DRESSING - LOWER BODY - SCORE: 0-UNK TOILETING: TOILETING - STEP 1: Does the patient require the assistance of a person or device, or need extra time with toileting? Yes . TOILETING - STEP 2: Does the patient require the assistance of a helper? Yes. TOILETING - STEP 3: How much assistance does the patient require from the helper? Only supervision TOILETING - SCORE: 5-SUP BLADDER MANAGEMENT: BLADDER MANAGEMENT - STEP 1: Does the patient control the bladder completely and intentionally without equipment or devices or med ications, and is always continent? No. BLADDER MANAGEMENT - STEP 2: Does the patient require the assistance of a helper? No, patient requires and independently uses an a ssistive device, such as a urinal, bedpan, bedside commode, catheter, absorbent pad, or collecting de vice BLADDER MANAGEMENT - SCORE: 6-DAWN BOWEL MANAGEMENT: Activity did not occur on this shift BOWEL MANAGEMENT - SCORE: 7-IND TRANSFERS: BED, CHAIR, WHEELCHAIR: TRANSFERS: BED, CHAIR, WHEELCHAIR - STEP 1: Does the patient require assitance of a person or device, or need extra time with bed, chair, or whee lchair transfers? Yes. TRANSFERS: BED, CHAIR, WHEELCHAIR - STEP 2: Does the patient require the assistance of a helper? Yes. TRANSFERS: BED, CHAIR, WHEELCHAIR - STEP 3: How much assistance does the patient require from the helper? Steadying/guiding assistance TRANSFERS: BED, CHAIR, WHEELCHAIR - SCORE: 4-MIN TRANSFERS: TOILET: TRANSFERS: TOILET - STEP 1: Does the patient require the assistance of a person or device, or need extra time with toilet transfe rs? Yes. TRANSFERS: TOILET - STEP 2: Does the patient require the assistance of a helper? Yes. TRANSFERS: TOILET - STEP 3: How much assistance does the patient require from the helper? Patient performs half or more of the tr ansferring tasks TRANSFERS: TOILET - STEP 4: Does the patient need only incidental help such as contact guard or steadying during toilet transfer? Yes. TRANSFERS: TOILET - SCORE: 4-MIN TRANSFERS: SHOWER: Activity did not occur on this shift TRANSFERS: SHOWER - SCORE: 0-UNK TRANSFERS: TUB: Activity did not occur on this shift TRANSFERS: TUB - SCORE: 0-UNK LOCOMOTION: WALK: Activity did not occur on this shift LOCOMOTION: WALK - SCORE: 0-UNK LOCOMOTION: WHEELCHAIR: Activity did not occur on this shift LOCOMOTION: WHEELCHAIR - SCORE: 0-UNK COMPREHENSION: COMPREHENSION: TYPE: Both COMPREHENSION - STEP 1: Does the patient require help from a person or device, or need extra time to understand complex and a bstract ideas (such as current events, finances, discharge planning, medical issues, relationships, e tc)? No. COMPREHENSION - STEP 2: Does the patient need extra time, require an assistive device (such as glasses for visual comprehensi on or a hearing aid for auditory comprehension) or does s/he have mild difficulty understanding compl ex and abstract information? Yes. COMPREHENSION - SCORE: 6-DAWN EXPRESSION EXPRESSION: TYPE: Both EXPRESSION - STEP 1: Does the patient require help from a person or device, or need extra time expressing complex and abst ract ideas (such as current events, finances, discharge planning, medical issues, relationships, etc) ? No. EXPRESSION - STEP 2: Does the patient need extra time, require an assistive device (such as augmentive communication syste m or a communication board), OR does s/he have mild difficulty expressing complex and abstract ideas (including mild dysarthria or mild word-find problems)? No. EXPRESSION - SCORE: 7-IND SOCIAL INTERACTION: SOCIAL INTERACTION - STEP 1: Does the patient require a helper to interact with others in social and therapeutic situations? No. SOCIAL INTERACTION - STEP 2: Does the patient need extra time in social situations, OR does s/he interact with staff, other patien ts, and family members ONLY in structured environments, OR does s/he require medication for social in teraction? No. SOCIAL INTERACTION - SCORE: 7-IND PROBLEM SOLVING: PROBLEM SOLVING - STEP 1: Does the patient need help from a person or device, or need extra time to solve complex problems such as managing a checking account or confronting interpersonal problems? No. PROBLEM SOLVING - STEP 2: Does the patient require extra time to make decisions or solve problems, OR does s/he have slight dif ficulty reading, initiating, or self-correcting in unfamiliar situations? Yes, patient needs extra ti me. PROBLEM SOLVING - SCORE: 6-DAWN MEMORY: MEMORY - STEP 1: Does the patient need help from a person or device, or need extra time to remember frequently encount ered people, daily routines, and executing requests? No. MEMORY - STEP 2: Does the patient have slight difficulty recognizing frequently encountered people, daily routines, or executing requests without the need for repetition or using self-initiated or environmental cues to remember? Yes. MEMORY - SCORE: 6-DAWN SIGNATURE PANEL: The following modified sections: Eating - Score, Grooming - Score, Bathing - Score, Dressing - Upper Body - Score, Dressing - Lower Body - Score, Toileting - Score, Bladder Management - Score, Bowel Man agement - Score, Transfers: Bed, Chair, Wheelchair - Score, Transfers: Toilet - Score, Transfers: Meka wer - Score, Transfers: Tub - Score, Locomotion: Walk - Score, Locomotion: Wheelchair - Score, Compre hension - Score, Expression - Score, Social Interaction - Score, Problem Solving - Score, Memory - Sc ore were [electronically] signed by Ran Bradshaw on TueJun 12 2018 15:51:38 GMT-0600 (Central Standard Time)
[2018-06-12] MEDS: AMIODARONE 200 MG PO SCH (21:54)
[2018-06-12] MEDS: METOPROLOL PO SCH (21:55)
[2018-06-12] MEDS: SUCCINATE PO SCH (21:55)
--- NOTE | 2018-06-13 02:18 | FAST ---
SHIFT START DATE/TIME: 06/12/2018 19:00 (REGULATED PROGRAM MANAGER) SHIFT END DATE/TIME: 06/13/2018 07:00 (REGULATED PROGRAM MANAGER) NAME KRIS MARQUEZ DATE OF : 1940 DATE OF ADMISSION: 05/31/2018 17:15 (REGULATED PROGRAM MANAGER) PHONE: AGE: 78 SSN# [id number] GENDER: Male ENCOUNTER PHYSICIAN: Dr. Saulo Johnson M.D. ADMISSION DIAGNOSIS: - Orthopaedic Disorders 08 - Unilateral Hip Fracture (08.11) LEFT HIP FRACTURE. EATING: Activity did not occur on this shift EATING - SCORE: 0-UNK GROOMING: Activity did not occur on this shift GROOMING - SCORE: 0-UNK BATHING: Activity did not occur on this shift BATHING - SCORE: 0-UNK DRESSING - UPPER BODY: Patient is not dressing in public clothing ARTICLES SCORE Total number of steps: 0 DRESSING - UPPER BODY - SCORE: 0-UNK DRESSING - LOWER BODY: Patient is not dressing in public clothing ARTICLES SCORE Total number of steps: 0 DRESSING - LOWER BODY - SCORE: 0-UNK TOILETING: Activity did not occur on this shift TOILETING - SCORE: 0-UNK BLADDER MANAGEMENT: Patient is on renal dialysis or peritoneal dialysis and no voiding activity BLADDER MANAGEMENT - SCORE: 7-IND BOWEL MANAGEMENT: Activity did not occur on this shift BOWEL MANAGEMENT - SCORE: 7-IND TRANSFERS: BED, CHAIR, WHEELCHAIR: Activity did not occur on this shift TRANSFERS: BED, CHAIR, WHEELCHAIR - SCORE: 0-UNK TRANSFERS: TOILET: Activity did not occur on this shift TRANSFERS: TOILET - SCORE: 0-UNK TRANSFERS: SHOWER: Activity did not occur on this shift TRANSFERS: SHOWER - SCORE: 0-UNK TRANSFERS: TUB: Activity did not occur on this shift TRANSFERS: TUB - SCORE: 0-UNK LOCOMOTION: WALK: Activity did not occur on this shift LOCOMOTION: WALK - SCORE: 0-UNK LOCOMOTION: WHEELCHAIR: Activity did not occur on this shift LOCOMOTION: WHEELCHAIR - SCORE: 0-UNK COMPREHENSION: COMPREHENSION: TYPE: Both COMPREHENSION - STEP 1: Does the patient require help from a person or device, or need extra time to understand complex and a bstract ideas (such as current events, finances, discharge planning, medical issues, relationships, e tc)? No. COMPREHENSION - STEP 2: Does the patient need extra time, require an assistive device (such as glasses for visual comprehensi on or a hearing aid for auditory comprehension) or does s/he have mild difficulty understanding compl ex and abstract information? Yes. COMPREHENSION - SCORE: 6-DAWN EXPRESSION EXPRESSION: TYPE: Both EXPRESSION - STEP 1: Does the patient require help from a person or device, or need extra time expressing complex and abst ract ideas (such as current events, finances, discharge planning, medical issues, relationships, etc) ? No. EXPRESSION - STEP 2: Does the patient need extra time, require an assistive device (such as augmentive communication syste m or a communication board), OR does s/he have mild difficulty expressing complex and abstract ideas (including mild dysarthria or mild word-find problems)? Yes. EXPRESSION - SCORE: 6-DAWN SOCIAL INTERACTION: SOCIAL INTERACTION - STEP 1: Does the patient require a helper to interact with others in social and therapeutic situations? No. SOCIAL INTERACTION - STEP 2: Does the patient need extra time in social situations, OR does s/he interact with staff, other patien ts, and family members ONLY in structured environments, OR does s/he require medication for social in teraction? Yes, patient needs extra time SOCIAL INTERACTION - SCORE: 6-DAWN PROBLEM SOLVING: PROBLEM SOLVING - STEP 1: Does the patient need help from a person or device, or need extra time to solve complex problems such as managing a checking account or confronting interpersonal problems? No. PROBLEM SOLVING - STEP 2: Does the patient require extra time to make decisions or solve problems, OR does s/he have slight dif ficulty reading, initiating, or self-correcting in unfamiliar situations? Yes, patient needs extra ti me. PROBLEM SOLVING - SCORE: 6-DAWN MEMORY: MEMORY - STEP 1: Does the patient need help from a person or device, or need extra time to remember frequently encount ered people, daily routines, and executing requests? No. MEMORY - STEP 2: Does the patient have slight difficulty recognizing frequently encountered people, daily routines, or executing requests without the need for repetition or using self-initiated or environmental cues to remember? Yes. MEMORY - SCORE: 6-DAWN SIGNATURE PANEL: The following modified sections: Eating - Score, Grooming - Score, Dressing - Upper Body - Score, Timbo ssing - Lower Body - Score, Toileting - Score, Bladder Management - Score, Bowel Management - Score, Transfers: Bed, Chair, Wheelchair - Score, Transfers: Toilet - Score, Transfers: Shower - Score, Harris sfers: Tub - Score, Locomotion: Walk - Score, Locomotion: Wheelchair - Score, Comprehension - Score, Expression - Score, Social Interaction - Score, Problem Solving - Score, Memory - Score were [electro nically] signed by Jasmina Pemberton CNA on TueJun 13 2018 02:17:46 GMT-0600 (Central Standard Time)
--- NOTE | 2018-06-13 03:01 | PN ---
Date of Progress Note: 06/12/2018 Subjective: The patient was seen this morning for followup. [facility] Denied any complaints. No constipation. No abdominal pain, nausea, or vomiting. Objective: Vital Signs: Reviewed HEENT Examination: Unremarkable. Lungs: Clear to auscultation. Heart: Sounds normal. Abdomen: Soft. Bowel sounds normal. No guarding, rigidity, tenderness, or distention. Extremities: No leg edema. Impression: 1.Left hip fracture. 2.Hypertension. 3.End-stage renal disease, on hemodialysis. 4.Anemia, due to chronic kidney disease. 5.Paroxysmal atrial fibrillation. Plan: We will continue current medication. Continue physical therapy under guidance of Dr. Johnson . I will see him tomorrow for followup and the patient is scheduled to go home tomorrow. PAULA/WILFREDO Voice ID: [id number] Report ID: [id number]
--- NOTE | 2018-06-13 04:10 | PN ---
Date of Progress Note: 06/12/2018 Chief Complaint: End-stage renal disease dialysis. Subjective: The patient has multiple medical problems including history of hypertension, difficult to control blood pressure, on multiple blood pressure medication. He is undergoing rehab and was found to have severe deconditioning. The patient has legs edema, some fluid overload and today dialysis will be obtained with ultrafiltration. Review of Systems: The patient denies fever, chills. Physical Examination: Lungs: Clear to auscultation bilaterally. Heart: S1, S2. Abdomen: Soft. Benign. Extremities: Slight edema in both ankles. Impression And Plan: 1. The patient is an 78-year-old man with history of COPD, hyperlipidemia, and end-stage renal disease, on Tuesday, Tuesday, and Tuesday. He is undergoing treatment for deconditioning. He will have dialysis today with ultrafiltration. Continue low-sodium diet and p.o. fluid restriction. 2. Anemia in CKD. Monitor hemoglobin level and adjust JANI. 3. Renal osteodystrophy. Continue renal diet and binders. ROBERT/WILFREDO Voice ID: [id number] Report ID: [id number] MTDD
[2018-06-13] MEDS: COMBIGAN OPTH SCH (07:30)
[2018-06-13] MEDS: predniSONE 10 MG TAB PO SCH (07:30)
[2018-06-13] MEDS: EYE OPTH SCH (07:30)
[2018-06-13] MEDS: CALCIUM ACETATE 667 MG PO SCH ×2 (07:31→11:31)
[2018-06-13] MEDS: [UNRECOGNIZED DRUG - OTHER] PO SCH (07:32)
[2018-06-13] MEDS: NORVASC 10 MG PO SCH (07:32)
[2018-06-13] MEDS: POLYETHYL GLY 3350 17 GM/DOSE PO SCH (07:47)
[2018-06-13] MEDS: NEPRO SHAKE 237 ML CAN PO SCH (07:48)
[2018-06-13] MEDS: FERROUS SULFATE 325 MG TAB PO SCH (07:48)
[2018-06-13] MEDS: predniSONE 5 MG TAB PO SCH (07:48)
[2018-06-13] MEDS: FE SULF/FA/VIT B COMP & C TAB PO SCH (07:48)
[2018-06-13] MEDS: PROMOD 30 ML DOSE PO SCH (07:49)
[2018-06-13] MEDS: CLOTRIMAZOLE 10 MG TROCHE PO SCH ×2 (08:21→12:08)
[2018-06-13] MEDS: HEPARIN 5000 UNIT/ML 1 ML VIAL SQ SCH (08:21)
[2018-06-13] MEDS: SUCRALFATE 1GM/10ML UCUP PO SCH ×2 (08:21→12:09)
[2018-06-13 09:18] VITALS: BP 152/84; TEMP 97.2
--- NOTE | 2018-06-13 21:49 | FAST ---
ENCOUNTER DATE AND TIME: 06/13/2018 08:00 (UTILITY MECHANIC) NAME KRIS MARQUEZ DATE OF : 1940 DATE OF ADMISSION: 05/31/2018 17:15 (UTILITY MECHANIC) PHONE: AGE: 78 SSN# [id number] GENDER: Male ENCOUNTER PHYSICIAN: Dr. Saulo Johnson M.D. ADMISSION DIAGNOSIS: - Orthopaedic Disorders 08 - Unilateral Hip Fracture (08.11) LEFT HIP FRACTURE. EATING: Activity did not occur on this shift EATING - SCORE: 0-UNK GROOMING: Activity did not occur on this shift GROOMING - SCORE: 0-UNK BATHING: Activity did not occur on this shift BATHING - SCORE: 0-UNK DRESSING - UPPER BODY: Activity did not occur on this shift Patient is not dressing in public clothing ARTICLES SCORE Total number of steps: 0 DRESSING - UPPER BODY - SCORE: 0-UNK DRESSING - LOWER BODY: Activity did not occur on this shift Patient is not dressing in public clothing ARTICLES SCORE Total number of steps: 0 DRESSING - LOWER BODY - SCORE: 0-UNK TOILETING: Activity did not occur on this shift TOILETING - SCORE: 0-UNK BLADDER MANAGEMENT: Activity did not occur on this shift BLADDER MANAGEMENT - SCORE: 7-IND BOWEL MANAGEMENT: Activity did not occur on this shift BOWEL MANAGEMENT - SCORE: 7-IND TRANSFERS: BED, CHAIR, WHEELCHAIR: TRANSFERS: BED, CHAIR, WHEELCHAIR - STEP 1: Does the patient require assitance of a person or device, or need extra time with bed, chair, or whee lchair transfers? Yes. TRANSFERS: BED, CHAIR, WHEELCHAIR - STEP 2: Does the patient require the assistance of a helper? No. Patient only requires an assistive device fo r bed, chair, wheelchair transfers such as a sliding board, grab bar, or brace, OR s/he takes more th an reasonable time, OR there is a safety concern when s/he performs the transfers TRANSFERS: BED, CHAIR, WHEELCHAIR - SCORE: 6-DAWN TRANSFERS: TOILET: Activity did not occur on this shift TRANSFERS: TOILET - SCORE: 0-UNK TRANSFERS: SHOWER: Activity did not occur on this shift TRANSFERS: SHOWER - SCORE: 0-UNK TRANSFERS: TUB: Activity did not occur on this shift TRANSFERS: TUB - SCORE: 0-UNK LOCOMOTION: WALK: LOCOMOTION: WALK - STEP 1: Does the patient need help from a person or device, or need extra time to walk 150 feet? No. LOCOMOTION: WALK - STEP 2: Does the patient need an assistive device (such as an orthosis, prosthesis, crutches, or walker) to g o 150 feet, OR does s/he take more than reasonable time, OR is there a concern for safety? Yes, the p atient needs an assistive device LOCOMOTION: WALK - SCORE: 6-DAWN LOCOMOTION: WHEELCHAIR: LOCOMOTION: WHEELCHAIR - STEP 1: Does the patient need help to go 150 feet in a wheelchair? No. LOCOMOTION: WHEELCHAIR - SCORE: 6-DAWN LOCOMOTION: STAIRS: Activity did not occur on this shift LOCOMOTION: STAIRS - SCORE: 0-UNK COMPREHENSION: COMPREHENSION - SCORE: 0-UNK EXPRESSION EXPRESSION - SCORE: 0-UNK SOCIAL INTERACTION: SOCIAL INTERACTION - SCORE: 0-UNK PROBLEM SOLVING: PROBLEM SOLVING - SCORE: 0-UNK MEMORY: MEMORY - SCORE: 0-UNK SIGNATURE PANEL: The following modified sections: Transfers: Bed, Chair, Wheelchair - Score, Transfers: Toilet - Score , Locomotion: Walk - Score, Locomotion: Wheelchair - Score, Locomotion: Stairs - Score were [electron ically] signed by Darryl Araujo PT on TueJun 13 2018 14:38:47 GMT-0600 (Central Standard Time)
--- NOTE | 2018-06-14 06:58 | DS ---
Date of Discharge: 06/13/2018 Disposition: Discharged to go home. Physical Examination: HEENT: Unremarkable. Lungs: Clear to auscultation. Heart: Sounds normal. Abdomen: Soft. Bowel sounds normal. No guarding, rigidity, tenderness, distention. Extremities: No leg edema. Discharge Medications And Instructions: Continue prior home medication. Follow up at my office per scheduled appointment. Follow up with orthopedic surgeon in 1 to 2 weeks. Hospital Course: An 78-year-old male patient admitted to the rehab floor after he had surgery done f or the hip fracture. Please see dictated H and P for more information. After the patient was admitt ed to rehab floor, he continued his vancomycin by mouth for Clostridium difficile colitis. His stool for C diff came back negative, so vancomycin was subsequently discontinued. Nephrology consultation was provided for dialysis support and he received his hemodialysis on a scheduled basis. Dr. Jerson mireles from Rehab was consulted and he provided rehab therapy. The patient's condition overall improved significantly. He had laceration to left elbow area, which has healed completely. His pain from lef t hip area has improved significantly and he has some chronic constipation which was managed with Wilner aLax and that has helped him very well. He continued his chronic steroid therapy. His dysphagia and odynophagia problem improved. The patient was thought to have candidal esophagitis and oral candidi asis and he takes amiodarone. So because of possible drug interaction with amiodarone and fluconazol e, we did not prescribe him fluconazole and instead of that we used clotrimazole and he responded candice y well to that. The patient was discharged to go home in stable condition today with above-mentioned medications and instructions. Final Diagnoses: 1.Left femur subcapital fracture, status post surgery. 2.Clostridium difficile colitis. 3.Adrenal insufficiency. 4.Chronic steroid therapy. 5.End-stage renal disease, on hemodialysis. 6.Hypertension. 7.Anemia due to chronic kidney disease. 8.Paroxysmal atrial fibrillation. 9.Oral candidiasis. 10.Candidal esophagitis. 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 12.Gastroesophageal reflux disease. PAULA/MODL Voice ID: [id number] Report ID: [id number]
== END 2018-06-13 13:55 | disposition home health service (06) | DRG 560 ==
LOC: 5TH 05-31 12:00
PROVIDERS: ADMIT Internal Medicine; ATTEND Internal Medicine
DX: S72.142D Displaced intertrochanteric fracture of left femur, subsequent encounter for closed fracture with routine healing (principal); I13.0 Hypertensive heart and chronic kidney disease with heart failure and stage 1 through stage 4 chronic kidney disease, or unspecified chronic kidney disease; I50.22 Chronic systolic (congestive) heart failure; I48.2 Chronic atrial fibrillation; N18.2 Chronic kidney disease, stage 2 (mild)
CPT/HCPCS: 36415; 80048; 82040; 83735; 84134; 85025; 87493; 90935; 97542; J1644; J2704; J7512; Q4081

== ENCOUNTER 2018-09-11 05:51 | Observation (INO) | payer OTHER ==
--- OUTSIDE RECORDS SUMMARY | 2018-09-11 05:53 | XMS REPORT | Clinical Summary ---
:1940 Author Organization [facility] Address [address] [place] [address] Care Team Providers Name Role Phone Jose [...] Not on file Results Not on fileafter 09/10/2017 Insurance Payer Benefit Plan / Subscriber ID Type Phone Address Group MEDICARE MEDICARE A B xxxxxxxxxx Medicare [employer] - UHC MCR SECURE xxxxxxxxxx Maps Contracted MEDICARE [employer]
[2018-09-11] MEDS ORDERED: ONDANSETRON 4 MG/2 ML VIAL ONE (07:06)
[2018-09-11 07:45] LABS: Protime INR 0.97
[2018-09-11 07:46] LABS: Absolute Lymphocytes (CBC) 1.6 K/uL (0.7-4.9); Absolute Monocytes 0.5 K/uL (0.1-1.3); Absolute Neutrophil 9.7 K/uL (1.8-8.0); Basophils % 0.7 % (0-1.3); Eosinophils % 1.1 % (0-4.4); Hematocrit 38.6 % (39.6-49.0); Lymphocytes % 13.6 % (15.3-44.8); MPV 8.8 fL (7.6-11.3); Monocytes % 4.3 % (3.3-12.3); RBC Red Blood Cell Count 4.03 M/uL (4.33-5.43)
--- NOTE | 2018-09-11 08:26 | RAD REPORT ---
EXAM DESCRIPTION: RAD - Pelvis - 09/11/2018 7:52 am CLINICAL HISTORY: PAIN Fall, trauma, pain COMPARISON: None FINDINGS: AP pelvis and left hip- multiple projections are submitted. Left total hip arthroplasty is seen. Mild osteopenia. No hardware complication. No acute fracture dem onstrated.
--- NOTE | 2018-09-11 08:29 | RAD REPORT ---
EXAM DESCRIPTION: CT - CTHCSPWOC - 09/11/2018 6:55 am CLINICAL HISTORY: Trauma, head and neck injury. Fall injury COMPARISON: No comparisons TECHNIQUE: Axial 5 mm thick images of the head were obtained. Axial 2 mm thick images of the cervical spine were obtained with sagittal and coronal reconstruction images generated and reviewed. All CT scans are performed using dose optimization technique as appropriate and may include automated exposure control or mA/KV adjustment according to patient size. FINDINGS: CT HEAD WITHOUT CONTRAST: No acute hemorrhage, hydrocephalus or extra-axial collection is identified.Mild generalized brain atr ophy is present with mild periventricular and deep white matter chronic microvascular ischemic change s.No areas of brain edema or midline shift. Vertebral arteries are calcified. The paranasal sinuses and mastoids are clear.The calvarium is intact. CT CERVICAL SPINE WITHOUT CONTRAST: No fracture or subluxation.Heavy carotid atherosclerosis.No prevertebral soft tissues swelling is eryn ntified. Multiple irregular nodular opacities are seen in the lung apices. IMPRESSION: No acute intracranial or cervical spine findings.
--- NOTE | 2018-09-11 08:29 | RAD REPORT ---
EXAM DESCRIPTION: RAD - Elbow Left 3 View - 09/11/2018 7:51 am CLINICAL HISTORY: Pain;Swelling COMPARISON: Elbow Left 3 View dated 05/20/2018 FINDINGS: Large amount of soft tissue swelling is seen in the region of the olecranon. A small olecr anon spur is noted. No acute fracture or dislocation evident. Small subcutaneous radiopaque foreign b juan jose is suspected in the anterior soft tissues of the distal left arm.
--- NOTE | 2018-09-11 08:30 | RAD REPORT ---
EXAM DESCRIPTION: RAD - Hand Left 3 View - 09/11/2018 7:51 am CLINICAL HISTORY: Pain;Swelling COMPARISON: Hand Left 3 View dated 05/20/2018 FINDINGS: Dislocation is seen involving the PIP joints of the third and fourth fingers. No acute fra ctures demonstrated. Heavy atherosclerosis.
--- NOTE | 2018-09-11 08:30 | RAD REPORT ---
EXAM DESCRIPTION: RAD - Elbow Right 3 View - 09/11/2018 7:51 am CLINICAL HISTORY: PAIN Trauma, elbow pain COMPARISON: No comparisons FINDINGS: No acute fracture or dislocation. No aggressive marrow lesion.
--- NOTE | 2018-09-11 08:33 | RAD REPORT ---
EXAM DESCRIPTION: RAD - Chest Single View - 09/11/2018 7:51 am CLINICAL HISTORY: Fall Chest pain. COMPARISON: Chest Single View dated 05/20/2018; Chest Single View dated 03/14/2018; Chest Single View dated 11/29/2017; Chest Single View dated 11/28/2017 FINDINGS: Portable technique limits examination quality. Ill-defined nodular opacities are present in the lung apices, greater on the right, chronic in appear ance. Heart is moderately prominent in size. No displaced fractures.
[2018-09-11] MEDS ORDERED: LIDOCAINE 1% MPF 5 ML VIAL ONE (08:37)
[2018-09-11] MEDS ORDERED: LIDOCAINE 1% 20 ML MDV ONE (08:38)
[2018-09-11 09:41] LABS: ALT/SGPT 18 U/L (12-78); AST/SGOT 17 U/L (15-37); Albumin 2.9 g/dL (3.4-5.0); Alkaline Phosphatase 85 U/L (45-117); BUN Blood Urea Nitrogen 78 mg/dL (7-18); Bicarbonate 23 mmol/L (21-32); Bilirubin Direct 0.2 mg/dL (0-0.2); Glucose Level 114 mg/dL (74-106); Magnesium 2.4 mg/dL (1.8-2.4); NT PRO-BNP 39495 pg/mL (<450); Protein, Total 7.2 g/dL (6.4-8.2); Sodium Level 138 mmol/L (136-145); Troponin (Emerg Dept Use Only) < 0.02 ng/mL (0.0-0.045)
--- NOTE | 2018-09-11 09:51 | RAD REPORT ---
EXAM DESCRIPTION: RAD - Hand Left 3 View - 09/11/2018 9:14 am CLINICAL HISTORY: post reduction Trauma, pain COMPARISON: Hand Left 3 View dated 09/11/2018; Hand Left 3 View dated 05/20/2018 FINDINGS: The previously noted dislocation involving the PIP joint of third and fourth finger has be en reduced. No acute fracture seen.
[2018-09-11 09:59] LABS: Potassium 6.5 mmol/L (3.5-5.1)
[2018-09-11] MEDS ORDERED: DERMABOND SKIN ADHESIVE TOP ONE (10:32)
--- NOTE | 2018-09-11 11:00 | RAD REPORT ---
EXAM DESCRIPTION: RAD - Hip Left 2 View - 09/11/2018 7:51 am CLINICAL HISTORY: PAIN Fall, trauma, pain COMPARISON: None FINDINGS: AP pelvis and left hip- multiple projections are submitted. Left total hip arthroplasty is seen. Mild osteopenia. No hardware complication. No acute fracture dem onstrated.
--- NOTE | 2018-09-11 11:06 | EDPHYS ---
Physician Documentation [facility] Name: Amado Benitez Age: 78 yrs Sex: Male : 1940 Arrival Date: 09/11/2018 Time: 05:58 Bed 6 Private MD: ED Physician Chan Robbins HPI: 09/11 06:39 This 78 yrs old Male presents to ER via EMS with complaints of Fall Injury. pm1 06:39 Details of fall: The patient fell from an upright position, while standing. Onset: The pm1 symptoms/episode began/occurred just prior to arrival. Patient was getting ready for his dialysis treatment this AM. He was looking around for his dog and when he pivoted he lost his balance. He fell with his back against the wall and slid down. Denies hitting his head, headache, neck pain, or LOC. Has pain to right elbow, left elbow, left 3rd and 4th fingers, and lower back. Denies chest pain, shortness of breath, and dizziness. Patient arrived by EMS with c-collar in place and given fentanyl 150 mcg and Zofran 4 mg prior to arrival. Historical: - Allergies: 07:04 No Known Allergies; ea - Home Meds: 07:04 Santyl 250 unit/gram Topical oint once daily [Active]; acetaminophen-codeine 300-30 mg ea Oral tab 1 tab as needed [Active]; Aleve 500 mg Oral tab 1 tab every 8 hours [Active]; amiodarone 200 mg Oral tab 1 tab 2 times per day [Active]; amlodipine 10 mg tab 1 tab once daily [Active]; prednisone 10 mg Oral tab once daily [Active]; muprocin [Active]; metoprolol tartrate 12.5MG Oral tab 1 tab 2 times per day [Active]; losartan 50 mg Oral tab 2 times per day [Active]; hydralazine 10 mg Oral tab 1 tab 2 times per day [Active]; Epogen 3,000 unit/mL injection soln 3 times per wk for Dialysis [Active]; aspirin 81 mg Oral chew 1 tab once daily [Active]; calazimine skin protectant daily [Active]; Centrum Silver 400-250 mcg Oral chew [Active]; Combigan 0.2-0.5 % ophthalmic drop 1 drop every 12 hours [Active]; Ibuprofen Oral as needed [Active]; - PMHx: 07:04 TIA; OPEN WOUND LL LEG; Hypertension; hyperkalemia; Glaucoma; ESRD; Dialysis; COPD; ea Chronic pain; Atrial Fib; - Immunization history:: Adult Immunizations up to date. - Social history:: Smoking status: Patient/guardian denies using tobacco. - Immunization history: Last tetanus immunization: - up to date. - Ebola Screening: : No symptoms or risks identified at this time. ROS: 06:39 Constitutional: Negative for fever, chills, and weight loss, Eyes: Negative for injury, pm1 pain, redness, and discharge, ENT: Negative for injury, pain, and discharge, Neck: Negative for injury, pain, and swelling, Cardiovascular: Negative for chest pain, palpitations, and edema, Respiratory: Negative for shortness of breath, cough, wheezing, and pleuritic chest pain, Abdomen/GI: Negative for abdominal pain, nausea, vomiting, diarrhea, and constipation. 06:39 : Negative for injury, bleeding, discharge, and swelling. 06:39 Neuro: Negative for headache, weakness, numbness, tingling, and seizure. 06:39 Back: Positive for of the low back area. 06:39 MS/extremity: Positive for pain, of the left elbow, right elbow, and left hand, Abrasions to elbows and left hand. Has left lower extremity bandaging that he does not want removed or evaluated due to dressing placed by wound care - chronic foot wound for the past 2 years. 06:39 Skin: Positive for abrasion(s). Exam: 07:00 Constitutional: This is a well developed, well nourished patient who is awake, alert, pm1 and in no acute distress. Head/Face: Normocephalic, atraumatic. Eyes: Pupils equal round and reactive to light, extra-ocular motions intact. Lids and lashes normal. Conjunctiva and sclera are non-icteric and not injected. Cornea within normal limits. Periorbital areas with no swelling, redness, or edema. ENT: Nares patent. No nasal discharge, no septal abnormalities noted. Tympanic membranes are normal and external auditory canals are clear. Oropharynx with no redness, swelling, or masses, exudates, or evidence of obstruction, uvula midline. Mucous membranes moist. Neck: Trachea midline, no thyromegaly or masses palpated, and no cervical lymphadenopathy. Supple, full range of motion without nuchal rigidity, or vertebral point tenderness. No Meningismus. Chest/axilla: Normal chest wall appearance and motion. Nontender with no deformity. No lesions are appreciated. Cardiovascular: Regular rate and rhythm with a normal S1 and S2. No gallops, murmurs, or rubs. Normal PMI, no JVD. No pulse deficits. Respiratory: Lungs have equal breath sounds bilaterally, clear to auscultation and percussion. No rales, rhonchi or wheezes noted. No increased work of breathing, no retractions or nasal flaring. Abdomen/GI: Soft, non-tender, with normal bowel sounds. No distension or tympany. No guarding or rebound. No evidence of tenderness throughout. 07:00 Back: pain, that is mild, of the left iliac crest, vertebral tenderness, is not appreciated. 07:00 Musculoskeletal/extremity: Extremities: grossly normal except: noted in the left elbow: swelling, tenderness, There is no evidence of laceration. 07:00 Skin: injury, moderate skin tear left elbow, skin tear left 4th finger palmar aspect of PIP, laceration left 3rd finger palmar aspect of PIP. 07:00 Neuro: Orientation: is normal, Motor: is normal, moves all fours, Sensation: is normal, no obvious gross deficits. 08:57 Neck: C-spine: C-collar is removed, after CT scanning reveals no obvious unstable pm1 abnormality. Vital Signs: 05:50 BP 137 / 76; Pulse 78; Resp 18; Temp 97.8; Pulse Ox 94% on R/A; Weight 84.82 kg (R); ea Height 6 ft. (182.88 cm); 07:35 BP 137 / 79; Pulse 75; Resp 18; Pulse Ox 93% on 3 lpm NC; hj 07:53 Pulse Ox 97% on 3 lpm NC; hj 08:12 BP 144 / 84; Pulse 71; Resp 18; Pulse Ox 98% on 3 lpm NC; hj 09:47 BP 132 / 77; Pulse 77; Resp 18; Pulse Ox 99% on 3 lpm NC; hj 10:48 BP 127 / 78; Pulse 74; Resp 18; Pulse Ox 94% on 3 lpm NC; hj 13:59 BP 121 / 81; Pulse 79; Resp 23; Pulse Ox 97% on 2 lpm NC; pc1 05:50 Body Mass Index 25.36 (84.82 kg, 182.88 cm) ea Rochester Coma Score: 05:50 Eye Response: spontaneous(4). Verbal Response: oriented(5). Motor Response: obeys ea commands(6). Total: 15. Trauma Score (Adult): 05:50 Eye Response: spontaneous(1); Verbal Response: oriented(1); Motor Response: obeys ea commands(2); Systolic BP: > 89 mm Hg(4); Respiratory Rate: 10 to 29 per min(4); [place] Score: 15; Trauma Score: 12 Procedures: 08:58 Reduction: of the PIP of left ring finger and PIP of left middle finger, using pm1 traction, Patient tolerated well. Laceration: 10:30 Wound Repair of 2cm ( 0.8in ) subcutaneous laceration to PIP of left middle finger. pm1 Irregularly shaped.. Distal neuro/vascular/tendon intact. Anesthesia: Digital block administered with 3 mls of 1% lidocaine. Wound prep: Extensive cleansing with betadine by me, Wound irrigation with saline by me, Wound explored extensively, Copious irrigation. Skin closed with 5 5-0 Prolene using simple sutures and sterile technique. Dressed with tube gauze. Patient tolerated well. 10:30 Wound Repair of 2cm ( 0.8in ) subcutaneous laceration to PIP of left ring finger. skin pm1 tear. Distal neuro/vascular/tendon intact. Wound prep: Extensive cleansing with betadine by me, Wound irrigation with saline, Wound explored extensively, Copious irrigation. Skin closed with 1-0 Adhesive skin closure using Dermabond. Dressed with 4x4's. Patient tolerated well. MDM: 06:03 Patient medically screened. pm1 11:00 Data reviewed: vital signs. Counseling: I had a detailed discussion with the patient pm1 and/or guardian regarding: the historical points, exam findings, and any diagnostic results supporting the discharge/admit diagnosis, lab results, radiology results, the need for further work-up and treatment in the hospital. 11:49 Physician consultation: Ry Newman MD was called at 10:44, was contacted pm1 at 11:49, regarding and will see patient Wants patient in the ICU and will call dialysis nurse with orders. Repeat K in 1 hour. 09/11 06:15 Order name: Basic Metabolic Panel pm1 09/11 06:15 Order name: CBC with Diff; Complete Time: 07:56 pm1 09/11 06:15 Order name: LFT's pm09/11 06:15 Order name: Magnesium pm09/11 06:15 Order name: NT PRO-BNP pm09/11 06:15 Order name: PT-INR; Complete Time: 07:56 pm1 09/11 06:15 Order name: Troponin (emerg Dept Use Only) pm09/11 09:05 Order name: Basic Metabolic Panel; Complete Time: 10:36 EDMS 09/11 09:05 Order name: Liver (Hepatic) Function; Complete Time: 10:36 EDMS 09/11 09:05 Order name: Troponin (Emerg Dept Use Only); Complete Time: 10:36 EDMS 09/11 09:05 Order name: NT PRO-BNP; Complete Time: 10:36 EDMS 09/11 09:05 Order name: Magnesium; Complete Time: 10:36 EDMS 09/11 11:53 Order name: BMP: Repeat at 1300 pm09/11 13:58 Order name: Basic Metabolic Panel; Complete Time: 14:29 EDMS 09/11 06:14 Order name: CT Head C Spine; Complete Time: 08:54 pm09/11 06:14 Order name: Elbow Left 3 View XRAY; Complete Time: 08:54 pm09/11 06:14 Order name: Elbow Right 3 View XRAY; Complete Time: 08:54 pm09/11 06:14 Order name: Hand Left 3 View XRAY; Complete Time: 08:54 pm09/11 06:15 Order name: XRAY Chest (1 view); Complete Time: 08:54 pm09/11 06:15 Order name: EKG; Complete Time: 06:16 pm09/11 06:25 Order name: Hip Left 2 View XRAY; Complete Time: 11:31 pm09/11 06:25 Order name: Pelvis XRAY; Complete Time: 08:28 pm09/11 08:53 Order name: Hand Left 3 View XRAY; Complete Time: 10:36 pm1 09/11 06:15 Order name: Cardiac monitoring; Complete Time: 07:02 pm09/11 06:15 Order name: EKG - Nurse/Tech; Complete Time: 07:52 pm09/11 06:15 Order name: IV Saline Lock; Complete Time: 07:02 pm09/11 06:15 Order name: Labs collected and sent; Complete Time: 07:31 pm09/11 06:15 Order name: O2 Per Protocol; Complete Time: 07:03 pm09/11 06:15 Order name: O2 Sat Monitoring; Complete Time: 07:03 pm09/11 08:12 Order name: Wound Care; Complete Time: 08:12 hj 09/11 08:19 Order name: Labs - recollect needed; Complete Time: 08:21 bd 09/11 08:54 Order name: Prolene, Sutures; Complete Time: 08:57 pm09/11 08:54 Order name: Dressing - Wound; Complete Time: 08:56 pm09/11 08:54 Order name: Gloves, Sterile; Complete Time: 08:56 pm09/11 08:54 Order name: Setup Suture Tray; Complete Time: 08:56 pm09/11 10:22 Order name: Dermabond; Complete Time: 10:22 hj Administered Medications: 08:32 Drug: Lidocaine (1 %) 20 ml Volume: 20 ml; Route: Infiltration; hj 11:20 Drug: Albuterol 7.5 mg Route: Inhalation; hj 11:20 Drug: Calcium Gluconate 1 grams Route: IVPB; Infused Over: 60 mins; Site: right forearm;hj 12:11 Follow up: IV Status: Completed infusion hj 11:20 Drug: Insulin Regular Human 5 units {Co-Signature: bp (Raghavendra Smith RN).} Route: IVP; hj Site: right forearm; 12:11 Follow up: Response: No adverse reaction hj 11:20 Drug: D50W 50 ml Route: IVP; Site: right forearm; hj 12:11 Follow up: Response: No adverse reaction hj 11:20 Drug: Kayexalate 30 grams Route: PO; hj 12:10 Follow up: Response: No adverse reaction hj 12:29 Drug: Ancef 1 grams Route: IVPB; Site: right forearm; hj 12:29 Follow up: IV Status: Completed infusion hj Disposition: 09/12 07:06 Co-signature as Attending Physician, Chan Robbins MD. rn Disposition: 09/11/18 11:05 Hospitalization ordered by Mciky Russo for Inpatient Admission. Preliminary diagnosis are Hyperkalemia, Dislocation of proximal interphalangeal joint of left middle finger, Dislocation of proximal interphalangeal joint of left ring finger, End stage renal disease, Contusion of left elbow, Laceration without foreign body of left middle finger without damage to nail, Other slipping, tripping and stumbling and falls. - Bed requested for Telemetry/MedSurg (Inpatient). - Status is Inpatient Admission. hj - Condition is Stable. - Problem is new. - Symptoms have improved. UTI on Admission? No Signatures: Dispatcher [employer] EDMS Caitlin Sun Roman, MD MD rn Joaquin, Henry, RN RN hj Marinas, Patrick, NP PLASMA SPECIALIST pm1 Nargis Tompkins RN RN ea Brian Peltier RN bp Corrections: (The following items were deleted from the chart) 09/11 11:49 11:05 Hospitalization Ordered by A Karan COHEN for Inpatient Admission. Preliminary pm1 diagnosis is HyperkalemiaDislocation of proximal interphalangeal joint of left middle finger; Dislocation of proximal interphalangeal joint of left ring finger; End stage renal disease; Contusion of left elbow; Laceration without foreign body of left middle finger without damage to nail; Other slipping, tripping and stumbling and falls. Bed requested for Telemetry/MedSurg (Inpatient). Status is Inpatient Admission. Condition is Stable. Problem is new. Symptoms have improved. UTI on Admission? No. pm1 11:52 11:49 Physician consultation: Ry Newman MD was called at 10:44, was pm1 contacted at 11:49, regarding and will see patient Wants patient in the ICU and will call dialysis nurse with orders, pm1 14:08 11:49 09/11/2018 11:05 Hospitalization Ordered by Micky Russo MD for Inpatient Admission. bd Preliminary diagnosis is HyperkalemiaDislocation of proximal interphalangeal joint of left middle finger; Dislocation of proximal interphalangeal joint of left ring finger; End stage renal disease; Contusion of left elbow; Laceration without foreign body of left middle finger without damage to nail; Other slipping, tripping and stumbling and falls. Bed requested for Intensive Care Unit. Status is Inpatient Admission. Condition is Stable. Problem is new. Symptoms have improved. UTI on Admission? No. pm1 15:50 14:08 09/11/2018 11:05 Hospitalization Ordered by Micky Russo MD for Inpatient Admission. hj Preliminary diagnosis is HyperkalemiaDislocation of proximal interphalangeal joint of left middle finger; Dislocation of proximal interphalangeal joint of left ring finger; End stage renal disease; Contusion of left elbow; Laceration without foreign body of left middle finger without damage to nail; Other slipping, tripping and stumbling and falls. Bed requested for Telemetry/MedSurg (Inpatient). Status is Inpatient Admission. Condition is Stable. Problem is new. Symptoms have improved. UTI on Admission? No. bd
--- NOTE | 2018-09-11 11:06 | ER ---
Nurse's Notes [facility] Name: Amado Benitez Age: 78 yrs Sex: Male : 1940 Arrival Date: 09/11/2018 Time: 05:58 Bed 6 Private MD: Diagnosis: Dislocation of proximal interphalangeal joint of left middle finger;Dislocation of proximal interphalangeal joint of left ring finger;Hyperkalemia;End stage renal disease;Contusion of left elbow;Laceration without foreign body of left middle finger without damage to nail;Other slipping, tripping and stumbling and falls Presentation: 09/11 05:50 Presenting complaint: EMS states: EMS reports pt was getting ready for dialysis fell ea back against the wall and slid to his bottom, pt reported he heard a pop when he hit the ground. Possible right middle and ring finger fracture. Transition of care: patient was not received from another setting of care. Onset of symptoms was September 11, 2018. Risk Assessment: Do you want to hurt yourself or someone else? Patient reports no desire to harm self or others. Initial Sepsis Screen: Does the patient meet any 2 criteria? No. Patient's initial sepsis screen is negative. Care prior to arrival: Bleeding of injury controlled. EMS reports bandaged the skin tear to left elbow. Cervical collar in place. Placed on backboard. Medication(s) given: zofran 4 mg, Fentanyl 150 IV initiated. 18 GA, in the right hand, Oxygen administered. via nasal cannula. 05:50 Method Of Arrival: EMS: [facility] 05:50 Acuity: KIMMY 2 ea 05:50 Initial Sepsis Screen: Does the patient have a suspected source of infection? No. ea Patient's initial sepsis screen is negative. 05:50 Mechanism of Injury: Fall from standing position. Trauma event details: Injury occurred ea in the [facility], Injury occurred: at home. Injury occurred: September 11, 2018 Injury occurred at: 05:00. Triage Assessment: 05:50 General: Appears uncomfortable, Behavior is appropriate for age. Neuro: Level of ea Consciousness is awake, alert, obeys commands, Oriented to person, place, time. Respiratory: Airway is patent Respiratory effort is even, unlabored, Respiratory pattern is regular, symmetrical. Trauma Activation: Alert Physician: ED Physician; Name: Rosendo; Notified At: 05:50; Arrived At: Physician: General Surgeon; Name: ; Notified At: 05:50; Arrived At: Physician: Radiology; Name: Glenny; Notified At: 05:50; Arrived At: Physician: Respiratory; Name: ; Notified At: 05:50; Arrived At: Physician: Lab; Name: ; Notified At: 05:50; Arrived At: Historical: - Allergies: 07:04 No Known Allergies; ea - Home Meds: 07:04 Santyl 250 unit/gram Topical oint once daily [Active]; acetaminophen-codeine 300-30 mg ea Oral tab 1 tab as needed [Active]; Aleve 500 mg Oral tab 1 tab every 8 hours [Active]; amiodarone 200 mg Oral tab 1 tab 2 times per day [Active]; amlodipine 10 mg tab 1 tab once daily [Active]; prednisone 10 mg Oral tab once daily [Active]; muprocin [Active]; metoprolol tartrate 12.5MG Oral tab 1 tab 2 times per day [Active]; losartan 50 mg Oral tab 2 times per day [Active]; hydralazine 10 mg Oral tab 1 tab 2 times per day [Active]; Epogen 3,000 unit/mL injection soln 3 times per wk for Dialysis [Active]; aspirin 81 mg Oral chew 1 tab once daily [Active]; calazimine skin protectant daily [Active]; Centrum Silver 400-250 mcg Oral chew [Active]; Combigan 0.2-0.5 % ophthalmic drop 1 drop every 12 hours [Active]; Ibuprofen Oral as needed [Active]; - PMHx: 07:04 TIA; OPEN WOUND LL LEG; Hypertension; hyperkalemia; Glaucoma; ESRD; Dialysis; COPD; ea Chronic pain; Atrial Fib; - Immunization history:: Adult Immunizations up to date. - Social history:: Smoking status: Patient/guardian denies using tobacco. - Immunization history: Last tetanus immunization: - up to date. - Ebola Screening: : No symptoms or risks identified at this time. Screenin:13 Abuse screen: Denies threats or abuse. Nutritional screening: No deficits noted. ea Tuberculosis screening: No symptoms or risk factors identified. Fall Risk IV access (20 points). Primary Survey: 05:50 NO uncontrolled hemorrhage observed. A: The patient is alert. Airway: patent, ea Breathing/Chest: Respiratory pattern: regular, Respiratory effort: spontaneous, unlabored, Breath sounds: clear, bilaterally. Chest inspection: symmetrical rise and fall of the chest. Circulation: Skin color: pink, Skin temperature: warm. Disability Alert. Exposure/Environment: Obvious injury(ies) are noted at this time: Left elbow skin tear and left middle and ring finger skin tear. Swelling noted to left elbow, wrist and left ring and middle finger. 07:00 Reassessment Airway Airway Patent Oxygen Nasal cannula Oral cavity Clear +Gag reflex hj Trachea Midline Breathing/Chest Respiratory pattern Regular Respiratory effort Spontaneous Unlabored Breath sounds Clear Chest inspection Symmetrical Circulation Heart rhythm Sinus rhythm Heart tones Present Pulses Palpable Color [place] Temperature Warm Dry Disability Alert. 08:00 Reassessment Airway Airway Patent Oxygen Nasal cannula Oral cavity Clear +Gag reflex hj Trachea Midline Breathing/Chest Respiratory pattern Regular Respiratory effort Spontaneous Unlabored Breath sounds Clear Chest inspection Symmetrical Circulation Heart rhythm Sinus rhythm Heart tones Present Pulses Palpable Color [place] Temperature Warm Dry Disability Alert. Secondary Survey: 05:50 Musculoskeletal: Reports pain in left hand and left elbow and low back area. Injury ea Description: hematoma to left hand and left elbow. Assessment: 05:05 General: Appears uncomfortable, Behavior is appropriate for age. Pain: Complains of ea pain in low back area, left hand and left elbow Quality of pain is described as aching. Neuro: Level of Consciousness is awake, alert, obeys commands, Oriented to person, place, time, situation, Speech is normal, Facial symmetry appears normal. Cardiovascular: Patient's skin is warm and dry. Respiratory: Airway is patent Respiratory effort is even, unlabored, Respiratory pattern is regular, symmetrical, Breath sounds are clear bilaterally. Derm: Skin is fragile, is thin, has skin tears on left elbow and left middle and ring finger Skin temperature is warm Bruising that is dark purple, on left elbow, left hand and palmar aspect of left forearm. Musculoskeletal: Reports pain in low back area. 07:00 General: Appears in no apparent distress. uncomfortable, Behavior is calm, cooperative, hj appropriate for age. Pain: Pain: Complains of pain in left arm. Neuro: Level of Consciousness is awake, alert, obeys commands, Oriented to person, place, time, situation. Cardiovascular: Capillary refill < 3 seconds Patient's skin is warm and dry. Respiratory: Reports shortness of breath cough that is Airway is patent Respiratory effort is even, unlabored, Respiratory pattern is regular, symmetrical, GI: No signs and/or symptoms were reported involving the gastrointestinal system. : No signs and/or symptoms were reported regarding the genitourinary system. EENT: No signs and/or symptoms were reported regarding the EENT system. 08:00 Reassessment: Patient and/or family updated on plan of care and expected duration. Pain hj level reassessed. Patient is alert, oriented x 3, equal unlabored respirations, skin warm/dry/pink. awaiting results and POC:. 09:00 Reassessment: Patient and/or family updated on plan of care and expected duration. Pain hj level reassessed. Patient is alert, oriented x 3, equal unlabored respirations, skin warm/dry/pink. for possible admit;. 10:09 Reassessment: Patient and/or family updated on plan of care and expected duration. Pain hj level reassessed. Patient is alert, oriented x 3, equal unlabored respirations, skin warm/dry/pink. provider in room for lac repair;. 10:48 Reassessment: Patient and/or family updated on plan of care and expected duration. Pain hj level reassessed. Patient is alert, oriented x 3, equal unlabored respirations, skin warm/dry/pink. awaiting POC:. 11:30 Reassessment: Patient and/or family updated on plan of care and expected duration. Pain hj level reassessed. Patient is alert, oriented x 3, equal unlabored respirations, skin warm/dry/pink. for ICU admit;. 12:30 Reassessment: Patient and/or family updated on plan of care and expected duration. Pain hj level reassessed. Patient is alert, oriented x 3, equal unlabored respirations, skin warm/dry/pink. Dr. Schultz, in the room ; repeat BMP- if K is below 6; to downgrade to floor;. 14:05 Reassessment: Patient and/or family updated on plan of care and expected duration. Pain hj level reassessed. Patient is alert, oriented x 3, equal unlabored respirations, skin warm/dry/pink. repeat K is 5.4; LINDA Doyle called Dr. Daca and paralegal supervisor to downgrade pt to floor;. 14:14 Reassessment: called 2nd floor; nurse at lunch break; to call [phone] for report;. hj 15:42 Reassessment: Patient and/or family updated on plan of care and expected duration. Pain hj level reassessed. Patient is alert, oriented x 3, equal unlabored respirations, skin warm/dry/pink. Patient states feeling better. Patient states symptoms have improved. Vital Signs: 05:50 BP 137 / 76; Pulse 78; Resp 18; Temp 97.8; Pulse Ox 94% on R/A; Weight 84.82 kg (R); ea Height 6 ft. (182.88 cm); 07:35 BP 137 / 79; Pulse 75; Resp 18; Pulse Ox 93% on 3 lpm NC; hj 07:53 Pulse Ox 97% on 3 lpm NC; hj 08:12 BP 144 / 84; Pulse 71; Resp 18; Pulse Ox 98% on 3 lpm NC; hj 09:47 BP 132 / 77; Pulse 77; Resp 18; Pulse Ox 99% on 3 lpm NC; hj 10:48 BP 127 / 78; Pulse 74; Resp 18; Pulse Ox 94% on 3 lpm NC; hj 13:59 BP 121 / 81; Pulse 79; Resp 23; Pulse Ox 97% on 2 lpm NC; pc1 05:50 Body Mass Index 25.36 (84.82 kg, 182.88 cm) ea Navi Coma Score: 05:50 Eye Response: spontaneous(4). Verbal Response: oriented(5). Motor Response: obeys ea commands(6). Total: 15. Trauma Score (Adult): 05:50 Eye Response: spontaneous(1); Verbal Response: oriented(1); Motor Response: obeys ea commands(2); Systolic BP: > 89 mm Hg(4); Respiratory Rate: 10 to 29 per min(4); Horatio Score: 15; Trauma Score: 12 ED Course: 05:50 Patient has correct armband on for positive identification. Bed in low position. Call ea light in reach. Side rails up X2. 05:50 Arm band placed on right wrist. Patient placed in an exam room, on a stretcher, on ea oxygen, on automatic print developer, on pulse oximetry. 05:58 Patient arrived in ED. ea 06:03 Derek Anders NP is PHCP. pm1 06:03 Chan Robbins MD is Attending Physician. pm1 06:11 Triage completed. ea 06:14 Oxygen administration via nasal cannula \T\ 2L/min. Thermoregulation: warm blanket given ea to patient. 06:[address] via stretcher. kw1 06:55 CT Head C Spine In Process Unspecified. EDMS 06:55 Patient moved to radiology via stretcher. kw1 06:58 Bernardo Rubio RN is Primary Nurse. hj 07:00 X-ray completed. Patient tolerated procedure well. Patient moved to radiology via sw stretcher. Patient moved back from radiology. 07:52 Elbow Left 3 View XRAY In Process Unspecified. EDMS 07:52 Elbow Right 3 View XRAY In Process Unspecified. EDMS 07:52 Hand Left 3 View XRAY In Process Unspecified. EDMS 07:52 XRAY Chest (1 view) In Process Unspecified. EDMS 07:52 Hip Left 2 View XRAY In Process Unspecified. EDMS 07:52 Pelvis XRAY In Process Unspecified. EDMS 08:16 Wound care: to laceration located on left hand was cleaned with Hibiclens, Patient pc1 tolerated well. 09:08 X-ray completed. Portable x-ray completed in exam room. Patient tolerated procedure mh1 well. 09:10 Hand Left 3 View XRAY In Process Unspecified. EDMS 09:49 Assist provider with fracture care Reduced with physical manipulation. hj 11:02 Micky Russo MD is Hospitalizing Provider. pm1 12:58 BMP: Repeat at 1300 Sent. hj 13:56 Dressings: Kerlix Prepped, cleaned and applied dry kerlex dressing to wound. Wound pc1 care: to laceration located on left hand. 15:26 Patient admitted, IV remains in place. intact. hj Administered Medications: 08:32 Drug: Lidocaine (1 %) 20 ml Volume: 20 ml; Route: Infiltration; hj 11:20 Drug: Albuterol 7.5 mg Route: Inhalation; hj 11:20 Drug: Calcium Gluconate 1 grams Route: IVPB; Infused Over: 60 mins; Site: right forearm;hj 12:11 Follow up: IV Status: Completed infusion hj 11:20 Drug: Insulin Regular Human 5 units {Co-Signature: bp (Raghavendra Smith RN).} Route: IVP; hj Site: right forearm; 12:11 Follow up: Response: No adverse reaction hj 11:20 Drug: D50W 50 ml Route: IVP; Site: right forearm; hj 12:11 Follow up: Response: No adverse reaction hj 11:20 Drug: Kayexalate 30 grams Route: PO; hj 12:10 Follow up: Response: No adverse reaction hj 12:29 Drug: Ancef 1 grams Route: IVPB; Site: right forearm; hj 12:29 Follow up: IV Status: Completed infusion hj Intake: 15:43 PO: 50ml; Total: 50ml. hj Output: 15:43 Urine: 100ml (Voided); Total: 100ml. hj Outcome: 11:05 Decision to Hospitalize by Provider. pm1 15:24 Attestation : i agree with assessment and notes of SN Valencia. hj 15:24 Admitted to Med/surg accompanied by tech, family with patient, via stretcher, room 201, with oxygen, with chart, Report called to JOVANI Kee 15:24 Condition: stable 15:24 Instructed on the need for admit, Demonstrated understanding of instructions. 15:27 Patient's length of stay in the Emergency Department was greater than 2 hours. awaiting hj repet BMPPatient's length of stay extended due to 15:50 Patient left the ED. Signatures: Dispatcher [employer] EDMS Ca Carrillo [facility] Radha Skinner Henry, RN RN hj Marinas, Patrick, [employer]ENT MANAGER pm1 Nargis Tompkins RN RN ea Wilhelm, [facility] Derek Aguirre RN bp
[2018-09-11] MEDS ORDERED: INSULIN -REGULAR HUMAN 50 UNIT/0.5 ML ML ONE (11:15)
[2018-09-11] MEDS ORDERED: CALCIUM GLUCONATE 1gm/100 ML NS (4.65 mEq/100mL) IV ONE ×2 (11:15)
[2018-09-11] MEDS ORDERED: ALBUTEROL 2.5 MG/3 ML NEB SOL ONE (11:15)
[2018-09-11] MEDS ORDERED: SOD POLYSTYREN SUL 15 GM/60 ML UCUP ONE (11:16)
[2018-09-11] MEDS ORDERED: D50W 25 GM/50 ML SYRINGE IV ONE (11:16)
[2018-09-11] MEDS ORDERED: CEFAZOLIN/SWI 1gm 1 GM/10 ML SYR IV ONE (12:00)
[2018-09-11 13:52] LABS: Potassium 5.4 mmol/L (3.5-5.1)
[2018-09-11] MEDS ORDERED: NA CHLORIDE 0.9% 1,000 ML IV PRN (16:02)
[2018-09-11] MEDS ORDERED: ALBUMIN HUMAN 25% 50 ML IV SCH (17:00)
--- NOTE | 2018-09-12 02:51 | CON ---
Date of Consultation: 09/11/2018 Chief Complaint: End-stage renal disease, severe hyperkalemia, status post fall. History Of Present Illness: The patient has multiple medical problems including history of end-stage renal disease, on dialysis, congestive heart failure, chronic with diastolic dysfunction and atrial fibrillation. The patient was found to have severe fluid overload and congestive heart failure exace rbation. On arrival to the hospital, blood work showed severe hyperkalemia. Potassium was 6.5. Bic arbonate level was in acceptable ranges. BNP was 39,495. The patient came to the hospital after he sustained fall at home. He developed laceration of the left hand. The patient was evaluated and was found to have hyperkalemia and leukocytosis. He was scheduled to have stat dialysis for metabolic c learance. His treatment for hyperkalemia including albuterol inhaler, IV dextrose with insulin, Karma xalate, calcium gluconate. Subsequently, stat dialysis was done to provide metabolic clearance and t o treat hyperkalemia. The patient was evaluated with multiple x-ray to rule out fracture. Review of Systems: The patient is somewhat lethargic, cannot provide review of systems. Past Medical History: End-stage renal disease, hypertensive heart and kidney disease, atrial fibrill ation, congestive heart failure with diastolic dysfunction, hyperlipidemia, anemia in CKD, renal oste odystrophy, COPD, chronic pain, history of pneumonia, history of nonhealing lower extremity wound. Social History: Denies tobacco, alcohol, or illicit drugs. Family History: No kidney disease in the family. Physical Examination: General: The patient is awake, alert, follows commands. Eyes: Anicteric sclerae. EOMI. Ears, Nose, Mouth, and Throat: Oral mucosa moist. No pallor. Neck: Supple. No JVD. No bruits. Lungs: Crackles bilaterally present. Abdomen: Soft, benign, nontender. No rebound. No guarding. Extremities: No active bleeding. Left hand laceration status post repair. No oozing. No celluliti s. Neurological: Moving extremities. Cranial nerves intact. Psychiatric: Alert, oriented x2. Normal affect. Laboratory Data: Sodium 138, potassium 6.5, chloride 104, CO2 23, BUN 78, creatinine 8.6, magnesium 2.4, albumin 2.9, total protein 7.2, hemoglobin 12.2, WBC 12.1, platelet count is 214,000. Chest x-r ay showed interstitial pulmonary edema, no pleural effusion. Heart is moderately prominent in size. Impression And Plan: 1.Severe hyperkalemia. The patient received multiple medications. Monitor potassium level. Plan is to proceed with stat dialysis with 1 potassium dialysate to obtain metabolic clearance to treat hype rkalemia. 2.Hypertension. Blood pressure controlled. Continue current treatment. 3.Renal osteodystrophy. Continue renal diet and binders. 4.Status post fall. The patient is undergoing cardiac workup to rule out acute coronary syndrome. 5.Atrial fibrillation, on amiodarone. Recommend to check thyroid panel. 6.Hypoalbuminemia. Increase p.o. protein intake. 7.Anemia in chronic kidney disease. Monitor hemoglobin level. Adjust JANI. ROBERT/WILFREDO Voice ID: [id number] Report ID: [id number]
[2018-09-12 06:30] LABS: Potassium 4.2 mmol/L (3.5-5.1)
[2018-09-12 06:31] LABS: Absolute Lymphocytes (CBC) 0.9 K/uL (0.7-4.9); Absolute Monocytes 0.5 K/uL (0.1-1.3); Absolute Neutrophil 5.8 K/uL (1.8-8.0); Basophils % 0.5 % (0-1.3); Eosinophils % 2.5 % (0-4.4); Hematocrit 35.3 % (39.6-49.0); Lymphocytes % 12.6 % (15.3-44.8); MPV 8.9 fL (7.6-11.3); Monocytes % 6.5 % (3.3-12.3); RBC Red Blood Cell Count 3.77 M/uL (4.33-5.43)
[2018-09-12] MEDS: CODEINE 30MG/APAP 300MG TAB PO PRN ×2 (06:35→10:35)
--- NOTE | 2018-09-12 06:42 | HP ---
Date of Admission: 09/11/2018 Chief Complaint: Fall. History Of Present Illness: This is an 78-year-old new patient who is on hemodialysis, was due to [place] dialysis today and while he was at home this morning, he lost his balance and fell down. When he fell down, he fell backwards on his elbow and buttocks. He started complaining of some pain in his h and, elbow, and lower back and tailbone area. He was brought into emergency room. After he was eval uated, he was admitted to the hospital. Further evaluation in emergency room included routine blood work which showed elevated potassium of 6.5. X-rays negative for fracture, but had dislocation of le ft hand 2 fingers which were reduced in the emergency room and treatment for hyperkalemia was given, and he was admitted to the hospital for further evaluation and management of this problem and when I saw him this evening, he was getting his dialysis. Allergies: NO KNOWN ALLERGIES. Medications: List reviewed. Review of Systems: Musculoskeletal: As mentioned above. All other systems reviewed and negative. Family History: Significant for breast cancer, coronary artery disease. Social History: Prior history of smoking, not at present time. Use of alcohol negative. Past Surgical History: Cholecystectomy, hernia repair, and surgery for hip fracture in May 2018 . 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 Physical Examination: Vital Signs: Temperature 97.4, pulse 90, respiratory rate 20, blood pressure 123/80, oxygen saturati on 94%. Height 6 feet, weight 161 pounds. General: Awake, alert, oriented, not in distress. HEENT: Head atraumatic, normocephalic. Conjunctivae nonerythematous. Sclerae white. Mouth, no thr ush or edema noted. Ears/Nose, no mass, lesion, discharge noted. Neck: Supple. No JVD, lymph nodes, bruit, thyromegaly noted. Lungs: Bilateral good equal air entry. Clear to auscultation. No rhonchi. No rales. Heart: Normal heart sounds, no murmur or gallop. Abdomen: Soft, bowel sounds normal. No guarding, rigidity, tenderness, mass, hepatosplenomegaly, di stention, or bruit noted. Extremities: Left elbow and left hand have dressing present, and he was getting dialysis with dialys is access in the left forearm. His right elbow has multiple bruises. No open wound. Skin: No rash, ulcer, cellulitis. Lymphatics: No lymph node enlargement in neck, supraclavicular, infraclavicular region. Neuro: No focal neurological deficit. Chest: Unremarkable. External Genitalia: Deferred. Rectal: Deferred. Laboratory Data: White count 12.1, hemoglobin 12.2, platelets 214. Initial sodium 138, potassium 6. 5, chloride 104, bicarb 23, BUN 78, creatinine 8.60, glucose 114. Liver function tests unremarkable. ProBNP 39,495. Repeat chemistry, sodium 140, potassium 5.4, chloride 104, bicarb 24, BUN 74, creat inine 8.66, glucose 126. Hip and pelvis x-ray, no fracture, evidence of prior arthroplasty procedure . Chest x-ray, ill-defined nodular opacity in lung apex, greater on the right, chronic in appearance . CAT scan of the head and cervical spine area, no evidence of any acute intracranial or cervical sp ine findings. Third and fourth finger dislocation was reduced in the emergency room. Elbow x-ray, n o evidence of fracture. Impression: 1.Hyperkalemia. 2.End-stage renal disease, on hemodialysis. 3.Dislocation of left hand third and fourth fingers, status post reduction. 4.Hypertension. 5.Chronic steroid therapy. 6.Paroxysmal atrial fibrillation. 7.Back pain. 8.Anemia due to chronic kidney disease. Plan: We will go ahead and admit the patient to hospital for further evaluation and management of th is problem. The patient is getting his hemodialysis today. We will go ahead and order some x-ray of the lumbosacral spine as such x-ray has not been done so far after today's fall. I will see him dionte orrow morning for followup and depending on his condition, we will decide if we can possibly discharg e him to go home tomorrow or not. PAULA/MODL Voice ID: [id number]
[2018-09-12] MEDS ORDERED: predniSONE 10 MG TAB PO ONE (07:05)
[2018-09-12] MEDS: PREDNISONE PO SCH ×2 (08:34→21:23)
[2018-09-12] MEDS: BRIMONIDINE TARTRATE EACH EYE SCH ×2 (08:38→21:24)
[2018-09-12] MEDS: TIMOLOL EACH EYE SCH ×2 (08:38→21:24)
[2018-09-12] MEDS: [UNRECOGNIZED DRUG - OTHER] PO SCH ×2 (08:39→21:23)
[2018-09-12] MEDS ORDERED: POLYETHYL GLY 3350 17 GM/DOSE PO PRN (09:00)
[2018-09-12] MEDS ORDERED: AMLODIPINE 10 MG PO SCH (09:00)
[2018-09-12] MEDS: HYDRALAZINE 10 MG PO SCH ×2 (09:58→21:23)
--- NOTE | 2018-09-12 10:21 | RAD REPORT ---
EXAM DESCRIPTION: RAD - Spine Lumbar W obliques - 09/12/2018 9:39 am CLINICAL HISTORY: Fall, back pain COMPARISON: None. FINDINGS: A five-view lumbar spine examination was performed. Bones are osteopenic as a baseline. Ap proximately 20% compression fracture involves the L1 body. There is some loss in height along the pos terior wall as well. No significant encroachment into the central canal identified. There is slight r etrolisthesis of L2 on L3. Patient has a minimal right lateral subluxation of L3 as well as a mild ri ght convex scoliotic curvature. Moderate mid and lower lumbar facet joint degenerative changes are pr esent. No other fracture changes suspected. No lytic, sclerotic or expansile change. Mild disc space narrowing at L2-3 and L5-S1. No pars defects suspected. Dense nonaneurysmal aortoiliac calcifications. IMPRESSION: Approximately 20% compression fraction L1. Age is unknown. No comparison imaging availab le to try to help determine age of compression fracture. Bones are osteopenic. Disc and facet joint degenerative changes are present as detailed.
[2018-09-12] MEDS ORDERED: CA ACETATE 667 MG CAP PO SCH (12:00)
[2018-09-12] MEDS: CA ACETATE 667 MG CAP PO SCH ×2 (13:14→17:07)
[2018-09-12] MEDS ORDERED: AMLODIPINE PO SCH (18:00)
[2018-09-12] MEDS: METOPROLOL SUCCINATE 50 MG PO SCH (21:25)
[2018-09-12] MEDS: AMIODARONE HCL 200 MG PO SCH (21:26)
--- NOTE | 2018-09-13 00:30 | PN ---
Date of Progress Note: 09/12/2018 Subjective: The patient was seen this morning for followup. He was lying in bed, not in any distress. Has some lower back pain and some pain in his left hand. The patient requested some pain medication, which was ordered this morning. No shortness of breath, chest pain, nausea, or vomiting. Physical Examination: Vital signs: Reviewed. HEENT: Unremarkable. Lungs: Clear to auscultation. Heart: Sounds normal. Abdomen: Soft. Bowel sounds normal. No guarding, rigidity, tenderness, or distention. Extremities: No leg edema. Left upper extremity; left hand middle and ring finger on the palmar aspect of the PIP joint area have laceration which was sutured in emergency room. No bleeding or discharge noted. The patient has dry blood over his hand. No active bleeding. Left lateral wrist area has a small superficial abrasion. No active bleeding. Left elbow has very large area of superficial laceration and abrasion. No active bleeding noted. Laboratory Data: White count 7.5, hemoglobin 11.5, and platelets 180. Sodium 139, potassium 4.2, chloride 100, bicarb 30, BUN 39, creatinine 5.69, and glucose 93. Impression: 1. Left upper extremity laceration. 2. End-stage renal disease, on hemodialysis. 3. Hypertension. 4. Back pain. 5. Paroxysmal atrial fibrillation. Plan: Will get x-ray of lumbar spine done today. Physical Therapy to help ambulate the patient. Once the patient is able to safely ambulate, our plan is to discharge him to go home. Details were discussed with the patient and the patient's today. PAULA/WILFREDO Voice ID: [id number] Report ID: [id number]
--- NOTE | 2018-09-13 02:01 | PN ---
Date of Progress Note: 09/12/2018 Chief Complaint: End-stage renal disease, on dialysis. Subjective: The patient presented to the hospital after he sustained fall at home. He was found to have severe hyperkalemia and received dialysis with 1 potassium dialysate. Afterwards, potassium was evaluated and remains within normal limits. The patient is on a renal diet. The patient has conges tive heart failure, received ultrafiltration to control volemia. Review of Systems: Denies fever, chills. Physical Examination: Lungs: Few crackles at bases. Heart: S1, S2. Abdomen: Soft, benign. Extremities: No edema. Lab Work: Full hemoglobin 11.5, WBC 7.5, and platelet count 180,000. Sodium 139, potassium 4.2, chl oride 100, CO2 30, BUN 39, creatinine 5.69, and calcium 8.2. Impression And Plan: 1.Acute hyperkalemia secondary to diet indiscretion. The patient was instructed about low-potassium diet. Continue renal diet including low-potassium diet. Potassium level improved after dialysis. Monitor electrolytes. Next dialysis will be done tomorrow. 2.Hypertension. Blood pressure controlled. 3.Renal osteodystrophy. Continue renal diet and binders. 4.Status post fall. The patient had laceration of the right hand and repair was done during this ho spitalization. 5.Congestive heart failure, diastolic dysfunction, compensated. Continue low-sodium diet. Monitor fluid balance and adjust ultrafiltration accordingly. ROBERT/MODL Voice ID: [id number] Report ID: [id number]
[2018-09-13 06:35] LABS: Potassium 5.7 mmol/L (3.5-5.1)
[2018-09-13] MEDS ORDERED: SOD POLYSTYREN SUL 15 GM/60 ML UCUP PO ONE (06:44)
[2018-09-13] MEDS: CA ACETATE 667 MG CAP PO SCH ×3 (08:00→17:06)
[2018-09-13] MEDS: [UNRECOGNIZED DRUG - OTHER] PO SCH ×2 (12:56→21:44)
[2018-09-13] MEDS: TIMOLOL EACH EYE SCH ×2 (12:56→21:39)
[2018-09-13] MEDS: BRIMONIDINE TARTRATE EACH EYE SCH ×2 (12:56→21:39)
[2018-09-13] MEDS: HYDRALAZINE 10 MG PO SCH ×2 (12:57→21:41)
--- NOTE | 2018-09-13 14:31 | RAD REPORT ---
EXAM DESCRIPTION: MRI - Lumbar Spine Wo Con- 09/13/2018 2:20 pm CLINICAL HISTORY: compression fracture COMPARISON: Spine Lumbar W obliques dated 09/12/2018 FINDINGS: A mild compression deformity is seen affecting the superior aspect of the L1 vertebral bod y. Mild edema is present compatible with acute or subacute time frame.No traumatic subluxation. No ca nal compromise. The conus medullaris terminates at a normal level. No thickening of the cauda equina or clumping of n erve roots seen. L1-2 level: Tiny posterior annular fissure is seen. L2-3 level: Posterior disc bulge with mild facet and ligamentum flavum hypertrophy. No significant ca nal or foraminal stenosis. L3-4 level: Mild broad-based posterior disc bulge is present with large posterior annular fissure. Mi ld facet and ligamentum flavum hypertrophy is noted. No canal or foraminal stenosis. L4-5 level: Moderate posterior disc bulge with moderate facet and ligamentum flavum hypertrophy. Mode rate central canal narrowing is seen. Mild narrowing the anterior inferior aspect of the right exit f oramen. L5-S1 level: Minimal posterior disc bulge without canal or foraminal stenosis. IMPRESSION: Mild acute/ subacute fracture involving the superior aspect of the L1 vertebral body not ed. Vertebral body height loss is mild estimated at 10% and no posterior canal compromise seen.
[2018-09-13] MEDS: CODEINE 30MG/APAP 300MG TAB PO PRN (14:43)
--- NOTE | 2018-09-13 17:51 | PN ---
Date of Progress Note: 09/13/2018 Subjective: The patient admitted for mechanical fall, has compression fracture and laceration on his left hand and elbow. Physical Examination: Vital Signs: Blood pressure 115/70, pulse of 91, afebrile. Chest: Faint crackles on the base. Heart: S1 and S2, systolic murmur. Abdomen: Soft and nontender. Extremities: Edema unilateral on the left leg. Dressing on the left hand and left elbow. Neurologic: Alert and oriented. No focal. Laboratory Data: WBC 7.5, H and H 11.5/35.3, platelet 180. Sodium 136, potassium 5.7, bicarb 27, BU N 56, creatinine 7.5, calcium 8.6. Current Medications: Include: 1.Prednisone. 2.Kayexalate. 3.PhosLo 1334 with each meal. 4.Pain medication. 5.Amiodarone. 6.Amlodipine 10 mg daily. 7.Primidone. 8.Hydralazine 10 b.i.d. 9.Metoprolol. 10.Oxygen. Assessment And Plan: 1.End-stage renal disease with hyperkalemia and over-volume status post dialysis today. Tolerated t he dialysis very well. We will continue current dialysis Tuesday, Tuesday, Tuesday and we will watch the patient. 2.Anemia of chronic kidney disease. No need for JANI for the time being as H and H on the goal. 3.Hypertension, currently blood pressure been controlled. I am going to go ahead and discontinue am lodipine and we will follow up the patient. 4.Secondary hyperparathyroidism. Continue PhosLo. 5.Fall with multiple laceration. Continue wound care. We will follow up PT/OT. Follow up with the primary. RAKAN/WILFREDO Voice ID: [id number] Report ID: [id number]
[2018-09-13] MEDS: AMIODARONE HCL 200 MG PO SCH (21:38)
[2018-09-13] MEDS: METOPROLOL SUCCINATE 50 MG PO SCH (21:41)
[2018-09-13] MEDS: PREDNISONE PO SCH (21:43)
--- NOTE | 2018-09-14 01:59 | PN ---
Date of Progress Note: 09/13/2018 Subjective: The patient was seen this morning for followup, who is lying in bed, getting dialysis th is morning when I saw him. Back pain was better today than yesterday. No new complaints or problems reported by him. Objective: Vital Signs: Reviewed. HEENT: Unremarkable. Lungs: Clear to auscultation. No rhonchi or rales. Heart: Sounds normal. Abdomen: Soft. Bowel sounds normal. No guarding, rigidity, tenderness, or distention. Extremities: No leg edema. Laboratory Data: MRI of the lumbosacral spine done today shows mild acute fracture involving superio r aspect of L1 vertebral body. There is approximately estimated 10% loss of vertebral height. No po sterior canal compromise seen. Sodium 136, potassium 5.7, chloride 98, bicarb 27, BUN 56, creatinine 7.51, and glucose 90. Impression: 1.Acute compression fracture, L1 spine. 2.End-stage renal disease, on hemodialysis. 3.Hyperkalemia. Plan: The patient is not ambulated safely, so I did talk to him and advised him to participate with physical therapy today to go ahead and start ambulating safely. The patient and patient's they were both made aware that once he is able to ambulate safely, our plan is to discharge him to go home and if he is able to ambulate safely and and the patient they both feel comfortable, then we wi ll discharge him today. Otherwise, we may have to wait until tomorrow to re-evaluate. PAULA/MODL Voice ID: [id number] Report ID: [id number]
[2018-09-14] MEDS: CA ACETATE 667 MG CAP PO SCH ×3 (08:34→17:19)
[2018-09-14] MEDS: BRIMONIDINE TARTRATE EACH EYE SCH ×2 (08:35→20:24)
[2018-09-14] MEDS: TIMOLOL EACH EYE SCH ×2 (08:35→20:24)
[2018-09-14] MEDS: [UNRECOGNIZED DRUG - OTHER] PO SCH ×2 (08:35→20:21)
[2018-09-14] MEDS: HYDRALAZINE 10 MG PO SCH ×2 (09:00→17:24)
[2018-09-14] MEDS: CODEINE 30MG/APAP 300MG TAB PO PRN ×2 (09:14→17:19)
[2018-09-14] MEDS: BACI/NEOMYCIN/POLY OINT 15GM TOP SCH (17:20)
--- NOTE | 2018-09-14 18:05 | PN ---
Date of Progress Note: 09/14/2018 Subjective: The patient is doing well status post dialysis yesterday, tolerated the dialysis very we ll. Physical Examination: Vital Signs: Blood pressure 114/61, pulse of 83. Chest: Clear to auscultation. Heart: S1 and S2. Systolic murmur. Abdomen: Soft, nontender. Extremities: Bruises on the left arm, dressing. Laboratory Data: WBC 7.5, H and H of 11.5 and 35.3. Sodium 136, potassium 5.7, bicarb 27, BUN 56, c reatinine 7.5, and calcium 8.5. Current Medications: The patient on it includes, 1.Hydralazine. 2.PhosLo. 3.Amiodarone. 4.Metoprolol. 5.Prednisone. Assessment And Plan: 1.End-stage renal disease. We will continue the patient on dialysis, Tuesday, Tuesday, and Tuesday. 2.Secondary hyperparathyroidism. Continue PhosLo. 3.Anemia, stable. No need for JANI. 4.Fall with vertebral compression fracture. We will follow up with the primary. Continue PT/OT. RAKAN/WILFREDO Voice ID: [id number] Report ID: [id number]
[2018-09-14] MEDS: PREDNISONE PO SCH (20:20)
[2018-09-14] MEDS: METOPROLOL SUCCINATE 50 MG PO SCH (20:22)
[2018-09-14] MEDS: AMIODARONE HCL 200 MG PO SCH (20:23)
--- NOTE | 2018-09-15 00:53 | PN ---
Date of Progress Note: 09/14/2018 Subjective: The patient was seen this morning for followup. He had dialysis yesterday. After dialy sis, he went down for MRI and reported that as after the MRI was completed, as he was moved from the MRI table to stretcher, there was a difference in height and that caused significant amount of pain i n his lower back and after that, he was not able to do any physical therapy when he came to room. So , yesterday, he did not ambulate at all, did not get out of bed. This morning, he feels better, pain is better, and he is going to try to ambulate. Physical Examination: HEENT: Unremarkable. Lungs: Clear to auscultation. Heart: Sounds normal. Abdomen: Soft. Bowel sounds normal. No guarding, rigidity, tenderness, or distention. Extremities: No leg edema. Impression: 1.Compression fracture of L1 spine. 2.End-stage renal disease, on hemodialysis. 3.Anemia due to chronic kidney disease. 4.Hypertension. Plan: We will continue current medications. Continue to follow with reimbursement analyst. The patient's ne xt dialysis session is due tomorrow. He is going to talk to reimbursement analyst to see if he can get dialys is tomorrow and then possibly go home. Meanwhile, he is going to try to ambulate with physical thera py today and I have requested social service to help make arrangements for home health and home physical therapy arrangements. PAULA/MODL Voice ID: [id number] Report ID: [id number]
[2018-09-15 06:31] VITALS: BMI 21.4
[2018-09-15] MEDS: CODEINE 30MG/APAP 300MG TAB PO PRN (06:32)
[2018-09-15] MEDS: CA ACETATE 667 MG CAP PO SCH ×2 (08:00→12:00)
[2018-09-15] MEDS: BRIMONIDINE TARTRATE EACH EYE SCH (09:00)
[2018-09-15] MEDS: TIMOLOL EACH EYE SCH (09:00)
[2018-09-15] MEDS: BACI/NEOMYCIN/POLY OINT 15GM TOP SCH (09:00)
[2018-09-15] MEDS: HYDRALAZINE 10 MG PO SCH (09:00)
[2018-09-15] MEDS: [UNRECOGNIZED DRUG - OTHER] PO SCH (09:00)
--- NOTE | 2018-09-15 10:46 | P.PN ---
Subjective Date of Service: 09/15/18 Subjective: No new changes, Improving ESRD on HD MWF feels better cleared for discharge from nephrology point of view Home pt Physical Examination - Vital Signs Temperature: 97.2 F Blood Pressure: 143/88 Pulse: 82 Respirations: 20 Pulse Ox (%): 97 - Physical Exam General: Oriented x3 HEENT: Atraumatic Neck: Supple, Without JVD or thyroid abnormality Respiratory: Clear to auscultation bilaterally, Normal air movement Cardiovascular: No edema, Normal S1 S2, No rubs, No murmurs Gastrointestinal: Normal bowel sounds, Soft and benign Musculoskeletal: Other (Lt arm dress , Lt leg dressing ) Assessment And Plan - Current Problems (Diagnosis) (1) ESRD (end stage renal disease) Onset Date: 09/08/17 Current Visit: No Status: Chronic (2) Fall Current Visit: Yes Status: Acute - Plan Assessment And Plan: End-stage renal disease. HD today renal dose meds Secondary hyperparathyroidism. Continue PhosLo. Anemia, hb >10 No need for JANI. S/P Fall with l1 compression fracture no neurological abnormalites cont PT cleared for discharge from nephrology point of view
[2018-09-15 12:23] VITALS: O2SAT 96
[2018-09-15 13:14] VITALS: BP 159/80; TEMP 97.4
[2018-09-15 19:49] LABS: HBsAG Nonreactive (Nonreactive)
--- NOTE | 2018-09-16 04:06 | DS ---
Date of Discharge: 09/15/2018 History Of Present Illness: The patient was seen this morning for followup. No new complaints or pr oblems reported by him. He was getting dialysis. His back pain is doing much better. Yesterday, he was able to ambulate with therapy. Now, he is independent about transfer in and out of bed to the [facility] using his walker. Physical Examination: Vital Signs: Reviewed. HEENT: Examination unremarkable. Lungs: Clear to auscultation. Heart: Sounds normal. Abdomen: Soft. Bowel sounds normal. No guarding, rigidity, tenderness, or distention. Extremities: No leg edema. Laboratory Data: Initial white count when he came in was 12.1, hemoglobin 12.2, and platelets 214. Day after admission on 09/12/2018, white count 7.5, hemoglobin 11.5, and platelets 180. Initial sodi um 138, potassium 6.5, chloride 104, bicarb 23, BUN 78, creatinine 8.60, and glucose 114. Yesterday, sodium 136, potassium 5.7, chloride 98, bicarb 27, BUN 56, creatinine 7.51, and glucose 90. Hospital Course: An 78-year-old male patient who was brought in to emergency room after he fell down . Please see dictated H and P for more information. The patient was evaluated in the emergency room . Routine labs were done. Hip and pelvis x-ray was negative for fracture. Elbow and hand x-ray was negative for fracture. The patient had laceration to his left hand finger, [facility]; and he also had large area of laceration on the elbow where it was not possible to sutur e, and this was more like a skin tear with large abrasion type of area. Topical dressing with antibi otic was ordered. The patient had dislocation of third and fourth fingers of the left hand, which wa s reduced in the emergency room prior to this admission. The patient was complaining of lower back p ain as a result of this fall, and I did order x-ray of the lumbosacral spine, which revealed acute co mpression fracture changes of L1 spine. So, we did an MRI of the lumbar spine, which confirmed that, and there was no complication related to this compression fracture. Nephrology consultation was req uested for dialysis need, and the patient received his dialysis support during this hospitalization. Physical Therapy was consulted; and as of yesterday, the patient started to ambulate well with thera bruce. He feels comfortable going home today with home health services and home physical therapy per or bill. Final Diagnoses: 1.Acute compression fracture, L1, closed. 2.Hyperkalemia. 3.End-stage renal disease, on hemodialysis. 4.Dislocation of left hand third and fourth finger, status post reduction. 5.Hypertension. 6.Chronic steroid therapy. 7.Paroxysmal atrial fibrillation. 8.Anemia due to chronic kidney disease. Discharge Medications And Instructions: 1.Continue all prior home medications. 2.Take Tylenol 500 mg by mouth 4 times a day for mild pain. 3.Take Tylenol with Codeine 1 tablet 4 times a day as needed for more severe pain. 4.Follow up at my office per scheduled appointment, and the patient has appointment to see me next abigail ahn. PAULA/WILDAL Voice ID: [id number] Report ID: [id number]
== END 2018-09-15 16:05 | disposition home health service (06) ==
LOC: ER 05:51 → ERHOLD 11:33 → INTOOBSV 11:33 → 2ND 15:24
PROVIDERS: ADMIT Internal Medicine; ATTEND Internal Medicine
PROC: 0JQK0ZZ Repair Left Hand Subcutaneous Tissue and Fascia, Open Approach (ICD-10-PCS; principal; 2018-09-11)
PROC: 0RSXXZZ Reposition Left Finger Phalangeal Joint, External Approach (ICD-10-PCS; 2018-09-11)
PROC: 0RSXXZZ Reposition Left Finger Phalangeal Joint, External Approach (ICD-10-PCS; 2018-09-11)
DX: S32.019A Unspecified fracture of first lumbar vertebra, initial encounter for closed fracture (principal); E87.5 Hyperkalemia; S63.283A Dislocation of proximal interphalangeal joint of left middle finger, initial encounter; S63.285A Dislocation of proximal interphalangeal joint of left ring finger, initial encounter; S61.213A Laceration without foreign body of left middle finger without damage to nail, initial encounter; S61.215A Laceration without foreign body of left ring finger without damage to nail, initial encounter; S51.012A Laceration without foreign body of left elbow, initial encounter; I13.2 Hypertensive heart and chronic kidney disease with heart failure and with stage 5 chronic kidney disease, or end stage renal disease; N18.6 End stage renal disease; I50.32 Chronic diastolic (congestive) heart failure; N25.0 Renal osteodystrophy; I48.0 Paroxysmal atrial fibrillation; W01.0XXA Fall on same level from slipping, tripping and stumbling without subsequent striking against object, initial encounter; Y92.009 Unspecified place in unspecified non-institutional (private) residence as the place of occurrence of the external cause; Z99.2 Dependence on renal dialysis
CPT/HCPCS: 96365; 93005; 85025 ×2; 80048 ×4; 36415 ×3; 83735; 85610; 82962; 80076; 84484; 86704; 83880; 87340; 86706; 86803; 70450; 72125; 71045; 72110; 72170; 73130 ×2; 73502; 73080 ×2; 90935 ×3; 72148; 97116 ×7; 97163; 97530 ×2; 96375; 99285; 12002; 26770 ×2; J0610; J0690; J2405; G0378 ×2; J7512

== ENCOUNTER 2019-01-01 09:00 | Observation (INO) | payer OTHER ==
--- OUTSIDE RECORDS SUMMARY | 2019-01-01 09:05 | XMS REPORT | Clinical Summary ---
:1940 Author Organization [facility] Address [address] [place] [address] Care Team Providers Name Role Phone Jose [...] Not on file Results Not on fileafter 12/31/2017 Insurance Payer Benefit Plan / Subscriber ID Type Phone Address Group MEDICARE MEDICARE A B xxxxxxxxxx Medicare [employer] - UHC MCR SECURE xxxxxxxxxx Maps Contracted MEDICARE [employer]
[2019-01-01] MEDS ORDERED: LEVALBUTEROL 1.25 MG/3 ML NEB ONE (09:49)
[2019-01-01] MEDS ORDERED: METHYLPREDNISOLONE 125 MG INJ ONE (09:49)
[2019-01-01 10:02] LABS: Absolute Lymphocytes (CBC) 1.2 K/uL (0.7-4.9); Basophils % 0.3 % (0-1.3); Eosinophils % 0.8 % (0-4.4); Hematocrit 33.6 % (39.6-49.0); Lymphocytes % 10.5 % (15.3-44.8); MPV 8.9 fL (7.6-11.3); Monocytes % 5.9 % (3.3-12.3); RBC Red Blood Cell Count 3.45 M/uL (4.33-5.43)
--- NOTE | 2019-01-01 10:22 | RAD REPORT ---
EXAM DESCRIPTION: RAD - Chest Single View - 01/01/2019 10:15 am CLINICAL HISTORY: Cough;Dyspnea Chest pain. COMPARISON: Chest Single View dated 09/11/2018; Chest Single View dated 05/20/2018; Chest Single View dated 03/14/2018; Chest Single View dated 11/29/2017 FINDINGS: Portable technique limits examination quality. Moderate bilateral pulmonary opacities are present suggesting pulmonary edema. Trace pleural fluid bi laterally. The heart is prominent in size. No displaced fractures.Aortic atherosclerosis. IMPRESSION: Mild to moderate CHF.
[2019-01-01 10:40] LABS: Troponin (Emerg Dept Use Only) 0.06 ng/mL (0.0-0.045)
[2019-01-01 10:42] LABS: Potassium 5.7 mmol/L (3.5-5.1)
--- NOTE | 2019-01-01 10:49 | EDPHYS ---
Physician Documentation [facility] Name: Amado Benitez Age: 78 yrs Sex: Male : 1940 Arrival Date: 01/01/2019 Time: 09:01 Bed 16 Private MD: ED Physician Chan Robbins HPI: 01/01 09:38 This 78 yrs old Male presents to ER via Wheelchair with complaints of rn Breathing Difficulty. 09:38 The patient has shortness of breath at rest, with light activity. Onset: The rn symptoms/episode began/occurred last night. Duration: The symptoms are continuous. The patient's shortness of breath is aggravated by coughing, light activity, supine position, talking, walking. Severity of symptoms: At their worst the symptoms were moderate in the emergency department the symptoms are unchanged. The patient has experienced similar episodes in the past. The patient has not recently seen a physician. Reports increased sob since last night, no fever or chills, + productive cough last night, now today can't get anything out, + chest pain on right side of chest, no hemoptysis. Reports not on oxygen at home. Has not missed any dialysis sessions.. Historical: - Allergies: 09:16 No Known Allergies; bp - Home Meds: 09:16 acetaminophen-codeine 300-30 mg Oral tab 1 tab as needed [Active]; Aleve 500 mg Oral bp tab 1 tab every 8 hours [Active]; amiodarone 200 mg Oral tab 1 tab 2 times per day [Active]; amlodipine 10 mg tab 1 tab once daily [Active]; aspirin 81 mg Oral chew 1 tab once daily [Active]; calazimine skin protectant daily [Active]; Centrum Silver 400-250 mcg Oral chew [Active]; Combigan 0.2-0.5 % ophthalmic drop 1 drop every 12 hours [Active]; Epogen 3,000 unit/mL injection soln 3 times per wk for Dialysis [Active]; hydralazine 10 mg Oral tab 1 tab 2 times per day [Active]; Ibuprofen Oral as needed [Active]; losartan 50 mg Oral tab 2 times per day [Active]; metoprolol tartrate 12.5MG Oral tab 1 tab 2 times per day [Active]; muprocin [Active]; prednisone 10 mg Oral tab once daily [Active]; Santyl 250 unit/gram Topical oint once daily [Active]; - PMHx: 09:16 Atrial Fib; Chronic pain; COPD; Dialysis; ESRD; Glaucoma; hyperkalemia; Hypertension; bp OPEN WOUND LL LEG; TIA; - Immunization history:: Adult Immunizations. - Social history:: Smoking status: Patient/guardian denies using tobacco. - Ebola Screening: : No symptoms or risks identified at this time. - Family history:: not pertinent. - Hospitalizations: : No recent hospitalization is reported. ROS: 09:38 Constitutional: Negative for fever, chills, and weight loss, Eyes: Negative for injury, rn pain, redness, and discharge, Neck: Negative for injury, pain, and swelling, Cardiovascular: + right sided chest pain with inspiration, + edema of lower extremities Respiratory: + sob and cough Abdomen/GI: Negative for abdominal pain, nausea, vomiting, diarrhea, and constipation, MS/Extremity: Negative for injury and deformity, Skin: Negative for injury, rash, and discoloration, Neuro: + generalized weakness Exam: 09:38 Constitutional: Thin male, very slow to get out of wheelchair Head/Face: rn Normocephalic, atraumatic. ENT: MMM, no oral swelling, no stridor Cardiovascular: Irregular rhythm, no murmur Respiratory: + mild tachypnea with diminished bilateral breath sounds, no retractions. Abdomen/GI: soft, non-tender MS/ Extremity: + bilateral lower ext swelling Neuro: Awake, alert, GCS 15, difficult to ambulate but moves all 4 extremities and neuro exam non-focal. 09:45 ECG was reviewed by the Attending Physician. rn Vital Signs: 09:16 BP 125 / 69; Pulse 92; Resp 20; Temp 98.8; Pulse Ox 90% on R/A; Weight 70.31 kg; Height bp 6 ft. 2 in. (187.96 cm); 10:11 BP 134 / 70; Pulse 94; Resp 22; Pulse Ox 98% on 2 lpm NC; hj 12:10 BP 126 / 72; Pulse 90; Resp 20; Pulse Ox 99% on 2 lpm NC; hj 12:44 BP 132 / 68; Pulse 76; Resp 18; Pulse Ox 98% on 2 lpm NC; hj 13:23 BP 132 / 72; Pulse 84; Resp 18; Pulse Ox 100% on 2 lpm NC; hj 14:49 BP 134 / 70; Pulse 79; Resp 18; Pulse Ox 100% on 2 lpm NC; hj 09:16 Body Mass Index 19.90 (70.31 kg, 187.96 cm) bp MDM: 09:25 Patient medically screened. rn 10:46 Differential diagnosis: Bronchitis CHF exacerbation, Chronic Obstructive Pulmonary rn Disease Myocardial Infarction pneumonia, Pneumothorax pulmonary edema. Data reviewed: vital signs, nurses notes, lab test result(s), EKG, radiologic studies, plain films, and as a result, I will admit patient. Counseling: I had a detailed discussion with the patient and/or guardian regarding: the historical points, exam findings, and any diagnostic results supporting the discharge/admit diagnosis, lab results, radiology results, the need for further work-up and treatment in the hospital. Response to treatment: the patient's symptoms have mildly improved after treatment, and as a result, I will admit patient. Admission orders: after a detailed discussion of the patient's condition and case, the admit orders are written by me. ED course: states does not make urine, will need to admit to Dr. Russo for dialysis given volume overload, hypoxia, mild improvement with breathing treatments, no pneumonia. . ED course: O2 sat 88% after breathing treatments. . 01/01 09:27 Order name: Blood Culture Adult (2) rn 01/01 09:27 Order name: BMP rn 01/01 09:27 Order name: CBC with Diff; Complete Time: 10:15 01/01 09:27 Order name: NT PRO-BNP; Complete Time: 10:48 01/01 09:27 Order name: Troponin (emerg Dept Use Only); Complete Time: 10:48 01/01 09:27 Order name: Procalcitonin; Complete Time: 10:42 rn 01/01 09:27 Order name: XRAY CXR (1 view); Complete Time: 10:24 rn 01/01 09:27 Order name: EKG; Complete Time: 09:29 rn 01/01 09:27 Order name: Cardiac monitoring; Complete Time: 09:32 rn 01/01 09:28 Order name: Blood Culture [facility] 01/01 09:28 Order name: Basic Metabolic Panel; Complete Time: 10:48 [facility] 01/01 09:27 Order name: EKG - Nurse/Tech; Complete Time: 09:37 rn 01/01 09:27 Order name: IV Saline Lock; Complete Time: 09:47 rn 01/01 09:27 Order name: Labs collected and sent; Complete Time: :47 rn 01/01 09:27 Order name: O2 Per Protocol; Complete Time: 09:31 rn 01/01 09:27 Order name: O2 Sat Monitoring; Complete Time: 09:32 rn EC:45 Rate is 73 beats/min. Rhythm is irregularly irregular. QRS [place] is Normal. NH interval rn is normal. QRS interval is normal. QT interval is normal. No Q waves. T waves are Normal. No ST changes noted. Clinical impression: Atrial Fibrillation. Interpreted by me. Reviewed by me. Administered Medications: 09:31 Drug: Xopenex (3) 1.25 mg Route: Inhalation; hj 10:19 Follow up: Response: No adverse reaction hj 09:53 Drug: SOLU-Medrol 125 mg Route: IVP; Site: right antecubital; hj 10:15 Follow up: Response: No adverse reaction hj 11:25 Drug: Kayexalate 15 grams Route: PO; hj 12:12 Follow up: Response: No adverse reaction hj Disposition: 01/01/19 10:48 Hospitalization ordered by Micky Russo for Inpatient Admission. Preliminary diagnosis are Pulmonary edema, Chronic obstructive pulmonary disease with (acute) exacerbation, Hypoxemia, Weakness, Hyperkalemia. - Bed requested for Telemetry/MedSurg (Inpatient). - Status is Inpatient Admission. hj - Condition is Stable. - Problem is an acute exacerbation. - Symptoms have improved. UTI on Admission? No Signatures: Dispatcher [employer] EDMS Caitlin Sun Roman, MD MD rn Joaquin, Henry, RN RN hj Peltier, Brian, RN RN bp Corrections: (The following items were deleted from the chart) 10:48 10:48 Hospitalization Ordered by A Karan COHEN for Inpatient Admission. Preliminary rn diagnosis is Pulmonary edema; Chronic obstructive pulmonary disease with (acute) exacerbation; Hypoxemia; Weakness. Bed requested for Telemetry/MedSurg (Inpatient). Status is Inpatient Admission. Condition is Stable. Problem is an acute exacerbation. Symptoms have improved. UTI on Admission? No. rn 12:55 10:48 01/01/2019 10:48 Hospitalization Ordered by A Karan COHEN for Inpatient Admission. bd Preliminary diagnosis is Pulmonary edema; Chronic obstructive pulmonary disease with (acute) exacerbation; Hypoxemia; Weakness; Hyperkalemia. Bed requested for Telemetry/MedSurg (Inpatient). Status is Inpatient Admission. Condition is Stable. Problem is an acute exacerbation. Symptoms have improved. UTI on Admission? No. rn 14:16 12:55 01/01/2019 10:48 Hospitalization Ordered by A Karan COHEN for Inpatient Admission. bd Preliminary diagnosis is Pulmonary edema; Chronic obstructive pulmonary disease with (acute) exacerbation; Hypoxemia; Weakness; Hyperkalemia. Bed requested for Telemetry/MedSurg (Inpatient). Status is Inpatient Admission. Condition is Stable. Problem is an acute exacerbation. Symptoms have improved. UTI on Admission? No. bd 14:50 14:16 01/01/2019 10:48 Hospitalization Ordered by A Karan COHEN for Inpatient Admission. hj Preliminary diagnosis is Pulmonary edema; Chronic obstructive pulmonary disease with (acute) exacerbation; Hypoxemia; Weakness; Hyperkalemia. Bed requested for Telemetry/MedSurg (Inpatient). Status is Inpatient Admission. Condition is Stable. Problem is an acute exacerbation. Symptoms have improved. UTI on Admission? No. bd
--- NOTE | 2019-01-01 10:49 | ER ---
Nurse's Notes [facility] Name: Amado Benitez Age: 78 yrs Sex: Male : 1940 Arrival Date: 01/01/2019 Time: 09:01 Bed 16 Private MD: Diagnosis: Pulmonary edema;Chronic obstructive pulmonary disease with (acute) exacerbation;Hypoxemia;Weakness;Hyperkalemia Presentation: 01/01 09:14 Presenting complaint: Patient states: SOB, COUGH x2 DAYS. Transition of care: patient bp was not received from another setting of care. Onset of symptoms was December 30, 2018. Risk Assessment: Do you want to hurt yourself or someone else? Patient reports no desire to harm self or others. Initial Sepsis Screen: Does the patient meet any 2 criteria? No. Patient's initial sepsis screen is negative. Does the patient have a suspected source of infection? No. Patient's initial sepsis screen is negative. Care prior to arrival: None. 09:14 Method Of Arrival: Wheelchair bp 09:14 Acuity: KIMMY 2 bp Triage Assessment: 09:14 General: Appears in no apparent distress. uncomfortable, Behavior is calm, cooperative, hj appropriate for age. Pain: Denies pain. EENT: No signs and/or symptoms were reported regarding the EENT system. Neuro: Level of Consciousness is awake, alert, obeys commands, Oriented to person, place, time, situation, Appropriate for age. Cardiovascular: Capillary refill < 3 seconds Patient's skin is warm and dry. Respiratory: Reports labored breathing Onset: The symptoms/episode began/occurred the patient has mild shortness of breath. Historical: - Allergies: 09:16 No Known Allergies; bp - Home Meds: 09:16 acetaminophen-codeine 300-30 mg Oral tab 1 tab as needed [Active]; Aleve 500 mg Oral bp tab 1 tab every 8 hours [Active]; amiodarone 200 mg Oral tab 1 tab 2 times per day [Active]; amlodipine 10 mg tab 1 tab once daily [Active]; aspirin 81 mg Oral chew 1 tab once daily [Active]; calazimine skin protectant daily [Active]; Centrum Silver 400-250 mcg Oral chew [Active]; Combigan 0.2-0.5 % ophthalmic drop 1 drop every 12 hours [Active]; Epogen 3,000 unit/mL injection soln 3 times per wk for Dialysis [Active]; hydralazine 10 mg Oral tab 1 tab 2 times per day [Active]; Ibuprofen Oral as needed [Active]; losartan 50 mg Oral tab 2 times per day [Active]; metoprolol tartrate 12.5MG Oral tab 1 tab 2 times per day [Active]; muprocin [Active]; prednisone 10 mg Oral tab once daily [Active]; Santyl 250 unit/gram Topical oint once daily [Active]; - PMHx: 09:16 Atrial Fib; Chronic pain; COPD; Dialysis; ESRD; Glaucoma; hyperkalemia; Hypertension; bp OPEN WOUND LL LEG; TIA; - Immunization history:: Adult Immunizations. - Social history:: Smoking status: Patient/guardian denies using tobacco. - Ebola Screening: : No symptoms or risks identified at this time. - Family history:: not pertinent. - Hospitalizations: : No recent hospitalization is reported. Screenin:14 Abuse screen: Denies threats or abuse. Denies injuries from another. Nutritional hj screening: No deficits noted. Tuberculosis screening: No symptoms or risk factors identified. Fall Risk None identified. Assessment: 09:11 Reassessment: see triage for assessment;. hj 09:14 Pain: Denies pain. Cardiovascular: Rhythm is atrial fibrillation. Respiratory: Airway hj is patent Respiratory effort is even, unlabored, Respiratory pattern is regular, symmetrical, 10:10 Reassessment: Patient and/or family updated on plan of care and expected duration. Pain hj level reassessed. Patient is alert, oriented x 3, equal unlabored respirations, skin warm/dry/pink. still on breathing tx;. 11:10 Reassessment: Patient and/or family updated on plan of care and expected duration. Pain hj level reassessed. Patient is alert, oriented x 3, equal unlabored respirations, skin warm/dry/pink. awaiting for room placement;. 12:09 Reassessment: Patient and/or family updated on plan of care and expected duration. Pain hj level reassessed. Patient is alert, oriented x 3, equal unlabored respirations, skin warm/dry/pink. awaiting for room placemtn;. 13:22 Reassessment: Patient and/or family updated on plan of care and expected duration. Pain hj level reassessed. Patient is alert, oriented x 3, equal unlabored respirations, skin warm/dry/pink. going to room 230; awaiting floor nurse to call report;. Vital Signs: 09:16 BP 125 / 69; Pulse 92; Resp 20; Temp 98.8; Pulse Ox 90% on R/A; Weight 70.31 kg; Height bp 6 ft. 2 in. (187.96 cm); 10:11 BP 134 / 70; Pulse 94; Resp 22; Pulse Ox 98% on 2 lpm NC; hj 12:10 BP 126 / 72; Pulse 90; Resp 20; Pulse Ox 99% on 2 lpm NC; hj 12:44 BP 132 / 68; Pulse 76; Resp 18; Pulse Ox 98% on 2 lpm NC; hj 13:23 BP 132 / 72; Pulse 84; Resp 18; Pulse Ox 100% on 2 lpm NC; hj 14:49 BP 134 / 70; Pulse 79; Resp 18; Pulse Ox 100% on 2 lpm NC; hj 09:16 Body Mass Index 19.90 (70.31 kg, 187.96 cm) bp ED Course: 09:01 Patient arrived in ED. rg4 09:15 Triage completed. bp 09:16 Arm band placed on. bp 09:16 Patient has correct armband on for positive identification. Placed in gown. Bed in low hj position. Call light in reach. Side rails up X 1. Adult w/ patient. 09:18 Chan Robbins MD is Attending Physician. rn 09:31 Bernardo Rubio RN is Primary Nurse. hj 09:39 Initial lab(s) drawn, by ky, sent to lab. First set of blood cultures drawn by me. dh3 Inserted saline lock: 20 gauge in right antecubital area, using aseptic technique. Blood collected. 09:55 Second set of blood cultures drawn by me. dh3 10:16 XRAY CXR (1 view) In Process Unspecified. EDMS 10:47 Micky Russo MD is Hospitalizing Provider. rn 14:37 No provider procedures requiring assistance completed. Patient admitted, IV remains in hj place. intact. Administered Medications: 09:31 Drug: Xopenex (3) 1.25 mg Route: Inhalation; hj 10:19 Follow up: Response: No adverse reaction hj 09:53 Drug: SOLU-Medrol 125 mg Route: IVP; Site: right antecubital; hj 10:15 Follow up: Response: No adverse reaction hj 11:25 Drug: Kayexalate 15 grams Route: PO; hj 12:12 Follow up: Response: No adverse reaction hj Outcome: 10:48 Decision to Hospitalize by Provider. rn 14:38 Admitted to Tele accompanied by nurse, family with patient, via stretcher, room 401, hj with oxygen, with chart, Report called to Eligio Kelley RN 14:38 Condition: stable 14:38 Instructed on the need for admit, Demonstrated understanding of instructions, follow-up care. 14:50 Patient left the ED. hj Signatures: Dispatcher [employer] EDMS Chan Robbins MD MD rn Joaquin, Henry, RN RN hj Garcia, Rubi 4 Lesley Mar [facility] Raghavendra Smith RN RN bp Corrections: (The following items were deleted from the chart) 12:44 10:11 BP 134 / 70; Pulse 94bpm; Resp 22bpm; Pulse Ox 98% Nebulizer Mask; [facility]
[2019-01-01] MEDS ORDERED: SOD POLYSTYREN SUL 15 GM/60 ML UCUP ONE (11:46)
--- NOTE | 2019-01-01 12:37 | EKG ---
Test Date: 2019-01-01 Test Time: 09:41:02 Firmware Architect: IRINA MEASUREMENT RESULTS: Intervals: Rate: 73 MN: QRSD: 116 QT: 392 QTc: 431 [place]: P: MN: QRS: -10 T: 96 INTERPRETIVE STATEMENTS: Atrial fibrillation Nonspecific ST and T wave abnormality Abnormal ECG Compared to ECG 09/11/2018 07:52:11 ST (T wave) deviation now present Left-axis deviation no longer present Electronically Signed On 01-01-19 12:36:40 CDT by Estevan Sewell
[2019-01-01] MEDS ORDERED: IPRATROPIUM BROM 0.5MG/2.5ML NEB PRN (14:59)
[2019-01-01] MEDS ORDERED: ONDANSETRON 4 MG/2 ML VIAL IV PRN (14:59)
[2019-01-01] MEDS ORDERED: ALBUTEROL 2.5 MG/3 ML NEB SOL NEB PRN (14:59)
[2019-01-01] MEDS: METHYLPREDNISOLONE 40 MG INJ IV SCH (16:26)
[2019-01-01] MEDS ORDERED: NA CHLORIDE 0.9% 1,000 ML IV PRN (17:20)
[2019-01-01] MEDS ORDERED: MANNITOL 25% 12.5 GM/50 ML VIAL IV PRN (17:20)
[2019-01-01] MEDS ORDERED: ALBUMIN HUMAN 25% 50 ML IV SCH (18:00)
[2019-01-01] MEDS: METOPROLOL XL 50 MG TAB PO SCH (21:49)
[2019-01-01] MEDS: HYDRALAZINE HCL 10 MG TABLET PO SCH (21:50)
[2019-01-01] MEDS: AMIODARONE HCL 200 MG TAB PO SCH (21:50)
[2019-01-02] MEDS: METHYLPREDNISOLONE 40 MG INJ IV SCH (01:00)
--- NOTE | 2019-01-02 02:16 | CON ---
Date of Consultation: 01/01/2019 Chief Complaint: End-stage renal disease, fluid overload, congestive heart failure acute on chronic associated with diastolic dysfunction and fluid overload, pulmonary congestion, and pleural effusion. History Of Present Illness: The patient came to the emergency room because of generalized weakness. He denies fever or chills. He denies chest pain, although he was complaining of shortness of breath , coughing with nonproductive cough. He had difficulty with ambulation. He denies nausea, vomiting. Review of Systems: Constitutional: Denies fever, chills. Eyes: Denies vision changes. Ears, Nose, Mouth, and Throat: Denies sore throat, earache. Respiratory: Has shortness of breath with dyspnea on exertion. Denies PND, orthopnea. GI: Denies nausea, vomiting. : Denies dysuria, hematuria. Musculoskeletal: Denies muscle aches or joint swelling. Neuro: Denies syncope. All other systems reviewed and all are negative. Past Medical History: Atrial fibrillation, congestive heart failure with diastolic dysfunction, COPD , glaucoma, hypercalcemia, hypertension, anemia of CKD, renal osteodystrophy, end-stage renal disease , peripheral vascular disease, lower extremity nonhealing wound. Social History: Denies tobacco, alcohol, or illicit drugs. Family History: No kidney disease in the family. Physical Examination: General: The patient is awake, alert, follows commands. Eyes: Anicteric sclerae. EOMI. Ears, Nose, Mouth, and Throat: Oral mucosa moist. No pallor. Neck: Supple. No bruits. Lungs: Crackles bilaterally present. No wheezing. No rhonchi. Abdomen: Soft, benign, nontender Cardiovascular: S1, S2. Irregularly irregular. No pericardial friction rub. Abdomen: Soft, benign, nontender. No rebound. No guarding. Extremities: Slight edema in both legs. No cellulitis. Dressing in place. Neurological: Moving extremities. No tremor. Alert and oriented x3. Laboratory Work: Hemoglobin 10.6, WBC 11.8, platelet count is 228,000. Chemistry showed sodium 149, potassium 5.7, chloride 101, CO2 29, BUN 72, creatinine 6.33. Troponin 0.06. BNP 69,169. Procalci tonin 0.34. Chest x-ray showed pleural effusion, congestive changes with interstitial pulmonary edema. Impression And Plan: 1.Fluid overload, decompensated congestive heart failure, [id number] congestive heart failure on chest x-ray. There is no evidence of active pulmonary infiltrates. The patient will have stat di alysis to control volemia. Provide management for congestive heart failure with hypoxemic respirator y failure. Continue O2 nasal cannula. 2.Renal osteodystrophy. Continue renal diet and binders. 3.Hypertension. Monitor blood pressure closely during dialysis to prevent intradialytic hypotension . 4.Anemia of chronic kidney disease. Monitor hemoglobin level. Adjust JANI. 5.Congestive heart failure, fluid overload. Continue low-sodium diet and p.o. fluid restriction. EB/MODL Voice ID: [id number] Report ID: [id number]
--- NOTE | 2019-01-02 03:03 | HP ---
Date of Admission: 01/01/2019 Chief Complaint: Cough, shortness of breath. History Of Present Illness: This is an 78-year-old pleasant male patient who has end-stage renal disease; on hemodialysis; goes for dialysis on Tuesday, Tuesday, Tuesday. Last dialysis session was last week on Tuesday. For last 2- 3 days, he is having some cough and coughing up some yellowish-colored mucus. No fever, no chills, and was also having some pain with breathing and pain with coughing in his chest cavity. Today, he started to have shortness of breath and came into emergency room. After he was evaluated, he was admitted to the hospital. When I saw him, he was getting his dialysis. Allergies: NO KNOWN ALLERGIES. Medications: List reviewed. Review of Systems: Respiratory: As mentioned above. Cardiovascular: As mentioned above. All other systems reviewed and negative. 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 Past Surgical History: Cholecystectomy, hernia repair surgery for hip fracture in May 2018. Social History: Prior history of smoking, not at present time, quit long time ago. Use of alcohol, negative. Family History: Significant for breast cancer and coronary artery disease. Physical Examination: Vital Signs: When he first came into emergency room, temperature 98.8, pulse 92 , respiratory rate 20, blood pressure 125/69, oxygen saturation 90%, height 6 feet, weight 153 pounds. General: Awake, alert, oriented, not in distress. HEENT: Head atraumatic, normocephalic. Conjunctivae nonerythematous. Sclerae white. Mouth, no thrush or edema noted. Ears/Nose, no mass, lesion, discharge noted. Neck: Supple. No JVD, lymph nodes, bruit, thyromegaly noted. Lungs: Bilateral good equal air entry. Clear to auscultation. No rhonchi. No rales. Heart: Normal heart sounds, no murmur or gallop. Abdomen: Soft, bowel sounds normal. No guarding, rigidity, tenderness, mass, hepatosplenomegaly, distention, or bruit noted. Extremities: No leg edema. No calf tenderness. Skin: No rash, ulcer, cellulitis. Lymphatics: No lymph node enlargement in neck, supraclavicular, infraclavicular region. Neuro: No focal neurological deficit. Chest: Unremarkable. External Genitalia: Deferred. Rectal: Deferred. Laboratory Data: White count 11.8, hemoglobin 10.6, platelets 228. Sodium 139 , potassium 5.7, chloride 101, bicarb 29, BUN 72, creatinine 6.33, glucose 86. ProBNP 69,169. Troponin 0.02. EKG, atrial fibrillation. Chest x-ray, mild-to- moderate CHF. Impression: 1. Congestive heart failure, diastolic, chronic with acute exacerbation. 2. Rule out acute bronchitis. 3. End-stage renal disease, on hemodialysis. 4. Vasculitis. 5. Anemia, due to chronic kidney disease. 6. Hypertension. 7. Paroxysmal atrial fibrillation. 8. Chronic steroid therapy. Plan: Admit the patient to hospital for further evaluation and management of this problem. The patient is appropriate for inpatient and is expected to spend 2 midnights in the hospital. We will go ahead and consult public aid eligibility assistant for dialysis support. The patient has history of paroxysmal atrial fibrillation. He is on amiodarone. It is controlling his heart rate very well , but I would like to request consultation from auto washer to see if the patient will benefit from any long-term anticoagulation therapy or not. Also for auto washer to evaluate and see if we need to make any changes in antiarrhythmic therapy considering he is having atrial fibrillation or not in spite of taking amiodarone. We will continue other home medications. He is on currently IV steroid; we will continue that. Tomorrow, we will decide to discontinue IV steroid and start him on his oral steroid. He may have some underlying acute bronchitis. I will re-evaluate him tomorrow to see if he needs any antibiotics or not. I have not started any antibiotics today yet. Details and plan of treatment discussed with the patient. PAULA/WILFREDO Voice ID: [id number] RUPESH
[2019-01-02 04:17] LABS: Absolute Lymphocytes (CBC) 0.4 K/uL (0.7-4.9); Basophils % 0.1 % (0-1.3); Hematocrit 29.5 % (39.6-49.0); Lymphocytes % 5.5 % (15.3-44.8); MPV 8.9 fL (7.6-11.3); Monocytes % 1.7 % (3.3-12.3); RBC Red Blood Cell Count 3.04 M/uL (4.33-5.43)
[2019-01-02 04:44] LABS: Potassium 5.4 mmol/L (3.5-5.1)
[2019-01-02 05:09] LABS: Blood Morphology Comment NOT SEEN (NOT SEEN); Platelet Estimate ADEQ
[2019-01-02] MEDS: AMLODIPINE 10 MG TAB PO SCH (09:03)
[2019-01-02] MEDS: HYDRALAZINE HCL 10 MG TABLET PO SCH (09:03)
[2019-01-02] MEDS: ASPIRIN EC 81 MG TAB PO SCH (09:03)
--- NOTE | 2019-01-02 12:42 | CON ---
Date of Consultation: 01/02/[address] to Dr. Russo's service on 01/01/2019. I saw the patient on 01/02/2019. Reason For Consultation: Congestive heart failure. History Of Present Illness: Mr. Benitez is an 78-year-old white male, has had a history of chronic di astolic congestive heart failure, chronic atrial fibrillation, end-stage renal disease, anemia, COPD, TIA, hypertension as well as peripheral arterial disease. He came in basically with shortness of br eath, was found to have pulmonary edema on x-ray. He was dialyzed yesterday and got another dialysis planned for today. He is feeling better. His atrial fibrillation is chronic. He is running a hear t rate between 70 and 80 on amiodarone. Apparently, he is not a candidate for anticoagulation becaus e of bleeding easily. He denied chest pain, nausea, vomiting, diaphoresis. Denied any palpitations or syncope. He did have PND, orthopnea but no pedal edema. Allergies: NONE. Review of Systems: Negative. Social History: Negative. Family History: Noncontributory. Medications: At home include hydralazine, amiodarone, Norvasc, losartan, and metoprolol. Physical Examination: General: He was alert, oriented x3. Pleasant. No acute distress. Feeling better. Only complaint was his left leg is sore. He has a wound that is being cared for by Dr. Davis and has almost heal ed up. He has been caring for that for about 2 years. HEENT: Negative. Neck: Supple with no bruit. Chest: Clear to auscultation and percussion today. Cardiac: Revealed atrial fibrillation. No murmurs, gallops, or rubs. Abdomen: Benign. Extremities: Revealed no clubbing, cyanosis, or edema. Dressing on the left lower extremity was dry and intact. Skin: Dry and intact. Neurological: He was nonfocal. He had adequate pulses in the femoral arteries bilaterally. Diagnostic Data: His EKG showed atrial fibrillation at 73. Chest x-ray showed CHF. Troponin is 0.0 6. He had a negative stress test in May of 2018, also in May of 2018, he had an echocardio gram showing diastolic dysfunction. His potassium is 5.7, creatinine is 5.19, hemoglobin 9.4. [place] [id number]. Impression And Plan: 1.Chronic atrial fibrillation, adequately controlled on amiodarone, rate is 73, not a candidate for anticoagulation. Continue present regimen. 2.Acute exacerbation of chronic diastolic congestive heart failure. Dialysis happened yesterday and he got another session today after which he can probably go home. Elevated troponin, elevated BNP, elevated creatinine, anemia, and hyperkalemia all secondary to renal failure. 3.His other problems include chronic obstructive pulmonary disease, transient ischemic attack, hyper tension, and peripheral arterial disease all of which are stable at this point. The patient can go h ome whenever it is okay with Dr. Russo. ZOHRA/WILFREDO Voice ID: [id number] Report ID: [id number]
--- NOTE | 2019-01-02 19:47 | P.PN ---
Subjective Date of Service: 01/02/19 Subjective: Improving Pt with ESRD admitted for SOB due to hypervolemia Today improved after HD edema +2 HD today can be dischgarged today after HD and resume his HD tomorrow as an OP Physical Examination - Vital Signs Temperature: 97.0 F Blood Pressure: 97/50 Pulse: 59 Respirations: 18 Pulse Ox (%): 100 - Physical Exam General: In no apparent distress, Oriented x3 HEENT: Atraumatic Neck: Supple, Without JVD or thyroid abnormality Respiratory: Clear to auscultation bilaterally, Normal air movement Cardiovascular: Regular rate/rhythm, Normal S1 S2, Edema, Systolic murmur Gastrointestinal: Normal bowel sounds, Soft and benign, Non-distended Musculoskeletal: No swelling Assessment And Plan - Current Problems (Diagnosis) (1) Hypoxia Onset Date: 11/27/14 Current Visit: No Status: Acute (2) ESRD (end stage renal disease) Onset Date: 09/08/17 Current Visit: No Status: Chronic - Plan ESRD on HD MWF HD today and tomorrow renal diet renal dose meds Fluid overload HD today Anemia will resume JANI
[2019-01-02] MEDS ORDERED: predniSONE 10 MG TAB PO SCH (21:00)
--- NOTE | 2019-01-02 21:20 | PN ---
Date of Progress Note: 01/02/2019 Subjective: The patient was seen this morning for followup. He was lying in bed, not in any distres s. His cough, congestion, shortness of breath is better this morning after dialysis. Objective: Vital Signs: Reviewed. HEENT Examination: Unremarkable. Lungs: Clear to auscultation except minimum basal rales noted. Heart: Sounds normal. Abdomen: Soft. Bowel sounds normal. No guarding, rigidity, tenderness, distention. Extremities: No leg edema. Laboratory Data: White count 7.7, hemoglobin 9.7, platelets 176. Sodium 137, potassium 5.4, chlorid e 102, bicarb 26, BUN 49, creatinine 5.19, glucose 150. ProBNP 93,429. Yesterday, it was 69,169. Impression: 1.Congestive heart failure, chronic, diastolic, with acute exacerbation. 2.End-stage renal disease, on hemodialysis. 3.Hyperkalemia. 4.Anemia due to chronic kidney disease. 5.Chronic steroid therapy. 6.Paroxysmal atrial fibrillation. Plan: We will continue current medications. Continue amiodarone. Cardiology consultation was reque sted for atrial fibrillation problem. We will continue to follow with bias binding cutter for dialysis supp ort and the patient has not coughed up any colored mucus since I saw him yesterday. No need for any antibiot ics at this point. PAULA/MODL Voice ID: [id number] Report ID: [id number]
[2019-01-03] MEDS: METOPROLOL XL 50 MG TAB PO SCH (00:27)
[2019-01-03] MEDS: AMIODARONE HCL 200 MG TAB PO SCH (00:28)
[2019-01-03] MEDS: HYDRALAZINE HCL 10 MG TABLET PO SCH ×2 (00:28→08:26)
[2019-01-03 08:02] VITALS: BP 106/55; TEMP 97.3
[2019-01-03] MEDS: ASPIRIN EC 81 MG TAB PO SCH (08:26)
[2019-01-03] MEDS: AMLODIPINE 10 MG TAB PO SCH (08:26)
[2019-01-03 08:33] VITALS: O2SAT 99
[2019-01-03] MEDS ORDERED: EPOETIN ALFA 10,000 UNIT/ML VIAL SQ SCH (10:00)
--- NOTE | 2019-01-03 14:11 | PN ---
Date of Progress Note: 01/03/2019 Subjective: The patient was admitted with weakness, shortness of breath, over volume. The patient i s status post dialysis. Tolerated the dialysis very well yesterday. Scheduled for dialysis in his c enter today. Physical Examination: Vital Signs: Blood pressure 106/55, pulse of 63. Chest: Faint crackles on the base. Heart: S1 and S2, regular. Systolic murmur. Abdomen: Soft and nontender. Extremities: No edema. Neurologic: Alert and oriented. No focal. Current Medications: The patient on its include: 1.Amiodarone. 2.Amlodipine 10 mg. 3.Aspirin. 4.Epogen. 5.Metoprolol. 6.PhosLo. Laboratory Data: H and H 9.7/29.5. Sodium of 137, potassium 5.4, bicarb 26, BUN 49, creatinine 5.1, calcium 8.1. BNP 93,000. Assessment And Plan: 1.End-stage renal disease, over volume. Status post dialysis yesterday, tolerated well. We will pl an for dialysis today as outpatient. 2.Hypertension, controlled, optimal. Continue current medication. 3.Secondary hyperparathyroidism. Resume PhosLo. 4.Anemia of chronic kidney disease. Continue JANI. The patient cleared from the renal standpoint for discharge planning. We will follow up as outpatient. TOSIN Voice ID: [id number] Report ID: [id number]
--- NOTE | 2019-01-04 01:26 | DS ---
Date of Discharge: 01/03/2019 Disposition: Discharged to go home. Physical Examination: HEENT: Unremarkable. Lungs: Clear to auscultation. Heart: Sounds normal. Abdomen: Soft. Bowel sounds normal. No guarding, rigidity, tenderness, distention. Extremities: No leg edema. Laboratory Data: Upon admission, potassium was 5.7, BUN 72, creatinine 6.33. Yesterday, potassium 5 .4, BUN 49, creatinine 5.19. Yesterday, white count 7.7, hemoglobin 9.7, platelets 176. Hospital Course: An 78-year-old male patient admitted to the hospital after he came into emergency r oom with complaints of cough, shortness of breath. Please see dictated H and P for more information. The patient came into the ER after he was evaluated. He was admitted to the hospital with diagnosi s of congestive heart failure. He received dialysis on the day of admission, and his cough and short ness of breath got better. He had another session of dialysis late yesterday evening and he got done with dialysis around midnight as he says. This morning when I saw him, he was feeling much better. He had some pleuritic type of chest pain when he came in, that has resolved completely. He was also coughing up some colored mucus, that has resolved completely. He was discharged to go home in stabl e condition with following discharge medication and instruction and he will go to his dialysis clinic today for outpatient dialysis per his schedule. During this hospitalization, EKG had shown atrial f ibrillation and cardiology consultation was requested from Dr. Dooley. He evaluated the patient, di d not recommend any change in his cardiac medication, which is amiodarone, which will be continued an d he has recommended no anticoagulation therapy for him considering the risk higher than the benefit. Final Diagnoses: 1.Congestive heart failure, diastolic, chronic, with acute exacerbation. 2.Paroxysmal atrial fibrillation. 3.End-stage renal disease. 4.Vasculitis. 5.Anemia due to chronic kidney disease. 6.Hypertension. 7.Chronic steroid therapy. PAULA/MODL Voice ID: [id number] Report ID: [id number]
[2019-01-04 19:32] LABS: HBsAG Nonreactive (Nonreactive)
== END 2019-01-03 10:48 | disposition home health service (06) ==
LOC: ER 09:00 → INTOOBSV 11:25 → ERHOLD 11:25 → 4TH 14:22
PROVIDERS: ADMIT Internal Medicine; ATTEND Internal Medicine
DX: I13.2 Hypertensive heart and chronic kidney disease with heart failure and with stage 5 chronic kidney disease, or end stage renal disease (principal); I50.33 Acute on chronic diastolic (congestive) heart failure; I48.0 Paroxysmal atrial fibrillation; N18.6 End stage renal disease; Z99.2 Dependence on renal dialysis; D63.1 Anemia in chronic kidney disease; I77.6 Arteritis, unspecified; I73.9 Peripheral vascular disease, unspecified; J44.9 Chronic obstructive pulmonary disease, unspecified; N25.0 Renal osteodystrophy; E87.5 Hyperkalemia; N25.81 Secondary hyperparathyroidism of renal origin; Z79.52 Long term (current) use of systemic steroids; Z79.82 Long term (current) use of aspirin; Z79.1 Long term (current) use of non-steroidal anti-inflammatories (NSAID); Z79.899 Other long term (current) drug therapy; Z86.73 Personal history of transient ischemic attack (TIA), and cerebral infarction without residual deficits
CPT/HCPCS: 93005; 87040 ×2; 85025 ×2; 80048 ×2; 36415; 84484 ×3; 86704; 84145; 83880 ×2; 87340; 86706; 86803; 71045; 90935 ×3; 94760 ×4; 96374; 99285; J1644 ×2; J2930; J2920 ×2; G0378 ×2; J7512; Q4081